=== PATIENT | male | born 1945 | race Caucasian/White ===

== ENCOUNTER 2022-10-29 10:59 | Outpatient (CLI) | payer MEDICARE, BC, SELFPAY ==
--- OUTSIDE RECORDS SUMMARY | 2022-10-31 16:18 | XMS_ITS | Encounter Summary ---
:1945 Author Organization [facility] Address [address] [place] [address] Support Name Relationship Address Phone MELISSA CANO Unavailable [address] [place] [address] MELISSA CANO Unavailable [address] [place] [address] Insurance Providers: All historical and current Section Date Range: From patient's date of to the date document was created.This section includes the names of all active insurance providers for the patient. Insurance Type of Plan Start of End of Group Member [facility] Coverage Name Policy Policy Number ID Provider's Ruiz's Relationship Coverage Coverage Telephone Name to Policy Number Ruiz [place] MEDICARE MCR Nov 25, [id number] DO RACHAEL Rhonda [facility] (WNR) 2016 3 [id number] [phone] [id number] 1 Selected Encounter This section includes the information on record at [place] for the Encounter. Date/Time Encounter Type Encounter Description Reason Provider Source Aug 06, 2022 12:00 Outpatient Encounter EVENT (HISTORICAL) AM IHE Encounter Template Text not used by [place] Social History: Smoking Status (Most current) and Tobacco Use (All prior to encounter date) This section includes the most current, and the historical, smoking and tobacco-related health factors from the [facility] facility where the Encounter took place.Current Smoking Status This section includes the most current smoking, or tobacco-related health factor, from the [place] facility where the Encounter took place. Date/Time Current Smoking Status Comment Facility April 12, 2014 12:27 PM FORMER TOBACCO USER 7Y OR GREATER [facility] Advance Directives: All historical and current Section Date Range: From patient's date of to the date document was created. This section includes ALL of a patient's completed or amended [place] Advance and Rescinded Directives. The entries below indicate that a directive exists for the patient, but an actual copy is not included with this document. The data comes from all [place] facilities. Date Advance Directives Provider Source March 27, 2016 ADVANCE DIRECTIVE DISCUSSION EZEKIEL TAVERAS March 27, 2016 ADVANCE DIRECTIVE EZEKIEL TAVERAS CB [facility]
--- OUTSIDE RECORDS SUMMARY | 2022-10-31 16:18 | XMS_ITS | Encounter Summary ---
:1945 Author Organization [facility] Address [address] [place] [address] Care Team Providers Name Role Phone Agnieszka Reyes MD Primary Care Provider Encounter Details Date Type Department Care Team Description 08/01/2022 Lab Visit [facility] Contact with and [address] Beny Johnson (suspected) [place] [address] covid-19 Social History Tobacco Use Types Packs/Day Years Used Date Smoking Tobacco: Former Cigarettes Quit : 04/09/2003 Smokeless Tobacco: Never Alcohol Use Standard Drinks/Week Comments Not Currently 0 (1 standard drink = 0.6 oz pure alcoho l) Sex Assigned at Date Recorded Not on file documented as of this encounter Plan of Treatment Not on filedocumented as of this encounter Procedures Procedure Name Priority Date/Time Associated Comments Diagnosis 2019 NOVEL Routine 08/01/2022 9:59 AM Contact with and Resul ts for this CORONAVIRUS CDT (suspected) procedure are i n exposure to the results covid-19 section. documented in this encounter Results Asymptomatic - 2019 Novel Coronavirus (COVID-19) (08/01/2022 9:59 AM CDT) [facility] Method Time Signature COVID-19 Not Not 08/02/2022 [facility] Interpretation Detected Detected 12:30 AM CENTRAL LAB CDT Source Nares, left 08/02/2022 [facility] and right 12:30 AM C[facility]TRAL LAB CDT Specimen Anatomical Collection Method Collection Time Receive d Time (Source) Location / / Volume Laterality Swab (Source Non-blood 08/01/2022 9:59 AM 09/07/202 2 9:59 Required) Collection / CDT AM CDT Unknown Narrative [facility] - 08/02/2022 12:30 AM CDT Test performed by Coin Box Inspector Mediated Amplification. TMA has been shown to be equivalent to commercial real-time PCR t ests. This test has been authorized by the FDA under Emergency Use Authorization (E UA) for use by authorized laboratories. Agnieszka Reyes MD LAB_1 Performing Organization Address City/State/ZIP Code Phon e Number [facility] [address] [address] documented in this encounter Visit Diagnoses Diagnosis Contact with and (suspected) exposure to covid-19 documented in this encounter Care Teams Cabin Service Agent Relationship Specialty Start Date End Date Agnieszka Reyes MD PCP - General Internal Medicine 09/03/[address] [place] [address] documented as of this encounter
--- OUTSIDE RECORDS SUMMARY | 2022-10-31 16:18 | XMS_ITS | Encounter Summary ---
:1945 Author Organization [facility] Address [address] [place] [address] Care Team Providers Name Role Phone Agnieszka Reyes MD Primary Care Provider Reason for Visit Reason Comments Follow-up Encounter Details Date Type Department Care Team Description 08/03/2022 Office Visit [facility] Annamarie Hannon Modera te persistent 3931 Pulmonary asthma without Medicine [address] complication (Primary [address] [place]x) [place] [phone] (Wo rk) Social History Tobacco Use Types Packs/Day Years Used Date Smoking Tobacco: Former Cigarettes Quit : 04/09/2003 Smokeless Tobacco: Never Alcohol Use Standard Drinks/Week Comments Not Currently 0 (1 standard drink = 0.6 oz pure alcoho l) Sex Assigned at Date Recorded Not on file documented as of this encounter Last Filed Vital Signs Vital Sign Reading Time Taken Comments Blood Pressure - - Pulse 66 08/03/2022 1:18 PM CDT Temperature - - Respiratory Rate - - Oxygen Saturation 97% 08/03/2022 1:18 PM CDT Inhaled Oxygen Concentration - - Weight 73.9 kg (163 lb) 08/03/2022 1:18 PM CDT Height 182.9 cm (6') 08/03/2022 1:18 PM CDT Body Mass Index 22.11 08/03/2022 1:18 PM CDT documented in this encounter Patient Instructions Patient InstructionsAnnamarie Hannon MD - 08/03/2022 1:00 PM CDT 1. Advair wixela 500/50 1 puff 2x day. Sent to [facility] 2. Get flu vaccine in the next month 3. Follow up 1 year with breathing test documented in this encounter Progress Notes Annamarie Hannon MD - 08/03/2022 1:00 PM CDT Chief Complaint Patient presents with Follow-up SUBJECTIVE : The patient is a 77 y.o. male who presents today for follow up moderate copd/asthma. He was last seen in May 2021 and at that time he was stable from a respiratory standpoint and was using high dose advair. He gets his medications through the [place]. he has had no intercurrent respiratory illnesses. Froma lung standpoint he thinks he is doing well. He is up-to-date on vaccinations and will be getting evusheld in the next 2 weeks. 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 He is being followed at the [facility] for his kidney issues andCLL. He was started on acalabrutinib in March 2021 for his CLL and this seems to be working clinically. He underwent extensive evaluation at the [facility] including chest abdomen and pelvis CT scan andthis showed significant increase in his mediastinal adenopathy which was felt to be consistent with his CLL. He denies any fevers chills or chest pains at this time. He also had a prostate biopsy and this was negative. His weight has stabilized and his strength is back to normal. Patient Active Problem List Diagnosis COPD (chronic obstructive pulmonary disease) (HRC) Allergic rhinitis Tubular adenoma of colon Hyperlipidemia (HRC) Albrecht's neuroma of left foot H/O umbilical hernia repair H/O inguinal hernia repair Seasonal allergies GERD (gastroesophageal reflux disease) Asthma (HRC) Outpatient Medications Prior to Visit Medication Sig Note Acalabrutinib 100 MG CAPS Take 100 mg by mouth every 12 hours. cholecalciferol (AKA VITAMIN D3) 1000 UNITS capsule Take by mouth. cyanocobalamin 500 MCG tablet Take 1,000 mcg by mouth Daily. 09/03/2016: Pt takes B-12 fluocinonide (LIDEX) 0.05 % cream Apply topically two times a day. fluticasone (FLONASE) 50 MCG/ACT nasal solution Place 2 Sprays into both nostrils daily. Multiple Vitamins-Minerals (MULTIVITAMIN OR) Take 1 tablet by mouth daily (every 24 hours). simvastatin (ZOCOR) 80 MG tablet Take 0.5 Tablets by mouth daily at bedtime. [DISCONTINUED] ALBUterol sulfate HFA 108 (90 BASE) MCG/ACT inhaler Inhale 2 Puffs every 6 hours as needed for Wheezing (Inhale 2 puffs every 6 hours as needed for Wheezing.). [DISCONTINUED] amLODIPine (NORVASC) 5 MG tablet Take 5 mg by mouth daily. [DISCONTINUED] aspirin EC 81 MG enteric coated tablet Take 81 mg by mouth daily (every 24 hours). (Patient not taking: Reported on 08/03/2022) [DISCONTINUED] calcium carbonate (TUMS) 500 MG chewable tablet Take 1 Tablet by mouth two times a day. (Patient not taking: Reported on 08/03/2022) [DISCONTINUED] cefuroxime (CEFTIN) 500 MG tablet Take 500 mg by mouth two times a day. [DISCONTINUED] COMBIGAN 0.2-0.5 % eye drop solution (Patient not taking: Reported on 08/03/2022) [DISCONTINUED] fluticasone-salmeterol (ADVAIR HFA) 230-21 mcg/actuation inhaler Inhale 2 Puffs two times a day. Rinse mouth/gargle after use [DISCONTINUED] fluticasone-salmeterol (AIRDUO RESPICLICK) 232-14 MCG/ACT inhaler Inhale 1 Puff two times a day. Rinse mouth/gargle after use. [DISCONTINUED] levothyroxine (SYNTHROID) 175 MCG tablet Take 175 mcg by mouth. [DISCONTINUED] levothyroxine (SYNTHROID) 25 MCG tablet Take 5 Tablets by mouth daily. [DISCONTINUED] lisinopril (ZESTRIL) 5 MG tablet Take 5 mg by mouth daily. 08/03/2022: Patient is taking differently as 10mg correct dose PO daily. [DISCONTINUED] NIFEdipine XL (PROCARDIA XL) 30 MG 24 hour release tablet (Patient not taking: Reported on 08/03/2022) [DISCONTINUED] prochlorperazine (COMPAZINE) 10 MG tablet [DISCONTINUED] tacrolimus (PROGRAF) 0.5 MG capsule Take 1 Capsule by mouth daily. [DISCONTINUED] tamsulosin (FLOMAX) 0.4 MG CAPS capsule Take 0.4 mg by mouth daily. (Patient not taking: Reported on 08/03/2022) [DISCONTINUED] torsemide (DEMADEX) 20 MG tablet Take 1 Tablet by mouth two times a day. No facility-administered medications prior to visit. OBJECTIVE : Gen.: Alert, cooperative in no acute distress. Pulse 66 Ht 6' (1.829 m) Wt 163 lb (73.9 kg) SpO2 97% BMI 22.11 kg/m?? Estimated body mass index is 22.11 kg/m?? as calculated from the following: Height as of this encounter: 6' (1.829 m). Weight as of this encounter: 163 lb (73.9 kg). Head: Normocephalic. Eyes: PERRLA, full EOM Throat: Moist mucous membranes without lesions, erythema, or exudate. Neck: Supple, without masses, lymphadenopathy or tenderness. Respiratory: Clear to auscultation Heart: RRR with 2/6 systolic murmur Abdomen: The abdomen was soft and nontender, normal sounds present. Extremities: rash on skin raised erythema on back arms and legs. Also petechial lesions on legs, pitting edema arms and legs Neurologic: Alert, oriented x3, nonfocal. PFT: FVC 113 %, FEV1 79 %, FEV1/FVC 55 ASSESSMENT : The patient is a 77 y.o. male with underlying CLL with membranous glomerular nephritis,also with moderate persistent asthma/COPD who is clinically stable from a lung standpoint. Pulmonaryfunction test show almost normal FEV1. He will simply continue with his generic Advair. He will get his flu vaccine next month as well. He will continue to follow up on an annual basis. PLAN : 1. Advair wixela 500/50 1 puff 2x day. Sent to [facility] 2. Get flu vaccine in the next month 3. Follow up 1 year with breathing test copy Dr Dixon Dangelo [facility] [address] [place] [address] Dr. Christofer Roy [facility] Department of nephrology documented in this encounter Plan of Treatment Scheduled Orders Name Type Priority Associated Diagnoses Order S chedule Spirometry PFT Routine Moderate persistent asthma 1 Occurrences starting without complication 022 until 08/03/2023 documented as of this encounter Visit Diagnoses Diagnosis Moderate persistent asthma without compl ication (HRC) - Primary Unspecified asthma documented in this encounter Care Teams Stacker Driver Relationship Specialty Start Date End Date Agnieszka Reyes MD PCP - General Internal Medicine 09/[address] [place] [address] documented as of this encounter
--- OUTSIDE RECORDS SUMMARY | 2022-10-31 16:18 | XMS_ITS | Clinical Summary ---
:1945 [facility] Address [address], [place] [address] Care Team Providers Name Role Phone Agnieszka Reyes MD Primary Care Provider Source Comments You are receiving this document as you are listed as the primary care provider,follow-up provider, or the patient has been referred to you for consultation.This is in compliance with the Medicare and Medicaid EHR Incentive Program,which states Providers who transition their patient to another setting of careor provider of care or refers their patient to another provider of care shouldprovide summarycare record for each transition of care or referral. [facility]Health Allergies Active Allergy Reactions Severity Noted Date Comments Desflurane Low 03/02/2014 PN: mild, thra shing after coming out of i t Rituximab Other, see comments High 06/29/2020 terrible headaches, eye socket issues, went to ER Medications Medication Sig Dispensed Refills Start Date End Date Status cholecalciferol (AKA Take by mouth. 0 10/30/2013 Active VITAMIN D3) 1000 UNITS capsule Multiple Take 1 tablet by 0 10/30/2013 Ac tive Vitamins-Minerals mouth daily (MULTIVITAMIN OR) (every 24 hours). cyanocobalamin 500 MCG Take 1,000 mcg 0 10/30/2013 Active tablet by mouth Daily. fluocinonide (LIDEX) Apply topically 30 g 3 03/11/2017 Active 0.05 % cream two times a day. fluticasone (FLONASE) Place 2 Sprays 16 g 11 03/06/2018 Active 50 MCG/ACT nasal into both solution nostrils daily. simvastatin (ZOCOR) 80 Take 0.5 Tablets 30 Tablet 0 02/27/2019 Active MG tablet by mouth daily at bedtime. Acalabrutinib 100 MG Take 100 mg by 0 03/28/2022 Active CAPS mouth every 12 hours. fluticasone-salmeterol Inhale 2 Puffs 12 g 11 08/03/2022 Active (ADVAIR HFA) 230-21 two times a day. mcg/actuation inhaler Rinse mouth/gargle after use fluticasone-salmeterol Inhale 1 Puff 3 Each 3 08/03/2022 Active (ADVAIR) 500-50 two times a day. MCG/ACT diskus inhaler Rinse mouth/gargle after use ALBUterol sulfate HFA Inhale 2 Puffs 1 Each 11 08/03/2022 Active 108 (90 Base) MCG/ACT every 6 hours as inhaler needed for Wheezing (Inhale 2 puffs every 6 hours as needed for Wheezing.). Active Problems Problem Noted Date Asthma 07/23/2014 Overview: Unspecified asthma(493.90) (HRC) GERD (gastroesophageal reflux disease) 04/09/2014 COPD (chronic obstructive pulmonary disease) 4 Allergic rhinitis 04/07/2014 Overview: Allergic rhinitis, cause unspecified Tubular adenoma of colon 04/07/2014 Hyperlipidemia 04/07/2014 Albrecht's neuroma of left foot 04/07/2014 H/O umbilical hernia repair 04/07/2014 H/O inguinal hernia repair 04/07/2014 Seasonal allergies 04/07/2014 Encounters Date Type Specialty Care Team Description 08/03/2022 Office Visit Pulmonary Annamarie Hannon Moderate p ersistent asthma without complic ation (Primary Dx) 08/03/2022 Hospital Encounter Pulmonary Chronic o bstructive pulmonary disea se, unspecified DIRECTOR OF BUSINESS CONTINUITY D type (HRC) 08/01/2022 Lab Visit Laboratory Contact with an d (suspected) exp osure to covid-19 from Last 3 Months Immunizations Name Administration Dates Next Due Influenza IIV3 (Trivalent) Fluzone 09/03/2016, 08/31/2015, 0 07/23/2014 Highdose, 65+ Yrs ([id number]) Influenza IIV4 (Quadrivalent) Fluad, 65+ 09/07/2020 Yrs Family History Medical History Relation Name Comments Cancer Father colon Emphysema Mother Heart Failure Mother Relation Name Status Comments Father Mother Social History Tobacco Use Types Packs/Day Years Used Date Smoking Tobacco: Former Cigarettes Quit : 04/09/2003 Smokeless Tobacco: Never Alcohol Use Standard Drinks/Week Comments Not Currently 0 (1 standard drink = 0.6 oz pure alcoho l) Sex Assigned at Date Recorded Not on file Last Filed Vital Signs Vital Sign Reading Time Taken Comments Blood Pressure 122/72 09/07/2020 11:24 AM CDT Pulse 66 08/03/2022 1:18 PM CDT Temperature - - Respiratory Rate - - Oxygen Saturation 97% 08/03/2022 1:18 PM CDT Inhaled Oxygen Concentration - - Weight 73.9 kg (163 lb) 08/03/2022 1:18 PM CDT Height 182.9 cm (6') 08/03/2022 1:18 PM CDT Body Mass Index 22.11 08/03/2022 1:18 PM CDT Plan of Treatment Health Maintenance Due Date Last Done Comments Hep C Screening (Preventive 1945 Services) Medicare Annual Wellness 1945 Visit COVID-19 Vaccine (#1) 1945 Influenza (#1) 2022 09/11/2021, 09/11/2021, 09/07/2020, Additional history exists DTaP/Tdap/Td (3 - Tdap) 05/03/2025 05/03/2015, 06/25/2014, 02/17/2004 Pneumococcal 65+ Yrs Completed 05/03/2015, 05/15/2011, 11/25/2010, Additional history exists Zoster/Shingles Completed 01/04/2022, 08/08/2021, 10/09/2011, Additional history exists HepA Aged Out No longer eligib le based on patient 's age to complete this topic HepB Aged Out No longer eligib le based on patient 's age to complete this topic Hib Aged Out No longer eligib le based on patient 's age to complete this topic IPV (Polio) Aged Out No longer eligib le based on patient 's age to complete this topic MCV4 Aged Out No longer eligib le based on patient 's age to complete this topic Procedures Procedure Name Priority Date/Time Associated Comments Diagnosis COMPLETE PULMONARY Routine 08/03/2022 12:14 FUNCTION TEST PM CDT 2019 NOVEL Routine 08/01/2022 9:59 AM Contact with and Resul ts for this CORONAVIRUS CDT (suspected) procedure are i n exposure to the results covid-19 section. from Last 3 Months Results Pulmonary Function Test - Complete (08/03/2022 12:14 PM CDT) Specimen (Source) Anatomical Collection Method Collection Time Re ceived Time Location / / Volume Laterality 08/03/2022 12:14 PM CDT Annamarie Hannon MD PN PFT ORDERABLES Performing Organization Address City/State/ZIP Code Phon e Number PN BREEZJorge Luis Asymptomatic - 2019 Novel Coronavirus (COVID-19) (08/01/2022 9:59 AM CDT) [facility] Method Time Signature COVID-19 Not Not 08/02/2022 [facility] Interpretation Detected Detected 12:30 AM [facility]AL LAB CDT Source Nares, left [facility]02[facility]2022 [facility] and right 12:30 AM [facility] CDT Specimen Anatomical Collection Method Collection Time Receive d Time (Source) Location / / Volume Laterality Swab (Source Non-blood 08/01/2022 9:59 AM 9:59 Required) Collection / CDT AM CDT Unknown Narrative [facility] - 08/02/2022 12:30 AM CDT Test performed by Obstetrician/Gynecologist Mediated Amplification. TMA has been shown to be equivalent to commercial real-time PCR t ests. This test has been authorized by the FDA under Emergency Use Authorization (E UA) for use by authorized laboratories. Agnieszka Reyes MD LAB_1 Performing Organization Address City/State/ZIP Code Phon e Number [facility] [address] [address] from Last 3 Months Insurance Payer Benefit Plan / Subscriber ID Effective Dates Phone Addre ss Type Group MEDICARE MEDICARE [id number] 2013-Presen [phone] M edicare MANAGED CARE t 65 BCBS BCBS BCBS [place] [id number] 2016-[place]ude [place] [phone] [address] [address] Medicare BLUE t [address] [place] [phone] (Home) [place] [id number] Shon Dunlap Patsy Personal/Family Self [address] (Home) [place] [address] DunlapShon Patsy Personal/Family Self [address] (Home) [place] [address] Care Teams Manager Architecture Relationship Specialty Start Date End Date Agnieszka Reyes MD PCP - General Internal Medicine 09/03/16[address] [place] [address]
--- OUTSIDE RECORDS SUMMARY | 2022-10-31 16:18 | XMS_ITS ---
:1945 Author Care Team Providers Name Role Phone LADI AREVALO MD Primary Care Provider [phone] Allergies Code Code System Name Reaction Severity Status Onset NKDA ? Medications Name Status Start Date Stop Date ? ? acalabrutinib 100 mg capsule Active ? Not available Take 1 capsule twice a day by oral route. Advair HFA 230 mcg-21 mcg/actuation aerosol inhaler Completed ? 01/15/2022 INHALE TWO PUFFS BY MOUTH TWICE DAILY. RINSE MOUTH / GARGLE WTITH WATER AFTER EACH USE. albuterol sulf 90 mcg/actuation breath activated powder inhaler, sensor Active ? Not available Inhale 2 puffs every 4 hours by inhalation route. Allergy Relief (fluticasone) 50 mcg/actuation nasal spray,suspen aleida Active ? Not available [place] 1 spray every day by intranasal route. cefuroxime axetil 500 mg tablet Completed ? 01/15/2022 TAKE 1 TABLET BY MOUTH TWICE DAILY cephalexin 500 mg capsule Active ? Not av ailable TAKE 1 CAPSULE BY MOUTH EVERY 8 HOURS cholecalciferol (vit D3) 1,000 unit-vitamin K2 (MK4) 100 mcg tab let Active ? Not available Take by oral route. cyanocobalamin (vit B-12) 1,000 mcg sublingual lozenge Active ? Not available Place by sublingual route. fluocinonide 0.05 % topical cream Active ? Not available APPLY TO THE AFFECTED AREA(S) BY TOPICAL ROUTE 2 TIMES PER DAY levothyroxine 125 mcg tablet Completed ? levothyroxine 150 mcg tablet Completed ? levothyroxine 175 mcg tablet Completed ? levothyroxine 25 mcg tablet Completed ? 12/27 levothyroxine 50 mcg tablet Active ? Not available levothyroxine 75 mcg tablet Completed ? 0611/2021 lisinopril 10 mg tablet Active ? Not avai lable lisinopril 20 mg tablet Completed ? 01/15/20 metolazone 5 mg tablet Completed ? multivitamin Active ? Not available nifedipine ER 30 mg tablet,extended release 24 hr Completed ? 01/15/2022 potassium chloride ER 20 mEq tablet,extended release Completed ? 01/15/2022 prochlorperazine maleate 10 mg tablet Completed ? 01/15/2022 simvastatin 80 mg tablet Active ? Not mckay ilable Take by oral route. tamsulosin 0.4 mg capsule Completed ? 2021 TAKE 1 CAPSULE BY MOUTH DAILY Wixela Inhub Active ? Not available Problems No Known Problems Procedures Date Name Performed by ? ? Appendectomy Information not avai lable Results Lab Results Date Name Specimen Result Interpretation Description Value Range Status Address ? 04/25/2022 Urinalysis, ? Color-Status Yellow ? ? [facility]: [address], [place] ? ? ? Clarity-Status Slightly ? ? [facility]: [address], [place] ? ? ? Blood-Status Trace ? ? [facility]: [address], [place] ? ? ? Protein-Status >=9.0 ? ? [facility]: [address], [place] ? ? ? Leuko-Status Moderate ? ? [facility]: [address], [place] ? ? ? pH-Status 5.0 ? ? [facility]: [address], [place] 04/17/2022 PSA, Serum or ? No observation ? ? ? Plasma recorded. 02/08/2022 PSA, Serum or ? No observation ? ? ? Plasma recorded. 02/03/2022 PSA, Serum or ? No observation ? ? ? Plasma recorded. 12/14/2021 PSA, Serum or ? No observation ? ? ? Plasma recorded. Past Encounters Encounter Date Diagnosis Provider 04/25/2022 Raised Prostate Specific Antigen; Janette Almanzar MD: [address], [address], [place] [phone], Ph. 02/12/2022 Raised Prostate Specific Antigen Kennedy Almanzar MD: [address], [address], [place] [phone], Ph. 01/15/2022 Raised Prostate Specific Antigen; Janette Almanzar MD: [address], Benign Prostatic Hypertrophy [place] [phone], Ph. Social History Tobacco Smoking Status Former Smoker Vaccine List Vaccine Type COVID-19, mRNA, LNP-S, PF, 30 mcg/0.3 mL dose ([place]) 02/28/2021 03/21/2021 07/21/2021 Influenza vaccine, quadrivalent, adjuvan colin 09/07/2020 influenza, high dose seasonal 07/23/2014 08/31/2015 09/03/2016 08/09/2017 08/28/2018 09/03/2019 influenza, high-dose, quadrivalent 09/11/2021 influenza, seasonal, injectable 09/29/2005 10/12/2006 10/11/2008 08/16/2012 influenza, seasonal, injectable, preserv ative free 08/10/2009 08/14/2010 08/17/2011 08/24/2013 pneumococcal conjugate PCV 13 05/03/2015 pneumococcal polysaccharide PPV23 09/20/2010 05/15/2011 Td (adult), adsorbed 02/17/2004 Tdap 05/03/2015 zoster live 10/09/2011 zoster recombinant 08/08/2021 01/04/2022 Plan of Care Reminders Provider Appointments None recorded. ? ? Lab None recorded. ? ? Referral None recorded. ? ? Procedures None recorded. ? ? Surgeries None recorded. ? ? Imaging None recorded. ? ? Vitals 04/25/2022 08:00AM ESTABLISHED 10 Height Weight BMI 6 ft 155 lbs 21 kg/m2 02/12/2022 08:50AM ESTABLISHED 10 Height Weight BMI 6 ft 155 lbs 21 kg/m2 01/15/2022 08:40AM ESTABLISHED 10 Height Weight BMI 6 ft 155 lbs 21 kg/m2
--- OUTSIDE RECORDS SUMMARY | 2022-10-31 16:18 | XMS_ITS | Encounter Summary ---
:1945 Author Organization Department [facility] rs Address [address] [place] [address] Support Name Relationship Address Phone MELISSA CANO Unavailable [address] [place] [address] MELISSA CANO Unavailable [address] [place] [address] Insurance Providers: All historical and current Section Date Range: From patient's date of to the date document was created.This section includes the names of all active insurance providers for the patient. Insurance Type of Plan Start of End of Group Member Insurance Policy P atient's Provider Coverage Name Policy Policy Number ID Provider's Ruiz's Relationship Coverage Coverage Telephone Name to Policy Number Ruiz [place] MEDICARE MCR Nov 25, [id number] DO RACHAEL Rhonda ATIENT [facility] (WNR) ADVANTAGE (WNR) 2016 3 [id number] [phone] UGLAS 1 Selected Encounter This section includes the information on record at [place] for the Encounter. Date/Time Encounter Type Encounter Reason Provider Source Description Aug 06, 2022 OFFICE O/P EST PRIMARY ICD-10-CM Z00.8 IZABELBALJEET 08:00 AM MOD 30-39 MIN CARE/MEDICINE Encounter for CA L other general examination with Provider Comments: Encounter for other General Examination IHE Encounter Template Text not used by [facility] Assessments - Encounter Diagnoses This section includes the primary and secondary diagnoses documented for the Encounter. Date/Time Primary/Secondary Diagnosis Name Provider Source Diagnosis Aug 06, 2022 PRIMARY Encounter for IZABELBALJEET [facility] 09:01 AM other general CA L examination Aug 06, 2022 SECONDARY Benign prostatic BALJEET PAIZ [facility] 09:01 AM hyperplasia with CA L lower urinary tract symp Aug 06, 2022 SECONDARY Chronic IZABEL,REBEC [facility] 09:01 AM lymphocytic CA L leukemia of B-cell type in remission Aug 06, 2022 SECONDARY Chronic BALJEET PAIZ [facility] 09:01 AM obstructive CA L pulmonary disease, unspecified Aug 06, 2022 SECONDARY Hypothyroidism, BALJEET PAIZ C [facility] 09:01 AM unspecified CA L Vital Signs: All taken on the encounter date This section contains inpatient and outpatient Vital Signs collected on the date of the Encounter. Date/Time Temperature Pulse Blood Respiratory SP02 Pain Height Weight Dawit dy Source Pressure Rate Mass Index Aug 06, 136/76 SHAKOPE 2021 08:39 mm[Hg] E [facility] AM Aug 06, 96.6 F 76 137/77 16 /min 98 % 0 72 in 170 lb 23 2021 08:22 /min mm[Hg] E [facility] AM Social History: Smoking Status (Most current) and Tobacco Use (All prior to encounter date) This section includes the most current, and the historical, smoking and tobacco-related health factors from the [place] facility where the Encounter took place.Current Smoking Status This section includes the most current smoking, or tobacco-related health factor, from the [place] facility where the Encounter took place. Date/Time Current Smoking Status Comment Facility Aug 06, 2022 08:00 AM VA-TOBACCO FORMER USER [facility] Tobacco Use History This section includes a history of the smoking, or tobacco- related health factors, that were collected on or before the date of the Encounter. The data comes from the [place] facility where the Encounter took place. Date/Time Smoking Status/Tobacco Use Comment Fe [place] Aug 06, 2022 08:00 AM VA-TOBACCO QUIT 15 YRS OR MORE [facility] Jun 14, 2021 08:30 AM VA-TOBACCO FORMER USER [facility] Jun 14, 2021 08:30 AM VA-TOBACCO QUIT 15 YRS OR MORE [facility] April 13, 2020 10:29 AM VA-TOBACCO FORMER USER [facility] April 13, 2020 10:29 AM VA-TOBACCO QUIT 15 YRS OR MORE [facility] Dec 19, 2018 10:53 AM VA-TOBACCO FORMER USER [facility] Dec 19, 2018 10:53 AM VA-TOBACCO QUIT 15 YRS OR MORE [facility] Jan 30, 2018 08:52 AM FORMER TOBACCO USER 7Y OR GREATER [facility] Mar 18, 2017 08:01 AM FORMER TOBACCO USER 7Y OR GREATER [facility] Mar 16, 2016 04:12 AM FORMER TOBACCO USER 7Y OR GREATER [facility] Feb 21, 2015 01:12 PM FORMER TOBACCO USER 7Y OR GREATER [facility] Advance Directives: All historical and current Section Date Range: From patient's date of to the date document was created. This section includes ALL of a patient's completed or amended VA Advance and Rescinded Directives. The entries below indicate that a directive exists for the patient, but an actual copy is not included with this document. The data comes from all [place] facilities. Date Advance Directives Provider Source March 27, 2016 ADVANCE DIRECTIVE DISCUSSION EZEKIEL TAVERAS March 27, 2016 ADVANCE DIRECTIVE EZEKIEL TAVERAS [facility] Encounter Notes: All associated encounter notes This section contains the clinical notes associated to the Encounter. Date/Time Encounter Note(s) Provider Source Aug 06, 2022 09:02 AM MEDICATION MGT NOTE: REDDY PAIZ LUCY [facility] LOCAL TITLE: MEDICATION RECONCILIATION NOTE STANDARD TITLE: MEDICATION MGT NOTE DATE OF NOTE: AUG 06, 2022@09:02 ENTRY DATE: AUG 06, 2022@09:02:16 AUTHOR: REDDY PAIZ EXP COSIGNER: URGENCY: STATUS: COMPLETED MEDICATION RECONCILIATION Active Outpatient Medications (excluding Supplie s): Outpatient Medications Status 1) ALBUTEROL 90MCG (CFC-F) 200D ORAL INHL INHALE 2 PUFFS PENDING BY INHALATION EVERY 6 HRS NEEDED SHAKE WELL (FOR IMMEDIATE RELIEF). FOR SHORTNESS O F BREATH 2) FLUOCINONIDE 0.05% CREAM APPLY THIN LAYER TOP ICALLY PENDING TWICE A DAY AVOID FACE,GROIN & ARMPITS *FOR EXTERNAL USE ONLY 3) FLUTICAS 500/SALMETEROL 50 INHL DISK 60 INHAL E 1 PUFF ACTIVE TWICE A DAY *RINSE MOUTH AFTER EACH USE* 4) FLUTICAS 500/SALMETEROL 50 INHL DISK 60 INHAL E 1 PUFF PENDING TWICE A DAY *RINSE MOUTH AFTER EACH USE* 5) SIMVASTATIN 80MG TAB TAKE ONE-HALF TABLET BY MOUTH AT PENDING BEDTIME FOR CHOLESTEROL Non-VA Medications Status 1) Non-VA ACALABRUTINIB 100MG CAP 100MG MOUTH EV BLESSING DAY ACTIVE 2) Non-VA ASPIRIN 81MG EC TAB 81MG MOUTH DAILY A CTIVE 3) Non-VA CALCIUM CARBONATE 500MG TAB 500MG MOUT H EVERY ACTIVE DAY 4) Non-VA CENTRUM TAB--OTC 1 TABLET MOUTH ACTIVE 5) Non-VA CHOLECALCIF 25MCG (D3-1,000UNIT) TAB 1 000UNIT ACTIVE MOUTH DAILY 6) Non-VA CYANOCOBALAMIN 100MCG TAB 500MCG MOUTH ACTIVE 7) Non-VA FLUTICASONE PROP 50MCG 120D NASAL INHL 2 ACTIVE SPRAYS ONE NOSTRIL EVERY DAY 8) Non-VA LEVOTHYROXINE NA (SYNTHROID) 175MCG TA B 175MCG ACTIVE MOUTH EVERY DAY 9) Non-VA LISINOPRIL TAB 50MCG MOUTH EVERY DAY A CTIVE 14 Total Medications Medications listed above are accurate and should continue as ordered. /edith/ REDDY PAIZ PHYSICIAN Signed: 08/06/2022 09:02 Aug 06, 2022 08:43 AM H & P NOTE: REDDY PAIZ LOCAL TITLE: CBOC ANNUAL VISIT STANDARD TITLE: H & P NOTE DATE OF NOTE: AUG 06, 2022@08:43 ENTRY DATE: AUG 06, 2022@08:43:29 AUTHOR: REDDY PAIZ EXP COSIGNER: URGENCY: STATUS: COMPLETED Annual visit Non VA Providers:Roro Reddy [facility] gurinder Poole Chief complaint: Patient is here for a routine a nnual visit. HPI:Leonarda get al [place]. Currently he is being treated for CLL at [facility] due to kidney complications whic h are now under control. He also was sen for increased psa but biopsy was no rmal. Otherwise he feels god. Assessment/Plan: 1. Labs review labs from [facility] has draw tomorrow 2. ophtho sees rgularly 3. dentist due 4. Audio bilat aides 1 year old 5. Medications reviewd, renewd Labs and medications reviewed with patient. Discussed plan of care, patient verbaliz ed understanding and agrees with plan. FU in 1 year for annual exam, sooner with any co ncerns. Clinical Reminders: Follow Up Colonoscopy: Colonoscopy is due based on information availab le to this reminder. Patient has arranged or is choosing to arrange a Colonoscopy independent of and w/out assistance from this [place]. Past Medical History: Computerized Problem List is the source for the followin. Chronic obstructive lung disease ACTIVE 2. Hyperlipidemia ACTIVE meds since 2011? 3. Gastroesophageal reflux disease ACTIVE 4. Bilateral inguinal hernia ACTIVE repair with mesh at [facility] approx 2011 ? 5. Appendicitis ACTIVE hx appy - prior ruptured appy 2009 - [facility] 6. Polyp of colon ACTIVE benign polyp - advised repeat in 2016 7. Elevated PSA ACTIVE biopsies June 2014 - benign 8. Allergic rhinitis ACTIVE 9. Skin lesion ACTIVE 10. Hearing loss ACTIVE 11. Leukocytosis ACTIVE lab verified 03/18/2017 [place] [facility] 12. 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 B-cell chronic lymphocytic leukemia ACTIVE 14. 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 NEURO: neg for new motor or sensory complains SKIN: neg for new rash, lesion Physical Exam: Vitals: Blood Pressure: 136/76 (08/06/2022 08:39) Pulse: 76 (08/06/2022 08:22) Pulse Oximetry: 98% (08/06/2022 08:22) Resp: 16 (08/06/2022 08:22) Temp: 96.6 F [35.9 C] (08/06/2022 08:22) Height: 72 in [182.9 cm] (08/06/2022 08:22) Weight: 170 lb [77.11 kg] (08/06/2022 08:22) BMI:23.1 GENERAL:well developed, well nourished pt in nad . EYES:PERRLA,EOMI, conjuntiva clear, no discharge , wears glasses. EARS:canals clear, TMs intact, bilat aides NECK: supple, no obvious thyromegaly HEART:Regular rate and rhythm , no obvious murmu rs/rubs RESPIRATORY: Lungs clear to auscultation b/l, no rales or wheezes. ABDOMEN:soft, nontender, nondistended, no organo megaly, normal bs. MSK:normal gait, moves all extremities, no joint s swelling, rom normal. NEURO:alert and oriented, cranial nerves II-XII intact, speech clear, strength equal b/l, normal gait and movement, PSYCH: normal affect, well groomed SKIN:warm adn dry, normal color, no rash or susp icious lesions EXT: no cyanosis, no edema lower ext b/l Allergies: DESFLURANE (April 12, 2014) SLT - Lab Tests Selected No data available for: REGIONAL ALLERGY PROFILE Medications: Active Outpatient Medications (excluding Supplie s): Outpatient Medications Status 1) ALBUTEROL 90MCG (CFC-F) 200D ORAL INHL INHALE 2 PUFFS PENDING BY INHALATION EVERY 6 HRS NEEDED SHAKE WELL (FOR IMMEDIATE RELIEF). FOR SHORTNESS O F BREATH 2) FLUOCINONIDE 0.05% CREAM APPLY THIN LAYER TOP ICALLY PENDING TWICE A DAY AVOID FACE,GROIN & ARMPITS *FOR EXTERNAL USE ONLY 3) FLUTICAS 500/SALMETEROL 50 INHL DISK 60 INHAL E 1 PUFF ACTIVE TWICE A DAY *RINSE MOUTH AFTER EACH USE* 4) FLUTICAS 500/SALMETEROL 50 INHL DISK 60 INHAL E 1 PUFF PENDING TWICE A DAY *RINSE MOUTH AFTER EACH USE* 5) SIMVASTATIN 80MG TAB TAKE ONE-HALF TABLET BY MOUTH AT PENDING BEDTIME FOR CHOLESTEROL Non-VA Medications Status 1) Non-VA ACALABRUTINIB 100MG CAP 100MG MOUTH EV BLESSING DAY ACTIVE 2) Non-VA ASPIRIN 81MG EC TAB 81MG MOUTH DAILY A CTIVE 3) Non-VA CALCIUM CARBONATE 500MG TAB 500MG MOUT H EVERY ACTIVE DAY 4) Non-VA CENTRUM TAB--OTC 1 TABLET MOUTH ACTIVE 5) Non-VA CHOLECALCIF 25MCG (D3-1,000UNIT) TAB 1 000UNIT ACTIVE MOUTH DAILY 6) Non-VA CYANOCOBALAMIN 100MCG TAB 500MCG MOUTH ACTIVE 7) Non-VA FLUTICASONE PROP 50MCG 120D NASAL INHL 2 ACTIVE SPRAYS ONE NOSTRIL EVERY DAY 8) Non-VA LEVOTHYROXINE NA (SYNTHROID) 175MCG TA B 175MCG ACTIVE MOUTH EVERY DAY 9) Non-VA LISINOPRIL TAB 50MCG MOUTH EVERY DAY A CTIVE 10) Non-VA METOLAZONE 2.5MG TAB 5MG MOUTH EVERY DAY ACTIVE 11) Non-VA TAMSULOSIN HCL 0.4MG CAP 0.4MG MOUTH EVERY DAY ACTIVE 12) Non-VA TORSEMIDE 20MG TAB 20MG MOUTH EVERY D AY ACTIVE 17 Total Medications No Active Remote Medications for this patient Vaccinations: IM - Immunizations Immunization Series Date Facility Reaction Info COVID-19 (PFIZER), MRNA, LNP-S, P* 2 03/21/2021 [place]* 1 02/28/2021 [place]* INFLUENZA, HIGH DOSE SEASONAL 09/03/2019 [facility]* 07/26/2018 [place] 07/26/2017 [facility] [place]* INFLUENZA, SEASONAL, INJECTABLE [place]* INFLUENZA, UNSPECIFIED FORMULATIO* [facility] [place]* PNEUMOCOCCAL CONJUGATE PCV 13 [facility] eld* PNEUMOCOCCAL POLYSACCHARIDE PPV23 [facility]am monika [facility]* PNEUMOCOCCAL, UNSPECIFIED FORMULA* Fa adam Hea* TDAP [place]* ZOSTER LIVE Family [facility]* ZOSTER RECOMBINANT 2 01/04/2022 [employer]* <C> 1 08/08/2021 [place]* <C> <C> See the Detailed Immunizations Health Summar y Component[DIM] for Comments Labs: see results from Aram /edith/ REDDY PAIZ PHYSICIAN Signed: 08/06/2022 09:Aug 06, 2022 08:23 AM PRIMARY CARE NURSING NOTE: NORRIS KARIMI CB LOCAL TITLE: CBOC NURSING PROGRESS NOTE STANDARD TITLE: PRIMARY CARE NURSING NOTE DATE OF NOTE: AUG 06, 2022@08:23 ENTRY DATE: AUG 06, 2022@08:23:19 AUTHOR: NORRIS KARIMI EXP COSIGNER: URGENCY: STATUS: COMPLETED TYPE OF VISIT: Appointment Check In Type of appointment: In-person appointment REASON FOR VISIT: Annual ALLERGIES: DESFLURANE (April 12, 2014) VITAL SIGNS: Blood Pressure: 137/77 (08/06/2022 08:22) Pulse: 76 (08/06/2022 08:22) Respiration: 16 (08/06/2022 08:22) Temperature: 96.6 F [35.9 C] (08/06/2022 08:22) Weight: 170 lb [77.11 kg] (08/06/2022 08:22) Height: 72 in [182.9 cm] (08/06/2022 08:22) BMI: 23.1 O2 Sat: 98% (08/06/2022 08:22) Pain: 0 (08/06/2022 08:22) PAIN SCREEN: Patient is not having significant pain that the y wish to discuss with their provider today. MEDICATION Active Outpatient Medications (including Suppli es): FLUTICAS 500/SALMETEROL 50 INHL DISK 60 INHALE 1 PUFF ACTIVE TWICE A DAY *RINSE MOUTH AFTER EACH USE* Non-VA ACALABRUTINIB 100MG CAP 100MG MOUTH EVER Y DAY ACTIVE Non-VA ASPIRIN 81MG EC TAB 81MG MOUTH DAILY ACT TAYLOR Non-VA CALCIUM CARBONATE 500MG TAB 500MG MOUTH EVERY DAY ACTIVE Non-VA CENTRUM TAB--OTC 1 TABLET MOUTH ACTIVE Non-VA CHOLECALCIF 25MCG (D3-1,000UNIT) TAB 100 0UNIT MOUTH ACTIVE DAILY Non-VA CYANOCOBALAMIN 100MCG TAB 500MCG MOUTH A CTIVE Non-VA FLUTICASONE PROP 50MCG 120D NASAL INHL 2 SPRAYS ONE ACTIVE NOSTRIL EVERY DAY Non-VA LEVOTHYROXINE NA (SYNTHROID) 175MCG TAB 175MCG ACTIVE MOUTH EVERY DAY Non-VA LISINOPRIL TAB 50MCG MOUTH EVERY DAY ACT TAYLOR Non-VA METOLAZONE 2.5MG TAB 5MG MOUTH EVERY DAY ACTIVE Non-VA TAMSULOSIN HCL 0.4MG CAP 0.4MG MOUTH TISH RY DAY ACTIVE Non-VA TORSEMIDE 20MG TAB 20MG MOUTH EVERY DAY ACTIVE Over the Counter/Herbal Medications: The patient states that they take some outside medications and/or herbals. ADV DIR Notification and Screening: ADVANCE DIRECTIVE NOTIFICATION: Patient was given written notification of the f ollowing rights: 1. Accept or refuse any medical treatment. 2. Complete a durable power of deputy commonwealth's attorney for [facility] care. 3. Complete a living will. ADVANCE DIRECTIVE SCREENING: Does patient have an Advance Directive? The patient has an Advance Directive. Does the patient wish to make any changes or re voke their current Advance Directive? No changes requested at this time. Suicide Screen: C-SSRS Screening [place] Suicide Severity Rating Scale (C-SSRS) screener 1. Over the past month, have you wished you wer e or wished you could go to sleep and not wake up? No 2. Over the past month, have you had any actual thoughts of killing yourself? No 3. Over the past month, have you been thinking about how you might do this? Response not required due to responses to other questions. 4. Over the past month, have you had these thou ghts and had some intention of acting on them? Response not required due to responses to other questions. 5. Over the past month, have you started to wor k out or worked out the details of how to kill yourself? Response not required due to responses to other questions. 6. If yes, at any time in the past month did yo u intend to carry out this plan? Response not required due to responses to other questions. 7. In your lifetime, have you ever done anythin g, started to do anything, or prepared to do anything to end you r life (for example, collected pills, obtained a gun, gave away valu [place], went to the roof but didn't jump)? No 8. If YES, was this within the past 3 months? Response not required due to responses to other questions. Depression Screening: Perform PHQ-2 A PHQ-2 screen was performed. The score was 0 w hich is a negative screen for depression. Over the past two weeks, how often have you bee n bothered by the following problems? 1. Little interest or pleasure in doing things Not at all 2. Feeling down, depressed, or hopeless Not at all Alcohol Use Screen (AUDIT-C): Alcohol Screen: SCREEN FOR ALCOHOL (AUDIT-C) An alcohol screening test (AUDIT-C) was negativ e (score=0). 1. How often did you have a drink containing al cohol in the past year? Never 2. How many drinks containing alcohol did you h ave on a typical day when you were drinking in the past year? Response not required due to responses to other questions. 3. How often did you have six or more drinks on one occasion in the past year? Response not required due to responses to other questions. Tobacco Use Screening: The patient is a former tobacco user. The patient quit fifteen or more years ago. Nursing Annual Screening: Fall History Screen During the past 12 months, have you had any fal ls? Patient does not report any falls in the past 1 2 months. MEDICATIONS: Patient is on one of the following medication c lasses: Antihypertensives, Antidepressants, Antipsychot ics, Diuretics, or Controlled substance medication used for pain. FALL RISK ADVICE: Fall Risk Advice provided. Handout entitled Fa ll Prevention At Home reviewed and given to patient and/or significan t other. Script Talk Screen Are you able to read your prescription bottles with your glasses, magnifiers or other aids? Yes or patient not taking any prescriptions. Skin Screen Patient reports any current pressure ulcers, a history of pressure ulcers, or a wound from a medical lab tech instructor or Patient is bed-confined or a wheelchair-user or Patient requires assistance to transfer/change position No, Skin Screen is Negative Home Abuse/Violence Screen Is your home free of abuse and violence? Yes MOVE! Program Screen Body Mass Index (BMI)= 23.1 [place]: Collection DT Specimen Test Name Result Units R ef Range 03/18/2017 08:44 BLOOD !! HEMOGLOBIN A1C 5.1 % 4.0 - 6.0 !! Indicates COMMENTS AVAILABLE...Refer to Inte [facility] Lab Report. [place] Hgb A1C: No data available [place] Hgb A1C: No data available Point of Care Hgb A1C: POC HGB A1C____ Outpatient Nutrition Screen Body Mass Index (BMI)= 23.1 [place]: Collection DT Specimen Test Name Result Units R ef Range 03/18/2017 08:44 BLOOD !! HEMOGLOBIN A1C 5.1 % 4.0 - 6.0 !! Indicates COMMENTS AVAILABLE...Refer to Inte rim Lab Report. [place] Hgb A1C: No data available [place] Hgb A1C: No data available Point of Care Hgb A1C: POC HGB A1C____ Is patient's BMI less than 18.5? No Does patient have swallowing, coughing, or chew ing problems affecting oral intake? No Has patient experienced unplanned weight loss o r gain greater than 10 pounds over the last 2 months? No Is patient's Hgb A1C (Glycosylated Hemoglobin) greater than 9.5? Information not available Is patient receiving Total Parenteral Nutrition (TPN) or Tube Feedings? No Patient Health Education Screen BARRIERS/SPECIAL NEEDS: Hearing limitations Visual limitations PREFERRED STYLE OF LEARNING: No preference stated Client Assistive Service (GIANFRANCO) Screen Does the patient require assistance with outpat ient visit? No Influenza Immunization: The patient has received the seasonal influenza vaccine for the current season at another location. Date: September 11, 2021 Location: [facility] Herpes Zoster (Shingles) Vaccine: Prior Herpes Zoster vaccination The patient has previously received the recombi nant zoster vaccine dose #1 (Shingrix, RZV). Date: August 08, 2021 Location: [facility] Written documentation: VIJAYA The patient has previously received the recombi nant zoster vaccine dose #2 (Shingrix, RZV). Date: January 04, 2022 Location: [id number] Written documentation: vijaya /edith/ NORRIS KARIMI LPN LPN [facility] Signed: 08/06/2022 08:38
--- OUTSIDE RECORDS SUMMARY | 2022-10-31 16:18 | XMS_ITS | Encounter Summary ---
:1945 Author Organization [facility] Address [address] [place] [address] Support Name Relationship Address Phone MELISSA CANO Unavailable [address] [place] [address] MELISSA CANO Unavailable [address] [place] [address] Insurance Providers: All historical and current Section Date Range: From patient's date of to the date document was created.This section includes the names of all active insurance providers for the patient. Insurance Type of Plan Start of End of Group Member Insurance Policy P [facility]'s Provider Coverage Name Policy Policy Number ID Provider's Ruiz's Relationship Coverage Coverage Telephone Name to Policy Number Ruiz [place] MEDICARE MCR Nov 25, [id number] DO R[facility]EL [facility] 2016 3 [id number] [phone] SVEN 1 Selected Encounter This section includes the information on record at [place] for the Encounter. Date/Time Encounter Type Encounter Description Reason Provider Source Jan 04, 2022 12:00 Outpatient Encounter EVENT (HISTORICAL) AM IHE Encounter Template Text not used by VA Immunizations: All administered on the encounter date This section contains immunizations associated to the Encounter. Immunization Series Date Issued Reaction Comments ZOSTER RECOMBINANT 2 Jan 04, 2022 miic Social History: Smoking Status (Most current) and Tobacco Use (All prior to encounter date) This section includes the most current, and the historical, smoking and tobacco-related health factors from the [place] facility where the Encounter took place.Current Smoking Status This section includes the most current smoking, or tobacco-related health factor, from the [place] facility where the Encounter took place. Date/Time Current Smoking Status Comment Facility April 12, 2014 12:27 PM FORMER TOBACCO USER 7Y OR GREATER [facility] Advance Directives: All historical and current Section Date Range: From patient's date of to the date document was created. This section includes ALL of a patient's completed or amended [place] Advance and Rescinded Directives. The entries below indicate that a directive exists for the patient, but an actual copy is not included with this document. The data comes from all [place] facilities. Date Advance Directives Provider Source March 27, 2016 ADVANCE DIRECTIVE DISCUSSION EZEKIEL TAVERAS CB March 27, 2016 ADVANCE DIRECTIVE EZEKIEL TAVERAS CB OC
--- OUTSIDE RECORDS SUMMARY | 2022-10-31 16:18 | XMS_ITS | Clinical Summary ---
:1945 Author Organization [facility] [place] [address] Care Team Providers Name Role Phone Dixon Dangelo MD Primary Care Provider Allergies Active Allergy Reactions Severity Noted Date Comments Penicillins Intolerance-Can't Take 04/30/2007 c/o n ausea Medications Medication Sig Dispensed Refills Start Date End Date Status GOLYTELY ORAL take as instructed 1 0 04/28/2007 Active SOLUTION ASPIRIN 81 MG chew 1 tablet (81 0 04/30/2007 Active CHEWABLE TAB mg) by oral route once daily MULTIPLE VITAMIN TAB take 1 tablet by 0 04/30/2007 Active oral route once daily with food CALCIUM 500+D 500 0 04/30/2007 A ctive MG-200 UNIT TAB VITAMIN B-12 1,000 0 04/30/2007 Active MCG TAB NASONEX 50 inhale 2 sprays in 3 1 10/09/2007 Active MCG/ACTUATION SPRAY each nostril by intranasal route once daily Active Problems Not on file Immunizations Name Administration Dates Next Due Influenza, IIV3 (Age >=3 years) 08/16/2012, 08/14/2010 Social History Tobacco Use Types Packs/Day Years Used Date Never Smoker Alcohol Use Standard Drinks/Week Comments Not Asked 0 (1 standard drink = 0.6 oz pure alcoho l) Sex Assigned at Date Recorded Not on file Obstetrics History Plan of Treatment Health Maintenance Due Date Last Done Comments COVID-19 vaccine series (#1) 1945 Tdap 01/24/1956 Depression screening for age 12+ 1957 BMI (ht and wt on same day) for age 18+ 1963 Hepatitis C screening for age 18-79 1963 Tetanus booster 1965 Zoster (shingles) series for age 50+ (1 of 1995 2) Pneumococcal series for age 65+ (1 - PCV) 2010 Influenza for age 65+ 07/26/2022 08/16/2012, 08/14/2010 Results Not on filefrom Last 3 Months Insurance Payer Benefit Plan Subscriber ID Effective Phone Address Typ e / Group Dates MEDICARE PART B - [place] MEDICARE PART [id number] 2012-Prese ATTN: CLAIMS USE ONLY B HB ONLY nt [address] [place] [address] [employer] [place] CC[place] [id number] 2022-Prese [place] CCN O PTUM ADMINISTRATION nt [address] [place] [address] BLUE [place] BL[place]OSS [id number] 2016-[place] [address] [place] [address] [place], [place] [id number] (Home) [place] [phone] (Work) Care Teams Flat Polisher Relationship Specialty Start Date End Date Dixon Dangelo MD PCP - General Family Practice 04/25/[address] [place] [address]
--- OUTSIDE RECORDS SUMMARY | 2022-10-31 16:18 | XMS_ITS | Encounter Summary ---
:1945 Author Organization [facility] Address [address] [place] [address] Care Team Providers Name Role Phone Agnieszka Reyes MD Primary Care Provider Reason for Referral (Routine) - New Request Specialty Diagnoses / Procedures Referred By Contact Refer red To Contact Procedures Annamarie Hannon MD Pulmonary Function Test - [address] [place] [address] [id number] [place] [address] Referral ID Status Reason Start Date Expiration Date Visits V isits Requested Authorized [id number] New Request 08/02/2022 11/01/2023 1 1 Encounter Details Date Type Department Care Team Description 08/03/2022 Hospital Encounter [facility] 3931 Chronic obstructive Pulmonary Lab pulmonary disease, [address] unspecified COPD type [place], [place] ([facility]) [phone] Social History Tobacco Use Types Packs/Day Years Used Date Smoking Tobacco: Former Cigarettes Quit : 04/09/2003 Smokeless Tobacco: Never Alcohol Use Standard Drinks/Week Comments Not Currently 0 (1 standard drink = 0.6 oz pure alcoho l) Sex Assigned at Date Recorded Not on file documented as of this encounter Medications at Time of Discharge Medication Sig Dispensed Refills Start Date End Date Acalabrutinib 100 MG CAPS Take 100 mg by 0 202103/23/2023 mouth every 12 hours. ALBUterol sulfate HFA 108 Inhale 2 Puffs 1 Each 11 2021 (90 Base) MCG/ACT inhaler every 6 hours as needed for Wheezing (Inhale 2 puffs every 6 hours as needed for Wheezing.). cholecalciferol (AKA Take by mouth. 0 10/30/2013 VITAMIN D3) 1000 UNITS capsule cyanocobalamin 500 MCG Take 1,000 mcg by 0 2012 tablet mouth Daily. fluocinonide (LIDEX) 0.05 Apply topically two 30 g 3 0 03/11/2017 % cream times a day. fluticasone (FLONASE) 50 Place 2 Sprays into 16 g 11 MCG/ACT nasal solution both nostrils daily. fluticasone-salmeterol Inhale 2 Puffs two 12 g 11 08/03 (ADVAIR HFA) 230-21 times a day. Rinse mcg/actuation inhaler mouth/gargle after use fluticasone-salmeterol Inhale 1 Puff two 3 Each 3 2021 (ADVAIR) 500-50 MCG/ACT times a day. Rinse diskus inhaler mouth/gargle after use Multiple Vitamins-Minerals Take 1 tablet by 0 04/2013 (MULTIVITAMIN OR) mouth daily (every 24 hours). simvastatin (ZOCOR) 80 MG Take 0.5 Tablets by 30 Tablet 0 0 02/27/2019 tablet mouth daily at bedtime. documented as of this encounter Plan of Treatment Not on filedocumented as of this encounter Procedures Procedure Name Priority Date/Time Associated Diagnosis Comme nts COMPLETE PULMONARY Routine 08/03/2022 12:14 PM CDT FUNCTION TEST documented in this encounter Results Pulmonary Function Test - Complete (08/03/2022 12:14 PM CDT) Specimen (Source) Anatomical Collection Method Collection Time Re ceived Time Location / / Volume Laterality 08/03/2022 12:14 PM CDT Annamarie Hannon MD PN PFT ORDERABLES Performing Organization Address City/State/ZIP Code Phon e Number CÉ[place] documented in this encounter Visit Diagnoses Diagnosis Chronic obstructive pulmonary disease, u nspecified COPD type ([facility]) documented in this encounter Care Teams Production Supervisor Relationship Specialty Start Date End Date Agnieszka Reyes MD PCP - General Internal Medicine 09/03/[address] [place] [address] documented as of this encounter
--- OUTSIDE RECORDS SUMMARY | 2022-10-31 16:18 | XMS_ITS | Encounter Summary ---
:1945 Author Organization [facility] Address [address] [place] [address] Support Name Relationship Address Phone MELISSA CANO Unavailable [address] [place] [address] MELISSA CANO Unavailable [address] [place] [address] Insurance Providers: All historical and current Section Date Range: From patient's date of to the date document was created.This section includes the names of all active insurance providers for the patient. Insurance Type of Plan Start of End of Group Member Insurance Policy [facility] Provider Coverage Name Policy Policy Number ID Provider's Ruiz's Relationship Coverage Coverage Telephone Name to Policy Number Ruiz [place] MEDICARE MCR Nov 25, [id number] DO RACHAEL Rhonda [facility] (WNR) 2016 3 [id number] [phone] SVEN 1 Selected Encounter This section includes the information on record at AL for the Encounter. Date/Time Encounter Type Encounter Description Reason Provider Source Aug 03, 2022 02:59 Outpatient Encounter [facility]ITY [facility]ARE PM CONSULT IHE Encounter Template Text not used by AL Plan of Treatment: Future Appointments (+ 6 months) and Future Tests (+/- 45 days) The Plan of Treatment section includes future care activities for the patient from all VA treatmentfacilities. This section includes future appointments and future orders which are active, pending orscheduled.Future Appointments This section includes appointments that were scheduled to occur 6 months from the date of the Encounter, up to a maximum of 20 appointments. The data comes from all AL treatment facilities. Appointment Date/Time Appointment Type Appointment Facili ty Name Aug 06, 2022 08:00 AM [facility]ORY [facility] Social History: Smoking Status (Most current) and Tobacco Use (All prior to encounter date) This section includes the most current, and the historical, smoking and tobacco-related health factors from the AL facility where the Encounter took place.Current Smoking Status This section includes the most current smoking, or tobacco-related health factor, from the AL facility where the Encounter took place. Date/Time Current Smoking Status Comment Facility April 12, 2014 12:27 PM FORMER TOBACCO USER 7Y OR GREATER [facility] Advance Directives: All historical and current Section Date Range: From patient's date of to the date document was created. This section includes ALL of a patient's completed or amended AL Advance and Rescinded Directives. The entries below indicate that a directive exists for the patient, but an actual copy is not included with this document. The data comes from all AL facilities. Date Advance Directives Provider Source March 27, 2016 ADVANCE DIRECTIVE DISCUSSION EZEKIEL TAVERAS March 27, 2016 ADVANCE DIRECTIVE EZEKIEL TAVERAS [facility] Encounter Notes: All associated encounter notes This section contains the clinical notes associated to the Encounter. Date/Time Encounter Note(s) Provider Source Aug 03, 2022 02:59 PM PHARMACY NOTE: ABDULLAHI ORTIZ [facility] LOCAL TITLE: PHARMACY NON VA CARE MEDICATIONS STANDARD TITLE: PHARMACY NOTE DATE OF NOTE: AUG 03, 2022@14:59 ENTRY DATE: AUG 03, 2022@14:59:33 AUTHOR: ABDULLAHI ORTIZ EXP COSIGNER: URGENCY: STATUS: COMPLETED [facility] RECEIVED electronic p rescription(s) (eRX(s)) from NON-AL Provider: JIM CABA Date eRX received: Jul Outside (NON-VA) provider no t authorized to write for prescription(s) through AL pharmacy. Prescription request REDIRECTED via FAX to one o f the following for review: [ ][facility] (Dual) Care [ ]Other: [ ] [facility] (Mkto) [ ] [facility] [X] [facility] [ ] [facility] eRx Reference #: eRx Prescription Information: eRx Drug: Fluticasone-Salmet amador 500-50 MCG/ACT Inhalation Aerosol Powder Breath Activated (ADVAIR) eRx Drug: Albuterol Sulfate HFA 108 (90 Base) MC G/ACT Inhalation Aerosol Solution /es/ ABDULLAHI ORTIZ pharmacist Signed: 08/03/2022 15:00
--- OUTSIDE RECORDS SUMMARY | 2022-10-31 16:18 | XMS_ITS | Continuity of Care Document ---
:1945 Author Organization [facility] Care Team Providers Name Role Phone [facility] Unavailable Unavailable Problems Combined list of problems from Department of Defense and Veterans Affairs facilities. It does not include entries that were removed or entered in error. Problem Status Onset Problem Date of Comments Source Date Type Resolution Polyp of colon Active 11/25/19 Condition Feb 21, [place] 2014 Entered [facility] By: ALTON RAMIREZ Comment: benign polyp - advised repeat in 2016 Allergic rhinitis Active [place] [facility] Appendicitis Active Condition Feb 21, [place] 2014 Entered [facility] By: ALTON RAMIREZ Comment: hx appy - prior ruptured appy 2009 - [facility] Benign prostatic Active Condition [facility] hyperplasia Bilateral inguinal Active Condition Feb 21, [place] hernia 2014 Entered [facility] By: ALTON RAMIREZ Comment: repair with mesh at [facility] approx 2011? 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 Skin lesion Active Condition [place] [facility] Diagnosis: ICD-10-CM Active Diagnosis [facility] Z00.8 Encounter for other general examinationwith Provider Comments: Encounter for other General Examination Diagnosis: ICD-10-CM Active Diagnosis [place] H90.3 [facility] loss, bilateralwith Provider Comments: Sensorineural hearing loss, bilateral Diagnosis: ICD-10-CM Active Diagnosis [facility] Z71.9 Counseling, unspecifiedwith Provider Comments: Counseling, unspecified Medications Combined list of outpatient medications from Department of Defense and Veterans Affairs facilities. Medications provided include 1) outpatient medications from the last 15 months, and 2) patient-reported medications. Medication Details Route Status Patient Prescription Prescription Last Ordering Order Source Instructions Expires Number Dispense Provider Date Date ACALABRUTIN TAKE 1 ORALLY ACTIVE IZABEL, 06/14/ [facility] 100MG CAPSULE REDDY L 2020 E C[facility] C CAP,ORAL BY MOUTH EVERY DAY ALBUTEROL INHALE 2 INHALA ACTIVE 08/07/2023 [id number] EMEKA OSMANI, 08/06/ [facility] 90MCG/ACTUA PUFFS BY TION 2 REDDY L 2021 E [facility] T (CFC-F) INHALATI INHL,ORAL,8 ON EVERY .5GM DOSE 6 HOURS COUNTER NEEDED SHAKE WELL (FOR IMMEDIAT E RELIEF). FOR SHORTNES S OF BREATH SHAKE WELL (FOR IMMEDIAT E RELIEF). FOR SHORTNES S OF BREATH ALBUTEROL INHALE 2 INHALA DISCONT 08/07/2023 [id number] M ITCHELL, 08/06/ [facility] 90MCG/ACTUA PUFFS BY TION INUED 2 REDDY L 2021 E [facility] T (CFC-F) INHALATI (EDIT) INHL,ORAL,8 ON EVERY .5GM DOSE 6 HRS COUNTER NEEDED SHAKE WELL (FOR IMMEDIAT E RELIEF). FOR SHORTNES S OF BREATH ASPIRIN TAKE ONE ORALLY ACTIVE ASHLEY,RICHARD 03/02/ [place] 81MG TAB,EC TABLET I L 2014 E [facility] BY MOUTH DAILY CALCIUM TAKE ONE ORALLY ACTIVE ASHLEY,RICHARD 03/02/ [facility] 500MG (CA TABLET I L 2014 E [facility] CARBONATE-1 BY MOUTH .25GM) TAB EVERY DAY CENTRUM TAKE ONE ORALLY ACTIVE [place] 04/12/ [place] TAB--OTC TABLET PETER Moore 2013 [facility] BY [facility]TH [facility] CHOLECALCIF TAKE ONE ORALLY ACTIVE ASHLEY,RICHARD 03/02 / [facility] JUDI 25MCG TABLET I L 2014 E [facility] (1,000UNIT) BY MOUTH TAB DAILY CYANOCOBALA TAKE ORALLY ACTIVE [place] MIN 100MCG FIVE CHAEL J 2014 [facility] TAB TABLETS HCS BY MOUTH FLUOCINONID APPLY TOPICA ACTIVE 08/07/2023 [id number] [place], 08/06/ [facility] E 0.05% THIN LLY 2 REDDY L 2021 E [facility] CREAM,TOP LAYER TWICE A DAY AVOID FACE,COMPA IN and ARMPITS *FOR EXTERNAL USE ONLY FLUTICASONE INHALE 1 ACTIVE 08/07/2023 [id number] EMEKA OSMANI, 08/06/ [facility] 500MCG/SALM PUFF 2 REDDY L 2021 E [facility] ETEROL TWICE A 50MCG DAY INHL,ORAL,D *RINSE ISKUS,60 MOUTH AFTER EACH USE* FLUTICASONE INHALE 1 DISCONT 08/18/2022 [id number] EMEKA OSMANI, 08/17/ [facility] 500MCG/SALM PUFF INUED 2 REDDY L 2020 E [facility] ETEROL TWICE A 50MCG DAY INHL,ORAL,D *RINSE ISKUS,60 MOUTH AFTER EACH USE* FLUTICASONE INHALE 1 INHALA DISCONT 08/18/2022 [id number] IZABEL, 08/17/ [facility] 500MCG/SALM PUFF BY TION INUED 1 REDDY L 2020 E [facility] ETEROL INHALATI (EDIT) 50MCG ON TWICE INHL,ORAL,D A DAY ISKUS,60 *RINSE MOUTH AFTER EACH USE* FLUTICASONE SPRAY 2 NOSTRI ACTIVE IZABEL, 03/18/ [place]OL[place] PROPIONATE SPRAYS L REDDY L 2017 E [facility] 50MCG/SPRAY IN ONE SOLN,NASAL, NOSTRIL 16GM EVERY DAY LEVOTHYROXI TAKE ONE ORALLY ACTIVE IZABEL, 06/14 / MIRACLEKOROLAN NE NA TABLET REDDY L 2020 E [facility] 175MCG TAB BY MOUTH (SYNTHROID) EVERY DAY LISINOPRIL TAKE ORALLY ACTIVE IZABEL 09/12/ [place] TAB 50MCG BY REDDY L 2021 E [facility] MOUTH EVERY DAY SIMVASTATIN TAKE ORALLY ACTIVE 08/07/2023 [id number] MARIANA ELL, 08/06/ [facility] 80MG TAB ONE-HALF 2 REDDY L 2021 E CB OC TABLET BY MOUTH AT BEDTIME FOR CHOLESTE ROL SIMVASTATIN TAKE ORALLY DISCONT 06/15/2022 [id number] M ITCHELL, 06/22/ [facility] 80MG TAB ONE-HALF INUED 2 REDDY L 2020 E [facility] TABLET BY MOUTH AT BEDTIME FOR CHOLESTE ROL Allergies, Adverse Reactions, Alerts Combined list of allergies from Department of Defense and Veterans Affairs facilities. It does not include entries that were removed or entered in error. Substance Category Reaction Severity Reaction Status Date Comments S ource type Reported DESFLURANE Propensity Delirium MILD Propensity active [place] to adverse to adverse 4 IS [facility] reactions reactions to drug to drug (finding) (finding) Immunizations Combined list of available immunizations from the Department of Defense and Veterans Affairs facilities. Immunization Series Date Administered Site Reaction Lot CVX Drug St atus Comments Source Given By Number Code Informatics Spec ZOSTER 2 complet miic [place] RECOMBINANT 2021 ed [facility] INFLU[facility]ZA, complet [place] UNSPECIFIED 2020 ed [facility] FORMULATION [facility] S ZOSTER 1 complet MI[place] RECOMBINANT 2020 ed [facility] COVID-19 2 complet [place] (PFIZER), 2020 ed [facility] MRNA, LNP-S, H CS PF, 30 MCG/0.3 ML DOSE COVID-19 1 complet [place] (PFIZER), 2020 ed [facility] MRNA, LNP-S, H CS PF, 30 MCG/0.3 ML DOSE INFLUENZA, complet [place] UNSPECIFIED 2019 ed [facility] INFLUENZA, complet [place] HIGH DOSE 2019 ed [facility] SEASONAL [facility] INFLUENZA, complet [place] HIGH DOSE 2017 ed [facility] INFLUENZA, complet [place] HIGH DOSE 2016 ed [facility] INFLUENZA, complet [place] HIGH DOSE 2016 ed [facility] INFLUENZA, complet [place] HIGH DOSE 2014 ed [facility] PNEUMOCOCCAL complet [place] CONJUGATE PCV 2014 ed [facility] 13 [facility]CS INFLUENZA, complet [place] SEASONAL, 2013 ed [facility] INJECTABLE [facility] TDAP complet [place] 2013 ed [facility] INFLUENZA, complet [place] UNSPECIFIED 2012 ed [facility]ATION [facility] S PNEUMOCOCCAL complet [place] POLYSACCHARID 2010 ed [facility] E PPV23 HCS PNEUMOCOCCAL, complet [place] UNSPECIFIED 2010 ed [facility] S ZOSTER LIVE complet [place] 2010 ed [place] [facility] Vital Signs Combined list of inpatient and outpatient Vital Signs from Department of Defense and Veterans Affairs, ranging from 12 months to all on record, depending upon the facility. Vital Sign Value Date Comments Source SYSTOLIC BLOOD PRESSURE 137 08/06/2022 08:22:04 [facility] DIASTOLIC BLOOD PRESSURE 77 08/06/2022 08:22:04 [facility] PULSE OXIMETRY 98% 08/06/2022 08:22:04 [facility] WEIGHT 170 08/06/2022 08:22:04 [facility] BMI 23kg/m2 08/06/2022 08:22:04 [facility] PAIN 0 08/06/2022 08:22:04 [facility] HEIGHT 72 08/06/2022 08:22:04 [facility] TEMPERATURE 96.6 08/06/2022 08:22:04 [facility] PULSE 76 08/06/2022 08:22:04 [facility] RESPIRATION 16 08/06/2022 08:22:04 [facility] Encounters Combined list of: 1) Encounters from Department of Veterans Affairs facilities going back up to the last 18 months. 2) Encounters from the Department of Defense facilities going back up to 280 months. Location Location Encounter Encounter Reason Attending ADM DC Stat us Disposition Source Details Type Number For Provider Date Date Visit OFFICE O/P 27539-2.61 Diagnos Tavo PAIZ 06/14 [facility] EST MOD [id number] is: EBECCA E [facility] 30-39 MIN 91 ICD-10- CM Z00.8 Encount er for other general examina tion
with Provide r Comment s: Encount er for other General Examina tion SELF-MGMT 16800-2.61 Diagnos RUDY SANCHEZ 07/01 [place] EDUC & [id number] is: N D /2020 [facility] TRAIN 1 PT ICD-10- HCS CM H90.3 Sensori neural hearing loss, bilater al
with Provide r Comment s: Sensori neural hearing loss, bilater al Outpatient [id number] 07/12 [place] Encounter [id number] /2020 [facility] [id number] 08/08 [place] Encounter [id number] /2020 [facility] [id number] 08/09 [place] Encounter [id number] /2020 [facility] HC PRO 41585-6.61 Diagnos WHITE,TERR 08/10 [facility] PHONE CALL [id number] is: A R /2020 E [facility] 5-10 MIN 40 ICD-10- CM Z71.9 Operations Developer ing, unspeci fied
with Provide r Comment s: Operations Developer ing, unspeci fied Outpatient [id number] 09/11 [place] Encounter [id number] /2020 [facility] SELF-MGMT 11773-4.61 Diagnos DAISHA,AL 10/25 [place] & [id number] is: EXANDRA E /2020 [facility] TRA[facility] 1 PT ICD-10- HCS CM H90.3 Sensori neural hearing loss, bilater al
with Provide r Comment s: Sensori neural hearing loss, bilater al Outpatient [id number] 01/04 [place] Encounter [id number] /2021 [facility] [id number] 08/03 [place] Encounter [id number] /2021 [facility] [id number] 08/06 [place] Encounter [id number] /2021 [facility] OFFICE O/P 30769-7.61 Diagnos IZABELR 08/06 [facility] EST MOD [id number] is: EBECCA E CB OC 30-39 MIN 71 ICD-10- CM Z00.8 Encount er for other general examina tion
with Provide r Comment s: Encount er for other General Examina tion Social History Combined list of available smoking, tobacco, and other social history [facility]. Social History Type Response Date Comment Source Tobacco smoking status VA-TOBACCO FORMER USER 08/06/2022 [facility] History of tobacco use VA-TOBACCO QUIT 15 YRS 08/06/2022 [facility] OR MORE History of tobacco use VA-TOBACCO FORMER USER 06/14/2021 [facility] History of tobacco use VA-TOBACCO QUIT 15 YRS 04/13/2020 [facility] OR MORE History of tobacco use VA-TOBACCO FORMER USER 12/19/2018 [facility] History of tobacco use FORMER TOBACCO USER 7Y 01/30/2018 [facility] OR GREATER History of tobacco use FORMER TOBACCO USER 7Y 03/18/2017 [facility] OR GREATER History of tobacco use FORMER TOBACCO USER 7Y 03/16/2016 [facility] OR GREATER History of tobacco use FORMER TOBACCO USER 7Y 02/21/2015 [facility] OR GREATER History of tobacco use FORMER TOBACCO USER 7Y 04/12/2014 [facility] HCS OR GREATER Advance Directives List of completed, amended, or rescinded Advance Directives on record at Department of Veterans Affairs facilities. An actual copy of the Directive is not included. Date Advance Directive Provider Source 03/27/2016 ADVANCE DIRECTIVE DISCUSSION EZEKIEL TAVERAS [facility]
--- OUTSIDE RECORDS SUMMARY | 2022-10-31 16:19 | XMS_ITS | Encounter Summary ---
:1945 Author Organization [facility] Address [address] [address] Care Team Providers Name Role Phone Agnieszka Reyes MD Primary Care Provider Encounter Details Date Type Department Care Team Description 09/05/[address] [place] [address], Drive-Up Encounter for screening [address] [facility] for other viral [place] [id number] diseases [phone] Social History Tobacco Use Types Packs/Day Years [...] Date/Time Associated Comments Diagnosis 2019 NOVEL Routine 09/05/2020 8:35 AM Encounter for Results for this CORONAVIRUS CDT screening for other procedur e are in viral diseases the results section. documented in this encounter Results Asymptomatic - 2019 Novel Coronavirus (COVID-19) (09/05/2020 8:35 AM CDT) [facility] gist Method Time Signature COVID-19 Not Not 09/05/2020 [facility] Interpretation Detected Detected 4:31 PM [facility] CDT Specimen Anatomical Collection Method Collection Time Receive d Time (Source) Location / / Volume Laterality Swab (Source Non-blood 09/05/2020 8:35 AM 0 Required) Collection / CDT 10:40 AM CDT Unknown Narrative [facility] - 09/05/2020 4:31 PM CDT Test performed by Train Operator Mediated Amplification. TMA has been shown to be equivalent to commercial real-time PCR t ests. This test has been authorized by the FDA under an Emergency Use Authorization (EUA) for use by authorized laboratories. Agnieszka Reyes MD LAB_1 Performing Organization Address City/State/ZIP Code Phon e Number [facility] [address] [address] documented in this encounter Visit Diagnoses Diagnosis Encounter for screening for other viral diseases documented in this encounter Care Teams Relief Operator Relationship Specialty Start Date End Date Agnieszka Reyes MD PCP - General Internal Medicine 09/03/[address] [place] [address] documented as of this encounter
--- OUTSIDE RECORDS SUMMARY | 2022-10-31 16:19 | XMS_ITS | Encounter Summary ---
:1945 Author Organization [facility] Address [address], [place] [address] Care Team Providers Name Role Phone Agnieszka Reyes MD Primary Care Provider Encounter Details Date Type Department Care Team Description 06/07/2020 Orders Only Initial Department Provider, [address] RISHABH DIAZ MD [place], [place] [address] Interface provider [phone] [place] [address] Social History Tobacco Use Types Packs/Day Years [...] Name Priority Date/Time Associated Diagnosis Comme nts PULMONARY TEST FL 06/07/2020 Results fo r this procedure are in the resu lts section. documented in this encounter Results PULMONARY TEST FL (06/07/2020) Narrative This result has an attachment that is no t available. Interface Provider DUMMY/OTHER/AR documented in this encounter Visit Diagnoses Not on filedocumented in this encounter Care Teams Staff Pharmacist Relationship Specialty Start Date End Date Agnieszka Reyes MD PCP - General Internal Medicine 09/[address] [place] [address] documented as of this encounter
--- OUTSIDE RECORDS SUMMARY | 2022-10-31 16:19 | XMS_ITS | Encounter Summary ---
:1945 Author Organization [facility] Address [address], [place] [address] Care Team Providers Name Role Phone Agnieszka Reyes MD Primary Care Provider Reason for Visit Reason Comments MEDICATION, NOS Encounter Details Date Type Department Care Team Description 10/01/2019 Notes/Orders Specialty Center 3931 Antolin Hannon MD Pulmonary Medicine 3931 [facility] # [address] [facility] [address] [place] [phone] (Wo rk) Social History Tobacco Use Types Packs/Day Years Used Date Smoking Tobacco: Former Cigarettes Quit : 04/09/2003 Smokeless Tobacco: Never Alcohol Use Standard Drinks/Week Comments Yes 0 (1 standard drink = 0.6 oz pure alcoho l) Sex Assigned at Date Recorded Not on file documented as of this encounter Progress Notes Enriqueta Polo RN - 10/01/2019 11:06 AM CST Pt states his advair is very expensive ($400) and would like to use [facility] to get Airduo. Explained that it does not come in the higher dose as he is on advair 500/50. Pt states he would like to try airduo 232/14 and if it was not as effective he would contact us to go back on this medication. Discussed with Lashawn Oliva NP in your absence and received approval to switch him to Airduo 1 puffs BID ($50/mo) Did remind pt to call us if his symptoms return. NCILIATION MANAGER documented in this encounter Plan of Treatment Not on filedocumented as of this encounter Visit Diagnoses Not on filedocumented in this encounter Care Teams Freelance Programmer/App Developer Relationship Specialty Start Date End Date Agnieszka Reyes MD PCP - General Internal Medicine [address] [place] [address] documented as of this encounter
--- OUTSIDE RECORDS SUMMARY | 2022-10-31 16:19 | XMS_ITS | Encounter Summary ---
:1945 Author Organization [facility] Address [address] [place] [address] Care Team Providers Name Role Phone Agnieszka Reyes MD Primary Care Provider Reason for Visit Reason Onset Date Comments Refill 04/12/2020 Encounter Details Date Type Department Care Team Description 04/12/2020 Refill Specialty Center 3931 Antolin Hannon MD Refill Pulmonary Medicine 3931 [facility] [id number] [place] [phone] (Wo rk) Social History Tobacco Use Types Packs/Day Years Used Date Smoking Tobacco: Former Cigarettes Quit : 04/09/2003 Smokeless Tobacco: Never Alcohol Use Standard Drinks/Week Comments Yes 0 (1 standard drink = 0.6 oz pure alcoho l) Sex Assigned at Date Recorded Not on file documented as of this encounter Nursing Notes Joann Donaldson RN - 04/12/2020 11:32 AM CDT Pt calling in and states his appointment was moved to 06/07/20 and he will need refills of his inhaler. He states he doesn't like the Fluticasone-Salmeterol as much as Advair and now his insurance coverage is about the same. Advair HFA sent in per standing protocol. Pt verbalized understanding. documented in this encounter Plan of Treatment Not on filedocumented as of this encounter Visit Diagnoses Not on filedocumented in this encounter Care Teams Foiling Machine Operator Relationship Specialty Start Date End Date Agnieszka Reyes MD PCP - General Internal Medicine 09/03/[address] [place] [address] documented as of this encounter
--- OUTSIDE RECORDS SUMMARY | 2022-10-31 16:19 | XMS_ITS | Encounter Summary ---
:1945 Author Organization [facility] Address [address] [place] [address] Care Team Providers Name Role Phone Agnieszka Reyes MD Primary Care Provider Reason for Referral (Routine) - Closed Specialty Diagnoses / Procedures Referred By Contact Refer red To Contact Procedures Annamarie Hannon MD Pulmonary Function Test - [address] [place] [address] Referral ID Status Reason Start Date Expiration Date Visits Requ ested Visits Authorized [id number] Closed 06/06/2020 09/05/2021 1 1 Encounter Details Date Type Department Care Team Description 06/07/2020 Hospital Encounter Specialty Center 3931 Moderate persistent Pulmonary Lab asthma without [address] complication [place], [place] [id number] Social History Tobacco Use Types Packs/Day Years Used Date Smoking Tobacco: Former Cigarettes Quit : 04/09/2003 Smokeless Tobacco: Never Alcohol Use Standard Drinks/Week Comments Not Currently 0 (1 standard drink = 0.6 oz pure alcoho l) Sex Assigned at Date Recorded Not on file documented as of this encounter Medications at Time of Discharge Medication Sig Dispensed Refills Start Date End Date cholecalciferol (AKA Take by mouth. 0 10/30/2013 VITAMIN D3) 1000 UNITS capsule cyanocobalamin 500 MCG Take 1,000 mcg by 0 2012 tablet mouth Daily. fluocinonide (LIDEX) 0.05 Apply topically two 30 g 3 0 03/11/2017 % cream times a day. fluticasone (FLONASE) 50 Place 2 Sprays into 16 g MCG/ACT nasal solution both nostrils daily. Multiple Take 1 tablet by 0 10/30/2013 Vitamins-Minerals mouth daily (every (MULTIVITAMIN OR) 24 hours). simvastatin (ZOCOR) 80 MG Take 0.5 Tablets by 30 Tablet 0 0 02/27/2019 tablet mouth daily at bedtime. ALBUterol sulfate HFA 108 Inhale 2 Puffs 1 Inhaler 11 201608/03/2022 (90 BASE) MCG/ACT inhaler every 6 hours as needed for Wheezing (Inhale 2 puffs every 6 hours as needed for Wheezing.). amLODIPine (NORVASC) 5 MG Take 5 mg by mouth 0 08/03/2022 tablet daily. aspirin EC 81 MG enteric Take 81 mg by mouth 0 08/03/2022 coated tablet daily (every 24 hours). calcium carbonate (TUMS) Take 1 Tablet by 60 Tablet 0 02/2708/03/2022 500 MG chewable tablet mouth two times a day. Ferrous Fumarate-Vitamin Take 1 Tablet by 30 Tablet 0 02/2709/07/2020 C ER 65-25 MG TBCR mouth two times a day. fluticasone-salmeterol Inhale 2 Puffs two 1 Each 06/0709/07/2020 (ADVAIR HFA) 230-21 times a day. Rinse mcg/actuation inhaler mouth/gargle after use fluticasone-salmeterol Inhale 1 Puff two 1 Each 201906/09/2021 (AIRDUO RESPICLICK) times a day. Rinse 232-14 MCG/ACT inhaler mouth/gargle after use. lisinopril (ZESTRIL) 5 MG Take 5 mg by mouth 0 08/03/2022 tablet daily. omeprazole (PRILOSEC) 20 Take 1 Cap by mouth 30 Cap 11 09/07/2020 MG capsule daily. tacrolimus (PROGRAF) 1 MG Take 2 Capsules by 30 Capsule 0 09/07/2020 capsule mouth two times a day. torsemide (DEMADEX) 20 MG Take 20 mg by mouth 0 09/07/2020 tablet daily. documented as of this encounter Plan of Treatment Not on filedocumented as of this encounter Procedures Procedure Name Priority Date/Time Associated Diagnosis Comme nts COMPLETE PULMONARY Routine 06/07/2020 12:35 PM CDT FUNCTION TEST documented in this encounter Results Pulmonary Function Test - Complete (06/07/2020 12:35 PM CDT) Specimen (Source) Anatomical Collection Method Collection Time Re ceived Time Location / / Volume Laterality 06/07/2020 12:35 PM CDT Annamarie Hannon MD PN PFT ORDERABLES Performing Organization Address City/State/ZIP Code Phon e Number PN [place] documented in this encounter Visit Diagnoses Diagnosis Moderate persistent asthma without compl ication Unspecified asthma documented in this encounter Care Teams Garment Mender Relationship Specialty Start Date End Date Agnieszka Reyes MD PCP - General Internal Medicine 09/[address] [place] [address] documented as of this encounter
--- OUTSIDE RECORDS SUMMARY | 2022-10-31 16:19 | XMS_ITS | Encounter Summary ---
:1945 Author Organization [facility] Address [address] [place] [address] Care Team Providers Name Role Phone Agnieszka Reyes MD Primary Care Provider Reason for Visit Reason Comments Follow-up Encounter Details Date Type Department Care Team Description 06/07/2020 Office Visit Specialty Center nAnamarie Hannon Modera te persistent asthma without complication (Primary Dx); 3931 Pulmonary MD Pulmonary nodule, left Medicine [facility] [address] [facility] [address] [place] [phone] (Wo rk) Social History Tobacco Use Types Packs/Day Years Used Date Smoking Tobacco: Former Cigarettes Quit : 04/09/2003 Smokeless Tobacco: Never Alcohol Use Standard Drinks/Week Comments Not Currently 0 (1 standard drink = 0.6 oz pure alcoho l) Sex Assigned at Date Recorded Not on file documented as of this encounter Last Filed Vital Signs Vital Sign Reading Time Taken Comments Blood Pressure 141/81 06/07/2020 1:01 PM CDT Pulse 69 06/07/2020 1:01 PM CDT Temperature - - Respiratory Rate - - Oxygen Saturation 96% 06/07/2020 1:01 PM CDT Inhaled Oxygen Concentration - - Weight 78.9 kg (174 lb) 06/07/2020 1:01 PM CDT Height 182.9 cm (6') 06/07/2020 1:01 PM CDT Body Mass Index 23.6 06/07/2020 1:01 PM CDT documented in this encounter Patient Instructions Patient InstructionsAnnamarie Hannon MD - 06/07/2020 1:00 PM CDT 1. Start Dulera and use 2 puffs 2x day for at least 3 months then follow up in clinic with breathingtest 2. If not able to get dulera then continue with advair 3. Follow up 3 months 4. Repeat chest CT 1 years to follow nodules documented in this encounter Progress Notes Annamarie Hannon MD - 06/07/2020 1:00 PM CDT Chief Complaint Patient presents with ??? Follow-up SUBJECTIVE : The patient is a 75 y.o. male who presents today for follow up moderate copd/asthma. He was last seen in February 2019. He has done well from a lung standpoint except he did have a significant upper respiratory tract infection in November of 2019. He did not have influenza. He was given steroids and antibi otics and was able to get over this. He has continued on his high-dose Advair. [facility] if he could get Dulera. Currently he has been using air duo high-dose 232/14 b.i.d.. He does feel like his breathing is quite good. 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 Currently he is on tacrolimus for this. For he did have some significant issues with weight loss but that hassettled down with dose adjustments. He is being followed at the [facility] for his kidney issues. He does have a very small pulmonary nodule and the plan is to repeat imaging in another year. Patient Active Problem List Diagnosis ??? COPD (chronic obstructive pulmonary disease) (HRC) ??? Allergic rhinitis ??? Tubular adenoma of colon ??? Hyperlipidemia ??? Albrecht's neuroma of left foot ??? H/O umbilical hernia repair ??? H/O inguinal hernia repair ??? Seasonal allergies ??? GERD (gastroesophageal reflux disease) ??? Asthma Outpatient Medications Prior to Visit Medication Sig Note ??? ALBUterol sulfate HFA 108 (90 BASE) MCG/ACT inhaler Inhale 2 Puffs every 6 hours as needed for Wheezing (Inhale 2 puffs every 6 hours as needed for Wheezing.). ??? amLODIPine (NORVASC) 5 MG tablet Take 5 mg by mouth daily. ??? aspirin EC 81 MG enteric coated tablet Take 81 mg by mouth daily (every 24 hours). ??? calcium carbonate (TUMS) 500 MG chewable tablet Take 1 Tablet by mouth two times a day. ??? cholecalciferol (AKA VITAMIN D3) 1000 UNITS capsule Take by mouth. ??? cyanocobalamin 500 MCG tablet Take 1,000 mcg by mouth Daily. 09/03/2016: Pt takes B-12 ??? Ferrous Fumarate-Vitamin C ER 65-25 MG TBCR Take 1 Tablet by mouth two times a day. ??? fluocinonide (LIDEX) 0.05 % cream Apply topically two times a day. ??? fluticasone (FLONASE) 50 MCG/ACT nasal solution Place 2 Sprays into both nostrils daily. ??? fluticasone-salmeterol (AIRDUO RESPICLICK) 232-14 MCG/ACT inhaler INHALE 1 PUFF 2 TIMES DAILY. RINSE MOUTH/GARGLE AFTER USE ??? lisinopril (ZESTRIL) 5 MG tablet Take 5 mg by mouth daily. ??? Multiple Vitamins-Minerals (MULTIVITAMIN OR) Take 1 tablet by mouth daily (every 24 hours). ??? omeprazole (PRILOSEC) 20 MG capsule Take 1 Cap by mouth daily. ??? simvastatin (ZOCOR) 80 MG tablet Take 0.5 Tablets by mouth daily at bedtime. ??? tacrolimus (PROGRAF) 1 MG capsule Take 2 Capsules by mouth two times a day. ??? torsemide (DEMADEX) 20 MG tablet Take 20 mg by mouth daily. No facility-administered medications prior to visit. OBJECTIVE : Gen.: Alert, cooperative in no acute distress. BP (!) 141/81 (BP Location: Left Arm, BP Cuff Size: Regular) Pulse 69 Ht 6' (1.829 m) Wt 174 lb (78.9 kg) SpO2 96% BMI 23.60 kg/m?? Estimated body mass index is 23.6 kg/m?? as calculated from the following: Height as of this encounter: 6' (1.829 m). Weight as of this encounter: 174 lb (78.9 kg). Head: Normocephalic. Eyes: PERRLA, full EOM Throat: Moist mucous membranes without lesions, erythema, or exudate. Neck: Supple, without masses, lymphadenopathy or tenderness. Respiratory: Clear to auscultation Heart: RRR without murmur Abdomen: The abdomen was soft and nontender, normal sounds present. Extremities: No cyanosis clubbing or edema. Neurologic: Alert, oriented x3, nonfocal. PFT: FVC 109 %, FEV1 80 %, FEV1/FVC 57, NO 44 ASSESSMENT : The patient is a 75 y.o. male with underlying CLL, also with moderate persistent asthma/COPD who is clinically stable from a lung standpoint. For now he will continue on high-dose air duo.He was given a prescription also for high-dose Advair since he could potentially get this for less cost through prescriptions Rx. He may also be able [facility] and he will be given a prescription for this as well. He will need to continue on inhaled steroids and long-acting beta agonists long-term. In terms of the nodule he will get repeat imaging in a year. Since he has notbeen on Dulera I think it would be reasonable to try this for 3 months with repeat breathing tests and if he continues to have favorable breathing tests he will then stay [facility] PLAN : 1. Start Dulera 200 mcg 2 puffs 2x day for at least 3 months then follow up in clinic with breathingtest 2. If not able to get dulera then continue with advair 3. Follow up 3 months 4. Repeat chest CT 1 years to follow nodules copy Dr Dixon Dangelo [facility] [address] [place] [address] Dr. Christofer Roy [facility] Department of nephrology documented in this encounter Plan of Treatment Scheduled Orders Name Type Priority Associated Diagnoses Order S chedule Spirometry PFT Routine Moderate persistent asthma 1 Occurrences starting without complication 020 until 06/07/2021 documented as of this encounter Visit Diagnoses Diagnosis Moderate persistent asthma without compl ication (HRC) - Primary Unspecified asthma Pulmonary nodule, left Solitary pulmonary nodule documented in this encounter Care Teams Business Office Director Relationship Specialty Start Date End Date Agnieszka Reyes MD PCP - General Internal Medicine [address] [place] [address] documented as of this encounter
--- OUTSIDE RECORDS SUMMARY | 2022-10-31 16:19 | XMS_ITS | Encounter Summary ---
:1945 Author Organization [facility] Address [address] [address] Care Team Providers Name Role Phone Agnieszka Reyes MD Primary Care Provider Encounter Details Date Type Department Care Team Description 09/07/2020 Orders Only Initial Department Provider, [address] RISHABH DIAZ MD [place], [place] [address] Interface provider [phone] [place] [address] Social History Tobacco Use Types Packs/Day Years [...] Date/Time Associated Diagnosis Comme nts PULMONARY TEST MA 09/07/2020 Results fo r this procedure are in the resu lts section. documented in this encounter Results PULMONARY TEST MA (09/07/2020) Narrative This result has an attachment that is no t available. Interface Provider DUMMY/OTHER/AR documented in this encounter Visit Diagnoses Not on filedocumented in this encounter Care Teams Pathology Specialist Relationship Specialty Start Date End Date Agnieszka Reyes MD PCP - General Internal Medicine [address] [place] [address] documented as of this encounter
--- OUTSIDE RECORDS SUMMARY | 2022-10-31 16:19 | XMS_ITS | Encounter Summary ---
:1945 Author Organization [facility] Address [address] [place] [address] Care Team Providers Name Role Phone Agnieszka Reyes MD Primary Care Provider Encounter Details Date Type Department Care Team Description 07/31/2022 Notes/Orders Elsy Shea y Agnieszka Reyes Contact with and [address] Anna Kang MD (suspected) exposure [place] [id number] [place]19 [place] [address] (Wo rk) Social History Tobacco Use Types Packs/Day Years Used Date Smoking Tobacco: Former Cigarettes Quit : 04/09/2003 Smokeless Tobacco: Never Alcohol Use Standard Drinks/Week Comments Not Currently 0 (1 standard drink = 0.6 oz pure alcoho l) Sex Assigned at Date Recorded Not on file documented as of this encounter Plan of Treatment Not on filedocumented as of this encounter Results Asymptomatic - 2019 Novel Coronavirus (COVID-19) (08/01/2022 9:59 AM CDT) [facility] gist Method Time Signature COVID-19 Not Not 08/02/2022 [facility] Interpretation Detected Detected 12:30 AM [facility] CDT Source Nares, left 08/02/2022 [facility] and right 12:30 AM C[facility]TRAL LAB CDT Specimen Anatomical Collection Method Collection Time Receive d Time (Source) Location / / Volume Laterality Swab (Source Non-blood 08/01/2022 9:59 AM 9:59 Required) Collection / CDT AM CDT Unknown Narrative [facility] - 08/02/2022 12:30 AM CDT Test performed by Wire Fence Builder Mediated Amplification. TMA has been shown to be equivalent to commercial real-time PCR t ests. This test has been authorized by the FDA under Emergency Use Authorization (E UA) for use by authorized laboratories. Agniezska Reyes MD LAB_1 Performing Organization Address City/State/ZIP Code Phon e Number [facility] [address] [address] documented in this encounter Visit Diagnoses Diagnosis Contact with and (suspected) exposure to covid-19 documented in this encounter Care Teams Sample Shoe Inspector And Reworker Relationship Specialty Start Date End Date Agnieszka Reyes MD PCP - General Internal Medicine [address] [place] [address] documented as of this encounter
--- OUTSIDE RECORDS SUMMARY | 2022-10-31 16:19 | XMS_ITS | Encounter Summary ---
:1945 Author Organization [facility] Address [address], [place] [address] Care Team Providers Name Role Phone Agnieszka Reyes MD Primary Care Provider Reason for Visit Reason Comments QUESTIONS, GENERAL prescription Encounter Details Date Type Department Care Team Description 05/18/2019 Telephone Specialty Center 3931 Antolin Hannon MD QUESTIONS, GENERAL Pulmonary Medicine [facility] ([facility]) [address] [place] [address] [place] [phone] (Wo rk) Social History Tobacco Use Types Packs/Day Years Used Date Smoking Tobacco: Former Cigarettes Quit : 04/09/2003 Smokeless Tobacco: Never Alcohol Use Standard Drinks/Week Comments Yes 0 (1 standard drink = 0.6 oz pure alcoho l) Sex Assigned at Date Recorded Not on file documented as of this encounter Nursing Notes Rafia Tong RN - 05/18/2019 4:11 PM CDT Patient states Lamar is not on formulary. Advair and Breo are covered. He will check with his insurance to check on the prices. His last Advair prescription was $88 but wasn't sure if there was a deductible being met yet. He was given the alternatives to check with his insurance. Mary Jacobson - 05/18/2019 3:17 PM CDT Miscellaneous Questions & FYI's What is your question or concern? New prescription from the last visit, insurance denying Have you recently been seen for this? Yes: last seen 02/2019 Is it okay to leave a detailed message on your voicemail? Yes Mary Jacobson Please route to: Specialty Center [facility] Pulmonary Medicine Nursing presto documented in this encounter Plan of Treatment Not on filedocumented as of this encounter Visit Diagnoses Not on filedocumented in this encounter Care Teams Research Group Director Relationship Specialty Start Date End Date Agnieszka Reyes MD PCP - General Internal Medicine [address] [place] [address] documented as of this encounter
--- OUTSIDE RECORDS SUMMARY | 2022-10-31 16:19 | XMS_ITS | Encounter Summary ---
:1945 Author [facility] Address [address] [place] [address] Care Team Providers Name Role Phone Agnieszka Reyes MD Primary Care Provider Reason for Referral Procedure/Equipment (Routine) - Incomplete Specialty Diagnoses / Procedures Referred By Contact Refer red To Contact Diagnoses Lung nodule Annamarie Hannon MD Procedures CT Chest WO IV Cont [address] [place] [address] Referral ID Status Reason Start Date Expiration Date Visits V isits Requested Authorized [id number] Incomplete 07/11/2018 10/10/2019 1 1 Reason for Visit Procedure/Equipment (Routine) - Incomplete Specialty Diagnoses / Procedures Referred By Contact Refer red To Contact Diagnoses Lung nodule Annamarie Hannon MD Procedures CT Chest WO IV Cont [address] [place] [address] Referral ID Status Reason Start Date Expiration Date Visits V isits Requested Authorized [id number] Incomplete 07/11/2018 10/10/2019 1 1 Encounter Details Date Type Department Care Team Description 02/25/[address] [address] Scan Annamarie Hannon MD Lung nodule [address] [place], [place] [address] [address] [place], [place] [phone] (Wo rk) Social History Tobacco Use Types [...] 11 MCG/ACT nasal solution both nostrils daily. Multiple Vitamins-Minerals Take 1 tablet by 0 04/2013 (MULTIVITAMIN OR) mouth daily (every 24 hours). ALBUterol sulfate HFA 108 Inhale 2 Puffs 1 Inhaler 11 201608/03/2022 (90 BASE) MCG/ACT inhaler every 6 hours as needed for Wheezing (Inhale 2 puffs every 6 hours as needed for Wheezing.). amLODIPine (NORVASC) 5 MG Take 5 mg by mouth 0 08/03/2022 tablet daily. aspirin EC 81 MG enteric Take 81 mg by mouth 0 08/03/2022 coated tablet daily (every 24 hours). budesonide-formoterol Inhale 2 Puffs two 10.2 g 11 201602/27/2019 (SYMBICORT) 160-4.5 times a day. MCG/ACT inhaler calcium carbonate (AKA Take 1 tablet by 0 013 02/27/2019 TUMS) 500 MG chewable mouth daily (every tablet 24 hours). Calcium Carbonate (CALCIUM 0 02/27/2019 600 OR) cefuroxime (CEFTIN) 500 MG Take 1 Tablet by 10 Tablet 0 02/27/2019 tablet mouth daily. fluticasone (FLOVENT HFA) Inhale 1-2 Puffs 1 Inhaler 11 02/2302/27/2019 220 mcg/actuation inhaler two times a day. Rinse mouth/gargle after use. lisinopril (ZESTRIL) 5 MG Take 5 mg by mouth 0 08/03/2022 tablet daily. omeprazole (PRILOSEC) 20 Take 1 Cap by mouth 30 Cap 11 09/07/2020 MG capsule daily. simvastatin (ZOCOR) 40 MG Take 1 Tab by mouth 30 Tab 11 0 03/11/2017 02/27/2019 tablet daily at bedtime. torsemide (DEMADEX) 20 MG Take 20 mg by mouth 0 09/07/2020 tablet daily. documented as of this encounter Plan of Treatment Not on filedocumented as of this encounter Procedures Procedure Name Priority Date/Time Associated Diagnosis Comme nts CT CHEST WO IV CONT Routine 02/25/2019 12:10 PM Lung nodule R esults for this CDT procedure are i n the results section. documented in this encounter Results CT Chest WO IV Cont (02/25/2019 12:10 PM CDT) Anatomical Region Laterality Modality Chest, Lung Computed Tomography Specimen (Source) Anatomical Collection Method Collection Time Re ceived Time Location / / Volume Laterality 02/25/2019 11:58 AM CDT Impressions 02/25/2019 12:34 PM CDT IMPRESSION: 1. Left upper lobe calcified granuloma i s again noted. Adjacent smaller noncalcified nodules are slightly smaller than on the prior study. Multiple scattered 2 mm noncalcified nodules in both lungs are stable. 2. Upper normal sized axillary and media stinal adenopathy is stable. Narrative 02/25/2019 12:34 PM CDT TECHNIQUE: Images were obtained through the chest without contrast. COMPARISON: 07/11/2018. FINDINGS: CHEST: CHEST WALL AND LOWER NECK: The visualize d thyroid is normal. The chest wall and visualized supraclavicular soft tissues are unremarkable. AXILLAE: Bilateral axillary nodes measur ing up to 1 cm in short axis diameter are unchanged. MEDIASTINUM AND KATHY: Scattered mediasti nal nodes measuring up to 1 cm in short axis diameter are stable. Calcified left hilar nodes are unchanged. VESSELS: Unremarkable. HEART: Unremarkable. PERICARDIAL EFFUSION: None. LUNG AND LARGE AIRWAYS: Scattered nodula r densities in the left upper lobe, the largest of which is partially calcified, are again noted. Adjacent noncalcified nodular densities are slightly smaller, th e largest of which measures 5 mm. Multip le additional scattered 2 mm noncalcified nodules in both lungs best appreciated on the MIPS sequence are unchanged. PLEURA: No significant pleural effusion. BONES: Unremarkable. UPPER ABDOMEN: 1 cm right adrenal adenom a (2 Hounsfield units) is stable Procedure Note Sukhi Escamilla MD - 02/25/2019 TECHNIQUE: Images were obtained through the chest without contrast. COMPARISON: 07/11/2018. FINDINGS: CHEST: CHEST WALL AND LOWER NECK: The visualize d thyroid is normal. The chest wall and visualized supraclavicular soft tissues are unremarkable. AXILLAE: Bilateral axillary nodes measur ing up to 1 cm in short axis diameter are unchanged. MEDIASTINUM AND KATHY: Scattered mediasti nal nodes measuring up to 1 cm in short axis diameter are stable. Calcified left hilar nodes are unchanged. VESSELS: Unremarkable. HEART: Unremarkable. PERICARDIAL EFFUSION: None. LUNG AND LARGE AIRWAYS: Scattered nodula r densities in the left upper lobe, the largest of which is partially calcified, are again noted. Adjacent noncalcified nodular densities are slightly smaller, the largest of which measures 5 mm. Multiple additio nal scattered 2 mm noncalcified nodules in both lungs best appreciated on the MIPS sequence are unchanged. PLEURA: No significant pleural effusion. BONES: Unremarkable. UPPER ABDOMEN: 1 cm right adrenal adenom a (2 Hounsfield units) is stable IMPRESSION IMPRESSION: 1. Left upper lobe calcified granuloma i s again noted. Adjacent smaller noncalcified nodules are slightly smaller than on the prior study. Multiple scattered 2 mm noncalcified nodules in both lungs are stable. 2. Upper normal sized axillary and media stinal adenopathy is stable. Annamarie Hannon MD RAD CT documented in this encounter Visit Diagnoses Diagnosis Lung nodule Solitary pulmonary nodule documented in this encounter Care Teams Ski Patrol Director Relationship Specialty Start Date End Date Agnieszka Reyes MD PCP - General Internal Medicine 09/03/[address] [place] [address] documented as of this encounter
--- OUTSIDE RECORDS SUMMARY | 2022-10-31 16:19 | XMS_ITS | Encounter Summary ---
:1945 Author Organization [facility] Address [address], [place] [address] Care Team Providers Name Role Phone Agnieszka Reyes MD Primary Care Provider Reason for Referral (Routine) - Closed Specialty Diagnoses / Procedures Referred By Contact Refer red To Contact Procedures Annamarie Hannon MD Pulmonary Function Test - [address] [facility] [id number] [place] [address] Referral ID Status Reason Start Date Expiration Date Visits Requ ested Visits Authorized [id number] Closed 09/06/2020 12/06/2021 1 1 Encounter Details Date Type Department Care Team Description 09/07/2020 Hospital Encounter [facility] 3931 Pulmonary Wheezing Lab [address] [place] [address] Social History Tobacco Use Types Packs/Day Years [...] 0 02/27/2019 tablet mouth daily at bedtime. ADVAIR HFA 230-21 MCG/ACT Inhale 2 Puffs BY 12 g 0 06/09/2021 inhaler MOUTH two times a day. Rinse mouth/gargle after use ALBUterol sulfate HFA 108 Inhale 2 Puffs [...] chewable tablet mouth two times a day. COMBIGAN 0.2-0.5 % eye 0 09/01/2020 drop solution fluticasone-salmeterol Inhale 1 Puff two 1 Each 11 201906/09/2021 (AIRDUO RESPICLICK) 232-14 times a day. Rinse MCG/ACT inhaler mouth/gargle after use. levothyroxine (SYNTHROID) Take 5 Tablets by 1 Tablet 1 08/03/2022 25 MCG tablet mouth daily. lisinopril (ZESTRIL) 5 MG Take 5 mg by mouth 0 08/03/2022 tablet daily. tacrolimus (PROGRAF) 0.5 Take 1 Capsule by 1 Capsule 0 08/2508/03/2022 MG capsule mouth daily. torsemide (DEMADEX) 20 MG Take 1 Tablet by 1 Tablet 1 08/2508/03/2022 tablet mouth two times a day. documented as of this encounter Plan of Treatment Not on filedocumented as of this encounter Procedures Procedure Name Priority Date/Time Associated Diagnosis Comme nts COMPLETE PULMONARY Routine 09/07/2020 10:49 AM CDT FUNCTION TEST documented in this encounter Results Pulmonary Function Test - Complete (09/07/2020 10:49 AM CDT) Specimen (Source) Anatomical Collection Method Collection Time Re ceived Time Location / / Volume Laterality 09/07/2020 10:49 AM CDT Annamarie Hannon MD PN PFT ORDERABLES Performing Organization Address City/State/ZIP Code Phon e Number PN SOLA documented in this encounter Visit Diagnoses Diagnosis Wheezing documented in this encounter Care Teams Drain Layer Relationship Specialty Start Date End Date Agnieszka Reyes MD PCP - General Internal Medicine 09/03/[address] [place] [address] documented as of this encounter
--- OUTSIDE RECORDS SUMMARY | 2022-10-31 16:19 | XMS_ITS | Encounter Summary ---
:1945 Author Organization [facility] Address [address] [place] [address] Care Team Providers Name Role Phone Agnieszka Reyes MD Primary Care Provider Reason for Visit Reason Comments COVID Screening Encounter Details Date Type Department Care Team Description 05/31/2020 Telephone [facility]ty Center 3931 Antolin Hannon MD COVID Screening Pulmonary Medicine [address] [facility] [address] [facility] [address] [place] [phone] (Wo rk) Social History Tobacco Use Types Packs/Day Years Used Date Smoking Tobacco: Former Cigarettes Quit : 04/09/2003 Smokeless Tobacco: Never Alcohol Use Standard Drinks/Week Comments Yes 0 (1 standard drink = 0.6 oz pure alcoho l) Sex Assigned at Date Recorded Not on file documented as of this encounter Nursing Notes Svetlana Mathews, RN - 05/31/2020 2:14 PM CDT Pre-operative testing for COVID-19. As part of preparation for your upcoming surgery/procedure/infusion you are required to have a test for the novel Coronavirus, COVID-19. Patient is a/an Pre-op/pre-procedural/pre-infusion patients that have a scheduled surgery, procedure, induction/ or infusion Please schedule your appointment two days prior to the date of surgery/procedure/infusion in order to get your results before your procedure. Please schedule your appointment online at [email or web address]. It is important to self-quarantine between the test and surgery/procedure/infusion to avoid any additional exposure. Online Schedulingfor Drive up Testing: Website: [email or web address] Hours: 24 hours/day Testing site hours: Saturday through Saturday 9:00am-6:00pm, Saturday and Saturday 9:00am-1:00pm When you arrive at your scheduled appointment, please let drive up team know that you have been screened. If you have difficulty scheduling your test on-line, you can call us at [phone]. documented in this encounter Plan of Treatment Not on filedocumented as of this encounter Results 2019 Novel Coronavirus (COVID-19) (06/05/2020 7:58 AM CDT) [facility] Method Time Signature COVID-19 Not Not 06/05/2020 [facility] Interpretation Detected Detected 8:58 PM CENTRAL LAB CDT Specimen Anatomical Collection Method Collection Time Receive d Time (Source) Location / / Volume Laterality Swab (Source Non-blood 06/05/2020 7:58 AM 0 Required) Collection / CDT 10:07 AM CDT Unknown Narrative [facility] - 06/05/2020 8:58 PM CDT Testing has been performed by Metal Bonding Press Operator Mediated Amplification. This test has been authorized by the FDA under an Emergency Use Authorization (EUA) for use by authorized laboratories. Annamarie Hannon MD LAB_1 Performing Organization Address City/State/ZIP Code Phon e Number [facility] [address] [address] documented in this encounter Visit Diagnoses Diagnosis Chronic obstructive pulmonary disease, u nspecified COPD type (HRC) - Primary Encounter for screening for other viral diseases documented in this encounter Care Teams Fire Lieutenant Relationship Specialty Start Date End Date Agnieszka Reyes MD PCP - General Internal Medicine 09/[address] [place] [address] documented as of this encounter
--- OUTSIDE RECORDS SUMMARY | 2022-10-31 16:19 | XMS_ITS | Encounter Summary ---
:1945 Author Organization [facility] Address [address], [place] [address] Care Team Providers Name Role Phone Agnieszka Reyes MD Primary Care Provider Encounter Details Date Type Department Care Team Description 06/05/[address] [place] [address] [facility], Drive-Up Chronic obstructive pulmonar y disease, unspecified COPD type (HRC); [address] [facility] Encounter for [place] [address] Social History Tobacco Use Types Packs/Day Years [...] Name Priority Date/Time Associated Diagnosis Comme nts 2019 NOVEL STAT 06/05/2020 7:58 AM Chronic obstructive Re sults for this CORONAVIRUS CDT pulmonary disease, procedure are in unspecified COPD the results type (HRC) section. Encounter for screening for other viral diseases documented in this encounter Results 2019 Novel Coronavirus (COVID-19) (06/05/2020 7:58 AM CDT) [facility] Method Time Signature COVID-19 Not Not 06/05/2020 [email or web address] Interpretation Detected Detected 8:58 PM CENTRAL LAB CDT Specimen Anatomical Collection Method Collection Time Receive d Time (Source) Location / / Volume Laterality Swab (Source Non-blood 06/05/2020 7:58 AM 0 Required) Collection / CDT 10:07 AM CDT Unknown Narrative [facility] - 06/05/2020 8:58 PM CDT Testing has been performed by Enrober Tender Mediated Amplification. This test has been authorized by the FDA under an Emergency Use Authorization (EUA) for use by authorized laboratories. Annamarie Hannon MD LAB_1 Performing Organization Address City/State/ZIP Code Phon e Number [facility] [address] [address] documented in this encounter Visit Diagnoses Diagnosis Chronic obstructive pulmonary disease, u nspecified COPD type (HRC) Encounter for screening for other viral diseases documented in this encounter Care Teams Ethylbenzene Converter Operator Relationship Specialty Start Date End Date Agnieszka Reyes MD PCP - General Internal Medicine 09/03/[address] [place] [address] documented as of this encounter
--- OUTSIDE RECORDS SUMMARY | 2022-10-31 16:19 | XMS_ITS | Encounter Summary ---
:[address] [facility] Address [address] [place] [address] Care Team Providers Name Role Phone Agnieszka Reyes MD Primary Care Provider Reason for Visit Reason Comments Refill Encounter Details Date Type Department Care Team Description 05/13/2019 Refill [facility]ty [facility] 3931 Antolin Hannon MD Refill Pulmonary Medicine [address] [facility] [address] [place] [phone] (Wo rk) Social History Tobacco Use Types Packs/Day Years Used Date Smoking Tobacco: Former Cigarettes Quit : 04/09/2003 Smokeless Tobacco: Never Alcohol Use Standard Drinks/Week Comments Yes 0 (1 standard drink = 0.6 oz pure alcoho l) Sex Assigned at Date Recorded Not on file documented as of this encounter Nursing Notes Joann Donaldson RN - 05/13/2019 4:40 PM CDT Pt was last prescribed Advair diskus and request is for Advair HFA. Per pharmacist pt prefers AdvairHFA and would like this sent as the diskus was too costly. Rx refilled per protocol. documented in this encounter Plan of Treatment Not on filedocumented as of this encounter Visit Diagnoses Not on filedocumented in this encounter Care Teams Supervisor Statement Clerks Relationship Specialty Start Date End Date Agnieszka Reyes MD PCP - General Internal Medicine [address] [place] [address] documented as of this encounter
--- OUTSIDE RECORDS SUMMARY | 2022-10-31 16:19 | XMS_ITS | Encounter Summary ---
:1945 Author Organization [facility] Address [address] [place] [address] Care Team Providers Name Role Phone Agnieszka Reyes MD Primary Care Provider Reason for Referral (Routine) - Closed Specialty Diagnoses / Procedures Referred By Contact Refer red To Contact Procedures Annamarie Hannon MD Pulmonary Function Test - [address] [facility] [address] [place] [address] Referral ID Status Reason Start Date Expiration Date Visits Requ ested Visits Authorized [id number] Closed 07/10/2018 10/09/2019 1 1 Encounter Details Date Type Department Care Team Description 07/11/2018 Hospital Encounter [facility] 3931 Uncomplicated asthma, Pulmonary Lab unspecified asthma [address] [facility]. severity , [place] [address] Social History Tobacco Use Types Packs/Day Years [...] (MULTIVITAMIN OR) mouth daily (every 24 hours). sulfamethoxazole-trimethop Take 1 Tablet by 0 07/23/2018 rim (BACTRIM DS,SEPTRA DS) mouth. 800-160 MG tablet ALBUterol sulfate HFA 108 Inhale 2 Puffs [...] (FLOVENT HFA) Inhale 1-2 Puffs 1 Inhaler 02/2302/27/2019 220 mcg/actuation inhaler two times a [...] Associated Diagnosis Comme nts COMPLETE PULMONARY Routine 07/11/2018 2:24 PM CDT FUNCTION TEST documented in this encounter Results Pulmonary Function Test - Complete (07/11/2018 2:24 PM CDT) Specimen (Source) Anatomical Collection Method Collection Time Re ceived Time Location / / Volume Laterality 07/11/2018 2:24 PM CDT Annamarie Hannon MD PN PFT ORDERABLES Performing Organization Address City/State/ZIP Code Phon e Number PN [facility] documented in this encounter Visit Diagnoses Diagnosis Uncomplicated asthma, unspecified asthma severity, unspecified whether persistent (HRC) documented in this encounter Care Teams Roller Engraver Relationship Specialty Start Date End Date Agnieszka Reyes MD PCP - General Internal Medicine 09/03/[address] [place] [address] documented as of this encounter
--- OUTSIDE RECORDS SUMMARY | 2022-10-31 16:19 | XMS_ITS | Encounter Summary ---
:1945 [facility] Address [address] [place] [address] Care Team Providers Name Role Phone Agnieszka Reyes MD Primary Care Provider Reason for Referral Procedure/Equipment (Routine) - Incomplete Specialty Diagnoses / Procedures Referred By Contact Refer red To Contact Diagnoses Lung nodule Annamarie Hannon MD Procedures CT Chest WO IV Cont [address] [place] [address] Referral ID Status Reason Start Date Expiration Date Visits V isits Requested Authorized [id number] Incomplete 03/06/2018 06/05/2019 1 1 Reason for Visit Procedure/Equipment (Routine) - Incomplete Specialty Diagnoses / Procedures Referred By Contact Refer red To Contact Diagnoses Lung nodule Annamarie Hannon MD Procedures CT Chest WO IV Cont [address] [place] [address] Referral ID Status Reason Start Date Expiration Date Visits V isits Requested Authorized [id number] Incomplete 03/06/2018 06/05/2019 1 1 Encounter Details Date Type Department Care Team Description 07/11/[address] Scan Annamarie Hannon MD Lung nodule [address] [place], [place] [address] [address] [place], [place] [phone] (Wo rk) Social History Tobacco Use [...] Calcium Carbonate (CALCIUM 0 02/27/2019 600 OR) fluticasone (FLOVENT HFA) Inhale 1-2 Puffs 1 [...] nts CT CHEST WO IV CONT Routine 07/11/2018 2:02 PM Lung nodule Re sults for this CDT procedure are i n the results section. documented in this encounter Results CT Chest WO IV Cont (07/11/2018 2:02 PM CDT) Anatomical Region Laterality Modality Chest, Lung Computed Tomography Specimen (Source) Anatomical Collection Method Collection Time Re ceived Time Location / / Volume Laterality 07/11/2018 1:58 PM CDT Impressions 07/11/2018 2:31 PM CDT IMPRESSION: ?? 1. ??Redemonstration of irregular nodula r opacities in the left upper lobe, the largest of which is partially calcified. These findings likely represent sequela of an infectious/inflammatory process, wi th calcifications suggesting granulomato us disease. No new or enlarging suspicious pulmonary nodules. 2. ??Redemonstration of lymphadenopathy in the chest and upper abdomen with increased size of a right paratracheal lymph node compared with the prior exam. This likely relates to the patient's reported history of CLL. Continued follow-up is r ecommended. Narrative 07/11/2018 2:31 PM CDT COMPARISON: ??CT dated 07/12/2017 TECHNIQUE: ??Noncontrast images were obt ained through the chest. FINDINGS: Redemonstration of left upper lobe irregular nodular opacities, the largest of which measures approximately 1.4 x 0.6 cm (series 3 slice 61), and is slightly increased in size since the prior exam, but is partially calcified likely representing granulomatous disease. The 1.0 cm subpleural nodular opacity seen on the prior exam has decreased in size and density. No other new or enlarging pulm onary nodules. Mild bibasilar linear sca rring/chronic atelectasis is similar prior exam. Otherwise clear lungs. No pleural effusion. There is been interval increase in the s ize of a now 1.0 cm right paratracheal node on series 2 slice 20, previously measuring 0.7 cm. Other mildly enlarged mediastinal and left hilar nodes are unchange d. Calcified left hilar nodes reflect se quela of prior granulomatous disease. Multiple subcentimeter axillary nodes bilaterally, similar prior exam. Normal caliber and course of the aorta and pulmonary arteries. No pericardial effusion. Calci fied splenic granulomas. Mildly enlarged retroperitoneal lymph nodes in the upper abdomen are similar prior exam. Otherwise unremarkable visible upper abdominal contents on this noncontrast exam. Procedure Note Slick Anaya MD - 07/11/2018Fo rmatting of this note might be different from the original. COMPARISON: CT dated 07/12/2017 TECHNIQUE: Noncontrast images were obtai justin through the chest. FINDINGS: Redemonstration of left upper lobe irregular nodular opacities, the largest of which measures approximately 1.4 x 0.6 cm (series 3 slice 61), and is slightly increased in size since the prior exam, but is partially calcified likely representing granulomatous disease. The 1.0 cm subpleural nodular opacity seen on the prior exam has decreased in size and density. No other new or enlarging pulmonary nodules. Mild bibasilar linear scarring/chronic atelectasis is s imilar prior exam. Otherwise clear lungs. No pleural effusion. There is been interval increase in the s ize of a now 1.0 cm right paratracheal node on series 2 slice 20, previously measuring 0.7 cm. Other mildly enlarged mediastinal and left hilar nodes are unchanged. Calcified left hilar nodes reflect sequela of prio r granulomatous disease. Multiple subcentimeter axillary nodes bilaterally, similar prior exam. Normal caliber and course of the aorta and pulmonary arteries. No pericardial effusion. Calcified splenic granulomas. Mildly enlarged retroperitoneal lymph nodes in the upper abdomen are similar prior exam. Otherwise unremarkable visible upper abdominal contents on this noncontrast exam. IMPRESSION IMPRESSION: 1. Redemonstration of irregular nodular opacities in the left upper lobe, the largest of which is partially calcified. These findings likely represent sequela of an infectious/inflammatory process, with calcifications suggesting granulomatous disease. No new or enlarging suspicious pulmonary nodules. 2. Redemonstration of lymphadenopathy in the chest and upper abdomen with increased size of a right paratracheal lymph node compared with the prior exam. This likely relates to the patient's reported history of CLL. Continued follow-up is recommended. Annamarie Hannon MD RAD CT documented in this encounter Visit Diagnoses Diagnosis Lung nodule Solitary pulmonary nodule documented in this encounter Care Teams Diabetes Nurse Relationship Specialty Start Date End Date Agnieszka Reyes MD PCP - General Internal Medicine 09/[address] [place] [address] documented as of this encounter
--- OUTSIDE RECORDS SUMMARY | 2022-10-31 16:19 | XMS_ITS | Encounter Summary ---
:1945 Author Organization [facility] Address [address], [place] [address] Care Team Providers Name Role Phone Agnieszka Reyes MD Primary Care Provider Reason for Visit Reason Comments QUESTIONS, GENERAL Encounter Details Date Type Department Care Team Description 05/08/2021 Telephone [facility] [address] Antolin Hannon MD QUESTIONS, GENERAL Pulmonary Medicine [address] [facility] [address] [facility] [address] [place] [phone] (Wo rk) Social History Tobacco Use Types Packs/Day Years Used Date Smoking Tobacco: Former Cigarettes Quit : 04/09/2003 Smokeless Tobacco: Never Alcohol Use Standard Drinks/Week Comments Not Currently 0 (1 standard drink = 0.6 oz pure alcoho l) Sex Assigned at Date Recorded Not on file documented as of this encounter Nursing Notes Deandre Gaitan RN - 05/08/2021 3:16 PM CDT Pt calling in stating that he had a CT scan about a [facility] ago at [facility] and would like to have that image instead of getting another CT scan. Requested images be pushed into [facility] system. Pt wouldlike to cancel CT appointment at this time. Pt transferred to radiology to cancel CT scan. documented in this encounter Plan of Treatment Not on filedocumented as of this encounter Visit Diagnoses Not on filedocumented in this encounter Care Teams Nurse Midwife Relationship Specialty Start Date End Date Agnieszka Reyes MD PCP - General Internal Medicine [address] [place] [address] documented as of this encounter
--- OUTSIDE RECORDS SUMMARY | 2022-10-31 16:19 | XMS_ITS | Encounter Summary ---
:1945 Author [facility] Address [address] [place] [address] Care Team Providers Name Role Phone Agnieszka Reyes MD Primary Care Provider Reason for Visit Reason Comments Refill Encounter Details Date Type Department Care Team Description 05/24/2020 Refill Specialty Center [address] Antolin Hannon MD Refill Pulmonary Medicine [address] [facility] [address] [place] [phone] (Wo rk) Social History Tobacco Use Types Packs/Day Years Used Date Smoking Tobacco: Former Cigarettes Quit : 04/09/2003 Smokeless Tobacco: Never Alcohol Use Standard Drinks/Week Comments Yes 0 (1 standard drink = 0.6 oz pure alcoho l) Sex Assigned at Date Recorded Not on file documented as of this encounter Nursing Notes Rafia Tong RN - 05/24/2020 8:55 AM CDT Spoke with patient and he reports that he is taking Airduo instead of Advair. Rx sent to pharmacy and med list updated. documented in this encounter Plan of Treatment Not on filedocumented as of this encounter Visit Diagnoses Not on filedocumented in this encounter Care Teams Certified Veterinary Technician Relationship Specialty Start Date End Date Agnieszka Reyes MD PCP - General Internal Medicine 09/[address] [place] [address] documented as of this encounter
--- OUTSIDE RECORDS SUMMARY | 2022-10-31 16:19 | XMS_ITS | Encounter Summary ---
:1945 Author Organization [facility] Address [address] [address] Care Team Providers Name Role Phone Agnieszka Reyes MD Primary Care Provider Encounter Details Date Type Department Care Team Description 09/04/2020 Notes/Orders [facility] Agnieszka Reyes Encount er for Practice EMD screening for other [address] [place] [address] [place], [place] [phone] (Wo rk) Social History Tobacco Use Types [...] Novel Coronavirus (COVID-19) (09/05/2020 8:35 AM CDT) [facility] gist Method Time Signature COVID-19 Not Not 09/05/2020 [facility] Interpretation Detected Detected 4:31 PM CENTRAL LAB CDT Specimen Anatomical Collection Method Collection Time Receive d Time (Source) Location / / Volume Laterality Swab (Source Non-blood 09/05/2020 8:35 AM 0 Required) Collection / CDT 10:40 AM CDT Unknown Narrative [facility] - 09/05/2020 4:31 PM CDT Test performed by Inductor Tester Mediated Amplification. TMA has been shown to be equivalent to commercial real-time PCR t ests. This test has been authorized by the FDA under an Emergency Use Authorization (EUA) for use by authorized laboratories. Agnieszka Reyes MD LAB_1 Performing Organization Address City/State/ZIP Code Phon e Number [facility] [address] [address] documented in this encounter Visit Diagnoses Diagnosis Encounter for screening for other viral diseases documented in this encounter Care Teams Web Engineer Relationship Specialty Start Date End Date Agnieszka Reyes MD PCP - General Internal Medicine [address] [place] [address] documented as of this encounter
--- OUTSIDE RECORDS SUMMARY | 2022-10-31 16:19 | XMS_ITS | Encounter Summary ---
:1945 Author Organization [facility] Address [address], [place] [address] Care Team Providers Name Role Phone Agnieszka Reyes MD Primary Care Provider Encounter Details Date Type Department Care Team Description 06/07/2021 Lab Visit [facility] Preop examination [address] [place] [phone] Social History Tobacco Use Types Packs/Day Years [...] Date/Time Associated Diagnosis Comme nts 2019 NOVEL Routine 06/07/2021 9:20 AM Preop examination Resu lts for this CORONAVIRUS CDT procedure are i n the results section. documented in this encounter Results Asymptomatic - 2019 Novel Coronavirus (COVID-19) (06/07/2021 9:20 AM CDT) [facility] Method Time Signature COVID-19 Not Not 06/07/[facility] Interpretation Detected Detected 7:41 PM CENTRAL LAB CDT Source Nares, left 06/07/2021 [facility] and right 7:41 PM LABORATORY CDT Specimen Anatomical Collection Method Collection Time Receive d Time (Source) Location / / Volume Laterality Swab (Source Non-blood 06/07/2021 9:20 AM 9:20 Required) Collection / CDT AM CDT Unknown Narrative [facility] CENTRAL [facility] - 06/07/2021 7:41 PM CDT Test performed by Vegetable Harvest Machine Operator Mediated Amplification. TMA has been shown to be equivalent to commercial real-time PCR t ests. This test has been authorized by the FDA under an Emergency Use Authorization (EUA) for use by authorized laboratories. Agnieszka Reyes MD LAB_1 Performing Organization Address City/State/ZIP Code Phon e Number [facility] [address] [id number] [facility] [address] [place] [address] documented in this encounter Visit Diagnoses Diagnosis Preop examination Preoperative examination, unspecified documented in this encounter Care Teams Accounts Payable Professional Relationship Specialty Start Date End Date Agnieszka Reyes MD PCP - General Internal Medicine [address] [place] [address] documented as of this encounter
--- OUTSIDE RECORDS SUMMARY | 2022-10-31 16:19 | XMS_ITS | Encounter Summary ---
:1945 Author Organization [facility] Address [address] [place] [address] Care Team Providers Name Role Phone Agnieszka Reyes MD Primary Care Provider Encounter Details Date Type Department Care Team Description 06/06/2021 Notes/Orders [facility] Agnieszka Reyes, Preop examination Up [address] [place] [address] [place] [address] [phone] (Wo rk) Social History Tobacco Use Types [...] Novel Coronavirus (COVID-19) (06/07/2021 9:20 AM CDT) [facility] Method Time Signature COVID-19 Not Not 06/07/2021 [facility] Interpretation Detected Detected 7:41 PM CENTRAL LAB CDT Source Nares, left 06/07/2021 [facility] and right 7:41 PM LABORATORY CDT Specimen Anatomical Collection Method Collection Time Receive d Time (Source) Location / / Volume Laterality Swab (Source Non-blood 06/07/2021 9:20 AM 9:20 Required) Collection / CDT AM CDT Unknown Narrative [facility] - 06/07/2021 7:41 PM CDT Test performed by Automotive Design Layout Drafter Mediated Amplification. TMA has been shown to be equivalent to commercial real-time PCR t ests. This test has been authorized by the FDA under an Emergency Use Authorization (EUA) for use by authorized laboratories. Agnieszka Reyes MD LAB_1 Performing Organization Address City/State/ZIP Code Phon e Number [facility] [address] [address] [facility] [address] [place] [address] documented in this encounter Visit Diagnoses Diagnosis Preop examination Preoperative examination, unspecified documented in this encounter Care Teams Mortgage Loan Originator Relationship Specialty Start Date End Date Agnieszka Reyes MD PCP - General Internal Medicine [address] [place] [address] documented as of this encounter
--- OUTSIDE RECORDS SUMMARY | 2022-10-31 16:19 | XMS_ITS | Encounter Summary ---
:1945 Author Organization [facility] Address [address] [address] Care Team Providers Name Role Phone Agnieszka Reyes MD Primary Care Provider Reason for Referral (Routine) - Closed Specialty Diagnoses / Procedures Referred By Contact Refer red To Contact Procedures Annamarie Hannon MD Pulmonary Function Test - [address] [place] [address] [address] [place] [address] Referral ID Status Reason Start Date Expiration Date Visits Requ ested Visits Authorized [id number] Closed 06/08/2021 09/07/2022 1 1 Encounter Details Date Type Department Care Team Description 06/09/2021 Hospital Encounter Specialty Center 3931 Chronic obstructive Pulmonary Lab pulmonary disease, [address] unspecified COPD type [place], [place] ([facility]) [phone] Social History Tobacco Use Types Packs/Day Years [...] 0 02/27/2019 tablet mouth daily at bedtime. Acalabrutinib 100 MG CAPS Take 100 mg by 0 202003/29/2022 mouth every 12 hours. prochlorperazine Take 10 mg by mouth 0 04/02/2021 04/02/2022 (COMPAZINE) 10 MG tablet every 6 hours as needed. ALBUterol sulfate HFA 108 Inhale 2 Puffs [...] chewable tablet mouth two times a day. cefuroxime (CEFTIN) 500 MG Take 500 mg by 0 03/0408/03/2022 tablet mouth two times a day. COMBIGAN 0.2-0.5 % eye 0 09/01/2020 drop solution fluticasone-salmeterol Inhale 2 Puffs two 12 g 11 06/0908/03/2022 (ADVAIR HFA) 230-21 times a day. Rinse mcg/actuation inhaler mouth/gargle after use fluticasone-salmeterol Inhale 1 Puff two 1 Each 202008/03/2022 (AIRDUO RESPICLICK) 232-14 times a day. Rinse MCG/ACT inhaler mouth/gargle after use. levothyroxine (SYNTHROID) Take 175 mcg by 0 04/2108/03/2022 175 MCG tablet mouth. levothyroxine (SYNTHROID) Take 5 Tablets by 1 Tablet 1 08/03/2022 25 MCG tablet mouth daily. lisinopril (ZESTRIL) 5 MG Take 5 mg by mouth 0 08/03/2022 tablet daily. NIFEdipine XL (PROCARDIA 0 03/09/2021 08/03/2022 XL) 30 MG 24 hour release tablet prochlorperazine 0 03/30/2021 08/03/20 22 (COMPAZINE) 10 MG tablet tacrolimus (PROGRAF) 0.5 Take 1 Capsule by 1 Capsule 0 08/2508/03/2022 MG capsule mouth daily. tamsulosin (FLOMAX) 0.4 MG Take 0.4 mg by 0 06/0208/03/2022 CAPS capsule mouth daily. torsemide (DEMADEX) 20 MG Take 1 Tablet by 1 Tablet 1 08/2508/03/2022 tablet mouth two times a day. documented as of this encounter Plan of Treatment Not on filedocumented as of this encounter Procedures Procedure Name Priority Date/Time Associated Diagnosis Comme nts COMPLETE PULMONARY Routine 06/09/2021 11:18 AM CDT FUNCTION TEST documented in this encounter Results Pulmonary Function Test - Complete (06/09/2021 11:18 AM CDT) Specimen (Source) Anatomical Collection Method Collection Time Re ceived Time Location / / Volume Laterality 06/09/2021 11:18 AM CDT Annamarie Hannon MD PN PFT ORDERABLES Performing Organization Address City/State/ZIP Code Phon e Number [facility] documented in this encounter Visit Diagnoses Diagnosis Chronic obstructive pulmonary disease, u nspecified COPD type ([facility]) documented in this encounter Care Teams Grain Miller Helper Relationship Specialty Start Date End Date Agnieszka Reyes MD PCP - General Internal Medicine [address] [place] [address] documented as of this encounter
--- OUTSIDE RECORDS SUMMARY | 2022-10-31 16:19 | XMS_ITS | Encounter Summary ---
:1945 Author Organization [facility] Address [address] [place] [address] Care Team Providers Name Role Phone Agnieszka Reyes MD Primary Care Provider Reason for Visit Reason Comments Refill Encounter Details Date Type Department Care Team Description 09/07/2020 Refill Special[facility] 39[address] Antolin Hannon MD Refill Pulmonary Medicine [address] [facility] [address] [place] [phone] (Wo rk) Social History Tobacco Use Types Packs/Day Years Used Date Smoking Tobacco: Former Cigarettes Quit : 04/09/2003 Smokeless Tobacco: Never Alcohol Use Standard Drinks/Week Comments Not Currently 0 (1 standard drink = 0.6 oz pure alcoho l) Sex Assigned at Date Recorded Not on file documented as of this encounter Nursing Notes Cathleen Perez RN - 09/07/2020 1:38 PM CDT Per last note. Refilled per protocol documented in this encounter Plan of Treatment Not on filedocumented as of this encounter Visit Diagnoses Not on filedocumented in this encounter Care Teams Silk Worker Relationship Specialty Start Date End Date Agnieszka Reyes MD PCP - General Internal Medicine 09/03/[address] [place] [address] documented as of this encounter
--- OUTSIDE RECORDS SUMMARY | 2022-10-31 16:19 | XMS_ITS | Encounter Summary ---
:1945 [facility] Address [address] [place] [address] Care Team Providers Name Role Phone Agnieszka Reyes MD Primary Care Provider Reason for Referral Procedure/Equipment (Routine) - Incomplete Specialty Diagnoses / Procedures Referred By Contact Refer red To Contact Diagnoses Lung nodule Annamarie Hannon MD Procedures CT Chest WO IV Cont [address] [facility] [address] [place] [address] Referral ID Status Reason Start Date Expiration Date Visits V isits Requested Authorized [id number] Incomplete 07/11/2018 10/10/2019 1 1 Reason for Visit Reason Comments Pulmonary [place] Encounter Details Date Type Department Care Team Description 07/11/2018 Office Visit Specialty Center Annamarie Hannon Modera te persistent asthma without complication (Primary Dx); 3931 Pulmonary MD Lung nodule Medicine [address] [facility] [address] [facility] [address] [place], [place] [phone] (Wo rk) Social History Tobacco Use Types Packs/Day Years Used Date Smoking Tobacco: Former Cigarettes Quit : 04/09/2003 Smokeless Tobacco: Never Alcohol Use Standard Drinks/Week Comments Yes 0 (1 standard drink = 0.6 oz pure alcoho l) Sex Assigned at Date Recorded Not on file documented as of this encounter Last Filed Vital Signs Vital Sign Reading Time Taken Comments Blood Pressure 140/90 07/11/2018 2:46 PM CDT Pulse 84 07/11/2018 2:46 PM CDT Temperature - - Respiratory Rate - - Oxygen Saturation 98% 07/11/2018 2:46 PM CDT Inhaled Oxygen Concentration - - Weight 87.5 kg (193 lb) 07/11/2018 2:46 PM CDT Height 182.9 cm (6') 07/11/2018 2:46 PM CDT Body Mass Index 26.18 07/11/2018 2:46 PM CDT documented in this encounter Patient Instructions Patient InstructionsAnnamarie Hannon MD - 07/11/2018 3:00 PM CDT 1. Symbicort 160 mcg 2 puffs 2x day 2. Flovent 220mcg 1 puff 2x day 3. Stop amoxicillin 4. Course of cefuroxime 500mg daily for 10 days. Dose adjusted for renal changes 5. Repeat CT chest in 6-8 months to follow nodules documented in this encounter Progress Notes Annamarie Hannon MD - 07/11/2018 3:00 PM CDT Chief Complaint Patient presents with ??? Pulmonary [place] SUBJECTIVE : The patient is a 73 y.o. male who presents today for follow up mild/moderate copd/asthma. He was last seen in February 2018 and at that time he needed changes made to his inhalers due to cost issues. He is now on symbicort 160 mcg 2 puffs b.i.d. and flovent 220 ??g 1 puff b.i.d. He states his breathing is doing quite well at this time. He has not had any intercurrent respiratory illnesses. He is not feeling short of breath or dealing with significant cough. Unfortunately he developed some left eye inflammation and problems with his left tympanic membrane. He was diagnosed with otitis media and startedon amoxicillin 8 days ago. He states he is feeling a little but better but he still has the inflammat ion in his high and he still having some decreased hearing in his left ear. He also had some noduleson Ct so was advised to get repeat imaging. This was done today. In the summer of 2017 he was diagnosed with nephrotic syndrome with 9 g of protein in his urine. 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 He received 2 doses of Rituxan and his kidney disease went into remission however more recently his kidney problems recurred and he is now on his 2nd dose of Rituxan. He is being followed at the [facility] for his kidney issues. He denies any fevers chills or chest pains at this time. Patient Active Problem List Diagnosis ??? COPD (chronic obstructive pulmonary disease) (HRC) ??? Allergic rhinitis ??? Tubular adenoma of colon ??? Hyperlipidemia (HRC) ??? Albrecht's neuroma of left foot ??? H/O umbilical hernia repair ??? H/O inguinal hernia repair ??? Seasonal allergies ??? GERD (gastroesophageal reflux disease) ??? Asthma (HRC) Outpatient Medications Prior to Visit [...] by mouth daily (every 24 hours). ??? budesonide-formoterol (SYMBICORT) 160-4.5 MCG/ACT inhaler Inhale 2 Puffs two times a day. ??? calcium carbonate (AKA TUMS) 500 MG chewable tablet Take 1 tablet by mouth daily (every 24 hours). ??? Calcium Carbonate (CALCIUM 600 OR) ??? cholecalciferol (AKA VITAMIN D3) 1000 UNITS capsule Take by mouth. ??? cyanocobalamin 500 MCG tablet Take 1,000 mcg by mouth Daily. 09/03/2016: Pt takes B-12 ??? fluocinonide (LIDEX) 0.05 % cream Apply topically two times a day. ??? fluticasone (FLONASE) 50 MCG/ACT nasal solution Place 2 Sprays into both nostrils daily. ??? fluticasone (FLOVENT HFA) 220 mcg/actuation inhaler Inhale 1-2 Puffs two times a day. Rinse mouth/gargle after use. ??? lisinopril (ZESTRIL) 5 MG tablet Take 5 mg by mouth daily. ??? Multiple Vitamins-Minerals (MULTIVITAMIN OR) Take 1 tablet by mouth daily (every 24 hours). ??? omeprazole (PRILOSEC) 20 MG capsule Take 1 Cap by mouth daily. ??? simvastatin (ZOCOR) 40 MG tablet Take 1 Tab by mouth daily at bedtime. ??? torsemide (DEMADEX) 20 MG tablet Take 20 mg by mouth daily. No facility-administered medications prior to visit. OBJECTIVE : Gen.: Alert, cooperative in no acute distress. BP (!) 140/90 (BP Location: Left Arm, BP Cuff Size: Adult Regular/Long) Pulse 84 Ht 6' (1.829 m) Wt 193 lb (87.5 kg) SpO2 98% BMI 26.18 kg/m2 Estimated body mass index is 26.18 kg/(m^2) as calculated from the following: Height as of this encounter: 6' (1.829 m). Weight as of this encounter: 193 lb (87.5 kg). Head: Normocephalic. Eyes: PERRLA, full EOM, left conjunctival injection and scleral injection, left TM with erythema andeffusion right side clear. Throat: Moist mucous membranes without lesions, erythema, or exudate. Neck: Supple, without masses, lymphadenopathy or tenderness. Respiratory: Clear to auscultation Heart: RRR without murmur Abdomen: The abdomen was soft and nontender, normal sounds present. Extremities: No cyanosis clubbing or edema. Neurologic: Alert, oriented x3, nonfocal. PFT: FVC 97 %, FEV1 73 %, FEV1/FVC 59, NO 34 CT chest: 1. ??Redemonstration of irregular nodular opacities in the left upper lobe, the largest ofwhich is partially calcified. These findings likely represent sequela of an infectious/inflammatory process, with calcifications suggesting granulomatous disease. No new or enlarging suspicious pulmonary nodules. 2. ??Redemonstration of lymphadenopathy in the chest and upper abdomen with increased size of a right paratracheal lymph node compared with the prior exam. This likely relates to the patient's reportedhistory of CLL. Continued follow-up is recommended. ASSESSMENT : The patient is a 73 y.o. male with moderate persistent asthma/COPD who is clinically stable from a lung standpoint. For now he will simply continue on the Symbicort and Flovent together asthis combination seems to be working well for him. Pulmonary function tests are slightly better and FeNO is in the normal range. He continues to have an abnormal left tympanic membrane with conjunctival injection therefore I do not think the amoxicillin is working. He will be switched to cefuroxime. Given the report that the patient's creatinine is 3.7 I will dose the cefuroxime based on a creatinineclearance of approximately 20. In terms of the findings on CT he continues to have some nodular infiltrate and although this likely represents some inflammatory changes I would recommend continued follow-up. I do think the adenopathy in the mediastinum is likely in part secondary to the CLL. PLAN : 1. Symbicort 160 mcg 2 puffs 2x day 2. Flovent 220mcg 1 puff 2x day 3. Stop amoxicillin 4. Course of cefuroxime 500mg daily for 10 days. Dose adjusted for renal changes 5. Repeat CT chest in 6-8 months to follow nodules copy Dr Dixon Dangelo [facility] [address] [place] [address] Dr. Christofer Roy [facility] Department of nephrology documented in this encounter Plan of Treatment Scheduled Orders Name Type Priority Associated Diagnoses Order S chedule Spirometry PFT Routine Moderate persistent asthma 1 Occurrences starting without complication 018 until 07/11/2019 documented as of this encounter Results CT Chest WO IV [...] short axis diameter are unchanged. MEDIASTINUM AND KTAHY: Scattered mediasti nal nodes measuring up to [...] compl ication (HRC) - Primary Unspecified asthma Lung nodule Solitary pulmonary nodule Lung nodule Solitary pulmonary nodule documented in this encounter Care Teams Child Care Specialist Relationship Specialty Start Date End Date Agnieszka Reyes MD PCP - General Internal Medicine [address] [place] [address] documented as of this encounter
--- OUTSIDE RECORDS SUMMARY | 2022-10-31 16:19 | XMS_ITS | Encounter Summary ---
:[address] [facility] [facility] Address [address] [address] Care Team Providers Name Role Phone Agnieszka Reyes MD Primary Care Provider Reason for Visit Procedure/Equipment (Routine) - Incomplete Specialty Diagnoses / Procedures Referred By Contact Refer red To Contact Procedures Provider, Foreign Images Foreign Image(S) CT Chest [address] [place] [address] Referral ID Status Reason Start Date Expiration Date Visits V isits Requested Authorized [id number] Incomplete 06/06/2021 09/05/2022 1 1 Encounter Details Date Type Department Care Team Description 03/29/2021 Ancillary Procedure [facility] Radiology PACS Provider, Foreign [address] [place] [address] [address] [place] [address] Social History Tobacco Use Types Packs/Day Years [...] Name Priority Date/Time Associated Diagnosis Comme nts FOREIGN IMAGE(S) CT Routine 03/29/2021 5:15 PM Re sults for this CHEST CDT procedure are i n the results section. documented in this encounter Results Foreign Image(S) CT Chest (03/29/2021 5:15 PM CDT) Specimen (Source) Anatomical Location Collection Method / Collectio n Time Received Time / Laterality Volume Narrative POCT - 06/06/2021 4:58 PM CDT These outside images have been uploaded into PACS. If the results were provided, they will be located in the pa yariel's chart under the Media or Imaging tab. Foreign Images Provider RAD NON-REPORTABLES Performing Organization Address City/State/ZIP Code Phon e Number POCT documented in this encounter Visit Diagnoses Not on filedocumented in this encounter Care Teams Chicken Buyer Relationship Specialty Start Date End Date Agnieszka Reyes MD PCP - General Internal Medicine [address] [place] [address] documented as of this encounter
--- OUTSIDE RECORDS SUMMARY | 2022-10-31 16:19 | XMS_ITS | Encounter Summary ---
:1945 Author Organization [facility] Address [address] [place], [place] [address] [place] [address] Care Team Providers Name Role Phone Agnieszka Reyes MD Primary Care Provider Reason for Visit Reason Comments Follow-up Encounter Details Date Type Department Care Team Description 02/27/2019 Office Visit Specialty Center Annamarie Hannon Modera te persistent asthma without complication (Primary Dx); 3931 Pulmonary MD Pulmonary nodule, left Medicine [address] [facility] [address] [facility] [address] [place] [phone] (Wo rk) Social History Tobacco Use Types Packs/Day Years Used Date Smoking Tobacco: Former Cigarettes Quit : 04/09/2003 Smokeless Tobacco: Never Alcohol Use Standard Drinks/Week Comments Yes 0 (1 standard drink = 0.6 oz pure alcoho l) Sex Assigned at Date Recorded Not on file documented as of this encounter Last Filed Vital Signs Vital Sign Reading Time Taken Comments Blood Pressure 145/95 02/27/2019 10:07 AM CDT Pulse 80 02/27/2019 9:25 AM CDT Temperature - - Respiratory Rate - - Oxygen Saturation 98% 02/27/2019 9:25 AM CDT Inhaled Oxygen Concentration - - Weight 83 kg (183 lb) 02/27/2019 9:25 AM CDT Height 182.9 cm (6') 02/27/2019 9:25 AM CDT Body Mass Index 24.82 02/27/2019 9:25 AM CDT documented in this encounter Patient Instructions Patient InstructionsAnnamarie Hannon MD - 02/27/2019 9:30 AM CDT 1. Stop flovent and symbicort and trial of generic advair 1 puff 2x day 2. Follow up 1 year with breathing test documented in this encounter Progress Notes Annamarie Hannon MD - 02/27/2019 9:30 AM CDT Chief Complaint Patient presents with ??? Follow-up SUBJECTIVE : The patient is a 74 y.o. male who presents today for follow up moderate copd/asthma. He was last seen in June 2018 and at that time he was treated for an ear infection and continued on dual ICS. 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 He was on rituxan for this but has a severe reaction to it so he is now prograf. He is being followed at the [facility] for his kidney issues and he continues to have issues with nephrotic syndrome.He denies any fevers chills or chest pains at this time. He would like to go back on Advair simply due to cost issues. He is unaware that there is now generic Advair. He has many questions about his kid melvin disease and [facility] his [facility]. From a lung standpoint he has not had any intercurrent respiratory illnesses. He feels his breathing is under good control. He rarely uses her rescue inhaler. He did get a repeat chest CT and would like to review these results as well. Patient Active Problem List Diagnosis ??? COPD [...] 2 Sprays into both nostrils daily. ??? lisinopril (ZESTRIL) 5 MG tablet Take [...] tablet Take 20 mg by mouth daily. ??? [DISCONTINUED] budesonide-formoterol (SYMBICORT) 160-4.5 MCG/ACT inhaler Inhale 2 Puffs two times a day. ??? [DISCONTINUED] calcium carbonate (AKA TUMS) 500 MG chewable tablet Take 1 tablet by mouth daily (every 24 hours). ??? [DISCONTINUED] Calcium Carbonate (CALCIUM 600 OR) ??? [DISCONTINUED] cefuroxime (CEFTIN) 500 MG tablet Take 1 Tablet by mouth daily. (Patient not taking: Reported on 02/27/2019) ??? [DISCONTINUED] fluticasone (FLOVENT HFA) 220 mcg/actuation inhaler Inhale 1- 2 Puffs two times a day. Rinse mouth/gargle after use. ??? [DISCONTINUED] simvastatin (ZOCOR) 40 MG tablet Take 1 Tab by mouth daily at bedtime. ??? [DISCONTINUED] tacrolimus (PROGRAF) 1 MG capsule Take 1 mg by mouth two times a day. No facility-administered medications prior to visit. OBJECTIVE : Gen.: Alert, cooperative in no acute distress. BP (!) 145/95 (BP Location: Right Arm, BP Cuff Size: Adult Large) Pulse 80 Ht 6' (1.829 m) Wt 183 lb (83 kg) SpO2 98% BMI 24.82 kg/m?? Estimated body mass index is 24.82 kg/m?? as calculated from the following: Height as of this encounter: 6' (1.829 m). Weight as of this encounter: 183 lb (83 kg). Head: Normocephalic. Eyes: PERRLA, full EOM Throat: Moist mucous membranes without lesions, erythema, or exudate. Neck: Supple, without masses, lymphadenopathy or tenderness. Respiratory: Clear to auscultation Heart: RRR without murmur Abdomen: The abdomen was soft and nontender, normal sounds present. Extremities: No cyanosis clubbing or edema. Neurologic: Alert, oriented x3, nonfocal. PFT: FVC 118 %, FEV1 79 %, FEV1/FVC 52, NO 24 CT chest: 1. Left upper lobe calcified granuloma is again noted. Adjacent smaller noncalcified nodules are slightly smaller than on the prior study. Multiple scattered 2 mm noncalcified nodules in bothlungs are stable. 2. Upper normal sized axillary and mediastinal adenopathy is stable. ASSESSMENT : The patient is a 74 y.o. male with underlying CLL, also with moderate persistent asthma/COPD who is clinically stable from a lung standpoint. For now he will simply continue on the Symbicort and Flovent together until these are finished and then he will see if he can find the high dose generic Advair as this should be affordable. Once he starts Advair he will then discontinue Symbicort and Flovent. Pulmonary function tests show some very mild airflow obstruction but in general are quitegood. In terms of his pulmonary nodules these are stable. These have been monitored now for approximately 2 years. Given the fact that he is immunosuppressed and has underlying CLL I would recommend 1 more imaging in 2 years of these nodules. PLAN : 1. Discontinue Symbicort 2. Discontinue Flovent 3. Start generic advair 500/50 one puff b.i.d. 4. Repeat chest CT 2 years to follow nodules copy Dr Dixon Dangelo [facility] [address] [place] [address] Dr. Christofer Roy [facility] Department of nephrology documented in this encounter Plan of Treatment Scheduled Orders Name Type Priority Associated Diagnoses Order S chedule Spirometry PFT Routine Moderate persistent asthma 1 Occurrences starting without complication 019 until 02/27/2020 documented as of this encounter Visit Diagnoses Diagnosis Moderate persistent asthma without compl ication (HRC) - Primary Unspecified asthma Pulmonary nodule, left Solitary pulmonary nodule documented in this encounter Care Teams Facilities Locator Relationship Specialty Start Date End Date Agnieszka Reyes MD PCP - General Internal Medicine [address] [place] [address] documented as of this encounter
--- OUTSIDE RECORDS SUMMARY | 2022-10-31 16:19 | XMS_ITS | Encounter Summary ---
:1945 Author Organization [facility] Address [address] [place] [address] Care Team Providers Name Role Phone Agnieszka Reyes MD Primary Care Provider Reason for Visit Reason Comments Follow-up Encounter Details Date Type Department Care Team Description 06/09/2021 Office Visit Specialty Center Annamarie Hannon Modera te persistent 3931 Pulmonary asthma without Medicine [address] complication (Primary [address] [place]x) [place] [phone] (Wo rk) Social History Tobacco Use Types [...] Taken Comments Blood Pressure - - Pulse 97 06/09/2021 11:43 AM CDT Temperature - - Respiratory Rate - - Oxygen Saturation 100% 06/09/2021 11:43 AM CDT Inhaled Oxygen Concentration - - Weight 67.6 kg (149 lb) 06/09/2021 11:43 AM CDT Height 182.9 cm (6') 06/09/2021 11:43 AM CDT Body Mass Index 20.21 06/09/2021 11:43 AM CDT documented in this encounter Patient Instructions Patient InstructionsAnnamarie Hannon MD - 06/09/2021 11:30 AM CDT 1. Advair 230/21 2 puff 2x day or use generic advair respiclick 1 puff 2x day 2. Get flu vaccine in the Fall 3. Follow up 1 year with breathing test documented in this encounter Progress Notes Annamarie Hannon MD - 06/09/2021 11:30 AM CDT Chief Complaint Patient presents with ??? Follow-up SUBJECTIVE : The patient is a 76 y.o. male who presents today for follow up moderate copd/asthma. He was last seen in August 2020 and at that time he was started back on high advair and [facility] He is here also for follow up CT chest. 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 He is being followed at the [facility] for his kidney issues and CLL. He was started on acalabrutinib in March 2021 for his CLL and this seems to be working clinically. He underwent extensive evaluation at the [facility] including chest abdomen and pelvis CT scan and this showed significant increase in his mediastinal adenopathy which was felt to be consistent with his CLL. He is up to date on his covid vaccine. From a breathing standpoint he is doing well. He is no longer on tacro limits and feels much better off this medication. He is currently using high-dose Advair twice a day and has no breathing issues. He does have the gener ic higher dose RespiClick and will use this once he gets into the donut hole. He has had no intercurrent respiratory illnesses. His weight has stabilized although he did lose a lot of weight. He deniesany fevers chills or chest pains at this time. She Patient Active Problem List Diagnosis ??? COPD (chronic obstructive pulmonary disease) (HRC) ??? Allergic rhinitis ??? Tubular adenoma of colon ??? Hyperlipidemia (HRC) ??? Albrecht's neuroma of left foot ??? H/O umbilical hernia repair ??? H/O inguinal hernia repair ??? Seasonal allergies ??? GERD (gastroesophageal reflux disease) ??? Asthma Outpatient Medications Prior to Visit Medication Sig Note ??? Acalabrutinib 100 MG CAPS Take 100 mg by mouth every 12 hours. ??? ADVAIR HFA 230-21 MCG/ACT inhaler Inhale 2 Puffs BY MOUTH two times a day. Rinse mouth/gargle after use ??? ALBUterol sulfate HFA 108 (90 BASE) [...] by mouth two times a day. ??? cefuroxime (CEFTIN) 500 MG tablet Take 500 mg by mouth two times a day. ??? cholecalciferol (AKA VITAMIN D3) 1000 UNITS capsule Take by mouth. ??? COMBIGAN 0.2-0.5 % eye drop solution ??? cyanocobalamin 500 MCG tablet Take 1,000 mcg by mouth Daily. 09/03/2016: Pt takes B-12 ??? fluocinonide (LIDEX) 0.05 % cream Apply topically two times a day. ??? fluticasone (FLONASE) 50 MCG/ACT nasal solution Place 2 Sprays into both nostrils daily. ??? fluticasone-salmeterol (AIRDUO RESPICLICK) 232-14 MCG/ACT inhaler Inhale 1 Puff two times a day.Rinse mouth/gargle after use. ??? levothyroxine (SYNTHROID) 175 MCG tablet Take 175 mcg by mouth. ??? levothyroxine (SYNTHROID) 25 MCG tablet Take 5 Tablets by mouth daily. ??? lisinopril (ZESTRIL) 5 MG tablet Take 5 mg by mouth daily. ??? Multiple Vitamins-Minerals (MULTIVITAMIN OR) Take 1 tablet by mouth daily (every 24 hours). ??? NIFEdipine XL (PROCARDIA XL) 30 MG 24 hour release tablet ??? prochlorperazine (COMPAZINE) 10 MG tablet Take 10 mg by mouth every 6 hours as needed. ??? prochlorperazine (COMPAZINE) 10 MG tablet ??? simvastatin (ZOCOR) 80 MG tablet Take 0.5 Tablets by mouth daily at bedtime. ??? tacrolimus (PROGRAF) 0.5 MG capsule Take 1 Capsule by mouth daily. ??? tamsulosin (FLOMAX) 0.4 MG CAPS capsule Take 0.4 mg by mouth daily. ??? torsemide (DEMADEX) 20 MG tablet Take 1 Tablet by mouth two times a day. No facility-administered medications prior to visit. OBJECTIVE : Gen.: Alert, cooperative in no acute distress. Pulse 97 Ht 6' (1.829 m) Wt 149 lb (67.6 kg) SpO2 100% BMI 20.21 kg/m?? Estimated body mass index is 20.21 kg/m?? as calculated from the following: Height as of this encounter: 6' (1.829 m). Weight as of this encounter: 149 lb (67.6 kg). Head: Normocephalic. Eyes: PERRLA, full EOM [...] Neurologic: Alert, oriented x3, nonfocal. PFT: FVC 116 %, FEV1 76 %, FEV1/FVC 51 CT chest: March 29, 2021: 1. Interval worsening of mediastinal and hilar lymphadenopathy likely relatedto the known lymphoma/leukemia. 2. A few small pulmonary micronodules. Likely mucus impaction in the lingula. Attention at follow-up imaging is recommended. 3. Mild reticulations, ground glass opacities and branching calcifications in bilateral lower lobes peripherally is most likely due to mild fibrotic changes. ASSESSMENT : The patient is a 76 y.o. male with underlying CLL with membranous glomerular nephritis,also with moderate persistent asthma/COPD who is clinically stable from a lung standpoint. CT scan done at the [facility] does not show any worrisome nodules. He does have increased adenopathy which is consistent with his CLL. I suspect the [facility] will be getting repeat imaging to follow up his adenopathy after he has been on his new treatment for CLL. I do not need any more follow-up imaging tests at this time. In terms of his asthma he is doing well and he will continue on his high-dose regular Advair. He can use his generic Advair once he runs out of his high-dose Advair although I do not b roberto these are equivalent doses and he may have some increased respiratory issues. He may simply have to stay on the non generic brand. He will try to keep his weight up and make sure he has enough calories on a daily basis. He will otherwise follow-up in my clinic in 1 year with repeat spirometry. Current spirometry is stable with some very mild airflow obstruction. A PLAN : 1. Advair 230/21 2 puff 2x day or use generic advair respiclick 1 puff 2x day 2. Get flu vaccine in the Fall 3. Follow up 1 year with breathing test copy Dr Dixon Dangelo [facility] [address] [place] [address] Dr. Christofer Roy [facility] Department of nephrology documented in this encounter Plan of Treatment Scheduled Orders Name Type Priority Associated Diagnoses Order S chedule Spirometry PFT Routine Moderate persistent asthma 1 Occurrences starting without complication 021 until 06/09/2022 documented as of this encounter Visit Diagnoses Diagnosis Moderate persistent asthma without compl ication (HRC) - Primary Unspecified asthma documented in this encounter Care Teams Customs Compliance Analyst Relationship Specialty Start Date End Date Agnieszka Reyes MD PCP - General Internal Medicine 09/[address] [place] [address] documented as of this encounter
--- OUTSIDE RECORDS SUMMARY | 2022-10-31 16:19 | XMS_ITS | Encounter Summary ---
:1945 Author Organization [facility] Address [address] [place], [place] [address] [address] Care Team Providers Name Role Phone Agnieszka Reyes MD Primary Care Provider Reason for Visit Reason Comments Follow-up Encounter Details Date Type Department Care Team Description 09/07/2020 Office Visit Specialty Center Annamarie Hannon Modera te persistent asthma without complication (Primary Dx); 3931 Pulmonary MD Need for influenza vaccination Medicine 3931 [facility] [address] [facility] [address] [place] [phone] (Wo rk) Social History Tobacco Use Types [...] Pressure 122/72 09/07/2020 11:24 AM CDT Pulse 85 09/07/2020 11:24 AM CDT Temperature - - Respiratory Rate - - Oxygen Saturation 97% 09/07/2020 11:24 AM CDT Inhaled Oxygen Concentration - - Weight 89.8 kg (198 lb) 09/07/2020 11:24 AM CDT Height 182.9 cm (6') 09/07/2020 11:24 AM CDT Body Mass Index 26.85 09/07/2020 11:24 AM CDT documented in this encounter Patient Instructions Patient InstructionsAnnamarie Hannon MD - 09/07/2020 11:30 AM CDT 1. Restart advair or air duo and stop dulera 2. Get flu vaccine today 3. Follow up 9 months with spirometry 4. Repeat chest CT in May 2021 to follow nodules documented in this encounter Progress Notes Annamarie Hannon MD - 09/07/2020 11:30 AM CDT Chief Complaint Patient presents with ??? Follow-up SUBJECTIVE : The patient is a 75 y.o. male who presents today for follow up moderate copd/asthma. He was last seen in May 2020 and at that time changes to his inhalers were being made due to cost issues. He had been on high-dose AirDuo at that time and his FEV1 was 80% of predicted. He had felt better on the high-dose Advair but this was very expensive. [facility] so he has been using this for the last 3 months and he does not feel that it is working as well for him. He is more breathless however he has had a significant worsening in his clinical status. 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 This seems to be flaring again and he is again Saturday could spilling a lot of protein and having significant issues with lower extremity edema. Currently he is on tacrolimus for this but this dose has been decreased and his diuretic has been increased. He is being followed at the [facility] for his kidney issues. He also was recently diagnosed with worsening hypothyroidism and this was felt to be multifactorial and in part secondary to urinary losses of thyroglobulin. Overall he just does not feel as well. He denies any fevers chills or chest pains. He does have a very small pulmonary nodule and the plan is to repeat salo ging in another year. Patient Active Problem List [...] Sprays into both nostrils daily. ??? fluticasone-salmeterol (ADVAIR HFA) 230-21 mcg/actuation inhaler Inhale 2 Puffs two times a day.Rinse mouth/gargle after use ??? fluticasone-salmeterol (AIRDUO RESPICLICK) 232-14 MCG/ACT inhaler Inhale 1 Puff two times a day.Rinse mouth/gargle after use. ??? levothyroxine (SYNTHROID) 25 MCG tablet Take 5 Tablets by mouth daily. ??? lisinopril (ZESTRIL) 5 MG tablet Take 5 mg by mouth daily. ??? Multiple Vitamins-Minerals (MULTIVITAMIN OR) Take 1 tablet by mouth daily (every 24 hours). ??? simvastatin (ZOCOR) 80 MG tablet Take 0.5 Tablets by mouth daily at bedtime. ??? tacrolimus (PROGRAF) 0.5 MG capsule Take 1 Capsule by mouth daily. ??? torsemide (DEMADEX) 20 MG tablet Take 1 Tablet by mouth two times a day. ??? [DISCONTINUED] Ferrous Fumarate-Vitamin C ER 65-25 MG TBCR Take 1 Tablet by mouth two times a day. ??? [DISCONTINUED] levothyroxine (SYNTHROID) 25 MCG tablet Take 25 mcg by mouth. ??? [DISCONTINUED] omeprazole (PRILOSEC) 20 MG capsule Take 1 Cap by mouth daily. ??? [DISCONTINUED] tacrolimus (PROGRAF) 1 MG capsule Take 2 Capsules by mouth two times a day. ??? [DISCONTINUED] torsemide (DEMADEX) 20 MG tablet Take 20 mg by mouth daily. No facility-administered medications prior to visit. OBJECTIVE : Gen.: Alert, cooperative in no acute distress. BP 122/72 (BP Location: Left Arm, BP Cuff Size: Large) Pulse 85 Ht 6' (1.829 m) Wt 198 lb (89.8 kg) SpO2 97% BMI 26.85 kg/m?? Estimated body mass index is 26.85 kg/m?? as calculated from the following: Height as of this encounter: 6' (1.829 m). Weight as of this encounter: 198 lb (89.8 kg). Head: Normocephalic. Eyes: PERRLA, full EOM [...] Neurologic: Alert, oriented x3, nonfocal. PFT: FVC 105 %, FEV1 70 %, FEV1/FVC 52, NO 38 ASSESSMENT : The patient is a 75 y.o. male with underlying CLL now with a significant flare of his membranous glomerular nephritis, also with moderate persistent asthma/COPD who is clinically stable from a lung standpoint however FEV1 is clearly worse on Dulera. It may be worse because he is systemically ill however his forced vital capacity is the same as it was but there has been a drop-off in his FEV1. I recommend going back to AirDuo or Advair and the patient has a prescription for both of these. He will get his flu vaccine today. He will be followed closely by his barker peeler in terms of his worsening kidney disease. PLAN : 1. Restart advair or air duo and stop dulera 2. Get flu vaccine today 3. Follow up 9 months 4. Repeat chest CT 9 months to follow nodules copy Dr Dixon Dangelo [facility] [place] [address] [place] [address] Dr. Christofer Roy [facility] Department of nephrology documented in this encounter Plan of Treatment Scheduled Orders Name Type Priority Associated Diagnoses Order S chedule Spirometry PFT Routine Moderate persistent asthma 1 Occurrences starting without complication 020 until 09/07/2021 documented as of this encounter Visit Diagnoses Diagnosis Moderate persistent asthma without compl ication (HRC) - Primary Unspecified asthma Need for influenza vaccination Need for prophylactic vaccination and in oculation against influenza documented in this encounter Care Teams Environmental Health And Safety Leader Relationship Specialty Start Date End Date Agnieszka Reyes MD PCP - General Internal Medicine [address] [place] [address] documented as of this encounter
--- OUTSIDE RECORDS SUMMARY | 2022-10-31 16:19 | XMS_ITS | Encounter Summary ---
:1945 Author Organization [facility] Address [address] [place] [address] Care Team Providers Name Role Phone Agnieszka Reyes MD Primary Care Provider Reason for Visit Reason Comments MEDICATION, NOS Encounter Details Date Type Department Care Team Description 05/13/2019 Telephone Specialty Center 3931 Antolin Hannon MD MEDICATION, NOS Pulmonary Medicine 3931 [facility] [address] [facility] [address] [place] [phone] (Wo rk) Social History Tobacco Use Types Packs/Day Years Used Date Smoking Tobacco: Former Cigarettes Quit : 04/09/2003 Smokeless Tobacco: Never Alcohol Use Standard Drinks/Week Comments Yes 0 (1 standard drink = 0.6 oz pure alcoho l) Sex Assigned at Date Recorded Not on file documented as of this encounter Nursing Notes Enriqueta Polo RN - 05/13/2019 3:50 PM CDT This request was denied by pt's insurance company. Pharmacy will work with pt on whether advair or wixela is less costly. Enriqueta Polo RN - 05/13/2019 1:39 PM CDT Advair diskus is on pt's formulary, but it is quite expensive. Pharmacy is requesting that we pursuePA for Wixela to see if it would lower pt's copay. PA for lower copay for wixela faxed to [facility] on 05/13/19. documented in this encounter Plan of Treatment Not on filedocumented as of this encounter Visit Diagnoses Not on filedocumented in this encounter Care Teams Food Supervisor Relationship Specialty Start Date End Date Agnieszka Reyes MD PCP - General Internal Medicine [address] [place] [address] documented as of this encounter
--- OUTSIDE RECORDS SUMMARY | 2022-10-31 16:19 | XMS_ITS | Encounter Summary ---
:1945 Author Organization [facility] Address [address], [place] [address] Care Team Providers Name Role Phone Agnieszka Reyes MD Primary Care Provider Reason for Referral (Routine) - Closed Specialty Diagnoses / Procedures Referred By Contact Refer red To Contact Procedures Annamarie Hannon MD Pulmonary Function Test - [address] [place] [address] [id number] [place] [phone] Referral ID Status Reason Start Date Expiration Date Visits Requ ested Visits Authorized [id number] Closed 02/26/2019 05/27/2020 1 1 Encounter Details Date Type Department Care Team Description 02/27/2019 Hospital Encounter Specialty Center 3931 Uncomplicated asthma, unspecified asthma severity, unspecified whether persistent; Pulmonary Lab Chronic obstructive pulmonar y disease, unspecified COPD type (HRC) [address] [facility] [place], [place] [id number] Social History Tobacco Use Types Packs/Day Years [...] mouth two times a day. fluticasone-salmeterol Inhale 1 Puff two 1 Inhaler 11 201810/01/2019 (ADVAIR) 500-50 MCG/DOSE times a day. Rinse diskus inhaler mouth/gargle after use lisinopril (ZESTRIL) 5 MG Take 5 mg [...] Associated Diagnosis Comme nts COMPLETE PULMONARY Routine 02/27/2019 8:58 AM CDT FUNCTION TEST documented in this encounter Results Pulmonary Function Test - Complete (02/27/2019 8:58 AM CDT) Specimen (Source) Anatomical Collection Method Collection Time Re ceived Time Location / / Volume Laterality 02/27/2019 8:58 AM CDT Annamarie Hannon MD PN PFT ORDERABLES Performing Organization Address City/State/ZIP Code Phon e Number PN SOLA documented in this encounter Visit Diagnoses Diagnosis Uncomplicated asthma, unspecified asthma severity, unspecified whether persistent (HRC) Chronic obstructive pulmonary disease, u nspecified COPD type (HRC) documented in this encounter Care Teams Frame Runner Relationship Specialty Start Date End Date Agnieszka Reyes MD PCP - General Internal Medicine 09/[address] [place] [address] documented as of this encounter
--- OUTSIDE RECORDS SUMMARY | 2022-10-31 16:20 | XMS_ITS | Encounter Summary ---
:1945 Author Organization [facility] Address [address] [place] [address] Care Team Providers Name Role Phone Agnieszka Reyes MD Primary Care Provider Reason for Visit Reason Onset Date Comments Refill 07/16/2017 Encounter Details Date Type Department Care Team Description 07/16/2017 Refill Specialty Center 3931 Antolin Hannon MD Refill Pulmonary Medicine [address] [place] [address] [id number]31 [place] [phone] (Wo rk) Social History Tobacco Use Types Packs/Day Years Used Date Smoking Tobacco: Former Cigarettes Quit : 04/09/2003 Smokeless Tobacco: Never Alcohol Use Standard Drinks/Week Comments Yes 0 (1 standard drink = 0.6 oz pure alcoho l) Sex Assigned at Date Recorded Not on file documented as of this encounter Nursing Notes Enriqueta Polo, ISIDRO - 07/16/2017 2:00 PM CDT Pt requesting refill of advair. Refilled per Dr Hannon note. Pt is switching from symbicort to advair. documented in this encounter Plan of Treatment Not on filedocumented as of this encounter Visit Diagnoses Not on filedocumented in this encounter Care Teams Precipitator Operator Relationship Specialty Start Date End Date Agnieszka Reyes MD PCP - General Internal Medicine [address] [place] [address] documented as of this encounter
--- OUTSIDE RECORDS SUMMARY | 2022-10-31 16:20 | XMS_ITS | Encounter Summary ---
:1945 Author Organization [facility] Address [address] [place] [address] Care Team Providers Name Role Phone Agnieszka Reyes MD Primary Care Provider Reason for Referral (Routine) - Closed Specialty Diagnoses / Procedures Referred By Contact Refer red To Contact Procedures Annamarie Hannon MD Pulmonary Function Test - [address] [facility] [id number] [place] [address] Referral ID Status Reason Start Date Expiration Date Visits Requ ested Visits Authorized [id number] Closed 03/05/2018 06/04/2019 1 1 Encounter Details Date Type Department Care Team Description 03/06/2018 Hospital Encounter Specialty Center 3931 Asthma, unspecified Pulmonary Lab asthma severity, [address] unspecified whether [place], [place] complic ated, [id number] unspecified whether [phone] persistent Social History Tobacco Use Types Packs/Day Years [...] Associated Diagnosis Comme nts COMPLETE PULMONARY Routine 03/06/2018 10:15 AM CDT FUNCTION TEST documented in this encounter Results Pulmonary Function Test - Complete (03/06/2018 10:15 AM CDT) Specimen (Source) Anatomical Collection Method Collection Time Re ceived Time Location / / Volume Laterality 03/06/2018 10:15 AM CDT Annamarie Hannon MD PN PFT ORDERABLES Performing Organization Address City/State/ZIP Code Phon e Number PN SOLA documented in this encounter Visit Diagnoses Diagnosis Asthma, unspecified asthma severity, uns pecified whether complicated, unspecified whether persistent (HRC) documented in this encounter Care Teams Reservation Clerk Relationship Specialty Start Date End Date Agnieszka Reyes MD PCP - General Internal Medicine [address] [place] [address] documented as of this encounter
--- OUTSIDE RECORDS SUMMARY | 2022-10-31 16:20 | XMS_ITS | Encounter Summary ---
:1945 Author Organization [facility] Address [address] [place] [address] Care Team Providers Name Role Phone Agnieszka Reyes MD Primary Care Provider Reason for Referral Procedure/Equipment (Routine) - Incomplete Specialty Diagnoses / Procedures Referred By Contact Refer red To Contact Diagnoses ILD (interstitial lung disease) (HRC) Annamarie Hannon MD Procedures CT Chest WO IV Cont [address] [facility] [address] [place] [address] Referral ID Status Reason Start Date Expiration Date Visits V isits Requested Authorized [id number] Incomplete 03/11/2017 06/10/2018 1 1 Reason for Visit Procedure/Equipment (Routine) - Incomplete Specialty Diagnoses / Procedures Referred By Contact Refer red To Contact Diagnoses ILD (interstitial lung disease) (C) Annamarie Hannon MD Procedures CT Chest WO IV Cont [address] [facility] [address] [place] [address] Referral ID Status Reason Start Date Expiration Date Visits V isits Requested Authorized [id number] Incomplete 03/11/2017 06/10/2018 1 1 Encounter Details Date Type Department Care Team Description 07/12/[address] Scan Annamarie Hannon ILD (interstitial [address] lung disease) ([facility]) [address] [facility], [address] [place] [address] [place], [place] [phone] Social History Tobacco Use Types Packs/Day Years [...] 0 03/11/2017 % cream times a day. Multiple Vitamins-Minerals Take 1 tablet by 0 04/2013 (MULTIVITAMIN OR) mouth daily (every 24 hours). ALBUterol sulfate HFA 108 Inhale 2 Puffs 1 Inhaler 11 201608/03/2022 (90 BASE) MCG/ACT inhaler every 6 hours as needed for Wheezing (Inhale 2 puffs every 6 hours as needed for Wheezing.). aspirin EC 81 MG enteric Take 81 mg by mouth 0 08/03/2022 coated tablet daily (every 24 hours). beclomethasone (QVAR) 80 Inhale 2 Puffs two 8.7 g 11 03/06/2018 MCG/ACT inhaler times a day. budesonide-formoterol Inhale 2 Puffs two 10.2 g 11 201602/27/2019 (SYMBICORT) 160-4.5 times a day. MCG/ACT inhaler calcium carbonate (AKA Take 1 tablet by 0 013 02/27/2019 TUMS) 500 MG chewable mouth daily (every tablet 24 hours). fluticasone-salmeterol Inhale 2 Puffs two 1 Inhaler 3 03/2007/16/2017 (ADVAIR HFA) 230-21 times a day. Rinse mcg/actuation inhaler mouth/gargle after use montelukast (SINGULAIR) 10 Take 1 Tab by mouth 30 Tab 11 03/11/2017 03/06/2018 MG tablet every evening. omeprazole (PRILOSEC) 20 Take 1 Cap by mouth 30 Cap 11 09/07/2020 MG capsule daily. simvastatin (ZOCOR) 40 MG Take 1 Tab by mouth 30 Tab 11 0 03/11/2017 02/27/2019 tablet daily at bedtime. documented as of this encounter Plan of Treatment Not on filedocumented as of this encounter Procedures Procedure Name Priority Date/Time Associated Diagnosis Comme nts CT CHEST WO IV CONT Routine 07/12/2017 9:39 AM ILD (interstiti al Results for this CDT lung disease) ([facility]) procedur e are in the results section. documented in this encounter Results CT Chest WO IV Cont (07/12/2017 9:39 AM CDT) Anatomical Region Laterality Modality Chest, Lung Computed Tomography Specimen (Source) Anatomical Collection Method Collection Time Re ceived Time Location / / Volume Laterality 07/12/2017 9:31 AM CDT Impressions 07/12/2017 10:30 AM CDT IMPRESSION: 1. Slight increased size of left upper l obe reticular and nodular densities as well as slight increased size of few more discrete nodules. Findings favored to be postinfectious/inflammatory in etiology. Continued follow-up recommended as dire cted by pulmonary service. 2. Stable mild mediastinal adenopathy wi th increasing partially visualized upper abdominal adenopathy. CT of the abdomen and pelvis could be considered to evaluate to evaluate for extent of abdominal adenopathy. Narrative 07/12/2017 10:30 AM CDT COMPARISON: ??Outside chest CT dated 06/11/2016. TECHNIQUE: ??Noncontrast images were obt ained through the chest. FINDINGS: Several mildly enlarged medias tinal lymph nodes, largest 1.4 cm right paratracheal image 23 essentially stable from prior. Calcified left hilar lymph nodes compatible sequelae of prior granulo matous disease. Progressive left lingula r reticular nodular opacities on series 3 images 47-63. Largest nodular component 1.0 x 0.6 cm series 3 image 58. Subtle 5 mm left lower lobe groundglass nodule s eries 3 image 86, slightly more prominen t, possibly due to technique and slice selection. Increased size of a 5 mm right lower lobe nodule series 3 image 74. Progressive right basilar reticular opacitie s likely atelectasis/scarring. Stable mi ld left basilar atelectasis. Limited imaging of the upper abdomen demonstrates partially visualized mild periportal and aortocaval adenopathy, increased from prio r. Otherwise unremarkable. No aggressive or destructive bony lesions. Procedure Note BrentRaúl prakash, DO - 07/12/2017For matting of this note might be different from the original. COMPARISON: Outside chest CT dated 2015. TECHNIQUE: Noncontrast images were obtai justin through the chest. FINDINGS: Several mildly enlarged medias tinal lymph nodes, largest 1.4 cm right paratracheal image 23 essentially stable from prior. Calcified left hilar lymph nodes compatible sequelae of prior granulomatous disease. Progressive left lingular reticular nodu lar opacities on series 3 images 47-63. Largest nodular component 1.0 x 0.6 cm series 3 image 58. Subtle 5 mm left lower lobe groundglass nodule series 3 image 86, slightly more prominent, possibly due to technique and slice selection. Increased size of a 5 mm right lower lobe nodule series 3 image 74. Progressive right basilar reticular opacities likely atelectasis/scarring. Stable mild left basilar atelectasis. Limited imaging of the upper abdomen demonstrates partially visualized mild periportal and aortocaval adenopathy, increased from prior. Otherwise unremarkable. No aggressive or destructive bony lesions. IMPRESSION IMPRESSION: 1. Slight increased size of left upper l obe reticular and nodular densities as well as slight increased size of few more discrete nodules. Findings favored to be postinfectious/inflammatory in etiology. Continued follow-up recommended as directed by pul monary service. 2. Stable mild mediastinal adenopathy wi th increasing partially visualized upper abdominal adenopathy. CT of the abdomen and pelvis could be considered to evaluate to evaluate for extent of abdominal adenopathy. Annamarie Hannon MD RAD CT documented in this encounter Visit Diagnoses Diagnosis ILD (interstitial lung disease) (HRC) Postinflammatory pulmonary fibrosis documented in this encounter Care Teams Cardiopulmonary Physical Therapist Relationship Specialty Start Date End Date Agnieszka Reyes MD PCP - General Internal Medicine 09/03/[address] [place] [address] documented as of this encounter
--- OUTSIDE RECORDS SUMMARY | 2022-10-31 16:20 | XMS_ITS | Encounter Summary ---
:1945 Author Organization [facility] Address [address] [place] [address] Care Team Providers Name Role Phone Agnieszka Reyes MD Primary Care Provider Reason for Visit Reason Comments Pulmonary [place] Encounter Details Date Type Department Care Team Description 07/12/2017 Office Visit Specialty Center Annamarie Hannon Modera te persistent asthma without complication (Primary Dx); 3931 Pulmonary MD Lung nodule Medicine [address] [facility] [address] [facility] [address] [place] [phone] (Wo rk) Social History Tobacco Use Types Packs/Day Years Used Date Smoking Tobacco: Former Cigarettes Quit : 04/09/2003 Smokeless Tobacco: Never Alcohol Use Standard Drinks/Week Comments Yes 0 (1 standard drink = 0.6 oz pure alcoho l) Sex Assigned at Date Recorded Not on file documented as of this encounter Last Filed Vital Signs Vital Sign Reading Time Taken Comments Blood Pressure 124/70 07/12/2017 11:28 AM CDT Pulse 76 07/12/2017 11:28 AM CDT Temperature - - Respiratory Rate - - Oxygen Saturation 98% 07/12/2017 11:28 AM CDT Inhaled Oxygen Concentration - - Weight 87.1 kg (192 lb) 07/12/2017 11:28 AM CDT Height 182.9 cm (6') 07/12/2017 11:28 AM CDT Body Mass Index 26.04 07/12/2017 11:28 AM CDT documented in this encounter Patient Instructions Patient InstructionsAnnamarie Hannon MD - 07/12/2017 11:30 AM CDT 1. Okay to alternate symbicort 2 puffs am and advair 2 puffs pm to help use up current supply of symbicort. If breathing gets worse in the winter then simply use advair. 2. Try the neilmed sinus rinse. Use distilled water. 3. Repeat CT chest in 1 year 4. Follow up in early February of 2018. documented in this encounter Progress Notes Annamarie Hannon MD - 07/12/2017 11:30 AM CDT Chief Complaint Patient presents with ??? Pulmonary [place] SUBJECTIVE : The patient is a 72 y.o. male who presents today for follow up mild/moderate copd/asthma. He was last seen in February 2017 and at that time he was clinically worse with increased wheezing and increased nitric oxide. He was asked to step up the amount of ICS either changing to high dose advair or using qvar plus advair. [place] would not [place] for to inhaled steroids so he is now paying for Advair high-dose out of pocket. He does think this is working better for him and clinically his breathing is better.He wonders what he should do with all his leftover Symbicort. He has continued singulair. He has a history of tobacco use and approximately 20-ceva-ijtz smoking history but quit 12-13 years ago. He lina es any fevers chills or chest pains at this time. [facility] he also had[facility] chest CT done following up some of his nodular infiltrates and would like to review these results.He is having some increased nasal congestion and started using Sudafed at nighttime. He does have quite a dry mouth in the morning and this started even before using Sudafed. He wonders what else can he do for his nasal congestion. Patient Active Problem List Diagnosis ??? COPD (chronic obstructive pulmonary disease) (HRC) ??? Allergic rhinitis ??? Tubular adenoma of colon ??? Hyperlipidemia (HRC) ??? Albrecht's neuroma of left foot ??? H/O umbilical hernia repair ??? H/O inguinal hernia repair ??? Seasonal allergies ??? GERD (gastroesophageal reflux disease) ??? Asthma ([facility]) Outpatient Medications Prior to Visit Medication Sig Note ??? ALBUterol sulfate HFA 108 (90 BASE) MCG/ACT inhaler Inhale 2 Puffs every 6 hours as needed for Wheezing (Inhale 2 puffs every 6 hours as needed for Wheezing.). ??? aspirin EC 81 MG enteric coated tablet Take 81 mg by mouth daily (every 24 hours). ??? beclomethasone (QVAR) 80 MCG/ACT inhaler Inhale 2 Puffs two times a day. ??? budesonide-formoterol (SYMBICORT) 160-4.5 MCG/ACT inhaler Inhale 2 Puffs two times a day. ??? calcium carbonate (AKA TUMS) 500 MG chewable tablet Take 1 tablet by mouth daily (every 24 hours). ??? cholecalciferol (AKA VITAMIN D3) 1000 UNITS capsule Take by mouth. ??? cyanocobalamin 500 MCG tablet Take 500 mcg by mouth daily (every 24 hours). 09/03/2016: Pt takesB-12 ??? fluocinonide (LIDEX) 0.05 % cream Apply topically two times a day. ??? fluticasone-salmeterol (ADVAIR HFA) 230-21 mcg/actuation inhaler Inhale 2 Puffs two times a day.Rinse mouth/gargle after use ??? montelukast (SINGULAIR) 10 MG tablet Take 1 Tab by mouth every evening. ??? Multiple Vitamins-Minerals (MULTIVITAMIN OR) Take 1 tablet by mouth daily (every 24 hours). ??? omeprazole (PRILOSEC) 20 MG capsule Take 1 Cap by mouth daily. ??? simvastatin (ZOCOR) 40 MG tablet Take 1 Tab by mouth daily at bedtime. No facility-administered medications prior to visit. OBJECTIVE : Gen.: Alert, cooperative in no acute distress. BP 124/70 Pulse 76 Ht 6' (1.829 m) Wt 192 lb (87.1 kg) SpO2 98% BMI 26.04 kg/m2 Estimated body mass index is 26.04 kg/(m^2) as calculated from the following: Height as of this encounter: 6' (1.829 m). Weight as of this encounter: 192 lb (87.1 kg). Head: Normocephalic. Eyes: PERRLA, full EOM. Throat: Moist mucous membranes without lesions, erythema, or exudate. Neck: Supple, without masses, lymphadenopathy or tenderness. Respiratory: No crackles at lung bases, no wheezing, normal chest excursions. Heart: RRR without murmur Abdomen: The abdomen was soft and nontender, normal sounds present. Extremities: No cyanosis clubbing or edema. Neurologic: Alert, oriented x3, nonfocal. PFT: FVC 100 %, FEV1 68 %, FEV1/FVC 54, NO 31 CT chest: 1. Slight increased size of left upper lobe reticular and nodular densities as well as slight increased size of few more discrete nodules. Findings favored to be postinfectious/inflammatory in etiology. Continued follow-up recommended as directed by pulmonary service. 2. Stable mild mediastinal adenopathy with increasing partially visualized upper abdominal adenopathy. CT of the abdomen and pelvis could be considered to evaluate to evaluate for extent of abdominal adenopathy. ASSESSMENT : The patient is a 72 y.o. male with moderate persistent asthma. He is overall better post symptomatically and in terms of his FEV1 and nitric oxide level. It is unfortunate that the [facility] willnot give [place] high-dose Advair but they are simply are no other inhaled steroids but will deliver such a high dose of inhaled steroid. Certainly an alternative would be to combine to inhaled steroids but the [facility] is not willing to give him to inhaled steroids. Prior to his next visit to the [facility] I will trygraft a letter with my rationale. As he does have quite a lot of Symbicort at home right now I thinkit would be reasonable to alternate high dose Advair with his Symbicort to see if he has as much benefit. In the winter months when he is typically worse he will simply use the high dose Advair. His ACT is 25 today. In terms of his CT scans he does have several nodules some are slightly larger and some of the interstitial changes at the lung bases have changed. I do think these are inflammatory changes and would recommend continued follow-up at this time. I would not recommend any biopsy. This will be scheduled in June of 2018. Finally in terms of his sinus congestion he may simply benefit from some salt water sinus rinses. I would not recommend continuing on Sudafed. PLAN : 1. Okay to alternate symbicort 2 puffs am and advair 2 puffs pm to help use up current supply of symbicort. If breathing gets worse in the winter then simply use advair. 2. Try the neilmed sinus rinse. Use distilled water. 3. Repeat CT chest in 1 year 4. Follow up in early February of 2018. 5. Continue singulair copy Dr Agnieszka Reyes [facility] documented in this encounter Plan of Treatment Scheduled Orders Name Type Priority Associated Diagnoses Order S chedule Spirometry PFT Routine Moderate persistent asthma 1 Occurrences starting without complication 017 until 07/12/2018 documented as of this encounter Visit Diagnoses Diagnosis Moderate persistent asthma without compl ication (HRC) - Primary Unspecified asthma Lung nodule Solitary pulmonary nodule documented in this encounter Care Teams Technical Planner Relationship Specialty Start Date End Date Agnieszka Reyes MD PCP - General Internal Medicine [address] [place] [address] documented as of this encounter
--- OUTSIDE RECORDS SUMMARY | 2022-10-31 16:20 | XMS_ITS | Encounter Summary ---
:1945 Author Organization [facility] Address [address] [place] [address] Care Team Providers Name Role Phone Agnieszka Reyes MD Primary Care Provider Reason for Referral Procedure/Equipment (Routine) - Incomplete Specialty Diagnoses / Procedures Referred By Contact Refer red To Contact Diagnoses Lung nodule Annamarie Hannon MD Procedures CT Chest WO IV Cont [address] [place] [address] Referral ID Status Reason Start Date Expiration Date Visits V isits Requested Authorized [id number] Incomplete 03/06/2018 06/05/2019 1 1 Reason for Visit Reason Comments Follow-up pulmonary Encounter Details Date Type Department Care Team Description 03/06/2018 Office Visit Specialty Center 3931 Annamarie Hannon C OPD, moderate (HRC) (Primary Dx); Pulmonary Medicine Seasonal allergic rhinitis due to pollen ; [address] [facility] [address] [facility] Moderate persistent asthma w ithout complication; [place], [place] [address] Lung nodule [address] [place], [place] [phone] (Wo rk) Social History Tobacco Use Types Packs/Day Years Used Date Smoking Tobacco: Former Cigarettes Quit : 04/09/2003 Smokeless Tobacco: Never Alcohol Use Standard Drinks/Week Comments Yes 0 (1 standard drink = 0.6 oz pure alcoho l) Sex Assigned at Date Recorded Not on file documented as of this encounter Last Filed Vital Signs Vital Sign Reading Time Taken Comments Blood Pressure 120/70 03/06/2018 11:02 AM CDT Pulse 70 03/06/2018 11:02 AM CDT Temperature - - Respiratory Rate - - Oxygen Saturation 98% 03/06/2018 11:02 AM CDT Inhaled Oxygen Concentration - - Weight 88.5 kg (195 lb) 03/06/2018 11:02 AM CDT Height 182.9 cm (6') 03/06/2018 11:02 AM CDT Body Mass Index 26.45 03/06/2018 11:02 AM CDT documented in this encounter Patient Instructions Patient InstructionsAnnamarie Hannon MD - 03/06/2018 11:00 AM CDT 1. Symbicort 160 mcg 2 puffs 2x day 2. Flovent 220mcg 1 puff 2x day and may need to increase to 2 puffs 2x day 3. Repeat CT chest in 4 months 4. Follow up in 4 months documented in this encounter Progress Notes Annamarie Hannon MD - 03/06/2018 11:00 AM CDT Chief Complaint Patient presents with ??? Follow-up pulmonary SUBJECTIVE : The patient is a 73 y.o. male who presents today for follow up mild/moderate copd/asthma. He was last seen in June of 2017 and at that time he was improving. There had been a change in inhalers [facility] so he was now on symbicort 160 mcg 2 puffs alternating with high dose advair 2 puffs that he paid for out of pocket. From a respiratory standpoint he is doing much better overall. He is not wheezing and he is not short of breath. Unfortunately in the end of summer 2016 he started having significant swelling in his legs and was diagnosed with nephrotic syndrome with 9 g of protein in his urine. 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 He received 2 doses of Rituxan and is now asymptomatic. He has continued on both blood pressure medication and diuretic. He discontinued his Singulair as he did not find it helpful. He has a history of tobacco use and approximately 07-pyuq-yiry smoking history but quit 13 years ago. He denies any fevers chills or chest pains at this time. He also had a chest CT done following up some of his nodular infiltrates and will be needing repeat imaging in June 2018. Patient Active Problem List Diagnosis ??? COPD [...] Alert, cooperative in no acute distress. BP 120/70 (BP Location: Left Arm, BP Cuff Size: Adult Regular) Pulse 70 Ht 6' (1.829 m) Wt 195lb (88.5 kg) SpO2 98% BMI 26.45 kg/m2 Estimated body mass index is 26.45 kg/(m^2) as calculated from the following: Height as of this encounter: 6' (1.829 m). Weight as of this encounter: 195 lb (88.5 kg). Head: Normocephalic. Eyes: PERRLA, full EOM. Throat: Moist mucous membranes without lesions, erythema, or exudate. Neck: Supple, without masses, lymphadenopathy or tenderness. Respiratory: Clear to auscultation Heart: RRR without murmur Abdomen: The abdomen was soft and nontender, normal sounds present. Extremities: No cyanosis clubbing or edema. Neurologic: Alert, oriented x3, nonfocal. PFT: FVC 107 %, FEV1 63 %, FEV1/FVC 47, NO 56 ASSESSMENT : The patient is a 73 y.o. male with moderate persistent asthma/COPD who is clinically stable with this current regimen of high-dose Advair alternating with Symbicort. Because of cost issuesI have recommended he get switched to Symbicort plus Flovent in order to achieve enough inhaled steroid to complete manage his asthma. He agrees to purchasing Flovent as this is much less expensive than Advair. In regards to the nodular infiltrates he does need repeat imaging in 4 months. Overall he was encouraged to remain active. Pulmonary function tests continue to demonstrate moderate airflow obstruction and his nitric oxide test is slightly elevated today so this also will be followed over time. Of note his ACT is 25. PLAN : 1. Symbicort 160 mcg 2 puffs 2x day 2. Flovent 220mcg 1 puff 2x day and may need to increase to 2 puffs 2x day 3. Repeat CT chest in 4 months 4. Follow up in early February of 2018. copy Dr Dixon Dangelo [facility] [address] [place] [address] documented in this encounter Plan of Treatment Scheduled Orders Name Type Priority Associated Diagnoses Order S chedule Spirometry PFT Routine COPD, moderate (HRC) 1 Occur rences starting 03/06/2018 until 03/06/2019 documented as of this encounter Results CT [...] documented in this encounter Visit Diagnoses Diagnosis COPD, moderate (HRC) - Primary Chronic airway obstruction, not elsewher e classified Seasonal allergic rhinitis due to pollen Moderate persistent asthma without compl ication (HRC) Unspecified asthma Lung nodule Solitary pulmonary nodule Lung nodule Solitary pulmonary nodule documented in this encounter Care Teams Costing Manager Relationship Specialty Start Date End Date Agnieszka Reyes MD PCP - General Internal Medicine 09/[address] [place] [address] documented as of this encounter
--- OUTSIDE RECORDS SUMMARY | 2022-10-31 16:20 | XMS_ITS | Encounter Summary ---
:1945 Author Organization [facility] Address [address] [place] [address] Care Team Providers Name Role Phone Agnieszka Reyes MD Primary Care Provider Reason for Visit Reason Onset Date Comments Refill 03/20/2017 Advair Encounter Details Date Type Department Care Team Description 03/20/2017 Telephone Specialty Center [facility] Lilliana Armenta MD Refill (Advair) Pulmonary Medicine [address] [facility] [address] [place] [address] [place] [address] [phone] Social History Tobacco Use Types Packs/Day Years Used Date Smoking Tobacco: Former Cigarettes Quit : 04/09/2003 Alcohol Use Standard Drinks/Week Comments Yes 0 (1 standard drink = 0.6 oz pure alcoho l) Sex Assigned at Date Recorded Not on file documented as of this encounter Nursing Notes Annamaria Mustafa RN - 03/20/2017 8:47 AM CDT [facility]. Pt has decided that he will like to go with the high dose Advair instead and have the Rx sent to the [facility] pharmacy in his area. Advair order placed per standing protocol. documented in this encounter Plan of Treatment Not on filedocumented as of this encounter Visit Diagnoses Not on filedocumented in this encounter Care Teams Garbage Pick Up Worker Relationship Specialty Start Date End Date Agnieszka Reyes MD PCP - General Internal Medicine 09/03/[address] [place] [address] documented as of this encounter
--- OUTSIDE RECORDS SUMMARY | 2022-10-31 16:20 | XMS_ITS | Encounter Summary ---
:1945 Author Organization [facility] Address [address] [place] [address] Care Team Providers Name Role Phone Agnieszka Reyes MD Primary Care Provider Reason for Referral (Routine) - Closed Specialty Diagnoses / Procedures Referred By Contact Refer red To Contact Procedures Annamarie Hannon MD Pulmonary Function Test - [address] [place] [address] Referral ID Status Reason Start Date Expiration Date Visits Requ ested Visits Authorized [id number] Closed 07/11/2017 10/10/2018 1 1 Encounter Details Date Type Department Care Team Description 07/12/2017 Hospital Encounter [facility] 3931 Moderate persistent Pulmonary Lab asthma without [address] [place], [place] [address] Social History Tobacco Use Types Packs/Day Years [...] Calcium Carbonate (CALCIUM 0 02/27/2019 600 OR) fluticasone-salmeterol Inhale 2 Puffs two 1 Inhaler [...] as of this encounter Plan of Treatment Scheduled Orders Name Type Priority Associated Diagnoses Order S chedule Spirometry PFT Routine Moderate persistent asthma 1 Occurrences starting without complication 017 until 07/12/2017 documented as of this encounter Procedures Procedure Name Priority Date/Time Associated Diagnosis Comme nts COMPLETE PULMONARY Routine 07/12/2017 10:45 AM CDT FUNCTION TEST documented in this encounter Results Pulmonary Function Test - Complete (07/12/2017 10:45 AM CDT) Specimen (Source) Anatomical Collection Method Collection Time Re ceived Time Location / / Volume Laterality 07/12/2017 10:45 AM CDT Annamarie Hannon MD PN PFT ORDERABLES Performing Organization Address City/State/ZIP Code Phon e Number PN SILVANOEZJorge Luis documented in this encounter Visit Diagnoses Diagnosis Moderate persistent asthma without compl ication ([facility]C) Unspecified asthma documented in this encounter Care Teams Gifted Program Teacher Relationship Specialty Start Date End Date Agnieszka Reyes MD PCP - General Internal Medicine 09/03/[address] [place] [address] documented as of this encounter
--- OUTSIDE RECORDS SUMMARY | 2022-10-31 16:20 | XMS_ITS | Encounter Summary ---
:1945 Author Organization [facility] Address [address] [place] [address] Care Team Providers Name Role Phone Agnieszka Reyes MD Primary Care Provider Reason for Referral Procedure/Equipment (Routine) - Incomplete Specialty Diagnoses / Procedures Referred By Contact Refer red To Contact Diagnoses ILD (interstitial lung disease) (HRC) Annamarie Hannon MD Procedures CT Chest WO IV Cont 3931 [facility] [address] [place] [address] Referral ID Status Reason Start Date Expiration Date Visits V isits Requested Authorized [id number] Incomplete 03/11/2017 06/10/2018 1 1 Reason for Visit Reason Comments Pulmonary 6[place] Encounter Details Date Type Department Care Team Description 03/11/2017 Office Visit Specialty [facility] 3931 Annamarie Hannon C hronic obstructive pulmonary disease, unspecified COPD type (Primary Dx); Pulmonary Medicine Moderate persistent asthma without compl ication; [address] [facility] [facility] ILD (interstitial lung disea se) (HRC) [place], [place] [address] [address] [place], [place] [phone] (Wo rk) Social History Tobacco Use Types Packs/Day Years Used Date Smoking Tobacco: Former Cigarettes Quit : 04/09/2003 Alcohol Use Standard Drinks/Week Comments Yes 0 (1 standard drink = 0.6 oz pure alcoho l) Sex Assigned at Date Recorded Not on file documented as of this encounter Last Filed Vital Signs Vital Sign Reading Time Taken Comments Blood Pressure 122/76 03/11/2017 2:03 PM CDT Pulse 80 03/11/2017 2:03 PM CDT Temperature - - Respiratory Rate - - Oxygen Saturation 99% 03/11/2017 2:03 PM CDT Inhaled Oxygen Concentration - - Weight 86.2 kg (190 lb) 03/11/2017 2:03 PM CDT Height 182.9 cm (6') 03/11/2017 2:03 PM CDT Body Mass Index 25.77 03/11/2017 2:03 PM CDT documented in this encounter Progress Notes Annamarie Hannon MD - 03/11/2017 2:07 PM CDT Chief Complaint Patient presents with ??? Pulmonary 6m [place] SUBJECTIVE : The patient is a 72 y.o. male who presents today for follow up mild copd/asthma. He was last seen [facility]2016 and at that time he was stable. He has continued on symbicort 160mcg bid and singulair.There were some concerns that the burning of wood on wood stove may have worsened his asthma symptoms so he was asked to avoid this if possible. He did this as best he could this winter. He does continue to feel some chest congestion and coughs daily some yellow thick phlegm. He often wheezes at night. He has a history of tobacco use and approximately [id number] smoking history but quit 12 years ago. He denies any fevers chills or chest pains at this time. [facility]. Patient Active Problem List Diagnosis ??? COPD (chronic obstructive pulmonary disease) (HRC) ??? Allergic rhinitis ??? Tubular adenoma of colon ??? Hyperlipidemia (HRC) ??? Albrecht's neuroma of left foot ??? H/O umbilical hernia repair ??? H/O inguinal hernia repair ??? Seasonal allergies ??? GERD (gastroesophageal reflux disease) ??? Asthma (HRC) Outpatient Prescriptions Prior to Visit Medication Sig Note ??? ALBUterol sulfate HFA 108 (90 BASE) MCG/ACT inhaler Inhale 2 puffs every 6 hours as needed for Wheezing. ??? aspirin EC 81 MG enteric coated tablet Take 81 mg by mouth daily (every 24 hours). ??? budesonide-formoterol (AKA SYMBICORT) 160-4.5 MCG/ACT inhaler Inhale 2 puffs 2 times daily. ??? calcium carbonate (AKA TUMS) 500 MG chewable tablet Take 1 tablet by mouth daily (every 24 hours). ??? cholecalciferol (AKA VITAMIN D3) 1000 UNITS capsule Take by mouth. ??? cyanocobalamin 500 MCG tablet Take 500 mcg by mouth daily (every 24 hours). 09/03/2016: Pt takesB-12 ??? fluocinonide (AKA LIDEX) 0.05 % cream Apply topically 2 times daily. ??? montelukast (AKA SINGULAIR) 10 MG tablet Take 1 tablet by mouth every evening. ??? Multiple Vitamins-Minerals (MULTIVITAMIN OR) Take 1 tablet by mouth daily (every 24 hours). ??? omeprazole (PRILOSEC) 20 MG capsule Take 1 capsule by mouth daily (every 24 hours). ??? simvastatin (AKA ZOCOR) 40 MG tablet Take 1 tablet by mouth nightly. No facility-administered medications prior to visit. OBJECTIVE : Gen.: Alert, cooperative in no acute distress. BP 122/76 mmHg Pulse 80 Ht 6' (1.829 m) Wt 190 lb (86.183 kg) BMI 25.76 kg/m2 SpO2 99% Estimated body mass index is 25.76 kg/(m^2) as calculated from the following: Height as of this encounter: 6' (1.829 m). Weight as of this encounter: 190 lb (86.183 kg). Head: Normocephalic. Eyes: PERRLA, full EOM. Throat: Moist mucous membranes without lesions, erythema, or exudate. Neck: Supple, without masses, lymphadenopathy or tenderness. Respiratory: No crackles at lung bases, wheezes noted mostly on right side, normal chest excursions. Heart: RRR without murmur Abdomen: The abdomen was soft and nontender, normal sounds present. Extremities: No cyanosis clubbing or edema. Neurologic: Alert, oriented x3, nonfocal. PFT: FVC 99 %, FEV1 61 %, FEV1/FVC 49, NO 67 CT chest: Tiny nodular infiltrate left upper lobe mild emphysema changes left side, subtle interstitial changes versus atelectasis at lung bases bilaterally ASSESSMENT : The patient is a 72 y.o. male with moderate persistent asthma. He is overall stable buthe feels congested and his FEV1 demonstrates moderate airflow obstruction. His nitric oxide level iselevated and he is wheezing on exam. I would like to step up his inhaled steroid dosing. [facility] He can either add an additional inhaled steroid or step up to high doseadvair and stop the symbicort. His CT scan was reviewed and he does have some subtle interstitial changes at the lung bases some being somewhat nodular and I would recommend a follow-up imaging in a year. This will be scheduled in June of 2017. PLAN : 1. continue with current symbicort 160mcg and add additional inhaled corticosteroid such as qvar 80 mcg 2 puffs 2x day or start high dose advair 230/21 2 puffs 2x day 2. follow up in 4 months with repeat spirometry and NO 3. Repeat chest CT in 4 months to follow-up subtle interstitial changes 4. Continue singulair copy Dr [facility] documented in this encounter Plan of Treatment Scheduled Orders Name Type Priority Associated Diagnoses Order S chedule Spirometry PFT Routine Moderate persistent asthma 1 Occurrences starting without complication 017 until 03/11/2018 documented as of this encounter Results CT [...] aggressive or destructive bony lesions. Procedure Note Raúl Mccloud, DO - 07/12/2017For matting of this note [...] u nspecified COPD type (HRC) - Primary Moderate persistent asthma without compl ication (HRC) Unspecified asthma ILD (interstitial lung disease) (HRC) Postinflammatory pulmonary fibrosis ILD (interstitial lung disease) (HRC) Postinflammatory pulmonary fibrosis documented in this encounter Care Teams Data Quality Consultant Relationship Specialty Start Date End Date Agnieszka Reyes MD PCP - General Internal Medicine 09/03/[address] [place] [address] documented as of this encounter
--- OUTSIDE RECORDS SUMMARY | 2022-10-31 16:21 | XMS_ITS | Encounter Summary ---
:1945 Author Organization [facility] Address [address] [place] [address] Care Team Providers Name Role Phone Abdelrahman Pruitt Primary Care Provider Unavailable Encounter Details Date Type Department Care Team Description 07/23/2014 Hospital Encounter [facility] 3931 Allergic rhinitis, cause unspecified (Primary Dx); Pulmonary Lab COPD (chronic obstructive pu lmonary disease) 3931 [place], [place] [id number] Social History Tobacco Use Types Packs/Day Years Used Date Smoking Tobacco: Never Assessed Sex Assigned at Date Recorded Not on file documented as of this encounter Medications at Time of Discharge Medication Sig Dispensed Refills Start Date End Date cholecalciferol (AKA Take by mouth. 0 10/30/2013 VITAMIN D3) 1000 UNITS capsule cyanocobalamin 500 MCG Take 1,000 mcg by 0 2012 tablet mouth Daily. Multiple Take 1 tablet by 0 10/30/2013 Vitamins-Minerals mouth daily (every (MULTIVITAMIN OR) 24 hours). budesonide-formoterol Inhale 2 puffs 2 1 Inhaler 11 04/09/20 14 02/15/2015 (AKA SYMBICORT) 160-4.5 times daily. MCG/ACT inhaler ipratropium-albuterol Inhale 2 puffs 4 0 04/09/20 14 02/15/2015 (AKA RESPIMAT) 20-100 times daily. mcg/actuation inhaler montelukast (AKA Take 1 tablet by 30 tablet 11 07/23/2014 SINGULAIR) 10 MG tablet mouth every evening. ALBUterol sulfate HFA Inhale 2 puffs every 0 07/2803/11/2017 108 (90 BASE) MCG/ACT 6 hours as needed inhaler for Wheezing. aspirin EC 81 MG enteric Take 81 mg by mouth 0 08/03/2022 coated tablet daily (every 24 hours). calcium carbonate (AKA Take 1 tablet by 0 013 02/27/2019 TUMS) 500 MG chewable mouth daily (every tablet 24 hours). fluocinonide (AKA LIDEX) Apply topically 2 0 04/0 06/201302/15/2015 0.05 % cream times daily. ipratropium-ALBUterol Take 3 mLs by 0 12/11/2013 02/15/2015 (AKA DUONEB) 0.5-2.5 (3) nebulization 4 times MG/3ML nebulizer daily. (3ml is 1 solution ampule) omeprazole (PRILOSEC) 20 Take 1 capsule by 30 capsule 11 03/2502/15/2015 MG capsule mouth daily (every 24 hours). simvastatin (AKA ZOCOR) Take 40 mg by mouth 0 02/15/2015 40 MG tablet nightly. documented as of this encounter Plan of Treatment Not on filedocumented as of this encounter Procedures Procedure Name Priority Date/Time Associated Diagnosis Comme nts COMPLETE PULMONARY Routine 07/23/2014 11:14 AM CDT FUNCTION TEST documented in this encounter Results Pulmonary Function Test - Complete (07/23/2014 11:14 AM CDT) Specimen (Source) Anatomical Collection Method Collection Time Re ceived Time Location / / Volume Laterality 07/23/2014 11:14 AM CDT Annamarie Hannon MD PN PFT ORDERABLES Performing Organization Address City/State/ZIP Code Phon e Number PN SOLA documented in this encounter Visit Diagnoses Diagnosis Allergic rhinitis, cause unspecified - P rimary COPD (chronic obstructive pulmonary dise ase) (HRC) Chronic airway obstruction, not elsewher e classified documented in this encounter Care Teams Board Mixer Tender Relationship Specialty Start Date End Date Abdelrahman Pruitt PCP - General 02/27/11 09/02/16 documented as of this encounter
--- OUTSIDE RECORDS SUMMARY | 2022-10-31 16:21 | XMS_ITS | Encounter Summary ---
:1945 Author Organization [facility] Address [address], [place] [address] Care Team Providers Name Role Phone Abdelrahman Pruitt Primary Care Provider Unavailable Encounter Details Date Type Department Care Team Description 04/09/2014 Imaging [facility] 3931 Unspec ified asthma(493.90) Radiology X-ray 3931 [place] [address] Social History Tobacco Use Types Packs/Day Years Used Date Smoking Tobacco: Never Assessed Sex Assigned at Date Recorded Not on file documented as of this encounter Plan of Treatment Not on filedocumented as of this encounter Procedures Procedure Name Priority Date/Time Associated Diagnosis Comme nts XR CHEST 2 VIEWS Routine 04/09/2014 1:03 PM Unspecified Resul ts for this CDT asthma(493.90) ([facility]) procedu re are in the results section. documented in this encounter Results XR Chest 2 Views (04/09/2014 1:03 PM CDT) Anatomical Region Laterality Modality Chest, Lung Other Specimen (Source) Anatomical Location Collection Method / Collectio n Time Received Time / Laterality Volume Narrative 04/09/2014 1:30 PM CDT COMPARISON: ??None. FINDINGS: Two views were obtained. ??The lungs and costophrenic angles are clear. ??Heart size and pulmonary vascularity are within normal limits. ??There is no evidence of pneumothorax or pleural effusion. CONCLUSION: ??No evidence for acute dise ase. ?? Procedure Note Renny Ramos MD - 05/13/2016Form atting of this note might be different from the original. COMPARISON: None. FINDINGS: Two views were obtained. The l ungs and costophrenic angles are clear. Heart size and pulmonary vascularity are within normal limits. There is no evidence of pneumothorax or pleural effusion. CONCLUSION: No evidence for acute diseas e. Annamarie Hannon MD RAD GD documented in this encounter Visit Diagnoses Diagnosis Unspecified asthma(493.90) ([facility]) Unspecified asthma documented in this encounter Care Teams Electronic Field Service Engineer Relationship Specialty Start Date End Date Abdelrahman Pruitt PCP - General 02/27/11 09/02/16 documented as of this encounter
--- OUTSIDE RECORDS SUMMARY | 2022-10-31 16:21 | XMS_ITS | Encounter Summary ---
:1945 Author Organization [facility] Address [address] [place] [address] Care Team Providers Name Role Phone Abdelrahman Pruitt Primary Care Provider Unavailable Reason for Visit Procedure/Equipment (Routine) - Incomplete Specialty Diagnoses / Procedures Referred By Contact Refer red To Contact Procedures Provider, Foreign Images Foreign Image(S) XR Chest [address] [place] [id number] Referral ID Status Reason Start Date Expiration Date Visits V isits Requested Authorized [id number] Incomplete 09/04/2016 12/04/2017 1 1 Encounter Details Date Type Department Care Team Description 04/26/2016 Imaging [id number] RADIOLOGY CENTRAL FILM Pro vider, Foreign Images LIBRARY [address] [place] [address] [place] [address] Social History Tobacco Use Types Packs/Day Years Used Date Smoking Tobacco: Never Assessed Sex Assigned at Date Recorded Not on file documented as of this encounter Plan of Treatment Not on filedocumented as of this encounter Procedures Procedure Name Priority Date/Time Associated Diagnosis Comme nts FOREIGN IMAGE(S) XR Routine 04/26/2016 8:50 PM Re sults for this CHEST CDT procedure are i n the results section. documented in this encounter Results Foreign Image(S) XR Chest (04/26/2016 8:50 PM CDT) Specimen (Source) Anatomical Location Collection Method / Collectio n Time Received Time / Laterality Volume Narrative PN POCT - 09/04/2016 8:47 PM CDT These outside images have been uploaded into PACS. If the results were provided, they will be located on the Me dwain tab in the patient's chart. Foreign Images Provider RAD NON-REPORTABLES Performing Organization Address City/State/ZIP Code Phon e Number POCT PN POCT documented in this encounter Visit Diagnoses Not on filedocumented in this encounter Care Teams Enterprise Security Architect Relationship Specialty Start Date End Date Abdelrahman Pruitt PCP - General 02/27/11 09/02/16 documented as of this encounter
--- OUTSIDE RECORDS SUMMARY | 2022-10-31 16:21 | XMS_ITS | Encounter Summary ---
:1945 Author Organization [facility] Address [address] [place] [address] Care Team Providers Name Role Phone Abdelrahman Pruitt Primary Care Provider Unavailable Reason for Visit Reason Comments Pulmonary Encounter Details Date Type Department Care Team Description 08/31/2015 Office Visit Specialty Center Annamarie Hannon Chroni c obstructive pulmonary disease, unspecified COPD type (Primary Dx); 3931 Pulmonary MD Other seasonal allergic rhinitis; Medicine [address] [facility] Mild intermittent asthma wit hout complication; [facility] [address] Need [place] [phone] (Wo rk) Social History Tobacco Use Types Packs/Day Years Used Date Smoking Tobacco: Never Assessed Sex Assigned at Date Recorded Not on file documented as of this encounter Last Filed Vital Signs Vital Sign Reading Time Taken Comments Blood Pressure 122/86 08/31/2015 11:31 AM CDT Pulse 67 08/31/2015 11:31 AM CDT Temperature - - Respiratory Rate - - Oxygen Saturation 97% 08/31/2015 11:31 AM CDT Inhaled Oxygen Concentration - - Weight 87.1 kg (192 lb) 08/31/2015 11:31 AM CDT Height 182.9 cm (6') 08/31/2015 11:31 AM CDT Body Mass Index 26.04 08/31/2015 11:31 AM CDT documented in this encounter Progress Notes Annamarie Hannon MD - 08/31/2015 5:35 PM CDT Chief Complaint Patient presents with ??? Pulmonary [place] SUBJECTIVE : The patient is a 70 y.o. male who presents today for follow up copd with severe airflow obstruction.He was last seen in January 2015 and at that [facility] and was actually using low dose symbicort and not high dose. He then got the high dose symbicort and has been using this 2 puffs bid. He made a remarkable improvement on Symbicort. He was then started on Singulairfor his allergy symptoms and this was also quite helpful so the plan was to use this in the Spring and Fall but he noticed when he stopped it in the summer he had more congestion so he restarted it andhas remained on this. He did have a URI last appointment and was given a burst of steroids also. He has not had any further intercurrent respiratory illnesses. He rarely ever uses his rescue inhaler. He denies any fevers, chills or chest pains. He otherwise has no other complaints today. He did get his pneumococcal vaccine already. Patient Active Problem List Diagnosis ??? COPD (chronic obstructive pulmonary disease) ([facility]) ??? Allergic rhinitis, cause unspecified ??? Tubular adenoma of colon ??? Hyperlipidemia ??? Albrecht's neuroma of left foot ??? H/O umbilical hernia repair ??? H/O inguinal hernia repair ??? Seasonal allergies ??? GERD (gastroesophageal reflux disease) ??? Unspecified asthma(493.90) ([facility]) Outpatient Prescriptions Prior to Visit Medication Sig ??? albuterol HFA 90 mcg/actuation inhaler Inhale 2 puffs every 6 hours as needed for Wheezing. ??? aspirin EC 81 mg EC tablet Take 81 mg by mouth daily (every 24 hours). ??? budesonide-formoterol (SYMBICORT) 160-4.5 mcg/actuation inhaler Inhale 2 puffs 2 times daily. ??? CALCIUM CARBONATE/VITAMIN D3 (CALCIUM-CHOLECALCIFEROL, D3,) 500-100 mg-unit chewable tablet Take1 tablet by mouth daily (every 24 hours). ??? Cholecalciferol, Vitamin D3, 1,000 unit Cap Take by mouth. ??? cyanocobalamin (VITAMIN B-12) 500 mcg tablet Take 500 mcg by mouth daily (every 24 hours). ??? fluocinonide (LIDEX) 0.05 % cream Apply topically 2 times daily. ??? montelukast (SINGULAIR) 10 mg tablet Take 1 tablet by mouth every evening. ??? multivitamin (MULTIPLE VITAMINS DAILY) tablet Take 1 tablet by mouth daily (every 24 hours). ??? omeprazole (PRILOSEC) 20 mg capsule Take 1 capsule by mouth daily (every 24 hours). ??? simvastatin (ZOCOR) 40 mg tablet Take 1 tablet by mouth nightly. No facility-administered medications prior to visit. OBJECTIVE : Gen.: Alert, cooperative in no acute distress. BP 122/86 mmHg Pulse 67 Ht 6' (1.829 m) Wt 192 lb (87.091 kg) BMI 26.03 kg/m2 SpO2 97% Body mass index is 26.03 kg/(m^2). Head: Normocephalic. Eyes: PERRLA, full EOM. Throat: Moist mucous membranes without lesions, erythema, or exudate. Neck: Supple, without masses, lymphadenopathy or tenderness. Respiratory: Clear to auscultation no wheeze with forced expiration Heart: RRR without murmur Abdomen: The abdomen was soft and nontender, normal sounds present. Extremities: No cyanosis clubbing or edema. Neurologic: Alert, oriented x3, nonfocal. PFT: FVC 113%, FEV1 73%, FEV1/FVC 51,uncDCLO, NO 59 ASSESSMENT : The patient is a 70 y.o. male with mild asthma/copd clinically doing well on both symbicort and singulair. His nitric oxide level continues to decrease nicely. He is symptom free at this time. He will continue with this regimen indefinitely. He will get his flu vaccine today. He will contact my office next year to get refills mailed to his home [facility] that [facility] PLAN : 1. Patient will continue with current symbicort inhaler and singulair. 2. follow up in 12 months with repeat spirometry and NO 3. use singulair in Spring and Fall 4. flu vaccine today copy Dr Sukhi Wheeler [facility] [phone] Catina Yates RN - 08/31/2015 12:29 PM CDT Administered high dose influenza vacccine IM to left, upper deltoid. Pt tolerated injection well. Immunization questionnaire and information sheet given to pt prior to injection. documented in this encounter Plan of Treatment Not on filedocumented as of this encounter Visit Diagnoses Diagnosis Chronic obstructive pulmonary disease, u nspecified COPD type (HRC) - Primary Other seasonal allergic rhinitis Mild intermittent asthma without complic ation (HRC) Unspecified asthma Need for influenza vaccination Need for prophylactic vaccination and in oculation against influenza documented in this encounter Care Teams Astrophysics Teacher Relationship Specialty Start Date End Date Abdelrahman Pruitt PCP - General 02/27/11 09/02/16 documented as of this encounter
--- OUTSIDE RECORDS SUMMARY | 2022-10-31 16:21 | XMS_ITS | Encounter Summary ---
:1945 Author Organization [facility] Address [address] [place] [address] Care Team Providers Name Role Phone Abdelrahman Pruitt Primary Care Provider Unavailable Encounter Details Date Type Department Care Team Description 08/31/2015 Hospital Encounter [facility] 3931 Mild intermittent Pulmonary Lab asthma without [address] complication (Primary [place], [place] Dx) [id number] Social History Tobacco Use Types Packs/Day Years [...] Inhale 2 puffs 2 1 Inhaler 11 02/16/20 15 01/30/2016 (AKA SYMBICORT) 160-4.5 times daily. MCG/ACT inhaler ALBUterol sulfate HFA 108 Inhale 2 puffs 0 201203/11/2017 (90 BASE) MCG/ACT inhaler every 6 hours as needed for Wheezing. aspirin EC 81 MG enteric Take 81 mg by mouth 0 08/03/2022 coated tablet daily (every 24 hours). calcium carbonate (AKA Take 1 tablet by 0 013 02/27/2019 TUMS) 500 MG chewable mouth daily (every tablet 24 hours). fluocinonide (AKA LIDEX) Apply topically 2 30 g 3 01/2403/11/2017 0.05 % cream times daily. montelukast (AKA Take 1 tablet by 30 tablet 11 02/15/2015 SINGULAIR) 10 MG tablet mouth every evening. omeprazole (PRILOSEC) 20 Take 1 capsule by 30 capsule 11 01/2403/11/2017 MG capsule mouth daily (every 24 hours). simvastatin (AKA ZOCOR) Take 1 tablet by 30 tablet 11 201403/11/2017 40 MG tablet mouth nightly. documented as of this encounter Plan of Treatment Not on filedocumented as of this encounter Procedures Procedure Name Priority Date/Time Associated Diagnosis Comme nts COMPLETE PULMONARY Routine 08/31/2015 11:02 AM CDT FUNCTION TEST documented in this encounter Results Pulmonary Function Test - Complete (08/31/2015 11:02 AM CDT) Specimen (Source) Anatomical Collection Method Collection Time Re ceived Time Location / / Volume Laterality 08/31/2015 11:02 AM CDT Annamarie Hannon MD PN PFT ORDERABLES Performing Organization Address City/State/ZIP Code Phon e Number PN BREEZE documented in this encounter Visit Diagnoses Diagnosis Mild intermittent asthma without complic ation (HRC) - Primary Unspecified asthma documented in this encounter Care Teams Licensing Manager Relationship Specialty Start Date End Date Abdelrahman Pruitt PCP - General 02/27/11 09/02/16 documented as of this encounter
--- OUTSIDE RECORDS SUMMARY | 2022-10-31 16:21 | XMS_ITS | Encounter Summary ---
:1945 Author [facility] Address [address] [address] Care Team Providers Name Role Phone Abdelrahman Pruitt Primary Care Provider Unavailable Encounter Details Date Type Department Care Team Description 04/06/2013 Imaging P3930 RADIOLOGY [facility] No diagnosis [address] [place] [address] Social History Tobacco Use Types Packs/Day Years Used Date Smoking Tobacco: Never Assessed Sex Assigned at Date Recorded Not on file documented as of this encounter Plan of Treatment Not on filedocumented as of this encounter Procedures Procedure Name Priority Date/Time Associated Diagnosis Comme nts FOREIGN IMAGE(S) XR Routine 04/06/2013 11:00 AM No diagnosis R esults for this CHEST CDT procedure are i n the results section. documented in this encounter Results Foreign Image(S) XR Chest (04/06/2013 11:00 AM CDT) Anatomical Region Laterality Modality Chest Other Specimen (Source) Anatomical Location Collection Method / Collectio n Time Received Time / Laterality Volume Narrative 04/13/2014 10:58 AM CDT These outside images have been uploaded into PACS. If the results were provided, they will be located on the Media tab in the patient's chart. Procedure Note Conversion, Imr - 10/11/2016Formatting o f this note might be different from the original. These outside images have been uploaded into PACS. If the results were provided, they will be located on the Media tab in the patient's chart. Foreign Images Provider RAD NON-REPORTABLES documented in this encounter Visit Diagnoses Diagnosis No diagnosis Other unknown and unspecified cause of m orbidity or mortality documented in this encounter Care Teams Recreation Counselor Relationship Specialty Start Date End Date Abdelrahman Pruitt PCP - General 02/27/11 09/02/16 documented as of this encounter
--- OUTSIDE RECORDS SUMMARY | 2022-10-31 16:21 | XMS_ITS | Encounter Summary ---
:1945 Author [facility] Address [address] [place] [address] Care Team Providers Name Role Phone Agnieszka Reyes MD Primary Care Provider Reason for Referral (Routine) - Closed Specialty Diagnoses / Procedures Referred By Contact Refer red To Contact Procedures Annamarie Hannon MD Pulmonary Function Test - [address] [place] [address] [id number] [place] [address] Referral ID Status Reason Start Date Expiration Date Visits Requ ested Visits Authorized [id number] Closed 03/08/2017 06/07/2018 1 1 Encounter Details Date Type Department Care Team Description 03/11/2017 Hospital Encounter [facility]ty [facility] 3931 Chronic obstructive Pulmonary Lab pulmonary disease, [address] unspecified COPD type [place], [place] (Primar y Dx) [phone] Social History Tobacco Use Types Packs/Day Years [...] chewable mouth daily (every tablet 24 hours). montelukast (SINGULAIR) 10 Take 1 Tab by [...] Associated Diagnosis Comme nts COMPLETE PULMONARY Routine 03/11/2017 1:43 PM CDT FUNCTION TEST documented in this encounter Results Pulmonary Function Test - Complete (03/11/2017 1:43 PM CDT) Specimen (Source) Anatomical Collection Method Collection Time Re ceived Time Location / / Volume Laterality 03/11/2017 1:43 PM CDT Annamarie Hannon MD PN PFT ORDERABLES Performing Organization Address City/State/ZIP Code Phon e Number CÉSAR SELBY documented in this encounter Visit Diagnoses Diagnosis Chronic obstructive pulmonary disease, u nspecified COPD type (HRC) - Primary documented in this encounter Care Teams Dam Tender Relationship Specialty Start Date End Date Agnieszka Reyes MD PCP - General Internal Medicine 09/03/[address] [place] [address] documented as of this encounter
--- OUTSIDE RECORDS SUMMARY | 2022-10-31 16:21 | XMS_ITS | Encounter Summary ---
:1945 Author Organization [facility] Address [address] [place] [address] Care Team Providers Name Role Phone Abdelrahman Pruitt Primary Care Provider Unavailable Reason for Visit Reason Comments Pulmonary Encounter Details Date Type Department Care Team Description 02/15/2015 Office Visit Specialty Center 3931 Annamarie Hannon I ntrinsic asthma with exacerbation, moderate persistent (Primary Dx); Pulmonary Medicine COPD (chronic obstructive pulmonary dise ase); [id number] [facility] Allergic rhinitis, cause uns pecified [place], [place] [address] [address] [place], [place] [phone] (Wo rk) Social History Tobacco Use Types Packs/Day Years Used Date Smoking Tobacco: Never Assessed Sex Assigned at Date Recorded Not on file documented as of this encounter Last Filed Vital Signs Vital Sign Reading Time Taken Comments Blood Pressure 120/86 02/15/2015 1:30 PM CDT Pulse 69 02/15/2015 1:30 PM CDT Temperature - - Respiratory Rate - - Oxygen Saturation 95% 02/15/2015 1:30 PM CDT Inhaled Oxygen Concentration - - Weight 88.9 kg (196 lb) 02/15/2015 1:30 PM CDT Height 182.9 cm (6') 02/15/2015 1:30 PM CDT Body Mass Index 26.58 02/15/2015 1:30 PM CDT documented in this encounter Patient Instructions Patient InstructionsAnnamarie Hannon MD - 02/15/2015 2:11 PM CDT 1. continue symbicort 2. singulair start in Spring or in June if nose runs a lot or you lose sense of smell. Use for at least 6-8 weeks before stopping. 3. use rescue inhaler as needed 4. prednisone 40mg daily for 5 days documented in this encounter Progress Notes Annamarie Hannon MD - 02/15/2015 4:32 PM CDT Chief Complaint Patient presents with ??? Pulmonary 6m [place] SUBJECTIVE : The patient is a 70 y.o. male who presents today for follow up copd with severe airflow obstruction.He was seen in June of 2014 in followup after starting an inhaled steroid. He made a remarkable improvement on Symbicort. He was then started on Singulair because he had a significant allergy component to his respiratory complaints and was felt that this may be additive to his symptom control. He was also unable to smell and the thought was his allergies were contributing to his lack of smell. He took the singulair for 1-2 months and his sense of smell returned. He is here today for followup. He does not hear himself wheeze. He has had a URI for the past week with a cough component but he is not sob. He rarely ever uses his rescue inhaler. He stopped the PPI and then restarted it shortly after stopping. He denies any fevers, chills or chest pains. He has no shortness of breath he does have thispersistent cough from his recent illness. [facility] and asks whether I will write his prescriptions for him so he can [facility]. He otherwise has no other complaints today. Patient Active Problem List Diagnosis ??? COPD (chronic obstructive pulmonary disease) (HCC) ??? Allergic rhinitis, cause unspecified ??? Tubular adenoma of colon ??? Hyperlipidemia ??? Albrecht's neuroma of left foot ??? H/O umbilical hernia repair ??? H/O inguinal hernia repair ??? Seasonal allergies ??? GERD (gastroesophageal reflux disease) ??? Unspecified asthma(493.90) Outpatient Prescriptions Prior to Visit Medication Sig ??? albuterol HFA 90 mcg/actuation inhaler Inhale 2 puffs every 6 hours as needed for Wheezing. ??? [DISCONTINUED] albuterol-ipratropium (COMBIVENT RESPIMAT) 20-100 mcg/actuation inhaler Inhale 2 puffs 4 times daily. ??? [DISCONTINUED] albuterol-ipratropium (DUONEB) 3 mg(2.5 mg base)-0.5mg/3 mL nebulizer solution Take 3 mLs by nebulization 4 times daily. (3ml is 1 ampule) ??? aspirin EC 81 mg EC tablet [...] cream Apply topically 2 times daily. ??? [DISCONTINUED] montelukast (SINGULAIR) 10 mg tablet Take 1 tablet by mouth every evening. ??? multivitamin (MULTIPLE VITAMINS DAILY) tablet Take 1 tablet by mouth daily (every 24 hours). ??? omeprazole (PRILOSEC) 20 mg capsule Take 1 capsule by mouth daily (every 24 hours). ??? simvastatin (ZOCOR) 40 mg tablet Take 40 mg by mouth nightly. No facility-administered medications prior to visit. OBJECTIVE : Gen.: Alert, cooperative in no acute distress. BP 120/86 Pulse 69 Ht 6' (1.829 m) Wt 196 lb (88.905 kg) BMI 26.58 kg/m2 SpO2 95% Body mass index is 26.58 kg/(m^2). Head: Normocephalic. Eyes: PERRLA, full EOM. Throat: Moist mucous membranes without lesions, erythema, or exudate. Neck: Supple, without masses, lymphadenopathy or tenderness. Respiratory: Clear to auscultation no wheeze with forced expiration Heart: RRR without murmur Abdomen: The abdomen was soft and nontender, normal sounds present. Extremities: No cyanosis clubbing or edema. Neurologic: Alert, oriented x3, nonfocal. PFT: FVC 107%, FEV1 72%, FEV1/FVC 53,uncDCLO, NO 100 ASSESSMENT : The patient is a 70 y.o. male with moderate asthma/copd. he has continued to do well onhis inhaled steroid. It is unclear to me whether he should go back on Singulair but the fact that this improved his symptoms during the fall allergies suggests he should use it seasonally. His FEV1 hasdecreased and his nitric oxide test is quite elevated suggesting that his asthma is flaring slightlyand likely in association with this recent intercurrent upper respiratory tract infection. As a result of this I recommended a burst of prednisone. He will be getting his medications from the [place] so everything all his medications and printed them off for him including his non-pulmonary medications. If at followup his nitric oxide test remains elevated again I would recommend additional inhaled steroid. PLAN : 1. Patient will continue with current symbicort inhalers. 2. Patient will follow up in 8 months with repeat spirometry 3. use singulair in Spring and Fall 4. burst of prednisone 40mg day for [address] Gonzalez [phone] documented in this encounter Plan of Treatment Not on filedocumented as of this encounter Visit Diagnoses Diagnosis Intrinsic asthma with exacerbation, mode rate persistent (HRC) - Primary COPD (chronic obstructive pulmonary dise ase) (HRC) Chronic airway obstruction, not elsewher e classified Allergic rhinitis, cause unspecified documented in this encounter Care Teams Trouble Locator Test Desk Relationship Specialty Start Date End Date Abdelrahman Pruitt PCP - General 02/27/11 09/02/16 documented as of this encounter
--- OUTSIDE RECORDS SUMMARY | 2022-10-31 16:21 | XMS_ITS | Encounter Summary ---
:1945 [facility] Address [address] [address] Care Team Providers Name Role Phone Abdelrahman Pruitt Primary Care Provider Unavailable Reason for Visit Reason Comments Refill Encounter Details Date Type Department Care Team Description 01/30/2016 Refill Specialty Center 3931 Antolin Hannon MD Refill Pulmonary Medicine [address] [facility] [address] [place] [phone] (Wo rk) Social History Tobacco Use Types Packs/Day Years Used Date Smoking Tobacco: Never Assessed Sex Assigned at Date Recorded Not on file documented as of this encounter Nursing Notes Rafia Tong RN - 01/30/2016 10:59 AM CST Patient requesting refill of Symbicort to be mailed to home address. [facility] RMATION RESOURCES DIRECTOR documented in this encounter Plan of Treatment Not on filedocumented as of this encounter Visit Diagnoses Not on filedocumented in this encounter Care Teams Farmer Cash Grain Relationship Specialty Start Date End Date Abdelrahman Pruitt PCP - General 02/27/11 09/02/16 documented as of this encounter
--- OUTSIDE RECORDS SUMMARY | 2022-10-31 16:21 | XMS_ITS | Encounter Summary ---
:1945 Author Organization [facility] Address [address] [place] [address] Care Team Providers Name Role Phone Agnieszka Reyes MD Primary Care Provider Reason for Referral (Routine) - Closed Specialty Diagnoses / Procedures Referred By Contact Refer red To Contact Procedures Annamarie Hannon MD Pulmonary Function Test - [address] [facility] [id number] [place] [address] Referral ID Status Reason Start Date Expiration Date Visits Requ ested Visits Authorized [id number] Closed 08/31/2016 11/30/2017 1 1 Encounter Details Date Type Department Care Team Description 09/03/2016 Hospital Encounter [facility]ty Center 3931 Uncomplicated asthma, Pulmonary Lab unspecified asthma 39[address] [facility]. severity (HRC) (Primary S. Dx) [place] [address] Social History Tobacco Use Types [...] mouth daily (every (MULTIVITAMIN OR) 24 hours). ALBUterol sulfate HFA 108 Inhale 2 puffs 0 201203/11/2017 (90 BASE) MCG/ACT inhaler every 6 hours as needed for Wheezing. aspirin EC 81 MG enteric Take 81 mg by mouth 0 08/03/2022 coated tablet daily (every 24 hours). budesonide-formoterol Inhale 2 puffs 2 3 Inhaler 2 01/30/20 16 03/11/2017 (AKA SYMBICORT) 160-4.5 times daily. MCG/ACT inhaler calcium carbonate (AKA Take 1 [...] Associated Diagnosis Comme nts COMPLETE PULMONARY Routine 09/03/2016 1:33 PM CDT FUNCTION TEST documented in this encounter Results Pulmonary Function Test - Complete (09/03/2016 1:33 PM CDT) Specimen (Source) Anatomical Collection Method Collection Time Re ceived Time Location / / Volume Laterality 09/03/2016 1:33 PM CDT Annamarie Hannon MD PN PFT ORDERABLES Performing Organization Address City/State/ZIP Code Phon e Number PN BREEZE documented in this encounter Visit Diagnoses Diagnosis Uncomplicated asthma, unspecified asthma severity (HRC) - Primary documented in this encounter Care Teams Residential Manager Relationship Specialty Start Date End Date Agnieszka Reyes MD PCP - General Internal Medicine 09/03/[address] [place] [address] documented as of this encounter
--- OUTSIDE RECORDS SUMMARY | 2022-10-31 16:21 | XMS_ITS | Encounter Summary ---
:1945 Author Organization [facility] Address [address] [facility] [place] [address] Care Team Providers Name Role Phone Agnieszka Reyes MD Primary Care Provider Reason for Visit Reason Comments Pulmonary 1y [place] Encounter Details Date Type Department Care Team Description 09/03/2016 Office Visit Specialty Center Annamarie Hannon Modera te persistent asthma without complication (Primary Dx); 3931 Pulmonary MD Need for influenza vaccination Medicine 3931 [facility] [address] [facility] [address] [place] [phone] (Wo rk) Social History Tobacco Use Types Packs/Day Years Used Date Smoking Tobacco: Former Cigarettes Quit : 04/09/2003 Alcohol Use Standard Drinks/Week Comments Yes 0 (1 standard drink = 0.6 oz pure alcoho l) Sex Assigned at Date Recorded Not on file documented as of this encounter Last Filed Vital Signs Vital Sign Reading Time Taken Comments Blood Pressure 134/82 09/03/2016 1:57 PM CDT Pulse 69 09/03/2016 1:57 PM CDT Temperature - - Respiratory Rate - - Oxygen Saturation 98% 09/03/2016 1:57 PM CDT Inhaled Oxygen Concentration - - Weight 86.2 kg (190 lb) 09/03/2016 1:57 PM CDT Height 182.9 cm (6') 09/03/2016 1:57 PM CDT Body Mass Index 25.77 09/03/2016 1:57 PM CDT documented in this encounter Progress Notes Annamarie Hannon MD - 09/03/2016 2:02 PM CDT Chief Complaint Patient presents with ??? Pulmonary 1y [place] SUBJECTIVE : The patient is a 71 y.o. male who presents today for follow up mild copd/asthma. He had a good year and he has noticed that in the winter months he is differently more congested. He wonders whether thewood burning stove is affecting his asthma. He did have a good summer from a breathing standpoint. He has been worked up for chronic leukemia and for now he will simply follow-up in a year with oncology. He had a cxr done that demonstrated a tortuous aorta and he is very worried about this. He then had a chest CT and would like to review these results with me. He stopped the symbicort as he thought the elevated WBC was from symbicort. He felt bad the entire time he was off the symbicort for a month.He restarted his Symbicort and his breathing has improved. He has continued on daily Singulair. He has a history of tobacco use an approximately [id number] smoking history but quit 11 years ago. He denies any fevers chills [...] Alert, cooperative in no acute distress. BP 134/82 mmHg Pulse 69 Ht 6' (1.829 m) Wt 190 lb (86.183 kg) BMI 25.76 kg/m2 SpO2 98% Estimated body mass index is 25.76 kg/(m^2) [...] Neurologic: Alert, oriented x3, nonfocal. PFT: FVC 93 %, FEV1 63 %, FEV1/FVC 55, NO 54 CT chest: Tiny nodular infiltrate left upper lobe mild emphysema changes left side, subtle interstitial changes versus atelectasis at lung bases bilaterally ASSESSMENT : The patient is a 71 y.o. male with mild asthma/copd clinically doing well on both symbicort and singulair. His nitric oxide level is upper limits of normal but lower than it has been. He is symptom free at this time. He will continue with this regimen of Symbicort and Singulair. He will get his flu vaccine today. He will contact my office next year to get refills mailed to his home [facility] In terms of the season changes affecting his breathing burning wood in his home may be causing his asthma to flare up in the winter months so he is going to try decrease the amount of wood burning. His CT scan was reviewed and he does have some subtle interstitial changes at the lung bases some being somewhat nodular and I would recommend a follow-up imaging in a year. PLAN : 1. Patient will continue with current symbicort inhaler and singulair. 2. follow up in 6 months with repeat spirometry and NO 3. flu vaccine today 4. Repeat chest CT in 1 year to follow-up subtle interstitial changes copy Dr Agnieszka Reyes [facility] documented in this encounter Plan of Treatment Not on filedocumented as of this encounter Visit Diagnoses Diagnosis Moderate persistent asthma without compl ication (HRC) - Primary Unspecified asthma Need for influenza vaccination Need for prophylactic vaccination and in oculation against influenza documented in this encounter Care Teams Qa Tech Relationship Specialty Start Date End Date Agnieszka Reyes MD PCP - General Internal Medicine 09/03/[address] [place] [address] documented as of this encounter
--- OUTSIDE RECORDS SUMMARY | 2022-10-31 16:21 | XMS_ITS | Encounter Summary ---
:1945 Author Organization [facility] Address [address], [place] [address] Care Team Providers Name Role Phone Abdelrahman Pruitt Primary Care Provider Unavailable Encounter Details Date Type Department Care Team Description 04/09/2014 Hospital Encounter Specialty Center 3931 COPD (chronic Pulmonary Lab obstructive pulmonary 3931 [facility] disease) (Primary Dx) [place], [place] [address] Social History Tobacco Use Types Packs/Day Years [...] (AKA RESPIMAT) 20-100 times daily. mcg/actuation inhaler predniSONE (AKA 4 pills X 5 days, 3 40 tablet 0 04/09/2014 07/23/2014 DELTASONE) 10 MG tablet pills X 3 days; 2 pills X 3 days; 1 pill X 3 days, 1/2 pill X 3 days off ALBUterol sulfate HFA Inhale 2 puffs every [...] Associated Diagnosis Comme nts COMPLETE PULMONARY Routine 04/09/2014 1:06 PM CDT FUNCTION TEST documented in this encounter Results Pulmonary Function Test - Complete (04/09/2014 1:06 PM CDT) Specimen (Source) Anatomical Collection Method Collection Time Re ceived Time Location / / Volume Laterality 04/09/2014 1:06 PM CDT Annamarie Hannon MD PN PFT ORDERABLES Performing Organization Address City/State/ZIP Code Phon e Number PN BREEZE documented in this encounter Visit Diagnoses Diagnosis COPD (chronic obstructive pulmonary dise ase) (HRC) - Primary Chronic airway obstruction, not elsewher e classified documented in this encounter Care Teams Medical Educator Relationship Specialty Start Date End Date Abdelrahman Pruitt PCP - General 02/27/11 09/02/16 documented as of this encounter
--- OUTSIDE RECORDS SUMMARY | 2022-10-31 16:21 | XMS_ITS | Encounter Summary ---
:1945 Author [facility] Address [address] [place] [address] Care Team Providers Name Role Phone Abdelrahman Pruitt Primary Care Provider Unavailable Reason for Visit Procedure/Equipment (Routine) - Incomplete Specialty Diagnoses / Procedures Referred By Contact Refer red To Contact Procedures Provider, Foreign Images Foreign Image(S) CT Chest [address] [place] [id number] Referral ID Status Reason Start Date Expiration Date Visits V isits Requested Authorized [id number] Incomplete 09/04/2016 12/04/2017 1 1 Encounter Details Date Type Department Care Team Description 06/11/2016 Imaging [id number] RADIOLOGY CENTRAL FILM Pro vider, Foreign Images LIBRARY [address] [place] [address] [place] [address] Social History Tobacco Use Types Packs/Day Years Used Date Smoking Tobacco: Never Assessed Sex Assigned at Date Recorded Not on file documented as of this encounter Plan of Treatment Not on filedocumented as of this encounter Procedures Procedure Name Priority Date/Time Associated Diagnosis Comme nts FOREIGN IMAGE(S) CT Routine 06/11/2016 8:50 PM Re sults for this CHEST CDT procedure are i n the results section. documented in this encounter Results Foreign Image(S) CT Chest (06/11/2016 8:50 PM CDT) Specimen (Source) Anatomical Location [...] on filedocumented in this encounter Care Teams Finance Business Partner Relationship Specialty Start Date End Date Abdelrahman Pruitt PCP - General 02/27/11 09/02/16 documented as of this encounter
--- OUTSIDE RECORDS SUMMARY | 2022-10-31 16:21 | XMS_ITS | Encounter Summary ---
:1945 Author Organization [facility] Address [address] [place] [address] Care Team Providers Name Role Phone Abdelrahman Pruitt Primary Care Provider Unavailable Reason for Visit Reason Comments Pulmonary Encounter Details Date Type Department Care Team Description 07/23/2014 Office Visit Specialty Center Annamarie Hannon, COPD ( chronic obstructive pulmonary disease) (Primary Dx); 3931 Pulmonary MD Allergic rhinitis, cause unspecified; Medicine [facility] Unspecified asthma(493.90); [facility] [address] Need for prophylactic vaccination [place] [phone] (Wo rk) Social History Tobacco Use Types Packs/Day Years Used Date Smoking Tobacco: Never Assessed Sex Assigned at Date Recorded Not on file documented as of this encounter Last Filed Vital Signs Vital Sign Reading Time Taken Comments Blood Pressure 128/82 07/23/2014 11:34 AM CDT Pulse 85 07/23/2014 11:34 AM CDT Temperature - - Respiratory Rate - - Oxygen Saturation 99% 07/23/2014 11:34 AM CDT Inhaled Oxygen Concentration - - Weight 87.5 kg (193 lb) 07/23/2014 11:34 AM CDT Height 185.4 cm (6' 1) 07/23/2014 11:34 AM CDT Body Mass Index 25.46 07/23/2014 11:34 AM CDT documented in this encounter Patient Instructions Patient InstructionsAnnamarie Hannon MD - 07/23/2014 12:07 PM CDT 1. Patient will continue with current inhalers. 2. Patient will follow up in 6 months with repeat spirometry 3. The patient will get the flu vaccine 4. trial of singulair take at night 5. okay to use sudafed documented in this encounter Progress Notes Annamarie Hannon MD - 07/23/2014 2:38 PM CDT Chief Complaint Patient presents with ??? Pulmonary 3m f/u cant smell much anything anomore SUBJECTIVE : The patient is a 69 y.o. male who presents today for follow up copd with severe airflow obstruction.He was seen about 2 months ago and given a course of steroids and started on ICS as well. He startedup the symbicort which he feels is a miracle medication. He used the respimat but was able to stop it also. He did not need the sudafed either. He is more congested right now and is worried about his allergies. He is able to split wood now for an hour as opposed to 30 minutes. His main complaint is that he cannot smell. He states he has been doing well since he was seen in clinic. He has not had an exacerbation of his asthma/copd. At his initial consult with his primary MD his FEV1 was 89% but when he was seen 2 months ago it was 35%. He states he feels so much better now. He is doing well on lowerdose PPI. He stopped the mucinex as well. He denies any fevers, chills or chest pains. Patient Active Problem List Diagnosis ??? COPD (chronic obstructive pulmonary disease) (HCC) ??? Allergic rhinitis, cause unspecified ??? Tubular adenoma of colon ??? Hyperlipidemia ??? Albrecht's neuroma of left foot ??? H/O umbilical hernia repair ??? H/O inguinal hernia repair ??? Seasonal allergies ??? GERD (gastroesophageal reflux disease) Outpatient Prescriptions Prior to Visit Medication Sig ??? albuterol HFA 90 mcg/actuation inhaler Inhale 2 puffs every 6 hours as needed for Wheezing. ??? albuterol-ipratropium (COMBIVENT RESPIMAT) 20-100 mcg/actuation inhaler Inhale 2 puffs 4 times daily. ??? albuterol-ipratropium (DUONEB) 3 mg(2.5 mg base)-0.5mg/3 mL [...] cream Apply topically 2 times daily. ??? multivitamin (MULTIPLE VITAMINS DAILY) tablet Take 1 tablet by mouth daily (every 24 hours). ??? omeprazole (PRILOSEC) 20 mg capsule Take 1 capsule by mouth daily (every 24 hours). ??? [DISCONTINUED] predniSONE (DELTASONE) 10 mg tablet 4 pills X 5 days, 3 pills X 3 days; 2 pills X3 days; 1 pill X 3 days, 1/2 pill X 3 days off ??? simvastatin (ZOCOR) 40 mg tablet Take 40 mg by mouth nightly. No facility-administered medications prior to visit. OBJECTIVE : Gen.: Alert, cooperative in no acute distress. BP 128/82 Pulse 85 Ht 6' 1 (1.854 m) Wt 193 lb (87.544 kg) BMI 25.47 kg/m2 SpO2 99% Body mass index is 25.47 kg/(m^2). Head: Normocephalic. Eyes: PERRLA, full EOM. Throat: Moist mucous membranes without lesions, erythema, or exudate. Neck: Supple, without masses, lymphadenopathy or tenderness. Respiratory: Clear to auscultation no wheeze with forced expiration Heart: RRR without murmur Abdomen: The abdomen was soft and nontender, normal sounds present. Extremities: No cyanosis clubbing or edema. Neurologic: Alert, oriented x3, nonfocal. PFT: FVC 113%, FEV1 86%, FEV1/FVC 60,uncDCLO, NO 88 ASSESSMENT : The patient is a 69 y.o. male with moderate asthma copd. He has made a remarkable response to inhaled steroids. He still has an elevated nitric oxide level so I would recommend increasing further his asthma treatment. Since he has nasal allergies I would recommend starting singulair. He will also try some sudafed. If his anosmia persists he will be sent to ENT. PLAN : 1. Patient will continue with current symbicort inhalers. 2. Patient will follow up in 6 months with repeat spirometry 3. The patient will get the flu vaccine 4. trial of singulair take at night 5. okay to use sudafed Rachelle Hewitt RN - 07/23/2014 2:38 PM CDT Influenza vaccine administered without difficulty. documented in this encounter Plan of Treatment Not on filedocumented as of this encounter Visit Diagnoses Diagnosis COPD (chronic obstructive pulmonary dise ase) ([facility]) - Primary Chronic airway obstruction, not elsewher e classified Allergic rhinitis, cause unspecified Unspecified asthma(493.90) ([facility]) Unspecified asthma Need for prophylactic vaccination and in oculation against influenza documented in this encounter Care Teams Change Management Coordinator Relationship Specialty Start Date End Date Abdelrahman Pruitt PCP - General 02/27/11 09/02/16 documented as of this encounter
--- OUTSIDE RECORDS SUMMARY | 2022-10-31 16:21 | XMS_ITS | Encounter Summary ---
:1945 Author Organization [facility] Address [address], [place] [address] Care Team Providers Name Role Phone Abdelrahman Pruitt Primary Care Provider Unavailable Encounter Details Date Type Department Care Team Description 02/15/2015 Hospital Encounter Specialty Center 3931 Unspecified asthma, Pulmonary Lab with exacerbation 3931 [place], [place] [address] Social History Tobacco Use Types Packs/Day Years [...] (AKA SYMBICORT) 160-4.5 times daily. MCG/ACT inhaler predniSONE (AKA Take 2 tablets by 10 tablet 0 02/15/2015 DELTASONE) 20 MG tablet mouth daily (every 24 hours) for 5 days. Take with food. ALBUterol sulfate HFA 108 Inhale 2 puffs [...] Associated Diagnosis Comme nts COMPLETE PULMONARY Routine 02/15/2015 1:07 PM CDT FUNCTION TEST documented in this encounter Results Pulmonary Function Test - Complete (02/15/2015 1:07 PM CDT) Specimen (Source) Anatomical Collection Method Collection Time Re ceived Time Location / / Volume Laterality 02/15/2015 1:07 PM CDT Annamarie Hannon MD PN PFT ORDERABLES Performing Organization Address City/State/ZIP Code Phon e Number PN BREEZE documented in this encounter Visit Diagnoses Diagnosis Unspecified asthma, with exacerbation ([facility]) Unspecified asthma, with exacerbation documented in this encounter Care Teams Plastering Supervisor Relationship Specialty Start Date End Date Abdelrahman Pruitt PCP - General 02/27/11 09/02/16 documented as of this encounter
--- OUTSIDE RECORDS SUMMARY | 2022-10-31 16:21 | XMS_ITS | Encounter Summary ---
:1945 Author Organization [facility] Address [address], [place] [address] Care Team Providers Name Role Phone Abdelrahman Pruitt Primary Care Provider Unavailable Reason for Visit Reason Comments Medication Questions Encounter Details Date Type Department Care Team Description 03/10/2015 Telephone Specialty Center 3931 Antolin Hannon MD Medication Questions Pulmonary Medicine [address] [facility] [address] [facility] [address] [place] [phone] (Wo rk) Social History Tobacco Use Types Packs/Day Years Used Date Smoking Tobacco: Never Assessed Sex Assigned at Date Recorded Not on file documented as of this encounter Nursing Notes Rachelle Hewitt RN - 03/11/2015 1:27 PM CDT I spoke with patient about this. He understands and will do this. Annamarie Hannon MD - 03/10/2015 5:21 PM CDT If he has always been on the lower dose symbicort and doing well then he can use the 160/4.5 2 puffsonly daily. If symptoms are not as well controlled then he can go to 2puffs bid Rachelle Hewitt RN - 03/10/2015 3:36 PM CDT Patient called: [facility] 80/4.5 instead of 160/4.5 for the past year. He did not catch this until he was recently issued a renewed rx which shows 160/4.5. He asks Dr. Hannon what he should do once he does receive the 160/4.5, as he is ordered 2p BID. He has taken 80/4.5 as 2p BID. Please advise, Thank you. documented in this encounter Plan of Treatment Not on filedocumented as of this encounter Visit Diagnoses Not on filedocumented in this encounter Care Teams Welder Helper Relationship Specialty Start Date End Date Abdelrahman Pruitt PCP - General 02/27/11 09/02/16 documented as of this encounter
--- OUTSIDE RECORDS SUMMARY | 2022-10-31 16:21 | XMS_ITS | Encounter Summary ---
:1945 [facility] Address [address] [place] [address] Care Team Providers Name Role Phone Abdelrahman Pruitt Primary Care Provider Unavailable Encounter Details Date Type Department Care Team Description 11/25/1989 PN Conversion Only SINGLE STROKE PREFORMER [address] Abdelrahman Pruitt [address] [place] [address] Social History Tobacco Use Types Packs/Day Years Used Date Smoking Tobacco: Never Assessed Sex Assigned at Date Recorded Not on file documented as of this encounter Plan of Treatment Not on filedocumented as of this encounter Visit Diagnoses Not on filedocumented in this encounter Care Teams Salvage Determiner Relationship Specialty Start Date End Date Abdelrahman Pruitt PCP - General 02/27/11 09/02/16 documented as of this encounter
--- OUTSIDE RECORDS SUMMARY | 2022-10-31 16:21 | XMS_ITS | Encounter Summary ---
:1945 Author Organization [facility] Address [address] [address] Care Team Providers Name Role Phone Abdelrahman Pruitt Primary Care Provider Unavailable Encounter Details Date Type Department Care Team Description 03/31/2014 Notes/Orders Specialty Center 3931 Annamarie Mittal U nspecified Pulmonary Medicine asthma(493.90) 3931 [place] [address] [facility] (Primary Dx) [place], [place] [address] [address] [place], [place] [phone] (Wo rk) Social History Tobacco Use Types Packs/Day Years Used Date Smoking Tobacco: Never Assessed Sex Assigned at Date Recorded Not on file documented as of this encounter Progress Notes Zack Carrasco - 05/03/2014 1:33 AM CDT pt needs cxr order for asthma for consult with dr mittal on 04/09/14 documented in this encounter Plan of Treatment Not on filedocumented as of this encounter Visit Diagnoses Diagnosis Unspecified asthma(493.90) ([facility]) - Prima ry Unspecified asthma documented in this encounter Care Teams Plater Apprentice Relationship Specialty Start Date End Date Abdelrahman Pruitt PCP - General 02/27/11 09/02/16 documented as of this encounter
--- OUTSIDE RECORDS SUMMARY | 2022-10-31 16:21 | XMS_ITS | Encounter Summary ---
:1945 Author Organization [facility] Address [address] [place] [address] Care Team Providers Name Role Phone Abdelrahman Pruitt Primary Care Provider Unavailable Reason for Visit Reason Comments Referral Encounter Details Date Type Department Care Team Description 04/09/2014 Initial Consult Specialty Center Annamarie Hannon Uns pecified asthma, with exacerbation (Primary Dx); 3931 Pulmonary MD COPD (chronic obstructive pulmonary dise ase); Medicine [address] [facility] Hypoxia; 39[address] [facility] [address] GERD (gastroesophageal reflux disease) [facility], [id number] [place] [id number] Social History Tobacco Use Types Packs/Day Years Used Date Smoking Tobacco: Never Assessed Sex Assigned at Date Recorded Not on file documented as of this encounter Last Filed Vital Signs Vital Sign Reading Time Taken Comments Blood Pressure 128/80 04/09/2014 2:00 PM CDT Pulse 80 04/09/2014 2:00 PM CDT Temperature - - Respiratory Rate - - Oxygen Saturation 90% 04/09/2014 2:00 PM CDT Inhaled Oxygen Concentration - - Weight 83.9 kg (185 lb) 04/09/2014 2:00 PM CDT Height 182.9 cm (6') 04/09/2014 2:00 PM CDT Body Mass Index 25.09 04/09/2014 2:00 PM CDT documented in this encounter Patient Instructions Patient InstructionsAnnamarie Hannon MD - 04/09/2014 5:31 PM CDT 1. Prednisone 10mg tablets : 4 pills X 5 days, 3 pills X 3 days; 2 pills X 3 days; 1 pill X 3 days, 1/2 pill X 3 days off 2. steroid inhaler: symbicort 2 puffs 2x day, rinse mouth after using. [facility] too [facility] 3. okay to use combivent as needed. 4. follow up in 6-8 weeks with breathing test 5. okay to use mucinex but consider stopping when breathing better 6. decrease prilosec (omeprazole) to 20mg day documented in this encounter Progress Notes Annamarie Hannon MD - 04/09/2014 5:32 PM CDT Chief Complaint Patient presents with ??? Referral SUBJECTIVE : The patient is a 69 y.o. male who presents today for consultation asthma and COPD. 1.5 years ago he started have respiratory issues so he took his wifes inhaler and this helped. He used it 1-4 days perweek. He was worried about reflux so he had an EGD that was normal. His symptoms flare at night. He took PPI as well as he has had significant reflux symptoms and these are now well managed with high dose Prilosec. Prior to that he was taking Pepcid and his symptoms are not well controlled. He was given presciption for combivent but it was too expensive. In he had a URI so he filled combivent using 2 puffs 4x day. End of he had another flare and the combivent was very helpful. TheSpring season seems to make it worse. Cold weather is not a problem. He is using mucinex nightly andthis is helpful. He uses the combivent sparingly now as he is about to run out of it and is awaitinga shipment from [facility]. He wonders if anything else would be better for his breathing. Some of the time he can be very sob. On good days he can chop wood and walk 1/2 mile. On a bad day he can barely walk across the room. He does complain of cough which is quite productive. He denies any hemoptysis. The patient denies of exposure to any asbestos, fumes, paints, hot tub, birds. The patient admits to smoking cigarettes. He smoked 45packs per day. He quit 10 years ago. He has not had any skin or joint problems. He was in the in the [employer] for 4 years. 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 In 2006 he did have pneumonia. Currently he is feeling short of breath in his hearing himself wheeze. He denies any fevers chills or night sweats. His weight has been stable. He did have an alpha 1 antitrypsin level done that was normal. He did have pulmonary function tests performed in his doctor's office a year ago and at that time his FVC was 110% of predicted with an FEV1 of 89% of predicted. Pertinent items are noted in HPI. Patient Active Problem List Diagnosis Date Noted ??? GERD (gastroesophageal reflux disease) 04/09/2014 ??? COPD (chronic obstructive pulmonary disease) ([facility]) 04/07/2014 ??? Allergic rhinitis, cause unspecified 04/07/2014 ??? Tubular adenoma of colon 04/07/2014 ??? Hyperlipidemia 04/07/2014 ??? Albrecht's neuroma of left foot 04/07/2014 ??? H/O umbilical hernia repair 04/07/2014 ??? H/O inguinal hernia repair 04/07/2014 ??? Seasonal allergies 04/07/2014 Past Medical History Diagnosis Date ??? Tubular adenoma of colon 04/07/2014 ??? Seasonal allergies 04/07/2014 ??? Albrecht's neuroma of left foot 04/07/2014 ??? Hyperlipidemia 04/07/2014 ??? COPD (chronic obstructive pulmonary disease) ([facility]) 04/07/2014 ??? Allergic rhinitis, cause unspecified 04/07/2014 ??? GERD (gastroesophageal reflux disease) 04/09/2014 Past Surgical History Procedure Laterality Date ??? Umbilical hernia repair ??? Inguinal hernia repair ??? Hx appendectomy ruptured Social History , 1 child, 2 dogs, 2 cats Family History Problem Relation Age of Onset ??? Emphysema Mother ??? Heart Failure Mother ??? Cancer Father colon MEDICATIONS Outpatient Encounter Prescriptions as of 04/09/2014 Medication Sig Dispense Refill ??? albuterol HFA 90 mcg/actuation inhaler Inhale [...] by mouth daily (every 24 hours). ??? CALCIUM CARBONATE/VITAMIN D3 (CALCIUM-CHOLECALCIFEROL, D3,) 500-100 [...] daily (every 24 hours). ??? omeprazole (PRILOSEC) 40 mg capsule Take 40 mg by mouth daily (every 24 hours). ??? simvastatin (ZOCOR) 40 mg tablet Take 40 mg by mouth nightly. No facility-administered encounter medications on file as of 04/09/2014. Allergies Allergen Reactions ??? Desflurane mild, thrashing after coming out of it OBJECTIVE : Gen.: Alert, cooperative in no acute distress. BP 128/80 Pulse 80 Ht 6' (1.829 m) Wt 185 lb (83.915 kg) BMI 25.08 kg/m2 SpO2 90%, Body mass index is 25.08 kg/(m^2). and the 3 sets 87% room air, sats 2 L with activity 91% Head: Normocephalic. Eyes: PERRLA, full EOM. Nose: Patent, without deformity. Throat: Moist mucous membranes without lesions, erythema, or exudate. Neck: Supple, without masses, lymphadenopathy or tenderness. Respiratory: Lungs wheezing bilaterally normal chest excursions Heart: RRR without murmurs, rubs, or gallops. Abdomen: The abdomen was soft and nontender, bowel sounds present. without obvious masses or organomegaly. Extremities: no clubbing, no edema. Neurologic: Alert, oriented x3 , nonfocal. Labs: Alpha-1 antitrypsin level 182 RADIOLOGY: Clear no acute infiltrates PFT: FVC 73%, FEV1 35%, FEV1/FVC 39,uncDCLO 80%, NO 188 ASSESSMENT : The patient is a 69 y.o. male with a previous history of tobacco use who was well until about 4-5 months ago when he developed some type of intercurrent respiratory illness that is treated at tremendous amount of reversible airflow obstruction. He is certainly acting like a severe asthmatic and responds well to bronchodilator therapy and this has been consistent however he has not been treated with any anti-inflammatory therapy. He has marked reversibility with bronchodilator therapy. 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 His baseline FEV1 from march of 2013 was in the normal range. He does have a significant tobacco use history and I do think he has underlying COPD as well but the degree of airway inflammation at this time is disproportionate to simply COPD exacerbation. Cost does seem to be an issue for the patient and therefore I've encouraged him to see if he can get his inhaled steroid through the [place] [facility] system if it turns out to be too expensive. Finally the patient does have hypoxia with activity but I do think that this will improve once his airway inflammation has been treated. It would be very unusual for the patient to have underlying allergic bronchopulmonary aspergillosis but again given the severity of his eosinophilic response and airway inflammation this is a possibility. PLAN : 1. Prednisone 10mg tablets : 4 pills X 5 days, 3 pills X 3 days; 2 pills X 3 days; 1 pill X 3 days, 1/2 pill X 3 days off 2. steroid inhaler: symbicort 2 puffs 2x day, rinse mouth after using. If too expensive ask [place] for something equivalent 3. okay to use combivent as needed. 4. follow up in 6-8 weeks with breathing test 5. okay to use mucinex but consider stopping when breathing better 6. decrease prilosec (omeprazole) to 20mg day Please note that the above medical documentation was created using voice recognition software and may contain typographical errors documented in this encounter Plan of Treatment Not on filedocumented as of this encounter Visit Diagnoses Diagnosis Unspecified asthma, with exacerbation ([facility]) - Primary Unspecified asthma, with exacerbation COPD (chronic obstructive pulmonary dise ase) ([facility]) Chronic airway obstruction, not elsewher e classified Hypoxia Hypoxemia GERD (gastroesophageal reflux disease) Esophageal reflux documented in this encounter Care Teams Aircraft Accessories Mechanic Relationship Specialty Start Date End Date Abdelrahman Pruitt PCP - General 02/27/11 09/02/16 documented as of this encounter
== END 2022-10-29 11:00 | disposition home or self-care (01) ==
LOC: LKVREF 10-31 16:16
PROVIDERS: PCP Family Medicine; Visit Provider Family Medicine
DX: N39.0 Urinary tract infection, site not specified (principal)
CPT/HCPCS: 87086; 87186

== ENCOUNTER 2023-05-16 09:52 | Outpatient (CLI) | payer MEDICARE, BC, SELFPAY | END 2023-05-16 09:53 | disposition home or self-care (01) | LOC: NFLDREF 19:46 | PROVIDERS: PCP Family Medicine; Referring Provider Family Medicine; Visit Provider Family Medicine | DX: Z00.00 Encounter for general adult medical examination without abnormal findings (principal); N40.0 Benign prostatic hyperplasia without lower urinary tract symptoms; R97.20 Elevated prostate specific antigen [PSA]; E03.9 Hypothyroidism, unspecified; N03.2 Chronic nephritic syndrome with diffuse membranous glomerulonephritis; N39.0 Urinary tract infection, site not specified | CPT/HCPCS: 84153; 87086; 87186 ==

== ENCOUNTER 2023-07-11 14:43 | Outpatient (CLI) | payer MEDICARE, BC, SELFPAY | END 2023-07-11 14:44 | disposition home or self-care (01) | LOC: NFLDREF 07-12 05:56 | PROVIDERS: PCP Family Medicine; Referring Provider Family Medicine; Visit Provider Family Medicine | DX: R31.9 Hematuria, unspecified (principal); N40.0 Benign prostatic hyperplasia without lower urinary tract symptoms; J32.9 Chronic sinusitis, unspecified; N39.0 Urinary tract infection, site not specified | CPT/HCPCS: 84153; 87086 ==

== ENCOUNTER 2023-07-26 07:56 | Outpatient (CLI) | payer MEDICARE, BC, SELFPAY | END 2023-07-26 07:57 | disposition home or self-care (01) | LOC: NFLDREF 07-28 03:37 | PROVIDERS: PCP Family Medicine; Referring Provider Family Medicine; Visit Provider Family Medicine | DX: N39.0 Urinary tract infection, site not specified (principal); R31.9 Hematuria, unspecified | CPT/HCPCS: 87086; 87186 ==

== ENCOUNTER 2023-08-21 12:52 | Outpatient (CLI) | payer MEDICARE, BC, SELFPAY | END 2023-08-21 12:53 | disposition home or self-care (01) | LOC: NFLDREF 08-24 14:24 | PROVIDERS: PCP Family Medicine; Referring Provider Family Medicine; Visit Provider Family Medicine | DX: N39.0 Urinary tract infection, site not specified (principal) | CPT/HCPCS: 87086 ==

== ENCOUNTER 2023-10-04 08:10 | Outpatient (CLI) | payer MEDICARE, BC, SELFPAY | END 2023-10-04 08:11 | disposition home or self-care (01) | LOC: NFLDREF 10-11 11:55 | PROVIDERS: PCP Family Medicine; Referring Provider Family Medicine; Visit Provider Family Medicine | DX: R97.20 Elevated prostate specific antigen [PSA] (principal); Z12.5 Encounter for screening for malignant neoplasm of prostate | CPT/HCPCS: 84153; 84154 ==

== ENCOUNTER 2024-05-14 13:55 | Outpatient (CLI) | payer MEDICARE, BC, SELFPAY ==
--- OUTSIDE RECORDS SUMMARY | 2024-05-19 16:17 | XMS_ITS | Referral Summary ---
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 For routine questions regarding patient records, call [phone] during business hours, M-F 8:00 AM - 5:00 PM Central Time. Record requests for emergency care only can be directed to [phone] at any time.[facility] Encounters Date Type Department Care Team Description 05/07/2024 Refill Division of Nephrology and Hypertension in [place], [place] [address] [place] [address] Iesha Salcedo M.D. Med Refill 04/27/2024 Refill Division of Nephrology and Hypertension in [place], [place] [address] [place] [address] Iesha Salcedo M.D. Med Refill 03/12/2024 10:00 AM CDT Telemedicine Division of Nephrology and Hypertension in [place], [place] [address] [place] [address] Iesha Salcedo M.D. Glomerulonephritis Membranous 03/03/2024 10:13 AM CDT - 03/03/2024 11:59 PM CDT Hospital Encounter Department of Radiology in [place], [place] [address] [place] [address] Simin Centeno M.D., Ph.D. 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 02/24/2024 8:49 AM CDT - 02/24/2024 11:59 PM CDT Hospital Encounter Department of Laboratory Medicine in [place] [address] [place] [phone] Malinda Benavidez M.B.B.S. Glomerulonephritis Membranous Discharge Disposition: Home or Self Care 02/24/2024 8:49 AM CDT - 02/24/2024 11:59 PM CDT Hospital Encounter Department of Laboratory Medicine in [address] [phone] Nan Romeo P.A.-C., M.S. 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 Shortness of breath 09/26/2017 Active cholecalciferol (VITAMIN D3) 1,000 Unit tablet Take 1 tablet by mouth daily. 09/26/2017 Active cyanocobalamin (VITAMIN B12) 1,000 mcg tablet Take 1 tablet by mouth daily. 09/26/2017 Active multivitamin tablet Take 1 tablet by mouth daily. 09/26/2017 Active simvastatin (ZOCOR) 80 mg tablet Take 0.5 tablets by mouth at bedtime. 10/02/2017 Active fluticasone propionate (FLONASE) 50 mcg/actuation nasal spray 2 sprays. 03/06/2018 Active fluocinonide (LIDEX) 0.05 % cream daily. Cream 03/02/2013 Active fluticasone propion-salmeteroL 500-50 mcg/dose diskus inhaler INHALE 1 PUFF TWICE A DAY *RINSE MOUTH AFTER EACH USE* 08/03/2022 Active tamsulosin (FLOMAX) 0.4 mg 24 hr capsule Take 0.4 mg by mouth at bedtime. Active acalabrutinib maleate (Calquence, acalabrutinib mal,) 100 mg tabletIndications:L eukemia Lymphocytic Chronic Not Having Achieved Remission (HCC) Take 1 tablet (100 mg total) by mouth 2 (two) times a day. 60 tablet 11 09/25/2023 Active levothyroxine (SYNTHROID, LEVOTHROID) 50 mcg tablet Take 1 tablet (50 mcg total) by mouth every morning before breakfast. 90 tablet 3 04/28/2024 Active lisinopriL (PRINIVIL,ZESTRIL) 10 mg tablet Take 1 tablet (10 mg total) by mouth daily. 90 tablet 3 05/08/2024 Active levothyroxine (SYNTHROID, LEVOTHROID) 50 mcg tablet Take 1 tablet (50 mcg total) by mouth every morning before breakfast. 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 Anemia Of Chronic Renal Disease 12/31/2018 Glomerulonephritis Membranous 04/15/2018 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 10/01/2017 Cancer Staging:Clinical: Unsigned Hyperlipidemia 09/26/2017 Hypertension And Chronic Kidney Disease Stage 4 09/26/2017 Chronic Kidney Disease Stage 4 Glomerular Filtration Rate 15-29 09/25/2017 Hypertension NOS 11/25/2016 Resolved Problems Problem Noted Date Diagnosed Date Resolved Date Rash Multiple Site 08/03/2020 Thyroiditis 08/02/2020 04/25/2021 Immunizations Name Administration Dates Next Due HZV (ZOSTAVAX) 10/09/2011,11/25/2010 Influenza high dose QV(65 ye ars or older) (PF) 08/09/2023,09/04/2022,09/11/2021 Influenza, Unspecified 09/07/2020 PCV13 05/03/2015 PPSV23 05/15/2011,11/25/2010,09/20/2010 RSV: respiratory syncytial v irus (ABRYSVO) bivalent vaccine 08/26/2023 RZV (SHINGRIX) 01/04/2022,08/08/2021 Td (Adult), adsorbed 02/17/2004 Tdap 05/03/2015,06/25/2014 influenza high dose (65 year s or older) (PF) 09/11/2021,09/03/2019,08/28/2018,2017,08/09/2017,07/26/2017,09/03/2016,1 ,07/23/2014 influenza vaccine quad (FLUZONE/FLUARIX) (6 months and older)(PF) 09/07/2020,09/03/2019,08/28/2018,2016,09/03/2016,08/31/2015,07/23/2014,0 08/24/2013,08/16/2012,08/17/2011, 010,08/10/2009,10/11/2008,10/12/2006, Social History Tobacco Use Types Packs/Day Years Used Date Smoking Tobacco: Former Cigarettes 1 44 0 01/24/1960 - 01/24/2004 Smokeless Tobacco: Never Alcohol Use Standard Drinks/Week Comments Not Currently 0 (1 standard drink = 0.6 oz pur e alcohol) [facility] Utilities Answer Date Recorded In the past 12 months has e electric, gas, oil, or water company threatened to shut off services in your home? No 02/25/2024 Humiliation, Afraid, Rape, and Kick questionnair e Answer Date Recorded Within the last year, have y ou been afraid of your partner or ex-partner? No 02/08/2023 Within the last year, have y ou been humiliated or emotionally abused in other ways by your partner or ex-partner? No Within the last year, have y ou been kicked, hit, slapped, or otherwise physically hurt by your partner or ex-partner? No 02/08/2023 Within the last year, have y ou been raped or forced to have any kind of sexual activity by your partner or ex-partner? No 02/08/2023 Social Connection and Isolat ion Panel [NHANES] Answer Date Recorded In a typical week, how many times do you talk on the phone with family, friends, or neighbors? Twice a week 02/08/2023 How often do you get togethe r with friends or relatives? More than three times a week 02/08/2023 How often do you attend chur ch or buddhist services? Never 02/08/2023 Do you belong to any clubs o r organizations such as protestant groups, unions, fraternal or athletic groups, or school groups? No 02/08/2023 How often do you attend meet ings of the clubs or organizations you belong to? Never 02/08/2023 Are you , , di vorced, , never , or living with a partner? 02/08/2023 AUDIT-C Answer Date Recorded Q1: How often do you have a drink containing alc ohol? Never 02/08/2023 Average Number of Drinks Not on file 023 Frequency of Binge Drinking Not on file 01/23 Overall Financial Resource Strain (CARDIA) Answe r Date Recorded How hard is it for you to pa y for the very basics like food, housing, medical care, and heating? Not very hard 02/08/2023 [facility] - Occupational Stress Questionnaire Answer Date Recorded Do you feel stress - tense, restless, nervous, or anxious, or unable to sleep at night because your mind is troubled all the time - these days? Not at all 02/08/2023 Exercise Vital Sign Answer Date Recorde d On average, how many days pe r week do you engage in moderate to strenuous exercise (like a brisk walk)? 0 days 02/25/2024 On average, how many minutes do you engage in exercise at this level? 0 min 02/25/2024 Hunger Vital Sign Answer Date Recorded Within the past 12 months, y ou worried that your food would run out before you got the money to buy more. Never true 02/25/20 24 Within the past 12 months, t he food you bought just didn't last and you didn't have money to get more. Never true 02/25/2024 PRAPARE - Transportation Answer Date Re corded In the past 12 months, has l ack of transportation kept you from medical appointments or from getting medications? No 12/2023 In the past 12 months, has l ack of transportation kept you from meetings, work, or from getting things needed for daily living? No 02/25/2024 Housing Stability Vital Sign Answer Vikram e Recorded In the last 12 months, was t here a time when you were not able to pay the mortgage or rent on time? No 02/08/2023 In the last 12 months, how many places have you lived? 1 02/08/2023 In the last 12 months, was t here a time when you did not have a steady place to sleep or slept in a alf (including now)? No 02/08/2023 Nutrition Answer Date Recorded Nutrition: EVOO Fat Source Yes 02/24 On average, how many serving s of fruits and vegetables do you eat per day (serving size is equal to 1 cup or approximately the size of a tennis ball)? 0-2 02/25/2024 Dental Answer Date Recorded Dental: Regular Dentist No 01/13/20 21 Employment Answer Date Recorded Employment status Retired 02/25/2024 Education Answer Date Recorded What is the highest level of school you have completed or the highest degree you have received? Some college, no degree 02/08/2023 Sex and Gender Information Value Date Recorded Sex Assigned at Male 06/17/2018 12:39 PM CDT Gender Identity Male 06/17/2018 12:39 PM CDT Sexual Orientation Straight 06/17/2018 12 :39 PM CDT Last Filed Vital Signs Vital Sign Reading Time Taken Comments Blood Pressure 136/77 03/02/2024 12:45 PM CDT Pulse 70 03/02/2024 12:45 PM CDT Temperature 35.7 ??C (96.3 ??F) 03/02/2024 12:45 PM C DT Respiratory Rate 16 08/09/2022 11:45 AM CDT Oxygen Saturation 96% 03/29/2021 2:40 PM CDT Inhaled Oxygen Concentration - - Weight 81 kg (178 lb 9.2 oz) 03/02/2024 12:45 PM CDT Height 178.6 cm (5' 10.32) 03/02/2024 12:45 PM CDT Body Mass Index 25.39 03/02/2024 12:45 PM CDT Plan of Treatment Not on file Medical Devices Implanted Type Area Data Warehouse Consultant Device Identifier Shelf Expiration Date Model / Serial / Lot Hardware E.G. Pins/Screws/Ro ds Hardware e.g. 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) URINALYSIS WITH MICROSCOPIC Routine 02/24/2024 9:01 AM CDT Glomerulonephriti s Membranous PROTEIN/CREATININE RATIO, RANDOM, URINE Routine 02/24/2024 9:01 AM CDT Glomerulonephriti s Membranous IMMUNOGLOBULIN G (IGG), S Routine 02/24/2024 8:59 AM CDT 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) RETICULOCYTES, B Routine 02/24/2024 8:59 AM CDT 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) LACTATE DEHYDROGENASE (LD), S Routine 02/24/2024 8:59 AM CDT 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) PARATHYROID HORMONE (PTH), S Routine 02/24/2024 8:59 AM CDT Glomerulonephriti s Membranous THYROID-STIMULATING HORMONE-SENSITIVE (S-TSH) Routine 02/24/2024 8:59 AM CDT Glomerulonephriti s Membranous Hypothyroidism Primary PROSTATE-SPECIFIC AG (PSA) SCRN, S Routine 02/24/2024 8:59 AM CDT Glomerulonephriti s Membranous COMPREHENSIVE METABOLIC PANEL, S/P Routine 02/24/2024 8:59 AM CDT Glomerulonephriti s Membranous CBC WITH DIFFERENTIAL, B Routine 02/24/2024 8:59 AM CDT Glomerulonephriti s Membranous PROTEIN, TOTAL, 24 HR, U Routine 02/24/2024 7:30 AM CDT Glomerulonephriti s Membranous CREATININE, U Routine 02/24/2024 7:30 AM CDT Glomerulonephriti s Membranous SODIUM, U Routine 02/24/2024 7:30 AM CDT Glomerulonephriti s Membranous from Last 3 Months Results * CT Chest without IV Contrast (03/03/2024 11:00 AM CDT) Anatomical Region Laterality Modality Chest, Thoracic RST LOS, Tho racic ARZ LOS, Thoracic FLA LOS N/A Computed Tomography Impressions 03/03/2024 5:48 PM CDT Significant resolution of adenopathy in the chest, abdomen and pelvis since 03/29/2021. No definite evidence of active disease is seen. Subtle ground glass opacity in the RIGHT pulmonary apex new since the prior study. Normal CT of the abdomen and pelvis with IV contrast. Narrative 03/03/2024 5:48 PM CDT EXAM: CT CHEST WITHOUT IV CONTRAST, CT ABDOMEN PELVIS WITHOUT IV CONTRAST COMPARISON: CT chest, abdomen and pelvis 03/29/2021 FINDINGS: Chest:: The heart is normal in size and contour. There are coronary artery calcifications evident. The tracheobronchial airway is widely patent. No mediastinal or hilar adenopathy is seen. No axillary adenopathy is seen furthermore the mediastinal and axillary adenopathy noted in 2020 has cleared completely. There are centrilobular emphysematous changes throughout both lung bowser. Subtle groundglass opacity is noted in the RIGHT pulmonary apex (SER 3/46) there is scarring in the RIGHT base. There is nodular scarring in the LEFT upper lobe (SER 3/56). This is essentially unchanged since 2020. Scarring in the LEFT base is also noted. Abdomen and pelvis: Liver: No focal lesion identified. Normal enhancement. Gallbladder and Biliary Tree: No evidence of cholelithiasis. No biliary dilatation. Spleen: No focal lesion is identified. No evidence of splenomegaly. Pancreas: Normal enhancement. No focal lesion or ductal dilatation. Adrenal glands: No focal lesion identified. Kidneys, ureters, and bladder: Normal enhancement. No evidence of hydronephrosis or hydroureter. No suspicious mass lesion. No renal or ureteral calculi. GI tract: No evidence of bowel obstruction. No evidence of mucosal lesion. Lymphatics: Some mild lymphadenopathy is seen in the epigastrium and in the mesentery and few small lymph nodes are seen along the pelvic sidewalls however there is near complete resolution of the extensive adenopathy is seen throughout the abdomen and pelvis since 03/29/2021. Procedure Note David Baca M.D. - 03/03/2024 EXAM: CT CHEST WITHOUT IV CONTRAST, CT ABDOMEN PELVIS WITHOUT IVCONTRAST COMPARISON: CT chest, abdomen and pelvis 03/29/2021 FINDINGS: Chest:: The heart is normal in size and contour. There are coronary arterycalcifications evident. The tracheobronchial airway is widely patent. Nomediastinal or hilar adenopathy is seen. No axillary adenopathy is seenfurthermore the mediastinal and axillary adenopathy noted in 2020 has cleared completely. There arecentrilobular emphysematous changes throughout both lung bowser. Subtlegroundglass opacity is noted in the RIGHT pulmonary apex (SER 3/46) thereis scarring in the RIGHT base. There is nodular scarring in the LEFT upper lobe (SER 3/56). This is essentiallyunchanged since 2020. Scarring in the LEFT base is also noted. Abdomen and pelvis: Liver: No focal lesion identified. Normal enhancement. Gallbladder and Biliary Tree: No evidence of cholelithiasis. No biliarydilatation. Spleen: No focal lesion is identified. No evidence of splenomegaly. Pancreas: Normal enhancement. No focal lesion or ductal dilatation. Adrenal glands: No focal lesion identified. Kidneys, ureters, and bladder: Normal enhancement. No evidence ofhydronephrosis or hydroureter. No suspicious mass lesion. No renal orureteral calculi. GI tract: No evidence of bowel obstruction. No evidence of mucosallesion. Lymphatics: Some mild lymphadenopathy is seen in the epigastrium and inthe mesentery and few small lymph nodes are seen along the pelvicsidewalls however there is near complete resolution of the extensiveadenopathy is seen throughout the abdomen and pelvis since 03/29/2021. IMPRESSION: Significant resolution of adenopathy in the chest, abdomen and pelvissince 03/29/2021. No definite evidence of active disease is seen. Subtle ground glass opacity in the RIGHT pulmonary apex new since theprior study. Normal CT of the abdomen and pelvis with IV contrast. Simin Centeno M.D., Ph.D. IMG CT PROCEDURES * CT Abdomen Pelvis without IV Contrast (03/03/2024 11:00 AM CDT) Anatomical Region Laterality Modality Abdomen, Pelvis, Abdominal R ST LOS, Abdominal ARZ LOS, Abdominal FLA LOS N/A Computed Tomography Impressions 03/03/2024 5:48 PM CDT Significant resolution of adenopathy in the chest, abdomen and pelvis since 03/29/2021. No definite evidence of active disease is seen. Subtle ground glass opacity in the RIGHT pulmonary apex new since the prior study. Normal CT of the abdomen and pelvis with IV contrast. Narrative 03/03/2024 5:48 PM CDT EXAM: CT CHEST WITHOUT IV CONTRAST, CT ABDOMEN PELVIS WITHOUT IV CONTRAST COMPARISON: CT chest, abdomen and pelvis 03/29/2021 FINDINGS: Chest:: The heart is normal in size and contour. There are coronary artery calcifications evident. The tracheobronchial airway is widely patent. No mediastinal or hilar adenopathy is seen. No axillary adenopathy is seen furthermore the mediastinal and axillary adenopathy noted in 2020 has cleared completely. There are centrilobular emphysematous changes throughout both lung bowser. Subtle groundglass opacity is noted in the RIGHT pulmonary apex (SER 3/46) there is scarring in the RIGHT base. There is nodular scarring in the LEFT upper lobe (SER 3/56). This is essentially unchanged since 2020. Scarring in the LEFT base is also noted. Abdomen and pelvis: Liver: No focal lesion identified. Normal enhancement. Gallbladder and Biliary Tree: No evidence of cholelithiasis. No biliary dilatation. Spleen: No focal lesion is identified. No evidence of splenomegaly. Pancreas: Normal enhancement. No focal lesion or ductal dilatation. Adrenal glands: No focal lesion identified. Kidneys, ureters, and bladder: Normal enhancement. No evidence of hydronephrosis or hydroureter. No suspicious mass lesion. No renal or ureteral calculi. GI tract: No evidence of bowel obstruction. No evidence of mucosal lesion. Lymphatics: Some mild lymphadenopathy is seen in the epigastrium and in the mesentery and few small lymph nodes are seen along the pelvic sidewalls however there is near complete resolution of the extensive adenopathy is seen throughout the abdomen and pelvis since 03/29/2021. Procedure Note David Baca M.D. - 03/03/2024 EXAM: CT CHEST WITHOUT IV CONTRAST, CT ABDOMEN PELVIS WITHOUT IVCONTRAST COMPARISON: CT chest, abdomen and pelvis 03/29/2021 FINDINGS: Chest:: The heart is normal in size and contour. There are coronary arterycalcifications evident. The tracheobronchial airway is widely patent. Nomediastinal or hilar adenopathy is seen. No axillary adenopathy is seenfurthermore the mediastinal and axillary adenopathy noted in 2020 has cleared completely. There arecentrilobular emphysematous changes throughout both lung bowser. Subtlegroundglass opacity is noted in the RIGHT pulmonary apex (SER 3/46) thereis scarring in the RIGHT base. There is nodular scarring in the LEFT upper lobe (SER 3/56). This is essentiallyunchanged since 2020. Scarring in the LEFT base is also noted. Abdomen and pelvis: Liver: No focal lesion identified. Normal enhancement. Gallbladder and Biliary Tree: No evidence of cholelithiasis. No biliarydilatation. Spleen: No focal lesion is identified. No evidence of splenomegaly. Pancreas: Normal enhancement. No focal lesion or ductal dilatation. Adrenal glands: No focal lesion identified. Kidneys, ureters, and bladder: Normal enhancement. No evidence ofhydronephrosis or hydroureter. No suspicious mass lesion. No renal orureteral calculi. GI tract: No evidence of bowel obstruction. No evidence of mucosallesion. Lymphatics: Some mild lymphadenopathy is seen in the epigastrium and inthe mesentery and few small lymph nodes are seen along the pelvicsidewalls however there is near complete resolution of the extensiveadenopathy is seen throughout the abdomen and pelvis since 03/29/2021. IMPRESSION: Significant resolution of adenopathy in the chest, abdomen and pelvissince 03/29/2021. No definite evidence of active disease is seen. Subtle ground glass opacity in the RIGHT pulmonary apex new since theprior study. Normal CT of the abdomen and pelvis with IV contrast. Simin Centeno M.D., Ph.D. IMG CT PROCEDURES * Protein/Creatinine Ratio, Random, Urine (02/24/2024 9:01 AM CDT) Protein, Total, Random, U 5 mg/dL 02/24/2024 9:31 AM CDT NPRG Creatinine, Random, U 41 16 - 326 mg/dL 02/24/2024 9:31 AM CDT NPRG Protein/Creatin ine Ratio 0.12 <0.18 mg/mg 02/24/2024 9:31 AM CDT NPRG Urine (Urine, Midstream) 02/24/2024 9:01 AM CDT 02/24/2024 9:13 AM CDT Malinda BenjaminBAmberS. LAB URINE OR DERABLES [facility] [address] [place] [address], [facility] NPRG [facility] [address] [place] [address] * Urinalysis, with Microscopic: Urine, Midstream (02/24/2024 9:01 AM CDT) Source Urine, Urine, Midstream 02/24/2024 9:13 AM CDT NPRG Clarity Clear Clear 02/24/2024 9:17 AM CDT NPRG Color Yellow 02/24/2024 9:17 AM CDT NPRG Comment: ----REFERENCE VALUE---- Colorless Yellow Nan Blood Negative Negative 02/24/2024 9:17 AM CDT NPRG Nitrite Negative Negative 02/24/2024 9:17 AM CDT NPRG Leukocyte Esterase Negative Negative 02/24/2024 9:17 AM CDT NPRG Protein Negative mg/dL 02/24/2024 9:17 AM CDT NPRG Comment: ----REFERENCE VALUE---- Negative Trace Glucose Negative Negative mg/dL 02/24/2024 9:17 AM CDT NPRG Ketones, QI(U) Negative Negative mg/dL 02/24/2024 9:17 AM CDT NPRG Bilirubin Negative Negative 02/24/2024 9:17 AM CDT NPRG pH 5.5 5.0 - 8.0 02/24/2024 9:17 AM CDT NPRG Specific [place] 1.010 1.001 - 1.035 02/24/2024 9:17 AM CDT NPRG Urobilinogen 0.2 0.2 - 1.0 mg/dL 02/24/2024 9:17 AM CDT NPRG White Blood Cells Occ-3 /hpf 02/24/2024 9:37 AM CDT NPRG Comment: ----REFERENCE VALUE---- Males: 0-3 Females: 0-10 Unknown: 0-10 Red Blood Cells None Seen 0 - 2 /hpf 9:37 AM CDT NPRG Urine (Urine, Midstream) 02/24/2024 9:01 AM CDT 02/24/2024 9:13 AM CDT Malinda Horvath LAB URINE OR DERABLES [facility] [address] [place] [address], [address] [address] * (ABNORMAL) PSA (Prostate-Specific Antigen) Screen (02/24/2024 8:59 AM CDT) Prostate-Specific Ag 11.7(H) <=6.5 ng/mL 02/24/2024 11:[address] [facility] Comment: ----ADDITIONAL INFORMATION---- The testing method is an electrochemiluminescence assay manufactured by [employer] and performed on the Modular or Cabrera system. Values obtained with different assay methods or kits may be different and cannot be used interchangeably. Test results cannot be interpreted as absolute evidence for the presence or absence of malignant disease. Blood (Blood, Venous) 02/24/2024 8:59 AM CDT 02/24/2024 9:13 AM CDT Malinda DoyleSAmber LAB BLOOD AD D-ON Performing Organization Address City/[facility]/ZIP Co de Phone Number [facility] [address] [place] [address], [address] [address] * Reticulocytes (02/24/2024 8:59 AM CDT) Reticulocytes, B 1.54 0.60 - 2.71 % 02/24/2024 3:31 PM CDT [facility] Absolute Reticulocyte 65.0 30.4 - 110.9 x10(9)/L 02/24/2024 3:31 PM CDT [facility] Blood (Blood, Venous) 02/24/2024 8:59 AM CDT 02/24/2024 3:11 PM CDT Nan Destin Agueda Phillips MAdi. LAB BLOOD ADD-ON [facility] [address] [id number], [facility] MKTO [facility] [place] [address] [place] [address] * (ABNORMAL) CBC with Differential, Blood (02/24/2024 8:59 AM CDT) Hemoglobin 13.1(L) 13.2 - 16.6 g/dL 02/24/2024 9:19 AM CDT NPRG Hematocrit 41.1 38.3 - 48.6 % 02/24/2024 9:19 AM CDT NPRG Erythrocytes 4.24(L) 4.35 - 5.65 x10(12)/L 02/24/2024 9:19 AM CDT NPRG MCV 96.9 78.2 - 97.9 fL 02/24/2024 9:19 AM CDT NPRG RBC Distrib Width 13.3 11.8 - 14.5 % 02/24/2024 9:19 AM CDT NPRG Platelet Count 269 135 - 317 x10(9)/L 02/24/2024 9:19 AM CDT NPRG Leukocytes 10.0(H) 3.4 - 9.6 x10(9)/L 02/24/2024 9:19 AM CDT NPRG Neutrophils 7.71(H) 1.56 - 6.45 x10(9)/L 02/24/2024 9:19 AM CDT NPRG Lymphocytes 1.10 0.95 - 3.07 x10(9)/L 02/24/2024 9:19 AM CDT NPRG Monocytes 0.81 0.26 - 0.81 x10(9)/L 02/24/2024 9:19 AM CDT NPRG Eosinophils 0.36 0.03 - 0.48 x10(9)/L 02/24/2024 9:19 AM CDT NPRG Basophils <0.04 0.01 - 0.08 x10(9)/L 02/24/2024 9:19 AM CDT NPRG Blood (Blood, Venous) 02/24/2024 8:59 AM CDT 02/24/2024 9:13 AM CDT Malinda Esqueda.S. LAB BLOOD AD D-ON Performing Organization Address City/[facility]/ZIP Co de Phone Number [facility] [address] [place] [address], [address] [address] [address] [place] [address] * S-TSH (Thyroid-Stimulating Hormone - Sensitive) (02/24/2024 8:59 AM CDT) TSH, Sensitive 2.0 0.3 - 4.2 mIU/L 02/24/2024 9:[address] [facility] Blood (Blood, Venous) 02/24/2024 8:59 AM CDT 02/24/2024 9:13 AM CDT Malinda BenjaminB.S. LAB BLOOD AD D-ON Performing Organization Address City/[facility]/ZIP Co de Phone Number [facility] [address] [place] [address], [address] [address] * Parathyroid Hormone (PTH) (02/24/2024 8:59 AM CDT) Parathyroid Hormone (PTH), S 35 15 - 65 pg/mL 02/24/2024 4:31 PM CDT MKTO Comment: Biotin has been identified by the patch sander as a potential interfering substance. Higher concentrations of biotin may be found in multivitamins, hair/nail supplements, and workout supplements. If the result does not match clinical observations, repeat testing after patient refrains from the use of supplements for at least 12 hours. Blood (Blood, Venous) 02/24/2024 8:59 AM CDT 02/24/2024 3:11 PM CDT Malinda Horvath LAB BLOOD AD D-ON [facility] [address] [place] [address], [facility] MKTO [facility] [place] [address] [place] [address] * LD (Lactate Dehydrogenase) (02/24/2024 8:59 AM CDT) Pathologist [facility] Lactate Dehydrogenase (LD), P 167 122 - 222 U/L 02/24/2024 9:[address] [facility] Blood (Blood, Venous) 02/24/2024 8:59 AM CDT 02/24/2024 9:13 AM CDT Nan Romeo P.A.-C., M.S. LAB BLOOD NON ADD-ON Performing Organization Address City/[facility]/ZIP Co de Phone Number [facility] [address] [place] [address], [facility] NPRG [facility] [address] [place] [address] * (ABNORMAL) Immunoglobulin G (IgG) (02/24/2024 8:59 AM CDT) [facility] Immunoglobulin G (IgG), S 689(L) 767 - 1590 mg/dL 02/25/2024 9:55 AM CDT [facility] Blood (Blood, Venous) 02/24/2024 8:59 AM CDT 02/25/2024 6:16 AM CDT Nan Romeo P.A.-C., M.S. LAB BLOOD ADD-ON [facility] [address] [place] [address] [facility] [address] [place] [address] * (ABNORMAL) Comprehensive Metabolic Panel (02/24/2024 8:59 AM CDT) Potassium, P 4.8 3.6 - 5.2 mmol/L 02/24/2024 9:35 AM CDT NPRG Sodium, P 136 135 - 145 mmol/L 02/24/2024 9:35 AM CDT NPRG Chloride, P 102 98 - 107 mmol/L 02/24/2024 9:35 AM CDT NPRG Bicarbonate, P 26 22 - 29 mmol/L 02/24/2024 9:35 AM CDT NPRG Anion Gap, P 8 7 - 15 02/24/2024 9:35 AM CDT NPRG BUN (Blood Urea Nitrogen), P 50(H) 8 - 24 mg/dL 02/24/2024 9:35 AM CDT NPRG Creatinine 2.42(H) 0.74 - 1.35 mg/dL 02/24/2024 9:35 AM CDT NPRG Estimated GFR (eGFR) 27(L) >=60 mL/min/BS A 02/24/2024 9:35 AM CDT NPRG Comment: Estimated GFR calculated using the 2020 CKD_EPI creatinine equation. Calcium, Total, P 9.5 8.8 - 10.2 mg/dL 02/24/2024 9:35 AM CDT NPRG Glucose, P 109 70 - 140 mg/dL 02/24/2024 9:35 AM CDT NPRG Protein, Total, P 6.7 6.3 - 7.9 g/dL 02/24/2024 9:35 AM CDT NPRG Albumin, P 4.3 3.5 - 5.0 g/dL 02/24/2024 9:35 AM CDT NPRG Aspartate Aminotransferase (AST), P 24 8 - 48 U/L 02/24/2024 9:35 AM CDT NPRG Alkaline Phosphatase, P 76 40 - 129 U/L 02/24/2024 9:35 AM CDT NPRG Alanine Aminotransferase (ALT), P 23 7 - 55 U/L 02/24/2024 9:35 AM CDT NPRG Bilirubin, Total, P 0.4 0.0 - 1.2 mg/dL 02/24/2024 9:35 AM CDT NPRG Blood (Blood, Venous) 02/24/2024 8:59 AM CDT 02/24/2024 9:13 AM CDT Malinda Horvath LAB BLOOD AD D-ON [facility] [address] [place] [address], [facility] NPRG [address] [address] [address] [place] [address] * Creatinine, 24 hour, Urine (02/24/2024 7:30 AM CDT) Creatinine, 24 HR, U 1062 930 - 2955 mg/24 h 02/24/2024 9:30 AM CDT NPRG Collection Duration 24 h 02/24/2024 9:00 AM CDT NPRG Urine Volume 1475 mL 02/24/2024 9:00 AM CDT NPRG Creatinine Conc 72 mg/dL 9:30 AM CDT NPRG Urine (Urine, 24 Hours) 02/24/2024 7:30 AM CDT 02/24/2024 9:00 AM CDT Iesha Salcedo M.D. LAB URINE ORDERABLES Performing Organization Address City/[facility]/ZIP Co de Phone Number [facility] [address] [place] [address], [facility] NPRG [address] [address] [address] [place] [address] * Sodium, 24 hour, Urine (02/24/2024 7:30 AM CDT) Sodium, 24 HR, U 121 22 - 328 mmol/24 h 02/24/2024 9:30 AM CDT NPRG Collection Duration 24 h 02/24/2024 9:00 AM CDT NPRG Urine Volume 1475 mL 02/24/2024 9:00 AM CDT NPRG Urine (Urine, 24 Hours) 02/24/2024 7:30 AM CDT 02/24/2024 9:00 AM CDT Iesha Salcedo M.D. LAB URINE ORDERABLES [facility] [address] [place] [address], [facility] NPRG [address] [address] [address] [place] [address] * Protein, Total, 24 hour, Urine (02/24/2024 7:30 AM CDT) Total Protein, 24 HR, U 103 <229 mg/24 h 02/24/2024 9:30 AM CDT NPRG Collection Duration 24 h 02/24/2024 9:00 AM CDT NPRG Urine Volume 1475 mL 02/24/2024 9:00 AM CDT NPRG Urine (Urine, 24 Hours) 02/24/2024 7:30 AM CDT 02/24/2024 9:00 AM CDT Iesha Salcedo M.D. 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
--- OUTSIDE RECORDS SUMMARY | 2024-05-19 16:17 | XMS_ITS | Encounter Summary ---
Author Organization [facility] Address [address] [place] [address] Care Team Providers Care Cable Installer Repairer Name Role Phone Elsewhere, Pcp Primary Care Provider Unavailabl e Reason for Visit * Reason Comments Med Refill Encounter Details Date Type Department Care Team (Late st Contact Info) Description 05/07/2024 Refill Division of Nephrology and Hypertension in [place], [place] [address] [place] [phone] Iesha Salcedo M.D. [address] [place] [phone] Med Refill Social History Tobacco Use Types Packs/Day Years Used Date Smoking Tobacco: Former Cigarettes 1 44 0 01/24/1960 - 01/24/2004 Smokeless Tobacco: Never Alcohol Use Standard Drinks/Week Comments Not Currently 0 (1 standard drink = 0.6 oz pur e alcohol) [facility] Utilities Answer Date Recorded In the [...] often do you attend chur ch or congregational services? Never 02/08/2023 Do you belong to any clubs o r organizations such as jain groups, unions, fraternal or athletic groups, or [...] care, and heating? Not very hard 02/08/2023 [facility] of Occupat ional Health - Occupational Stress [...] place to sleep or slept in a mcc (including now)? No 02/08/2023 Nutrition Answer Date [...] Orientation Straight 06/17/2018 12 :39 PM CDT documented as of this encounter Plan of Treatment Not on file documented as of this encounter Visit Diagnoses Not on filedocumented in this encounter Additional Health Concerns Infection Onset Date Last Indicated Resolved Time Protective Environment 03/01/2023 03/01/2023 documented as of this encounter Care Teams Cable Installer Repairer Relationship Specialty Start Date End Date Elsewhere, Pcp PCP - General Internal Medicine 04/17/22 documented as of this encounter
--- OUTSIDE RECORDS SUMMARY | 2024-05-19 16:17 | XMS_ITS | Clinical Summary ---
Author Organization [facility] Address [address] [place] [address] Care Team Providers Care Candy Packer Name Role Phone Elsewhere, Pcp Primary Care Provider Unavailabl e Source Comments Patient records contain information from all sites at [facility]. For routine questions regarding patient records, call [phone] during business hours, M-F 8:00 AM - 5:00 PM Central Time. Record requests for emergency care only can be directed to [phone] at any time.[facility] Allergies Active Allergy Reactions Criticality Noted Date [...] Rash Multiple Site 08/03/2020 Thyroiditis 08/02/2020 04/25/2021 Encounters Date Type Department Care Team Description 05/07/2024 Refill Division of Nephrology and Hypertension in [place], [place] [address] [place] [phone] Iesha Salcedo M.D. Med Refill 04/27/2024 Refill Division of Nephrology and Hypertension in [place], [place] [address] [place] [phone] Iesha Salcedo M.D. Med Refill 03/12/2024 10:00 AM CDT Telemedicine Division of Nephrology and Hypertension in [place], [place] [address] [place] [phone] Iesha Salcedo M.D. Glomerulonephritis Membranous 03/03/2024 10:13 AM CDT - 03/03/2024 11:59 PM CDT Hospital Encounter Department of Radiology in [address] [phone] Simin Centeno M.D., Ph.D. 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 02/24/2024 8:49 AM CDT - 02/24/2024 11:59 PM CDT Hospital Encounter Department of Laboratory Medicine in [place], [place] [address] [place] [phone] Malinda Benavidez M.B.B.S. Glomerulonephritis Membranous Discharge Disposition: Home or Self Care 02/24/2024 8:49 AM CDT - 02/24/2024 11:59 PM CDT Hospital Encounter Department of Laboratory Medicine in [address] [phone] Nan Romeo P.A.-C., M.S. 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) Discharge Disposition: Home or Self Care from Last 3 Months Immunizations Name Administration Dates Next Due HZV [...] (6 months and older)(PF) 09/07/2020,09/03/2019,08/28/2018,2016,09/03/2016,08/31/2015,07/23/2014,0 08/24/2013,08/16/2012,08/17/2011, 010,08/10/2009,10/11/2008,10/12/2006, Family History Medical History Relation Name Comments Liver disease Father gio dunlap cancer Relation Name Status Comments Father gio dunlap Social History Tobacco Use Types Packs/Day Years Used Date Smoking Tobacco: Former Cigarettes 1 44 0 01/24/1960 - 01/24/2004 Smokeless Tobacco: Never Alcohol Use Standard Drinks/Week Comments Not Currently 0 (1 standard drink = 0.6 oz pur e alcohol) [facility] Utilities Answer Date Recorded In the past 12 months has th e electric, gas, oil, or water company [...] often do you attend chur ch or evangelical services? Never 02/08/2023 Do you belong to any clubs o r organizations such as gnosticism groups, unions, fraternal or athletic groups, or [...] care, and heating? Not very hard 02/08/2023 [facility] Occupat ional Health - Occupational Stress [...] place to sleep or slept in a half-way (including now)? No 02/08/2023 Nutrition Answer Date [...] 03/02/2024 12:45 PM CDT Plan of Treatment Health Maintenance Due Date Last Done Comments COVID-19 Vaccine ( season) 2023 10/30/2022, 02/27/2022, 07/21/2021, Additional history exists Depression Screening (Annual PHQ-2) 11/25/2023 Fall Risk Screen (Annual) 11/25/2023 Creatinine Level (Kidney Function Test) 02/23/2025 02/24/2024, 08/08/2023, 02/05/2023, Additional history exists Potassium Level 02/23/2025 02/24/2024, 07/26, 08/07/2022, Additional history exists Sodium Level 02/23/2025 02/24/2024, 07/26, 08/07/2022, Additional history exists Thyroid Stimulating Hormone (TSH) test for thyroid function 02/23/2025 02/24/2024, 08/08/2023, 01/04/2023, Additional history exists Office Visit for Blood Pressure Check / Re-check 03/02/2025 03/02/2024 DTaP,Tdap,and Td Vaccines (3 - Td or Tdap) 05/03/2025 05/03/2015, 06/25/2014, 02/17/2004 Pneumococcal vaccine (65+ years) Completed 05/03/2015, 05/15/2011, 11/25/2010, Additional history exists Zoster Vaccines Completed 01/04/2022, 07/26, 10/09/2011, Additional history exists Influenza Vaccine Completed 08/09/2023, , 09/11/2021, Additional history exists RSV vaccine - (32-36 weeks) or 60+ years Completed 08/26/2023 Abdominal Aortic Aneurysm (AAA) Screen Discontinued 03/03/2024, 04/27/2021, 03/29/2021 Lung Cancer Screening Discontinued 03/03/2024 , 03/29/2021, 02/25/2019, Additional history exists HPV Vaccines Aged Out No longer eligi ble based on patient's age to complete this topic Medical Devices Implanted Type Area Gill Tender Device Identifier Shelf Expiration Date Model / [...] CDT Malinda BenjaminBAmberS. LAB URINE OR DERABLES [facility] [address] [place] [address], [facility] NPRG [facility] [address] [address] [address] [place] [address] * Urinalysis, with Microscopic: Urine, Midstream (02/24/2024 [...] 8.0 02/24/2024 9:17 AM CDT NPRG Specific [place] 1.010 1.001 - 1.035 02/24/2024 9:17 AM [...] CDT Malinda Horvath LAB URINE OR DERABLES [facility] [address] [place] [address], [address] [address] * (ABNORMAL) PSA (Prostate-Specific Antigen) Screen (02/24/2024 8:59 AM CDT) Prostate-Specific Ag 11.7(H) <=6.5 ng/mL 02/24/2024 11:03 AM CDT [facility] Comment: ----ADDITIONAL INFORMATION---- The testing method is an electrochemiluminescence assay manufactured by [employer] and performed on the Modular or Cabrera system. Values obtained with different assay methods or kits may be different and cannot be used interchangeably. Test results cannot be interpreted as absolute evidence for the presence or absence of malignant disease. Blood (Blood, Venous) 02/24/2024 8:59 AM CDT 02/24/2024 9:13 AM CDT Malinda DoyleSAmber LAB BLOOD AD D-ON Performing Organization Address City/[facility]/ZIP Co de Phone Number [facility] [address] [place] [address], [address] [address] * Reticulocytes (02/24/2024 8:59 AM CDT) Reticulocytes, B 1.54 0.60 - 2.71 % 02/24/2024 3:31 PM CDT [facility] Absolute Reticulocyte 65.0 30.4 - 110.9 x10(9)/L 02/24/2024 3:31 PM CDT [facility] Blood (Blood, Venous) 02/24/2024 8:59 AM CDT 02/24/2024 3:11 PM CDT Patsy Pascual P.A.-C.AmberS. LAB BLOOD ADD-ON [facility] [address] [place] [address], [facility] MKTO [facility] [place] [address] [place] [address] * (ABNORMAL) CBC with Differential, Blood (02/24/2024 [...] CDT Malinda DoyleSAmber LAB BLOOD AD D-ON [facility] [address] [place] [address], [address] [address] * S-TSH (Thyroid-Stimulating Hormone - Sensitive) (02/24/2024 8:59 AM CDT) TSH, Sensitive 2.0 0.3 - 4.2 mIU/L 02/24/2024 9:58 AM CDT NPR Blood (Blood, Venous) 02/24/2024 8:59 AM CDT 02/24/2024 9:13 AM CDT Malinda DoyleS. LAB BLOOD AD D-ON Performing Organization Address [facility] Co de Phone Number [facility] [address] [place] [address], [address] [address] * Parathyroid Hormone (PTH) (02/24/2024 8:59 AM CDT) Parathyroid Hormone (PTH), S 35 15 - 65 pg/mL 02/24/2024 4:31 PM CDT [facility] Comment: Biotin has been identified by the service delivery analyst as a potential interfering substance. Higher concentrations of biotin may be found in multivitamins, hair/nail supplements, and workout supplements. If the result does not match clinical observations, repeat testing after patient refrains from the use of supplements for at least 12 hours. Blood (Blood, Venous) 02/24/2024 8:59 AM CDT 02/24/2024 3:11 PM CDT Malinda DoyleS. LAB BLOOD AD D-ON [facility] [address] [place] [address], [facility] MKTO [facility] [place] [address] [place] [address] * LD (Lactate Dehydrogenase) (02/24/2024 8:59 AM CDT) Lactate Dehydrogenase (LD), P 167 122 - 222 U/L 02/24/2024 9:36 AM CDT NPRG Blood (Blood, Venous) 02/24/2024 8:59 AM CDT 02/24/2024 9:13 AM CDT Nan Romeo P.A.-C., M.S. LAB BLOOD NON ADD-ON Performing Organization Address City/[facility]/ZIP Co de Phone Number [facility] [address] [place] [address], [facility] NPRG [facility] [address] [place] [address] * (ABNORMAL) Immunoglobulin G (IgG) (02/24/2024 8:59 AM CDT) Immunoglobulin G (IgG), S 689(L) 767 - 1590 mg/dL 02/25/2024 9:55 AM CDT [facility] Blood (Blood, Venous) 02/24/2024 8:59 AM CDT 02/25/2024 6:16 AM CDT Nan Romeo P.A.-C., M.S. LAB BLOOD ADD-ON [facility] [address] [place] [address] [facility] [address] [place] [address] * (ABNORMAL) Comprehensive Metabolic Panel (02/24/2024 8:59 [...] CDT Malinda Horvath LAB BLOOD AD D-ON [facility] [address] [place] [address], [facility] NPRG [address] [address] [address] [place] [address] * Creatinine, 24 hour, Urine (02/24/2024 7:30 [...] M.D. LAB URINE ORDERABLES Performing Organization Address City/[facility]/ZIP Co de Phone Number [facility] [address] [place] [address], [facility] NPRG [address] [address] [address] [place] [address] * Sodium, 24 hour, Urine (02/24/2024 7:30 AM CDT) Sodium, 24 HR, U 121 22 - 328 mmol/24 h 02/24/2024 9:30 AM CDT NPRG Collection Duration 24 h 02/24/2024 9:00 AM CDT NPRG Urine Volume 1475 mL 02/24/2024 9:00 AM CDT NPRG Urine (Urine, 24 Hours) 02/24/2024 7:30 AM CDT 02/24/2024 9:00 AM CDT Iesha Salcedo M.D. LAB URINE ORDERABLES [facility] [address] [place] [address], [place] NPRG [address] [address] * Protein, Total, 24 hour, Urine (02/24/2024 7:30 AM CDT) Total Protein, 24 HR, U 103 <229 mg/24 h 02/24/2024 9:30 AM CDT NPRG Collection Duration 24 h 02/24/2024 9:00 AM CDT NPRG Urine Volume 1475 mL 02/24/2024 9:00 AM CDT NPRG Urine (Urine, 24 Hours) 02/24/2024 7:30 AM CDT 02/24/2024 9:00 AM CDT Iesha Salcedo M.D. 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
--- OUTSIDE RECORDS SUMMARY | 2024-05-19 16:17 | XMS_ITS ---
Author Organization [facility] Address [address] [place] [address] Care Team Providers Care Utilization Engineer Name Role Phone Unavailable Unavailable Unavailable Surgery Details Not on file Complications Check Surgery Details section. Procedure Estimated Blood Loss Check Surgery Details section. Procedure Findings Check Surgery Details section. Procedure Specimens Taken Check Surgery Details section.
--- OUTSIDE RECORDS SUMMARY | 2024-05-19 16:17 | XMS_ITS | Clinical Summary ---
Author Organization [facility] Address [place], [place] [address] Care Team Providers Care Retail Advisor Name Role Phone Dixon Dangelo MD Primary Care Provider [phone] Allergies Active Allergy Reactions Criticality Noted Date Comments Penicillins Intolerance-Can't Take 04/30/2007 c/o nausea Medications Medication Sig Dispensed Refills Start Date End Date Status GOLYTELY ORAL SOLUTION take as instructed 1 0 04/28/2007 Active ASPIRIN 81 MG CHEWABLE TAB chew 1 tablet (81 mg) by oral route once daily 0 04/30/2007 Active MULTIPLE VITAMIN TAB take 1 tablet by oral route once daily with food 0 04/30/2007 Active CALCIUM 500+D 500 MG-200 UNIT TAB 0 04/30/2007 Active VITAMIN B-12 1,000 MCG TAB 0 04/30/2007 Active NASONEX 50 MCG/ACTUATION SPRAY inhale 2 sprays in each nostril by intranasal route once daily 3 1 year 10/09/2007 Active Immunizations Name Administration Dates Next Due Influenza, IIV3 (Age >=3 years) 08/16/2012,08/14 Social History Tobacco Use Types Packs/Day Years Used Date Smoking Tobacco: Never Alcohol Use Standard Drinks/Week Comments Not Asked 0 (1 standard drink = 0.6 oz pur e alcohol) Sex and Gender Information Value Date Recorded Sex Assigned at Not on file Gender Identity Not on file Sexual Orientation Not on file Obstetrics History Plan of Treatment Health Maintenance Due Date Last Done Comments Tdap 01/24/1956 Depression screening for age 12+ 1957 BMI (ht and wt on same day) for age 18+ 1963 Hepatitis C screening for age 18-79 1963 Tetanus booster 1965 Zoster (shingles) series for age 50+ (1 of 2) 1995 Pneumococcal series for age 65+ (1 of 1 - PCV) 2010 COVID-19 vaccine series (1 - 2022-24 season) 2023 Influenza for age 65+ 07/26/2024 08/16/2012, 010 Care Teams Retail Advisor Relationship Specialty Start Date End Date Dixon Dangeol MD [address] [place] [address] PCP - General Family Practice 04/25/22
--- OUTSIDE RECORDS SUMMARY | 2024-05-19 16:17 | XMS_ITS | Data Portability ---
Author Organization [place] - [facility], [facility] Address [address] [place] [address] Assessment No assessment recorded. Plan of Treatment Reminders Order Date Submit Date Provider Last Modified By Organization Details Last Modified Time Details Appointments None recorded. Lab PSA, serum or plasma - Patient is schedule for 02/12/22 at 8:50 AM 2021 022 [facility], [address], [place], [address], 2 11:13:27 PSA, serum or plasma - Patient is schedule for 02/12/22 at 8:50 AM 2021 022 [facility], [address] [place], [address], 2 11:13:27 PSA, serum or plasma 2021 [facility] [address], [place], [address], 2 09:16:33 urinalysis , dipstick 2021 022 [facility], [address], [address], [place], [address], 2 15:43:07 Referral None recorded. Procedures biopsy, prostate, needle (PROC) 2021 Carine méndez Not available 10:03:34 Surgeries None recorded. Imaging None recorded. Medication Orders None recorded. Patient TargetsNo targets recorded. Patient InstructionsNo instructions recorded. Reason for Referral None Reported. Results Created Date Observation Date Name Description Value Unit Range Abnormal Flag LastModifiedBy Organization Detail LastModifiedTime 04/25/20 22 04/25/2022 urina lysis , dipst ick Color-Status Yellow Not Available [address], [place], [address], 04/25/2022 09:46:46 04/25/20 22 04/25/2022 urina lysis , dipst ick Clarity-Stat us Slight ly Cloudy Not Available [address], [place], [address], 04/25/2022 09:46:46 04/25/20 22 04/25/2022 urina lysis , dipst ick Blood-Status Trace Not Available [address], [place], [address], 04/25/2022 09:46:46 04/25/20 22 04/25/2022 urina lysis , dipst ick Protein-Stat us >=9.0 Not Available [address], [place], [address], 04/25/2022 09:46:46 04/25/20 22 04/25/2022 urina lysis , dipst ick Leuko-Status Modera te Not Available [address], [place], [address], 04/25/2022 09:46:46 04/25/20 22 04/25/2022 urina lysis , dipst ick pH-Status 5.0 Not Available [facility] [address], [place], [address], 04/25/2022 09:46:46 Result Notes None recorded. Problems No Known Problems Procedures Surgical History Date Name Laterality Status Provider Name and Address Organization Details Recorded Time Appendectomy completed QU[place] Simon - [facility] 01/15/2022 09:44:55 Imaging Results None recorded. Procedure Notes None recorded. Medical Equipment None Reported. Allergies No known drug allergies Medications Name Sig Start Date Stop Date Status Note LastModified by Organization Details LastModified Time nifedipine ER 30 mg tablet,exte nded release 24 hr 01/15 completed Not Available Not Available Not Available levothyroxi ne 175 mcg tablet 01/15 completed Not Available Not Available Not Available lisinopril 20 mg tablet 01/15 completed Not Available Not Available Not Available metolazone 5 mg tablet 01/15 completed Not Available Not Available Not Available prochlorper azine maleate 10 mg tablet 01/15 completed Not Available Not Available Not Available simvastatin 80 mg tablet Take by oral route. active Not Available Not Available No t Available levothyroxi ne 25 mcg tablet 01/15 completed Not Available Not Available Not Available levothyroxi ne 75 mcg tablet 04/25 completed Not Available Not Available Not Available tamsulosin 0.4 mg capsule TAKE 1 CAPSULE BY MOUTH DAILY 01/15 completed Not Available Not Available Not Available levothyroxi ne 50 mcg tablet active Not Available Not Available Not Available cephalexin 500 mg capsule TAKE 1 CAPSULE BY MOUTH EVERY 8 HOURS active Not Available Not Available No t Available levothyroxi ne 125 mcg tablet 02/12 completed Not Available Not Available Not Available lisinopril 10 mg tablet active Not Available Not Available Not Available levothyroxi ne 150 mcg tablet 01/15 completed Not Available Not Available Not Available cefuroxime axetil 500 mg tablet TAKE 1 TABLET BY MOUTH TWICE DAILY 01/15 completed Not Available Not Available Not Available fluocinonid e 0.05 % topical cream APPLY TO THE AFFECTED AREA(S) BY TOPICAL ROUTE 2 TIMES PER DAY active Not Available Not Available No t Available multivitami n active Not Available Not Available Not Available Advair HFA 230 mcg-21 mcg/actuati on aerosol inhaler INHALE TWO PUFFS BY MOUTH TWICE DAILY. RINSE MOUTH / GARGLE WTITH WATER AFTER EACH USE. 01/15 completed Not Available Not Available Not Available potassium chloride ER 20 mEq tablet,exte nded release 01/15 completed Not Available Not Available Not Available cholecalcif amador (vit D3) 1,000 unit-vitami n K2 (MK4) 100 mcg tablet Take by oral route. active Not Available Not Available No t Available Allergy Relief (fluticason e) 50 mcg/actuati on nasal spray,suspe nsion [place] 1 spray every day by intranasa l route. active Not Available Not Available No t Available cyanocobala min (vit B-12) 1,[address] by sublingua l route. active Not Available Not Available No t Available acalabrutin ib 100 mg capsule Take 1 capsule twice a day by oral route. active Not Available Not Available No t Available Wixela Inhub active Not Available Not Available Not Available albuterol sulf 90 mcg/actuati on breath activated powder inhaler,sen sor Inhale 2 puffs every 4 hours by inhalatio n route. active Not Available Not Available No t Available Vitals Date Recorded Body height Body mass index (BMI) Body weight Provider Name and Address Organization Details Last Updated DateTime 01/15/2022 182.88 cm 21 kg/m2 01859.82 g Mya Allen [facility] 01/15/2022 09:40:34 Date Recorded Body height Body mass index (BMI) Body weight Provider Name and Address Organization Details Last Updated DateTime 02/12/2022 182.88 cm 21 kg/m2 26774.82 g Bessy Qureshi [facility] 02/12/2022 09:36:42 Date Recorded Body height Body mass index (BMI) Body weight Provider Name and Address Organization Details Last Updated DateTime 04/25/2022 182.88 cm 21 kg/m2 60372.82 g Mya Allen [facility] 04/25/2022 09:12:55 Social History Question Answer Notes LastModified by Organizat ion Details LastModified Time Tobacco Smoking Status Former Smoker Mya valiente [facility] 01/15/2022 09:44:39 When Did You Quit Smoking? 16+yearssinc elastcigaret te Information not available 01/15/2022 What Was The Date Of Your Most Recent Tobacco Screening? 04/25/2022 Information not available 04/25/2022 Do You Or Have You Ever Used Any Other Forms Of Tobacco Or Nicotine? No Information not available 04/25/2022 Sex: Unknown Functional Status None recorded. Mental Status None recorded. Family History Relationship Description Onset Age of this Age Resolved Age Notes Father Malignant neoplasm o f liver Father Family history of ca ncer of colon Mother Pulmonary emphysema Medical History Condition Response Sexually Transmitted Infection N Diabetes N Other Y Bleeding Disorder N High Blood Pressure N Kidney Stones N High Cholesterol Y GERD/Acid Reflux N Heart Disease N Cancer N Depression N Lung Disease N Immunizations Vaccine Type Date Status Provider Name and Address Organization Details Recorded Time Influenza, high-dose, trivalent, PF 08/28/2018 completed Mya valiente [facility] 04/25/2022 09:13:11 Tdap 05/03/2015 completed Mya valiente [facility] 04/25/2022 09:13:11 zoster live 10/09/2011 completed Mya valiente [facility] 04/25/2022 09:13:11 Influenza, high-dose, trivalent, PF 08/31/2015 completed Mya valiente [facility] 04/25/2022 09:13:11 zoster recombinant 08/08/2021 completed Mya valiente [facility] 04/25/2022 09:13:11 Influenza, split virus, trivalent, preservative 10/12/2006 completed Mya valiente [facility] 04/25/2022 09:13:12 Influenza, high-dose, trivalent, PF 08/09/2017 completed Mya valiente [facility] 04/25/2022 09:13:12 Influenza, high-dose, trivalent, PF 09/03/2016 sharron valiente [facility] 04/25/2022 09:13:12 COVID-19, mRNA, LNP-S, PF, 30 mcg/0.3 mL dose 07/21/2021 completed Mya Allen null, [facility] 04/25/2022 09:13:12 Influenza, split virus, trivalent, preservative 09/29/2005 completed Mya Allen null, [facility] 04/25/2022 09:13:12 Influenza, split virus, trivalent, PF 08/17/2011 completed Mya Allen null, [facility] 04/25/2022 09:13:12 COVID-19, mRNA, LNP-S, PF, 30 mcg/0.3 mL dose 02/28/2021 [facility] 09:13:12 Influenza, adjuvanted, quadrivalent, PF 09/07/2020 completed Mya valiente, [facility] 04/25/2022 09:13:12 Influenza, split virus, trivalent, preservative 10/11/2008 completed Mya Allen null, [facility] 04/25/2022 09:13:12 Influenza, high-dose, trivalent, PF 09/03/2019 completed Mya Allen null, [facility] 04/25/2022 09:13:12 Influenza, split virus, trivalent, PF 08/14/2010 completed Mya Allen null, [facility] 04/25/2022 09:13:12 COVID-19, mRNA, LNP-S, PF, 30 mcg/0.3 mL dose 03/21/2021 completed Mya Allen null, [facility] 04/25/2022 09:13:12 pneumococcal polysaccharide PPV23 09/20/2010 completed Mya Allen null, [facility] 04/25/2022 09:13:12 Influenza, split virus, trivalent, preservative 08/16/2012 completed Mya Allen null, [facility] 04/25/2022 09:13:12 pneumococcal polysaccharide PPV23 05/15/2011 completed Mya valiente, [facility] 04/25/2022 09:13:12 Td (adult), 2 Lf tetanus toxoid, preservative free, adsorbed 02/17/2004 completed Mya valiente, [facility] 04/25/2022 09:13:12 Influenza, split virus, trivalent, PF 08/10/2009 completed Mya valiente, [facility] 04/25/2022 09:13:12 Influenza, split virus, trivalent, PF 08/24/2013 completed Mya valiente, [facility] 04/25/2022 09:13:12 Influenza, high-dose, trivalent, PF 07/23/2014 completed Mya valiente, [facility] 04/25/2022 09:13:12 Pneumococcal conjugate PCV 13 05/03/2015 completed Mya valiente, [facility] 04/25/2022 09:13:12 zoster recombinant 01/04/2022 completed Mya valiente, [facility] 04/25/2022 09:13:12 Influenza, high-dose, quadrivalent, PF 09/11/2021 completed Mya valiente, [facility] 04/25/2022 09:13:12 Past Encounters Encounter ID Performer Location Encounter Start Date Encounter Closed Date Diagnosis/Indication Diagnosis SNOMED-CT Code [id number] [facility] [place] [address] 01/15/2022 09:34:10 01/17/2022 10:52:47 Prostate specific antigen above reference range [id number] Lower urin lillian tract symptoms due to benign prostatic hypertrophy [id number] [facility] [address] [place] [address] 02/12/2022 09:34:23 02/14/2022 10:26:10 Prostate specific antigen above reference range [id number] [facility] [place] [address] 04/25/2022 09:03:34 04/27/2022 15:37:58 Prostate specific antigen above reference range [id number] Pyuria [id number] Health Concerns Section Related Observation LastModified by Organization Detai ls LastModified Time None Recorded Concern Status LastModified by Organization Details LastModified Time None Recorded Advance Directives Directive None Recorded Payers Encounter Date Sequence Insurance Name Policy Number Policy Ruiz Covered Member ID Ruiz Member ID Guarantor Name 01/15/2022 1 [place] [id number] Shon Dunlap [id number] Shon Dunlap 02/12/2022 1 [place] [id number] Shon Dunlap [id number] Shon Dunlap 04/25/2022 1 [place] [id number] Shon Dunlap [id number] Shon Dunlap Notes Date Note Type Note Provider Name and Address Organization Details Recorded Time 01/15/2022 text/html HPI Notes: New patient referred for elevated PSA. I previously saw him in 2013 for a PSA of 5.04 and he had a biopsy at that time which was benign. In the past couple of years, he was diagnosed with membranous nephropathy and followed with Dr. Roy in nephrology at [place]. He was eventually referred to hematology and diagnosed with CLL and is now taking Calquence, which is helping. Most recent creatinine was 3.26 on 12/14/2021. I reviewed his most recent lab reports from [facility]. PSA was 13.1 on 12/14/21, and then on recheck was 11.9 on 12/24/2021. Prior PSA was 3.1 on 03/14/2021, 5.67 in 2019 and 4.71 in 2019. He has occasional weak stream, urgency and frequency with nocturia x2-3. AUA symptom score 12, bother 3. He tried tamsulosin but developed dizziness and diarrhea and stopped this. Past history of prostate cancer in his uncle. Kennedy Almanzar MD [address], [place], [address], [facility] 01/15/2022 10:28:32 02/12/2022 text/html HPI Notes: : New patient referred for elevated PSA. I previously saw him in 2013 for a PSA of 5.04 and he had a biopsy at that time which was benign. In the past couple of years, he was diagnosed with membranous nephropathy and followed with Dr. Roy in nephrology at [place]. He was eventually referred to hematology and diagnosed with CLL and is now taking Calquence, which is helping. Most recent creatinine was 3.26 on 12/14/2021. I reviewed his most recent lab reports from [facility] and [facility]. PSA was 13.1 on 12/14/21, and then on recheck was 11.9 on 12/24/2021. Prior PSA was 3.1 on 03/14/2021, 5.67 in 2019 and 4.71 in 2018. He has occasional weak stream, urgency and frequency with nocturia x2-3. AUA symptom score 12, bother 3. He tried tamsulosin but developed dizziness and diarrhea and stopped this. Past history of prostate cancer in his uncle. 02/12/22: Follow-up PSA on 02/08/2022 was down to 9.44. No new urinary symptoms. Kennedy Almanzar MD [address] [place] [address],[address], [place], [address], [facility] 02/12/2022 10:19:10 04/25/2022 text/html HPI Notes: : New patient referred for elevated PSA. I previously saw him in 2013 for a PSA of 5.04 and he had a biopsy at that time which was benign. In the past couple of years, he was diagnosed with membranous nephropathy and followed with Dr. Roy in nephrology at [place]. He was eventually referred to hematology and diagnosed with CLL and is now taking Calquence, which is helping. Most recent creatinine was 3.26 on 12/14/2021. I reviewed his most recent lab reports from [facility] and [facility]. PSA was 13.1 on 12/14/21, and then on recheck was 11.9 on 12/24/2021. Prior PSA was 3.1 on 03/14/2021, 5.67 in 2019 and 4.71 in 2019. He has occasional weak stream, urgency and frequency with nocturia x2-3. AUA symptom score 12, bother 3. He tried tamsulosin but developed dizziness and diarrhea and stopped this. Past history of prostate cancer in his uncle. 02/12/22: Follow-up PSA on 02/08/2022 was down to 9.44. No new urinary symptoms. 04/25/22: Follow-up PSA reviewed from [facility] records from 04/17/2022 was 13.0. Creatinine 3.26. He notices some whitish discoloration and sediment in his urine. No dysuria. Urinalysis today is positive for blood and leukocytes, nitrate negative. Kennedy Almanzar MD [address], [place], [address], [facility] 04/25/2022 09:47:53
--- OUTSIDE RECORDS SUMMARY | 2024-05-19 16:17 | XMS_ITS | Encounter Summary ---
Author Organization [facility] Address [address] [place] [address] Care Team Providers Care Card Room Manager Name Role Phone Elsewhere, Pcp Primary Care Provider Unavailabl e Reason for Referral * Outpatient (Routine) - Authorized Specialty Diagnoses / Procedures Referred By Matt atkinson Referred To Contact Nephrology and Hypertension Simon Kline M.D. [address] [place] [phone] Iesha Salcedo M.D. [address] [place] [phone] Referral ID Status Reason Start Date Expiration Date V isits Requested Visits Authorized [id number] Authorized 03/12/2024 09/11/2025 1 1 Reason for Visit * Outpatient (Routine) - Closed Specialty Diagnoses / Procedures Referred By Matt atkinson Referred To Contact Nephrology and Hypertension Diagnoses Glomerulonephritis Membranous Malinda Benavidez M.B.BAmberS. [address] [place] [phone] Iesha Salcedo M.D. [address] [place] [phone] Referral ID Status Reason Start Date Expiration Date Visits Re quested Visits Authorized [id number] Closed 08/15/2023 08/14/2026 1 1 Encounter Details Date Type Department Care Team (Latest Contact Info) Description 03/12/2024 10:00 AM CDT Telemedicine Division of Nephrology and Hypertension in [place], [place] [address] [place] [phone] Iesha Salcedo M.D. [address] [place] [phone] Glomerulonephritis Membranous Social History Tobacco Use Types Packs/Day Years Used Date Smoking Tobacco: Former Cigarettes 1 44 0 01/24/1960 - 01/24/2004 Smokeless Tobacco: Never Alcohol Use Standard Drinks/Week Comments Not Currently 0 (1 standard drink = 0.6 oz pur e alcohol) [facility] Utilities Answer Date Recorded In the past 12 months has e [employer], gas, oil, or water [employer] threatened to shut off services in your [...] week 02/08/2023 How often do you attend [facility] or confucianism services? Never 02/08/2023 Do you belong to any clubs o r organizations such as jew groups, unions, fraternal or athletic groups, or [...] care, and heating? Not very hard 02/08/2023 [facility] [place] [facility] Occupat ional Health - Occupational Stress [...] place to sleep or slept in a longterm (including now)? No 02/08/2023 Nutrition Answer Date [...] PM CDT documented as of this encounter Progress Notes * Simon Kline M.D. - 03/12/2024 10:00 AM CDT REASON FOR VISIT Telemedicine visit follow-up for membranous nephropathy in the setting of CLL Consult conducted via real-time audio/video technology [facility] SUBJECTIVE HISTORY OF PRESENT ILLNESS Mr. Dunlap is a 79 y.o. male who returns for follow up. Briefly, this is a 79 y.o. 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 He received rituximab in October 2017, with two additional doses in 2017. By January 2018, proteinuria had decreased to 1000 mg. Due to concerns about rituximab's side effects, he did not receive further doses, leading to an increase in proteinuria back to 9 grams by May 2018. He was then started on tacrolimus. In January 2020, urinary protein decreased to 0.13. Around the same time, he experienced symptoms initially thought to be tacrolimus side effects but were later attributed to thyrotoxicosis. Consequently, his tacrolimus dosage was reduced, and urinary protein levels began to rise. In April 2020, urinary albumin/creatinine ratio was 420 mg/g, increasing to 9134 mg/g in May 2020, and further to 43533eq/g in July 2020, 14954 mg/g in August, and 47,000 mg/g in September. By October, it was 45,000 mg/g, with a serum albumin level of 2.1 g/dL. The patient received the first dose of obinutuzumab on November 13, 2020, followed by the second dose on November 29, 2020. He was initiated on acalabrutinib in March 2021 for CLL, resulting in remissionof the condition. The patient is here today for a follow-up. The patient denies hospitalization and infection. The patient saw Hematology a few weeks ago, who agreed that the patient has been doing well and toleratingthe medication regimen. They will continue with the current medications. He experiences lightheadedness at night, with no associated nausea, vomiting, or diarrhea. The following portions of the patient's history were reviewed and updated as appropriate: allergies, current medications, family history, medical history, social history, surgical history, and problem list. Current Outpatient Medications on File Prior to Visit Medication Sig Dispense Refill acalabrutinib maleate (Calquence, acalabrutinib mal,) 100 mg tablet Take 1 tablet (100 mg total) bymouth 2 (two) times a day. 60 tablet 11 albuterol (PROVENTIL HFA,VENTOLIN HFA) 90 mcg/actuation inhaler Inhale 2 puffs every 4 (four) hoursas needed. Shortness of breath cholecalciferol (VITAMIN D3) 1,000 Unit tablet Take 1 tablet by mouth daily. cyanocobalamin (VITAMIN B12) 1,000 mcg tablet Take 1 tablet by mouth daily. fluocinonide (LIDEX) 0.05 % cream daily. Cream fluticasone propion-salmeteroL 500-50 mcg/dose diskus inhaler INHALE 1 PUFF TWICE A DAY *RINSE MOUTH AFTER EACH USE* fluticasone propionate (FLONASE) 50 mcg/actuation nasal spray 2 sprays. levothyroxine (SYNTHROID, LEVOTHROID) 50 mcg tablet Take 1 tablet (50 mcg total) by mouth every morning before breakfast. 90 tablet 3 lisinopriL (PRINIVIL,ZESTRIL) 10 mg tablet TAKE 1 TABLET(10 MG) BY MOUTH DAILY 90 tablet 0 multivitamin tablet Take 1 tablet by mouth daily. simvastatin (ZOCOR) 80 mg tablet Take 0.5 tablets by mouth at bedtime. tamsulosin (FLOMAX) 0.4 mg 24 hr capsule Take 0.4 mg by mouth at bedtime. No current facility-administered medications on file prior to visit. OBJECTIVE Physical exam is limited due to the nature of the telemedicine visit. Patient is alert, oriented x3, pleasant, not in distress. DIAGNOSTICS No results found for this or any previous visit (from the past 72 hour(s)). 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 However, his serum creatinine hasslightly increased from 2.16 to 2.42 mg/dL. Looking at the trend, he previously had levels around 2.4 mg/dL in the past, so it appears stable. He has not been checking his blood pressure at home. HisIgG level is low, but he does not require replacement therapy yet. His PSA is stable at 11.7. Plans: We recommend checking blood pressure at home, especially when he experiences lightheadedness. We aim to keep his blood pressure neither too low nor too high, ideally lower than 130/80 mmHg. We will continue with the rest of his regimen. He can schedule an in-person follow-up with us again in 6 months. Case discussed with Dr. Denisse Kline M.D. Associated attestation - Iesha Salcedo M.D. - 03/12/2024 11:16 AM CDT I saw and evaluated the patient, participating in the montanez portions of the service virtually. I reviewed the resident/fellow???s note. I agree with the resident/fellow???s findings and plan. Patient overall is doing very well. He continues to remain in complete remission. He also underwentCT scan of chest abdomen pelvis and he is lymphadenopathy significantly improved. At this point he will continue with acalabrutinib. I will see him back in 6 months. documented in this encounter Plan of Treatment Scheduled Orders Name Type Priority Associated Diagnoses Orde r Schedule CBC with Differential, Blood Lab Routine Glomerulonephritis Membranous Expected: 09/11/2024, Expires: 06/11/2025 Renal Function Panel Lab Routine Glomerulonephritis Membranous Expected: 09/11/2024, Expires: 06/11/2025 Cystatin C with Estimated GFR Lab Routine Glomerulonephritis Membranous Expected: 09/11/2024, Expires: 06/11/2025 Albumin Lab Routine Glomerulonephritis Membranous Expected: 09/11/2024, Expires: 06/11/2025 Sedimentation Rate Lab Routine Glomerulonephritis Membranous Expected: 09/11/2024, Expires: 06/11/2025 CRP (C-Reactive Protein) Lab Routine Glomerulonephritis Membranous Expected: 09/11/2024, Expires: 06/11/2025 Complement C3 Lab Routine Glomerulonephritis Membranous Expected: 09/11/2024, Expires: 06/11/2025 Complement C4 Lab Routine Glomerulonephritis Membranous Expected: 09/11/2024, Expires: 06/11/2025 Urinalysis, with Microscopic: Urine, Midstream Lab Routine Glomerulonephritis Membranous Expected: 09/11/2024, Expires: 06/11/2025 Protein, Total, 24 hour, Urine Lab Routine Glomerulonephritis Membranous Expected: 08/28/2024, Expires: 03/12/2025 Sodium, 24 hour, Urine Lab Routine Glomerulonephritis Membranous Expected: 08/28/2024, Expires: 03/12/2025 Protein/Creatinine Ratio, Random, Urine Lab Routine Glomerulonephritis Membranous Expected: 09/11/2024, Expires: 06/11/2025 Lipid Panel Lab Routine Glomerulonephritis Membranous Expected: 09/11/2024, Expires: 06/11/2025 Immunoglobulins (IgG, IgA, and IgM) Lab Routine Glomerulonephritis Membranous Expected: 09/11/2024, Expires: 06/11/2025 Creatinine, 24 hour, Urine Lab Routine Glomerulonephritis Membranous Expected: 08/28/2024, Expires: 03/12/2025 Scheduled Referrals Name Type Priority Associated Diagnoses Order Schedule Nephrology and Hypertension office visit (clinic) Outpatient Referral Routine Expected: 09/11/2024, Expires: 06/11/2025 documented as of this encounter Visit Diagnoses Diagnosis Glomerulonephritis Membranous documented in this encounter Additional Health Concerns Infection Onset Date Last Indicated Resolved Time Protective Environment 03/01/2023 03/01/2023 documented as of this encounter Care Teams Card Room Manager Relationship Specialty Start Date End Date Elsewhere, Pcp PCP - General Internal Medicine 04/17/22 documented as of this encounter
--- OUTSIDE RECORDS SUMMARY | 2024-05-19 16:17 | XMS_ITS ---
Author Organization [facility] Address [address] [place] [id number] Care Team Providers Care Housing And Residence Life Director Name Role Phone Elsewhere, Pcp Primary Care Provider Unavailabl e Active Problems Problem Noted Date Diagnosed Date [...] Filtration Rate 15-29 09/25/2017 Hypertension NOS 11/25/2016 Current Oncology Plans No current plan information found. Past Plans Hematology / Oncology Treatment 1 Plan Name Start Date Discontinue Date Treatment Medications Discontinue Reason Plan Provider Cycles Acalabrutinib ( Lymphoma ) 04/03/20 21 08/14/2023 acalabrutinib (Calquence) Discontinuation of Plans with No Action >1 year-System Maintenance Simin Centeno M.D., Ph.D. 1 of 5 cycles completed Infusion Therapy 1 Plan Name Start Date Discontinue Date Treatment Medications Discontinue Reason Plan Provider TIXAGEVIMAB-CILGAV IMAB (EVUSHELD) - EMERGENCY USE AUTHORIZATION 06/21/2022 08/09/2022 No medications scheduled. Therapy Complete Mary Funez, CORWIN, C.N.P., M.S. RITUXIMAB (RITUXAN) LOADING DOSES AT [facility] 06/20/2018 05/27/2019 riTUXimab (Rituxan) Therapy Complete Christofer Roy Jr., D.O. Radiation Treatments * No radiation treatments are documented for this patient in [facility]. Treatments may have been administered in another system. Resolved Problems Problem Noted Date Diagnosed Date Resolved Date Rash Multiple Site 08/03/2020 1 Thyroiditis 08/02/2020 04/25/2021
--- OUTSIDE RECORDS SUMMARY | 2024-05-19 16:17 | XMS_ITS | Continuity of Care Document ---
Author Name [facility] Organization [facility] Care Team Providers Care Diet Tech Name Role Phone [facility] Unavailable Unavailable Problems Combined list of problems from [facility] facilities. It does not include entries that were removed or entered in error. Problem Status Onset Date Problem Type Date of Resolution Comments Source Polyp of colon Active 11/25/19 12 Condition Feb 21, 2015 Entered By: ALTON RAMIREZ Comment: benign polyp - advised repeat in 2016 [facility] Allergic rhinitis Active Condition [facility] Appendicitis Active Condition Feb 21, 2015 Entered By: ALTON RAMIREZ Comment: hx appy - prior ruptured appy 2009 - [facility] Benign prostatic hyperplasia Active Condition [facility] Bilateral inguinal hernia Active Condition Feb 21, 2015 Entered By: ALTON RAMIREZ Comment: repair with mesh at [facility] approx 2011? 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 Medication Details Route Status Patient Instructions Prescription Expires Prescription Number Last Dispense Date Ordering Provider Order Date Order Qty Source ACALABRUTIN IB 100MG CAP,ORAL TAKE 1 CAPSULE BY MOUTH EVERY DAY ORAL ACTIVE REDDY PAIZ Tae 2020 [facility] ACALABRUTIN IB 100MG TAB TAKE ONE TABLET BY MOUTH TWICE A DAY ORAL ACTIVE REDDY PAIZ L 2022 [facility] ALBUTEROL 90MCG/ACTUA T (CFC-F) INHL,ORAL,8 .5GM DOSE COUNTER INHALE 2 PUFFS BY INHALATI ON EVERY 6 HOURS NEEDED SHAKE WELL (FOR IMMEDIAT E RELIEF). FOR SHORTNES S OF BREATH SHAKE WELL (FOR IMMEDIAT E RELIEF). FOR SHORTNES S OF BREATH RESPIR ATORY (INHAL ATION) ACTIVE 08/09/2024 [id number] IZABEL REDDY L 2022 2 [facility] CALCIUM 500MG (CA CARBONATE-1 .25GM) TAB TAKE ONE TABLET BY MOUTH EVERY DAY ORAL ACTIVE ASHLEY,RICHARD I L 2014 [facility] CENTRUM TAB--OTC TAKE ONE TABLET BY MOUTH ORAL ACTIVE JOSE M GUADALUPE 2013 [place] [facility] CHOLECALCIF JUDI 25MCG (1,000UNIT) TAB TAKE ONE TABLET BY MOUTH DAILY ORAL ACTIVE ASHLEY,RICHARD I L 2014 [facility] CYANOCOBALA MIN 1000MCG TAB TAKE ONE TABLET BY MOUTH QDAAY ORAL ACTIVE IZABELBALJEETTHEO tSrong 2022 [facility] CYANOCOBALA MIN 100MCG TAB TAKE FIVE TABLETS BY MOUTH ORAL ACTIVE JOSE M GUADALUPE [address] [place] [facility] FLUOCINONID E 0.05% CREAM,TOP APPLY THIN LAYER TWICE A DAY AVOID FACE,COMPA IN and ARMPITS *FOR EXTERNAL USE ONLY TOPICA L ACTIVE 08/09/2024 [id number] 3 IZABEL REDDY Tae 2022 60 [facility] FLUTICASONE 500MCG/SALM ETEROL 50MCG INHL,ORAL,D ISKUS,60 INHALE 1 PUFF BY INHALATI ON TWICE A DAY FOR COPD *RINSE MOUTH AFTER EACH USE* RESPIR ATORY (INHAL ATION) SUSPEND ED 08/04/2024 [id number] 4 REDDY PAIZ 2023 3 [facility] FLUTICASONE 500MCG/SALM ETEROL 50MCG INHL,ORAL,D ISKUS,60 INHALE 1 PUFF BY INHALATI ON TWICE A DAY FOR COPD *RINSE MOUTH AFTER EACH USE* RESPIR ATORY (INHAL ATION) DISCONT INUED 07/29/2024 [id number] 4 REDDY PAIZ 2023 3 [facility] FLUTICASONE 500MCG/SALM ETEROL 50MCG INHL,ORAL,D ISKUS,60 INHALE 1 PUFF BY INHALATI ON TWICE A DAY FOR COPD *RINSE MOUTH AFTER EACH USE* RESPIR ATORY (INHAL ATION) DISCONT INUED 04/14/2024 [id number] 4 REDDY PAIZ 2023 3 [facility] FLUTICASONE 500MCG/SALM ETEROL 50MCG INHL,ORAL,D ISKUS,60 INHALE 1 PUFF BY INHALATI ON TWICE A DAY FOR COPD *RINSE MOUTH AFTER EACH USE* RESPIR ATORY (INHAL ATION) DISCONT INUED 11/07/2023 [id number] 3 REDDY PAIZ 2022 3 [facility] FLUTICASONE 500MCG/SALM ETEROL 50MCG INHL,ORAL,D ISKUS,60 INHALE 1 PUFF BY INHALATI ON TWICE A DAY FOR COPD *RINSE MOUTH AFTER EACH USE* RESPIR ATORY (INHAL ATION) DISCONT INUED 11/05/2023 [id number] KRIS SAMS 2022 3 [facility] FLUTICASONE 500MCG/SALM ETEROL 50MCG INHL,ORAL,D ISKUS,60 INHALE 1 PUFF TWICE A DAY *RINSE MOUTH AFTER EACH USE* DISCONT INUED (EDIT) 08/07/2023 [id number] 3 BALJEET PAIZCA Tae 2021 3 [facility] FLUTICASONE PROPIONATE 50MCG/SPRAY SOLN,NASAL, 16GM SPRAY 1 SPRAY IN EACH NOSTRIL EVERY DAY NEEDED FOR CONGESTI ON NASAL ACTIVE 08/09/2024 [id number] BALJEET PAIZCA Tae 2022 3 [facility] FLUTICASONE PROPIONATE 50MCG/SPRAY SOLN,NASAL, 16GM SPRAY 2 SPRAYS IN ONE NOSTRIL EVERY DAY NASAL ACTIVE REDDY PAIZ 2017 [facility] LEVOTHYROXI NE NA 50MCG TAB (SYNTHROID) TAKE ONE TABLET BY MOUTH EVERY DAY ORAL ACTIVE BALJEET PAIZCA Tae 2022 [facility] LISINOPRIL 10MG TAB TAKE ONE TABLET BY MOUTH EVERY DAY ORAL ACTIVE BALJEET PAIZCA Tae 2022 [facility] SIMVASTATIN 80MG TAB TAKE ONE-HALF TABLET BY MOUTH AT BEDTIME FOR CHOLESTE ROL ORAL ACTIVE 08/09/2024 [id number] 4 BALJEET PAIZCA Tae 2022 45 [facility] SIMVASTATIN 80MG TAB TAKE ONE-HALF TABLET BY MOUTH AT BEDTIME FOR CHOLESTE ROL ORAL DISCONT INUED 08/07/2023 [id number] 3 BALJEET PAIZCA Tae 2021 45 [facility] TAMSULOSIN HCL 0.4MG CAP TAKE 1 CAPSULE BY MOUTH ORAL ACTIVE IZABEL REDDY Tae 2022 [facility] Allergies, Adverse Reactions, Alerts Combined list of allergies from [facility] of Defense and [facility] facilities. It does not include entries that were removed or entered in error. Substance Category Reaction Severity Reaction type Status Date Reported Comments Source DESFLURANE Propensity to adverse reactions to drug (finding) Delirium MILD active 4 [facility] Immunizations Combined list of available immunizations from the Department of Defense and Veterans Affairs facilities. Immunization Series Date Given Administered By Site Reaction Lot Number CVX Code Drug Machine Printer Hose Status Comments Source INFLUENZA, HIGH-DOSE, QUADRIVALENT 2022 NORRIS KARIMI LEFT DELTO ID [id number] A 197 complet ed [facility] COVID-19 ([employer]), MRNA, LNP-S, BIVALENT, PF, 30 MCG/0.3 ML DOSE 2021 300 complet [facility] INFLUENZA, HIGH-DOSE, QUADRIVALENT 2021 197 complet ed [facility] COVID-19 ([employer]), MRNA, LNP-S, PF, 30 MCG/0.3 ML DOSE 2021 208 complet [facility] ZOSTER RECOMBINANT 2 2021 187 complet ed [facility] INFLUENZA, HIGH-DOSE, QUADRIVALENT 2020 197 complet ed [facility] INFLUENZA, UNSPECIFIED FORMULATION 2020 88 complet [facility] ZOSTER RECOMBINANT 1 2020 187 complet ed [facility] COVID-19 (PFIZER), MRNA, LNP-S, PF, 30 MCG/0.3 ML DOSE 2020 208 complet ed [facility] COVID-19 (PFIZER), MRNA, LNP-S, PF, 30 MCG/0.3 ML DOSE 2 2020 208 complet ed [facility] COVID-19 (PFIZER), MRNA, LNP-S, PF, 30 MCG/0.3 ML DOSE 1 2020 208 complet [facility] INFLUENZA VACCINE, QUADRIVALENT, ADJUVANTED 2019 205 complet ed [facility] INFLUENZA, UNSPECIFIED FORMULATION 2019 88 complet [facility] INFLUENZA, HIGH DOSE SEASONAL 2018 135 complet ed [facility] INFLUENZA, HIGH DOSE SEASONAL 2017 135 complet ed [facility] INFLUENZA, HIGH DOSE SEASONAL 2017 135 complet ed [facility] INFLUENZA, HIGH DOSE SEASONAL 2016 135 complet ed [facility] INFLUENZA, HIGH DOSE SEASONAL 2016 135 complet ed [facility] INFLUENZA, HIGH DOSE SEASONAL 2015 135 complet ed [facility] INFLUENZA, HIGH DOSE SEASONAL 2015 135 complet ed [facility] INFLUENZA, HIGH DOSE SEASONAL 2014 135 complet ed [facility] INFLUENZA, HIGH DOSE SEASONAL 2014 135 complet ed [facility] PNEUMOCOCCAL CONJUGATE PCV 13 2014 133 complet ed [facility] TDAP 2014 115 complet ed [facility] PNEUMOCOCCAL CONJUGATE PCV 13 2014 133 complet ed [facility] INFLUENZA, HIGH DOSE SEASONAL 2013 135 complet ed [facility] INFLUENZA, SEASONAL, INJECTABLE 2013 141 complet ed [facility] TDAP 2013 115 complet ed [facility] INFLUENZA, UNSPECIFIED FORMULATION 2012 88 complet ed [facility] INFLUENZA, SEASONAL, INJECTABLE, PRESERVATIVE FREE 2012 140 complet ed [facility] INFLUENZA, SEASONAL, INJECTABLE 2011 141 complet ed [facility] ZOSTER LIVE 2010 121 complet ed [facility] INFLUENZA, SEASONAL, INJECTABLE, PRESERVATIVE FREE 2010 140 complet ed [facility] PNEUMOCOCCAL POLYSACCHARID E PPV23 2010 33 complet ed [facility] PNEUMOCOCCAL POLYSACCHARID E PPV23 2010 33 complet ed [facility] PNEUMOCOCCAL, UNSPECIFIED FORMULATION 2010 109 complet ed [facility] ZOSTER LIVE 2010 121 complet ed [facility] PNEUMOCOCCAL POLYSACCHARID E PPV23 2009 33 complet ed [facility] INFLUENZA, SEASONAL, INJECTABLE, PRESERVATIVE FREE 2009 140 complet ed [facility] INFLUENZA, SEASONAL, INJECTABLE, PRESERVATIVE FREE 2008 140 complet ed [facility] INFLUENZA, SEASONAL, INJECTABLE 2007 141 complet ed [facility] INFLUENZA, SEASONAL, INJECTABLE 2005 141 complet ed [facility] INFLUENZA, SEASONAL, INJECTABLE 2004 141 complet ed [facility] TD (ADULT), 2 LF TETANUS TOXOID, PRESERVATIVE FREE, ADSORBED 2003 09 complet ed [facility] Results Combined list of recent chemistry, hematology and other laboratory results from Department of Defense and Veterans Affairs, ranging from 15 months to all on record, depending upon the facility. Order Name Results Value Reference Range Date Interpretation Specimen Comments Source CBC & DIFF LEUKOCYTES [#/VOLUME] IN BLOOD BY AUTOMATED COUNT 10.85 10*3/u L 4.0 - 11.0 08/09 Specimen Type: BLOOD Comment: Automated Differentia l Performed Ordering Provider: TISHA PAIZ Report Released Date/Time: Aug 09, 2023 09:02 AM Reporting Lab: [facility] [address] Performing Lab: [facility] [address] [facility] CBC & DIFF ERYTHROCYTE S [#/VOLUME] IN BLOOD BY AUTOMATED COUNT 3.75 10*6/u L 4.6 - 6.2 08/09 L Specimen Type: BLOOD Comment: Automated Differentia l Performed Ordering Provider: TISHA PAIZ Report Released Date/Time: Aug 09, 2023 09:02 AM Reporting Lab: [facility] [address] Performing Lab: [facility] [address] [facility] CBC & DIFF HEMOGLOBIN [MASS/VOLUM E] IN BLOOD 11.6 g/dL 13.5 - 17.9 08/09 L Specimen Type: BLOOD Comment: Automated Differentia l Performed Ordering Provider: TISHA PAIZ Report Released Date/Time: Aug 09, 2023 09:02 AM Reporting Lab: [facility] [address] Performing Lab: [facility] [address] [facility] CBC & DIFF HEMATOCRIT [VOLUME FRACTION] OF BLOOD BY AUTOMATED COUNT 36.2 41 - 54 08/09 L Specimen Type: BLOOD Comment: Automated Differentia l Performed Ordering Provider: TISHA PAIZ Report Released Date/Time: Aug 09, 2023 09:02 AM Reporting Lab: [facility] [address] Performing Lab: [facility] [address] [facility] CBC & DIFF MCV [ENTITIC VOLUME] BY AUTOMATED COUNT 96.5 fL 80 - 100 08/09 Specimen Type: BLOOD Comment: Automated Differentia l Performed Ordering Provider: TISHA PAIZ Report Released Date/Time: Aug 09, 2023 09:02 AM Reporting Lab: [facility] [address] Performing Lab: [facility] [address] [facility] CBC & DIFF MCH [ENTITIC MASS] BY AUTOMATED COUNT 30.9 pg 27 - 33 08/09 Specimen Type: BLOOD Comment: Automated Differentia l Performed Ordering Provider: TISHA PAIZ Report Released Date/Time: Aug 09, 2023 09:02 AM Reporting Lab: [facility] [address] Performing Lab: [facility] [address] [facility] CBC & DIFF MCHC [MASS/VOLUM E] BY AUTOMATED COUNT 32.0 g/dL 32.0 - 37.5 08/09 Specimen Type: BLOOD Comment: Automated Differentia l Performed Ordering Provider: TISHA PAIZ Report Released Date/Time: Aug 09, 2023 09:02 AM Reporting Lab: [facility] [address] Performing Lab: [facility] [address] [facility] CBC & DIFF PLATELETS [#/VOLUME] IN BLOOD BY AUTOMATED COUNT 421 10*3/u L 150 - 400 08/09 H Specimen Type: BLOOD Comment: Automated Differentia l Performed Ordering Provider: TISHA PAIZ Report Released Date/Time: Aug 09, 2023 09:02 AM Reporting Lab: [facility] [address] Performing Lab: [facility] [address] [facility] CBC & DIFF PLATELET MEAN VOLUME [ENTITIC VOLUME] IN BLOOD BY AUTOMATED COUNT 10.1 fL 7.4 - 10.4 08/09 Specimen Type: BLOOD Comment: Automated Differentia l Performed Ordering Provider: TISHA PAIZ Report Released Date/Time: Aug 09, 2023 09:02 AM Reporting Lab: [facility] [address] Performing Lab: [facility] [address] [facility] CBC & DIFF NEUTROPHILS /100 LEUKOCYTES IN BLOOD BY MANUAL COUNT 79.6 40.0 - 80.0 08/09 Specimen Type: BLOOD Comment: Automated Differentia l Performed Ordering Provider: TISHA PAIZ Report Released Date/Time: Aug 09, 2023 09:02 AM Reporting Lab: [facility] [address] Performing Lab: [facility] [address] [facility] CBC & DIFF LYMPHOCYTES /100 LEUKOCYTES IN BLOOD BY MANUAL COUNT 9.2 15.0 - 45.0 08/09 L Specimen Type: BLOOD Comment: Automated Differentia l Performed Ordering Provider: TISHA PAIZ Report Released Date/Time: Aug 09, 2023 09:02 AM Reporting Lab: [facility] [address] Performing Lab: [facility] [address] [facility] CBC & DIFF MONOCYTES/1 00 LEUKOCYTES IN BLOOD BY AUTOMATED COUNT 7.1 2.0 - 12.0 08/09 Specimen Type: BLOOD Comment: Automated Differentia l Performed Ordering Provider: TISHA PAIZ Report Released Date/Time: Aug 09, 2023 09:02 AM Reporting Lab: [facility] [address] Performing Lab: [facility] [address] [facility] CBC & DIFF EOSINOPHILS /100 LEUKOCYTES IN BLOOD BY AUTOMATED COUNT 3.2 0.0 - 6.0 08/09 Specimen Type: BLOOD Comment: Automated Differentia l Performed Ordering Provider: TISHA PAIZ Report Released Date/Time: Aug 09, 2023 09:02 AM Reporting Lab: [facility] [address] Performing Lab: [facility] [address] [facility] CBC & DIFF BASOPHILS/1 00 LEUKOCYTES IN BLOOD BY MANUAL COUNT 0.4 0.0 - 2.0 08/09 Specimen Type: BLOOD Comment: Automated Differentia l Performed Ordering Provider: TISHA PAIZ Report Released Date/Time: Aug 09, 2023 09:02 AM Reporting Lab: [facility] [address] Performing Lab: [facility] [address] [facility] CBC & DIFF ERYTHROCYTE DISTRIBUTIO N WIDTH [RATIO] BY AUTOMATED COUNT 13.3 11.5 - 14.5 08/09 Specimen Type: BLOOD Comment: Automated Differentia l Performed Ordering Provider: TISHA PAIZ Report Released Date/Time: Aug 09, 2023 09:02 AM Reporting Lab: [facility] [address] Performing Lab: [facility] [address] [facility] CBC & DIFF LYMPHOCYTES [#/VOLUME] IN BLOOD BY AUTOMATED COUNT 1.00 10*3/u L 1.0 - 4.0 08/09 Specimen Type: BLOOD Comment: Automated Differentia l Performed Ordering Provider: TISHA PAIZ Report Released Date/Time: Aug 09, 2023 09:02 AM Reporting Lab: [facility] [address] Performing Lab: [facility] [address] [facility] CBC & DIFF MONOCYTES [#/VOLUME] IN BLOOD BY AUTOMATED COUNT 0.77 10*3/u L 0.1 - 1.0 08/09 Specimen Type: BLOOD Comment: Automated Differentia l Performed Ordering Provider: TISHA PAIZ Report Released Date/Time: Aug 09, 2023 09:02 AM Reporting Lab: [facility] [address] Performing Lab: [facility] [address] [facility] CBC & DIFF NEUTROPHILS [#/VOLUME] IN BLOOD BY AUTOMATED COUNT 8.64 10*3/u L 2.0 - 7.7 08/09 H Specimen Type: BLOOD Comment: Automated Differentia l Performed Ordering Provider: TISHA PAIZ Report Released Date/Time: Aug 09, 2023 09:02 AM Reporting Lab: [facility] [address] Performing Lab: [facility] [address] [facility] CBC & DIFF EOSINOPHILS [#/VOLUME] IN BLOOD BY AUTOMATED COUNT 0.35 10*3/u L 0 - 0.5 08/09 Specimen Type: BLOOD Comment: Automated Differentia l Performed Ordering Provider: TISHA PAIZ Report Released Date/Time: Aug 09, 2023 09:02 AM Reporting Lab: [facility] [address] Performing Lab: [facility] [address] [facility] CBC & DIFF BASOPHILS [#/VOLUME] IN BLOOD BY AUTOMATED COUNT 0.04 10*3/u L 0 - 0.2 08/09 Specimen Type: BLOOD Comment: Automated Differentia l Performed Ordering Provider: TISHA PAIZ Report Released Date/Time: Aug 09, 2023 09:02 AM Reporting Lab: [facility] [address] Performing Lab: [facility] [address] [facility] CBC & DIFF IG(META,MYE LO,PRO) 0.5 08/09 Specimen Type: BLOOD Comment: Automated Differentia l Performed Ordering Provider: TISHA PAIZ Report Released Date/Time: Aug 09, 2023 09:02 AM Reporting Lab: [facility] [address] Performing Lab: [facility] [address] [facility] CBC & DIFF IMMATURE GRANULOCYTE S [PRESENCE] IN BLOOD BY AUTOMATED COUNT 0.05 10*3/u L 0 - 0.1 08/09 Specimen Type: BLOOD Comment: Automated Differentia l Performed Ordering Provider: TISHA PAIZ Report Released Date/Time: Aug 09, 2023 09:02 AM Reporting Lab: [facility] [phone] Performing Lab: [facility] [address] [facility] COMPREHEN SIVE METABOLIC PANEL+MG CREATININE [MASS/VOLUM E] IN SERUM OR PLASMA 2.0 mg/dL 0.7 - 1.2 08/09 H Specimen Type: PLASMA No comment entered. Ordering Provider: TISHA PAIZ Report Released Date/Time: Aug 09, 2023 09:02 AM Reporting Lab: [facility] [address] Performing Lab: [facility] [address] [facility] COMPREHEN SIVE METABOLIC PANEL+MG UREA NITROGEN [MASS/VOLUM E] IN SERUM OR PLASMA 36 mg/dL 8 - 26 08/09 H Specimen Type: PLASMA No comment entered. Ordering Provider: TISHA PAIZ Report Released Date/Time: Aug 09, 2023 09:02 AM Reporting Lab: [facility] [address] Performing Lab: [facility] [address] [facility] COMPREHEN SIVE METABOLIC PANEL+MG GLUCOSE [MASS/VOLUM E] IN SERUM OR PLASMA 97 mg/dL 70 - 100 08/09 Specimen Type: PLASMA No comment entered. Ordering Provider: TISHA PAIZ Report Released Date/Time: Aug 09, 2023 09:02 AM Reporting Lab: [facility] [address] Performing Lab: [facility] [address] [facility] COMPREHEN SIVE METABOLIC PANEL+MG SODIUM [MOLES/VOLU ME] IN SERUM OR PLASMA 139 mmol/L 136 - 145 08/09 Specimen Type: PLASMA No comment entered. Ordering Provider: TISHA PAIZ Report Released Date/Time: Aug 09, 2023 09:02 AM Reporting Lab: [facility] [address] Performing Lab: [facility] [address] [facility] COMPREHEN SIVE METABOLIC PANEL+MG POTASSIUM [MOLES/VOLU ME] IN SERUM OR PLASMA 4.8 mmol/L 3.5 - 5.1 08/09 Specimen Type: PLASMA No comment entered. Ordering Provider: TISHA PAIZ Report Released Date/Time: Aug 09, 2023 09:02 AM Reporting Lab: [facility] [address] Performing Lab: [facility] [address] [facility] COMPREHEN SIVE METABOLIC PANEL+MG CHLORIDE [MOLES/VOLU ME] IN SERUM OR PLASMA 106 mmol/L 98 - 107 08/09 Specimen Type: PLASMA No comment entered. Ordering Provider: TISHA PAIZ Report Released Date/Time: Aug 09, 2023 09:02 AM Reporting Lab: [facility] [address] Performing Lab: [facility] [address] [facility] COMPREHEN SIVE METABOLIC PANEL+MG CARBON DIOXIDE, TOTAL [MOLES/VOLU ME] IN SERUM OR PLASMA 23 mmol/L 22 - 29 08/09 Specimen Type: PLASMA No comment entered. Ordering Provider: TISHA PAIZ Report Released Date/Time: Aug 09, 2023 09:02 AM Reporting Lab: [facility] [address] Performing Lab: [facility] [phone] [facility] COMPREHEN SIVE METABOLIC PANEL+MG CALCIUM [MASS/VOLUM E] IN SERUM OR PLASMA 9.2 mg/dL 8.4 - 10.2 08/09 Specimen Type: PLASMA No comment entered. Ordering Provider: TISHA PAIZ Report Released Date/Time: Aug 09, 2023 09:02 AM Reporting Lab: [facility] [address] Performing Lab: [facility] [address] [facility] COMPREHEN SIVE METABOLIC PANEL+MG PROTEIN [MASS/VOLUM E] IN SERUM OR PLASMA 6.4 g/dL 6.0 - 8.3 08/09 Specimen Type: PLASMA No comment entered. Ordering Provider: TISHA PAIZ Report Released Date/Time: Aug 09, 2023 09:02 AM Reporting Lab: [facility] [address] Performing Lab: [facility] [address] [facility] COMPREHEN SIVE METABOLIC PANEL+MG ALBUMIN [MASS/VOLUM E] IN SERUM OR PLASMA 3.9 g/dL 3.5 - 5.2 08/09 Specimen Type: PLASMA No comment entered. Ordering Provider: TISHA PAIZ Report Released Date/Time: Aug 09, 2023 09:02 AM Reporting Lab: [facility] [address] Performing Lab: [facility] [address] [facility] COMPREHEN SIVE METABOLIC PANEL+MG BILIRUBIN.T OTAL [MASS/VOLUM E] IN SERUM OR PLASMA 0.4 mg/dL 0.2 - 1.2 09/15 /2023 Specimen Type: PLASMA No comment entered. Ordering Provider: TISHA PAIZ Report Released Date/Time: Aug 09, 2023 09:02 AM Reporting Lab: [facility] [address] Performing Lab: [facility] [address] [facility] COMPREHEN SIVE METABOLIC PANEL+MG MAGNESIUM [MASS/VOLUM E] IN SERUM OR PLASMA 1.8 mg/dL 1.6 - 2.6 08/09 Specimen Type: PLASMA No comment entered. Ordering Provider: TISHA PAIZ Report Released Date/Time: Aug 09, 2023 09:02 AM Reporting Lab: [facility] [address] Performing Lab: [facility] [address] [facility] COMPREHEN SIVE METABOLIC PANEL+MG ANION GAP IN SERUM OR PLASMA 10 mmol/L - 15 08/09 Specimen Type: PLASMA No comment entered. Ordering Provider: TSIHA PAIZ Report Released Date/Time: Aug 09, 2023 09:02 AM Reporting Lab: [facility] [address] Performing Lab: [facility] [address] [facility] COMPREHEN SIVE METABOLIC PANEL+MG ALKALINE PHOSPHATASE [ENZYMATIC ACTIVITY/VO LUME] IN SERUM OR PLASMA 146 U/L 40 - 150 08/09 Specimen Type: PLASMA No comment entered. Ordering Provider: TISHA PAIZ Report Released Date/Time: Aug 09, 2023 09:02 AM Reporting Lab: [facility] [address] Performing Lab: [facility] [address] [facility] COMPREHEN SIVE METABOLIC PANEL+MG ALANINE AMINOTRANSF ERASE [ENZYMATIC ACTIVITY/VO LUME] IN SERUM OR PLASMA 27 U/L <55 - 55 08/09 Specimen Type: PLASMA No comment entered. Ordering Provider: TISHA PAIZ Report Released Date/Time: Aug 09, 2023 09:02 AM Reporting Lab: [facility] [id number] Performing Lab: [facility] [address] [facility] COMPREHEN SIVE METABOLIC PANEL+MG ASPARTATE AMINOTRANSF ERASE [ENZYMATIC ACTIVITY/VO LUME] IN SERUM OR PLASMA 23 U/L <34 - 34 08/09 Specimen Type: PLASMA No comment entered. Ordering Provider: TISHA PAIZ Report Released Date/Time: Aug 09, 2023 09:02 AM Reporting Lab: [facility] [id number] Performing Lab: [facility] [address] [facility] COMPREHEN SIVE METABOLIC PANEL+MG GLOMERULAR FILTRATION RATE/1.73 SQ M.PREDICTED [VOLUME RATE/AREA] IN SERUM, PLASMA OR BLOOD BY CREATININE- BASED FORMULA (CKD-EPI 2020) 34 60 08/09 L Specimen Type: PLASMA No comment entered. Ordering Provider: TISHA PAIZ Report Released Date/Time: Aug 09, 2023 09:02 AM Reporting Lab: [facility] [phone] Performing Lab: [facility] [address] MICHEAL DE LA GARZA TSH W/REFLEX TO FREE T4 THYROTROPIN [UNITS/VOLU ME] IN SERUM OR PLASMA 0.41 u[IU]/ mL 0.35 - 4.94 08/09 Specimen Type: PLASMA No comment entered. Ordering Provider: TISHA PAIZ Report Released Date/Time: Aug 09, 2023 09:02 AM Reporting Lab: [facility] [id number] Performing Lab: [facility] [address] MICHEAL DE LA GARZA Vital Signs Combined list of inpatient and outpatient Vital Signs from Department of Defense and Veterans Affairs, ranging from 12 months to all on record, depending upon the facility. Vital Sign Value Date Comments Source Encounters Combined list of: 1) Encounters from Department of Veterans Affairs facilities going back up to thelast 18 months. 2) Encounters from the Department of Defense facilities going back up to 280 months. Location Location Details Encounter Type Encounter Number Reason For Visit Attending Provider ADM Date DC Date Status Disposition Source [place] [facility] Outpatient Encounter [id number] 08/06 [facility] [place] [facility] Outpatient Encounter [id number] 08/09 [facility] OFFICE O/P EST MOD 30-39 MIN [id number] Diagnos is: ICD-10- CM Z00.8 Encount er for other general examina tion
Tavo PAIZ EBECCA L 08/09 [facility] Social History Combined list of available smoking, tobacco, and other social history from Department of Defense and Veterans Affairs facilities. Social History Type Response Date Comment Sourc e Tobacco smoking status SDIS VA-TOBACCO QUIT 15 YRS OR MORE 08/09/2023 [facility] History of tobacco use VA-TOBACCO FORMER USER 08/09/2023 [facility] History of tobacco use VA-TOBACCO FORMER USER 08/06/2022 [facility] History of tobacco use VA-TOBACCO FORMER USER 06/14/2021 [facility] History of tobacco use [place]-TOBACCO QUIT 1 5 YRS OR MORE 04/13/2020 [facility] History of tobacco use VA-TOBACCO FORMER USER 12/19/2018 [facility] History of tobacco use FORMER TOBACCO US ER 7Y OR GREATER 01/30/2018 [facility] History of tobacco use FORMER TOBACCO US ER 7Y OR GREATER 03/18/2017 [facility] History of tobacco use FORMER TOBACCO US ER 7Y OR GREATER 03/16/2016 [facility] History of tobacco use FORMER TOBACCO US ER 7Y OR GREATER 02/21/2015 [facility] History of tobacco use FORMER TOBACCO US ER 7Y OR GREATER 04/12/2014 [facility] Advance Directives List of completed, amended, or rescinded Advance Directives on record at Department of Veterans Affairs facilities. An actual copy of the Directive is not included. Date Advance Directive Provider Source 03/27/2016 [facility]
--- OUTSIDE RECORDS SUMMARY | 2024-05-19 16:17 | XMS_ITS | Clinical Summary ---
[facility] Address [address] [place] [address] Care Team Providers Care Third Hand Name Role Phone Agnieszka Reyes MD Primary Care Provider [phone] Source Comments You are receiving this document as you are listed as the primary care provider,follow-up provider, or the patient has been referred to you for consultation.This is in compliance with the Medicare and[facility] EHR Incentive Program,which states Providers who transition their patient to another setting of careor provider of care or refers their patient to another provider of care shouldprovide summary care record for each transition of care or referral. [employer] Allergies Active Allergy Reactions Criticality Noted Date Comments Desflurane Low 03/02/2014 PN: mild, thrashing after coming out of it Rituximab Other, see comments High 06/29/2020 terrible headaches, eye socket issues, went to ER Medications Medication Sig Dispensed Refills Start Date End Date Status cholecalciferol (AKA VITAMIN D3) 1000 UNITS capsule Take by mouth. 10/30/2013 Active Multiple Vitamins-Minerals (MULTIVITAMIN OR) Take 1 tablet by mouth daily (every 24 hours). 10/30/2013 Active cyanocobalamin 500 MCG tablet Take 1,000 mcg by mouth Daily. 10/30/2013 Active fluocinonide (LIDEX) 0.05 % cream Apply topically two times a day. 30 g 3 03/11/2017 Active fluticasone (FLONASE) 50 MCG/ACT nasal solution Place 2 Sprays into both nostrils daily. 16 g 11 03/06/2018 Active simvastatin (ZOCOR) 80 MG tablet Take 0.5 Tablets by mouth daily at bedtime. 30 Tablet 02/27/2019 Active fluticasone-salmeter ol (ADVAIR HFA) 230-21 mcg/actuation inhaler Inhale 2 Puffs two times a day. Rinse mouth/gargle after use 12 g 11 08/03/2022 Active levothyroxine (SYNTHROID) 50 MCG tablet Take 1 Tablet (50 mcg) by mouth daily. Active lisinopril (ZESTRIL) 10 MG tablet Take 1 Tablet (10 mg) by mouth daily. Active fluticasone-salmeter ol (ADVAIR) 500-50 MCG/ACT diskus inhaler Inhale 1 Puff two times a day. Rinse mouth/gargle after use 3 Each 3 08/05/2023 Active ALBUterol sulfate HFA 108 (90 Base) MCG/ACT inhaler Inhale 2 Puffs every 6 hours as needed for Wheezing (Inhale 2 puffs every 6 hours as needed for Wheezing.). 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 H/O umbilical hernia repair 04/07/2014 H/O inguinal hernia repair 04/07/2014 Seasonal allergies 04/07/2014 Immunizations Name Administration Dates Next Due Influenza IIV3 (Trivalent) F luzone Highdose, 65+ Yrs (33592) 09/03/2016,08/31/2015,07/23/2014 Influenza IIV4 (Quadrivalent ) Fluad, 65+ Yrs 09/07/2020 Family History Medical History Relation Name Comments Cancer Father colon Emphysema Mother Heart Failure Mother Relation Name Status Comments Father Mother Social History Tobacco Use Types Packs/Day Years Used Date Smoking Tobacco: Former Cigarettes Q uit: 04/09/2003 Smokeless Tobacco: Never Tobacco Cessation:Counseling Given: Not Answered Alcohol Use Standard Drinks/Week Comments Not Currently 0 (1 standard drink = 0.6 oz pur e alcohol) Sex and Gender Information Value Date Recorded Sex Assigned at Not on file Gender Identity Not on file Sexual Orientation Not on file Last Filed Vital Signs Vital Sign Reading Time Taken Comments Blood Pressure 122/72 09/07/2020 11:24 AM CDT Pulse 80 08/05/2023 2:06 PM CDT Temperature - - Respiratory Rate - - Oxygen Saturation 97% 08/05/2023 2:06 PM CDT Inhaled Oxygen Concentration - - Weight 72.6 kg (160 lb) 08/05/2023 2:06 PM CDT Height 182.9 cm (6') 08/05/2023 2:06 PM CDT Body Mass Index 21.7 08/05/2023 2:06 PM CDT Plan of Treatment Upcoming Encounters Date Type Department Care Team (Late st Contact Info) Description 08/14/2024 2:30 PM CDT Appointment [facility] [address] [place] [address] 08/14/2024 3:00 PM CDT Office Visit [facility] [address] [place] [address] Annamarie Hannon MD [address] [facility] [id number] [place] [address] Health Maintenance Due Date Last Done Comments Hep C Screening (Preventive Services) 1945 Medicare Annual Wellness Visit 1945 COVID-19 Vaccine ( season) 2023 10/30/2022, 02/27/2022, 07/21/2021, Additional history exists Influenza (Season Ended) 2024 022, 09/11/2021, 09/11/2021, Additional history exists DTaP/Tdap/Td (3 - Tdap) 05/03/2025 05/03/20 15, 06/25/2014, 02/17/2004 Pneumococcal 65+ Yrs Completed 05/03/2015, 05/15/2011, 11/25/2010, Additional history exists Zoster/Shingles Completed 01/04/2022, 07/26, 10/09/2011, Additional history exists HepA Aged Out No longer eligi ble based on patient's age to complete this topic HepB Aged Out No longer eligi ble based on patient's age to complete this topic Hib Aged Out No longer eligi ble based on patient's age to complete this topic IPV (Polio) Aged Out No longer eligi ble based on patient's age to complete this topic MCV4 Aged Out No longer eligi ble based on patient's age to complete this topic Care Teams Third Hand Relationship Specialty Start Date End Date Agnieszka Reyes MD [address] [place] [address] PCP - General Internal Medicine 09/03/16
--- OUTSIDE RECORDS SUMMARY | 2024-05-19 16:17 | XMS_ITS | Encounter Summary ---
Author Organization [facility] Address [address] [place] [address] Care Team Providers Care Electromechanical Assembly Technician Name Role Phone Elsewhere, Pcp Primary Care Provider Unavailabl e Reason for Visit * Reason Comments Med Refill Encounter Details Date Type Department Care Team (Late st Contact Info) Description 04/27/2024 Refill Division of Nephrology and Hypertension in [place], [place] [address] [place] [phone] Iesha Salcedo M.D. [address] [place] [phone] Med Refill Social History Tobacco Use Types Packs/Day Years Used Date Smoking Tobacco: Former Cigarettes 1 44 0 01/24/1960 - 01/24/2004 Smokeless Tobacco: Never Alcohol Use Standard Drinks/Week Comments Not Currently 0 (1 standard drink = 0.6 oz pur e alcohol) [facility] Utilities Answer Date Recorded In the [...] often do you attend chur ch or islam services? Never 02/08/2023 Do you belong to any clubs o r organizations such as caodaism groups, unions, fraternal or athletic groups, or [...] care, and heating? Not very hard 02/08/2023 [facility] - Occupational Stress [...] place to sleep or slept in a fpc (including now)? No 02/08/2023 Nutrition Answer Date [...] documented as of this encounter Care Teams Electromechanical Assembly Technician Relationship Specialty Start Date End Date Elsewhere, Pcp PCP - General Internal Medicine 04/17/22 documented as of this encounter
--- OUTSIDE RECORDS SUMMARY | 2024-05-19 16:18 | XMS_ITS | Encounter Summary ---
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 [address] [place] [address] [facility] Referral ID Status Reason Start Date Expiration Date Visits Re quested Visits Authorized [id number] Closed 03/02/2024 03/02/2025 1 1 Encounter Details Date Type Department Care Team (Latest Contact Info) Description 03/03/2024 10:13 AM CDT - 03/03/2024 11:59 PM CDT Hospital Encounter Department of Radiology in [place], [place] [address] [place] [phone] Simin Centeno M.D., Ph.D. 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 Never 02/08/2023 Do you belong to any clubs o r organizations such as episcopal groups, unions, fraternal or athletic groups, or [...] care, and heating? Not very hard 02/08/2023 [facility] [place] [facility] - Occupational Stress [...] PM CDT documented as of this encounter Medications at Time of Discharge Medication Sig Dispensed Refills Start Date End Date acalabrutinib maleate (Calquence, acalabrutinib mal,) 100 mg tabletIndications:Leukem ia Lymphocytic Chronic Not Having Achieved Remission (HCC) Take 1 tablet (100 mg total) by mouth 2 (two) times a day. 60 tablet 11 09/25/2023 albuterol (PROVENTIL HFA,VENTOLIN HFA) 90 mcg/actuation inhaler Inhale 2 puffs every 4 (four) hours as needed. Shortness of breath 09/26/2017 cholecalciferol (VITAMIN D3) 1,000 Unit tablet Take 1 tablet by mouth daily. 09/26/2017 cyanocobalamin (VITAMIN B12) 1,000 mcg tablet Take 1 tablet by mouth daily. 09/26/2017 fluocinonide (LIDEX) 0.05 % cream daily. Cream 03/02/2013 fluticasone propion-salmeteroL 500-50 mcg/dose diskus inhaler INHALE 1 PUFF TWICE A DAY *RINSE MOUTH AFTER EACH USE* 08/03/2022 fluticasone propionate (FLONASE) 50 mcg/actuation nasal spray 2 sprays. 03/06/2018 multivitamin tablet Take 1 tablet by mouth daily. 09/26/2017 simvastatin (ZOCOR) 80 mg tablet Take 0.5 tablets by mouth at bedtime. 10/02/2017 tamsulosin (FLOMAX) 0.4 mg 24 hr capsule Take 0.4 mg by mouth at bedtime. levothyroxine (SYNTHROID, LEVOTHROID) 50 mcg tablet Take 1 tablet (50 mcg total) by mouth every morning before breakfast. 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 IMG CT PROCEDURES * CT Chest without IV Contrast (03/03/2024 [...] Simin Centeno M.D., Ph.D. 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) documented in this encounter Administered Medications Inactive Administered Medications - up to 3 most recent administrations Medication Order MAR Action Action Date Dose Rate Site iohexol (OMNIPAQUE) dilution solution 9 mg iodine/mL 495-9,000 mg, oral, Once in imaging, contrast, Starting on 03/03/24 at 1059, For 1 dose, Imaging Protocol Orders, Dose per Radiant Medication Guidelines Dosing Instructions/Compounding Instructions: Adults = 9,000 mg = 30 mL of 300 mg iodine/mL in 1,000 mL water; Peds > 18 kg = 4,500 mg = 15 mL of 300 mg iodine/mL in 500 mL apple juice or water; Peds 12-18 kg = 1,980-2,880 mg = 15 mL of 300 mg iodine/mL in 500 mL apple juice or water; Peds 8-12 kg = 1,350-1,935 mg = 7.5 mL of 300 mg iodine/mL in 250 mL apple juice or water; Peds 1-8 kg = 495-720 mg = 7.5 mL of 300 mg iodine/mL in 250 mL apple juice or water. Multiply the number of mLs consumed by 9 to calculate the total mg for documentation. Given 03/03/2024 11:06 AM CDT 9,000 mg documented in this encounter Additional Health Concerns Infection Onset Date Last Indicated Resolved Time Protective Environment 03/01/2023 03/01/2023 documented as of this encounter Care Teams Die Holder Relationship Specialty Start Date End Date Elsewhere, Pcp PCP - General Internal Medicine 04/17/22 documented as of this encounter
--- OUTSIDE RECORDS SUMMARY | 2024-05-19 16:18 | XMS_ITS | Encounter Summary ---
Author Organization [facility] Address [address] [place] [id number] Care Team Providers Care Clinical Programmer Name Role Phone Elsewhere, Pcp Primary Care Provider Unavailabl e Reason for Referral * Outpatient (Routine) - Authorized Specialty Diagnoses / Procedures Referred By Matt atkinson Referred To Contact Hematology Oncology Simin Centeno M.D., Ph.D. 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 [address] [place] [phone] [facility] Referral ID Status Reason Start Date Expiration Date Visits Re quested Visits Authorized [id number] Closed 03/02/2024 03/02/2025 1 1 Reason for Visit * Outpatient (Routine) - Closed Specialty Diagnoses / Procedures Referred By Matt atkinson Referred To Contact Hematology Oncology Nan Romeo P.A.-C., M.S. [address] [place] [phone] [facility] Referral ID Status Reason Start Date Expiration Date Visits Re quested Visits Authorized [id number] Closed 08/15/2023 08/14/2026 1 1 Encounter Details Date Type Department Care Team (Late st Contact Info) Description 03/02/2024 1:00 PM CDT Office Visit Division of Hematology in [place], [place] [address] [place] [phone] Simin Centeno M.D., Ph.D. 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 Utilities Answer Date Recorded In the [...] week 02/08/2023 How often do you attend [facility] or [facility] services? Never 02/08/2023 Do you belong to any clubs o r organizations such as zoroastrian groups, unions, fraternal or athletic groups, or [...] care, and heating? Not very hard 02/08/2023 [facility] [place] [facility] Occupat ional Health - Occupational Stress [...] No 02/25/2024 Housing Stability Vital Sign Answer Vkiram e Recorded In the last 12 months, [...] place to sleep or slept in a [place] [facility] [place] facility (including now)? No 02/08/2023 Nutrition Answer Date [...] PM CDT documented as of this encounter Last Filed Vital Signs Vital Sign Reading Time Taken Comments Blood Pressure 136/77 03/02/2024 12:45 PM CDT Pulse 70 03/02/2024 12:45 PM CDT Temperature 35.7 ??C (96.3 ??F) 03/02/2024 12:45 PM C DT Respiratory Rate - - Oxygen Saturation - - Inhaled Oxygen Concentration - - Weight 81 kg (178 lb 9.2 oz) 03/02/2024 12:45 PM CDT Height 178.6 cm (5' 10.32) 03/02/2024 12:45 PM CDT Body Mass Index 25.39 03/02/2024 12:45 PM CDT documented in this encounter Progress Notes * Simin Centeno M.D., Ph.D. - 03/02/2024 1:00 PM CDT SUBJECTIVE CHIEF COMPLAINT/REASON FOR VISIT CLL with renal involvement, on acalabrutinib HISTORY OF PRESENT ILLNESS Mr. Dunlap is a 79 y.o. male with a past medical history of CLL who presents for follow-up. Oncology History Overview Note Mr. Dunlap was told that his WBC was high (19) around 2014- at the [facility], but he was not given a diagnosis of CLL. 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 Of note his kidney biopsy alsoshowed infiltration by CLL/SLL cells, less than 1%. The membranous nephropathy was therefore thought to be secondary to the malignancy. He was treated with rituximab on November 07 2017, and 2016, and his urine protein was reportedly down to 1 g in January 2018. He received another 2 doses of rituximab on June 20, 2018, and June 27, 2018. He did not continue rituximab, reportedly due to side effects concerns, and as a result his urine protein increased again. He started tacrolimus on October 19, 2018 and was doing well on it with decreased urine protein. In spring 2019 he became unwell and tacrolimus was tapered down due to concerns of toxicity. It turned out to be that he had hypothyroidism for which he was started on levothyroxine. While off tacrolimus, his urine protein inc reased progressively, and he was then treated with obinutuzumab, on November 152019 and November 29, 2020. There seemed to be some response based on the urine albumin/creatinine ratio. However, subsequently he has been having progressive proteinuria. He saw Dr. Salcedo in Ne[place]rology in [place] on[place] 2020. The 24 hour urine protein with close to 21 g. He underwent kidney biopsy on March 22, 2021. Based on the preliminary read, there was 20% CLL/SLL involvement. The final pathology report is pending. Therefore, he is referred to Hematology for evaluation of his CLL/SLL and for consideration of starting treatment. 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 The membranous nephropathy was therefore felt to be related to the CLL/SLL. 10/2017 - Chemotherapy Rituximab in October 2017; reported improvement of proteinuria to 1g on recheck in January 2018. 06/20/2018 - 06/27/2018 Chemotherapy Additional 2 doses of rituximab 10/19/2018 - 2019 Chemotherapy Tacrolimus started for increased proteinuria. Tapered down in spring 2019 due to concerns of toxicity, although ultimately he was diagnosed with hypothyroidism and started on levothyroxine. 11/15/2020 - 11/29/2020 Chemotherapy Progressive proteinuria treated with obinutuzumab x 3 doses 03/09/2021 Biopsy/Pathology First evaluated by Dr. Salcedo in Nephrology. 24 hour urine protein ~21g. Kidney biopsy demonstrated 20% CLL/SLL involvement 03/29/2021 Restage Referred to [facility] for consideration of therapy Bone marrow biopsy: Involved by chronic lymphocytic leukemia/small lymphocytic lymphoma, 5-10% of the bone marrow cellularity. IGHV: unmated CLL FISH: Normal TP53: Normal CT scans showed extensive lymphadenopathy. 04/03/2021 - Chemotherapy Acalabrutinib ( Lymphoma ) Start Date: 04/03/2021 Interval History: Mr. Dunlap returns for follow-up. He has been taking acalabrutinib for almost 3 years for his CLL with renal involvement. His proteinuria resolved with the CLL treatment. He is currently tolerating the medication very well without any side effects to report. He denies B symptoms. No bleeding. No short of breath or chest pain. No GI symptoms. ECOG PS 0. The following portions of the patient's history were reviewed and updated as appropriate: allergies, current medications, family history, medical history, social history, surgical history, and problem list. REVIEW OF SYSTEMS Pertinent items are noted in History of Present Illness; all other review of systems was negative. OBJECTIVE Vitals: 03/02/24 1245 BP: 136/77 Patient Position: Sitting Pulse: 70 Temp: (!) 35.7 ??C Height: 178.6 cm Weight: 81 kg Body mass index is 25.39 kg/m??. Body surface area is 2 meters squared. PHYSICAL EXAMINATION General: In no apparent distress. Alert and oriented x3. Skin: Grossly warm, dry, and intact. HEENT: Normocephalic, atraumatic. Extraocular movements intact. Moist mucosa. Lymph: No cervical, supraclavicular, infraclavicular, axillary, or inguinal lymphadenopathy palpated. Cardiovascular: Regular rhythm, normal rate. No murmurs, rubs, or gallops. Respiratory: Lungs clear to auscultation bilaterally. No wheezing, rhonchi, or rales. Abdomen: Soft, non-tender, non-distended. No hepatosplenomegaly. Neurologic: No focal deficit. DIAGNOSTICS Reviewed in Epic. 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 Dunlap is doing very well on acalabrutinib. His previous proteinuria has resolved, likely indicating the CLL in the kidneys has responded well. Physical examination is unremarkable. We will obtain CT of the chest/abdomen/pelvis without IV contrast to assess the lymph node response. His blood counts are stable. Hemoglobin 13.1, improved from prior, platelet count 269, normal, and WBC 10 with 7.7 ANC and 1.1 ALC. Chemistry panel unremarkable except for the known CKD with elevated creatinine. Overall I think he is benefitting from acalabrutinib and tolerating well. We will continue therapy. We discussed health maintenance issues in patients with CLL. - We recommend annual flu vaccinations, completing Prevnar and Pneumovax vaccinations, Shingrix vaccinations (two doses, at least two months apart) and COVID-19 vaccinations (including booster shot per CDC guidelines). He is up-to-date. - We recommend routine use of sunscreen and sun protection, as well as annual dermatology visits for comprehensive skin examinations, given the increased risk of skin cancers in patients with CLL. Hejust saw Dermatology recently. - We also recommend age-appropriate cancer screening including colonoscopy. He follows with his primary care physician and does Cologuard. We will see him in 6 months for follow-up. PATIENT EDUCATION Ready to learn, no apparent learning barriers were identified; learning preferences include listening. Explained diagnosis and treatment plan; patient expressed understanding of the content. Total time spent was 35 minutes with more than 50% of time spent in counseling, coordination of care, explanation of plan of care, chart review, [id number] interview. 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) Expected: 09/01/2024, Expires: 03/02/2025 CBC with Differential, Blood Lab Routine 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) Expected: 09/01/2024, Expires: 06/01/2025 LD (Lactate Dehydrogenase) Lab Routine 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) Expected: 09/01/2024, Expires: 03/02/2025 Scheduled Referrals Name Type Priority Associated Diagnoses Order Schedule Hematology office visit (clinic) [facility]; CLL; General Outpatient Referral Routine Expected: 09/01/2024, Expires: 03/02/2025 documented as of this encounter Results * CT Abdomen Pelvis [...] 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
--- OUTSIDE RECORDS SUMMARY | 2024-05-19 16:18 | XMS_ITS | Encounter Summary ---
Author Organization [facility] Address [address] [place] [address] Care Team Providers Care Director Imaging Name Role Phone Elsewhere, Pcp Primary Care Provider Unavailabl e Encounter Details Date Type Department Care Team (Latest Contact Info) Description 02/24/2024 8:49 AM CDT - 02/24/2024 11:59 PM CDT Hospital Encounter Department of Laboratory Medicine in [place], [place] [address] [place] [phone] Malinda Benavidez M.B.B.S. [address] [place] [phone] Glomerulonephritis Membranous Discharge Disposition: Home or Self Care Social History Tobacco Use Types Packs/Day Years Used Date Smoking Tobacco: Former Cigarettes 1 44 0 01/24/1960 - 01/24/2004 Smokeless Tobacco: Never Alcohol Use Standard Drinks/Week Comments Not Currently 0 (1 standard drink = 0.6 oz pur e alcohol) [facility] Utilities Answer Date Recorded In the past 12 months has e [employer], gas, oil, or water company threatened to [...] 02/08/2023 How often do you attend chur or nondenominational services? Never 02/08/2023 Do you belong to any clubs o r organizations such as taoist groups, unions, fraternal or athletic groups, or [...] care, and heating? Not very hard 02/08/2023 [facility]at ional Health - Occupational [...] place to sleep or slept in a usp (including now)? No 02/08/2023 Nutrition Answer Date [...] Procedure Name Priority Date/Time Associated Diagnosis Comments PROTEIN/CREATININE RATIO, RANDOM, URINE Routine 02/24/2024 9:01 AM CDT Glomerulonephritis Membranous URINALYSIS WITH MICROSCOPIC Routine 02/24/2024 9:01 AM CDT Glomerulonephritis Membranous documented in this encounter Results * Urinalysis, with Microscopic: Urine, Midstream (02/24/2024 [...] 8.0 02/24/2024 9:17 AM CDT NPRG Specific [place] 1.010 1.001 - 1.035 02/24/2024 9:17 AM [...] CDT Malinda Horvath LAB URINE OR DERABLES [facility] [address] [place] [address], [facility] NPRG [facility] [address] [place] [address] * Protein/Creatinine Ratio, Random, Urine (02/24/2024 9:01 AM CDT) Protein, Total, Random, U 5 mg/dL 02/24/2024 9:31 AM CDT NPRG Creatinine, Random, U 41 16 - 326 mg/dL 02/24/2024 9:31 AM CDT NPRG Protein/Creatin ine Ratio 0.12 <0.18 mg/mg 02/24/2024 9:31 AM CDT NPRG Urine (Urine, Midstream) 02/24/2024 9:01 AM CDT 02/24/2024 9:13 AM CDT Malinda DoyleSAmber LAB URINE OR DERABLES [facility] [address] [place] [address], [facility] NPRG [facility] [address] [place] [address] documented in this encounter Visit Diagnoses Diagnosis Glomerulonephritis Membranous documented in this encounter Additional Health Concerns Infection Onset Date Last Indicated Resolved Time Protective Environment 03/01/2023 03/01/2023 documented as of this encounter Care Teams Director Imaging Relationship Specialty Start Date End Date Elsewhere, Pcp PCP - General Internal Medicine 04/17/22 documented as of this encounter
--- OUTSIDE RECORDS SUMMARY | 2024-05-19 16:18 | XMS_ITS | Encounter Summary ---
Author Organization [facility] Address [address] [place] [address] Care Team Providers Care Fisher Diving Name Role Phone Elsewhere, Pcp Primary Care Provider Unavailabl e Encounter Details Date Type Department Care Team (Late st Contact Info) Description 02/29/2024 Orders Only Division of Hematology in [place], [place] [address] [place] [phone] Simin Centeno M.D., Ph.D. [address] [place] [phone] Social History Tobacco Use Types Packs/Day Years Used Date Smoking Tobacco: Former Cigarettes 1 44 0 01/24/1960 - 01/24/2004 Smokeless Tobacco: Never Alcohol Use Standard Drinks/Week Comments Not Currently 0 (1 standard drink = 0.6 oz pur e alcohol) [facility] Utilities Answer Date Recorded In the past 12 months has [facility] [employer], gas, oil, or water [employer] threatened to shut off services in your [...] often do you attend chur ch or scientologist services? Never 02/08/2023 Do you belong to any clubs o r organizations such as jainism groups, unions, fraternal or athletic groups, or [...] care, and heating? Not very hard 02/08/2023 [facility] Occupat ional Health - Occupational [...] place to sleep or slept in a residential (including now)? No 02/08/2023 Nutrition Answer Date Recorded Nutrition: EVOO Fat Source Yes 02/24 On average, how many serving s of fruits and vegetables do you eat per day (serving size is equal to 1 cup or approximately the size of a tennis ball)? 0-2 02/25/2024 Dental Answer Date Recorded Dental: Regular Dentist No 01/13/20 Employment Answer Date Recorded Employment status Retired [...] documented as of this encounter Care Teams Fisher Diving Relationship Specialty Start Date End Date Elsewhere, Pcp PCP - General Internal Medicine 04/17/22 documented as of this encounter
--- OUTSIDE RECORDS SUMMARY | 2024-05-19 16:18 | XMS_ITS | Encounter Summary ---
Author Organization [facility] Address [address] [place] [address] Care Team Providers Care Sanitation Supervisor Name Role Phone Elsewhere, Pcp Primary Care Provider Unavailabl e Reason for Visit * Reason Comments Med Refill Encounter Details Date Type Department Care Team (Late st Contact Info) Description 02/07/2024 Refill Division of Nephrology and Hypertension in [place], [place] [address] [place] [phone] Iesha Salcedo M.D. [address] [place] [phone] Med Refill Social History Tobacco Use Types Packs/Day Years Used Date Smoking Tobacco: Former Cigarettes 1 44 0 01/24/1960 - 01/24/2004 Smokeless Tobacco: Never Alcohol Use Standard Drinks/Week Comments Not Currently 0 (1 standard drink = 0.6 oz pur e alcohol) Humiliation, Afraid, Rape, and Kick questionnair e [...] any clubs o r organizations such as christianity groups, unions, fraternal or athletic groups, or [...] care, and heating? Not very hard 02/08/2023 [facility] Occupat ional Health - Occupational [...] to strenuous exercise (like a brisk walk)? 1 day 02/08/2023 On average, how many minutes do you engage in exercise at this level? 10 min 02/08/2023 Hunger Vital Sign Answer Date Recorded Within the past 12 months, y ou worried that your food would run out before you got the money to buy more. Never true 02/09/20 23 Within the past 12 months, t he food you bought just didn't last and you didn't have money to get more. Never true 02/08/2023 PRAPARE - Transportation Answer Date Re corded In the past 12 months, has l ack of transportation kept you from medical appointments or from getting medications? No 01/23 In the past 12 months, has l ack of transportation kept you from meetings, work, or from getting things needed for daily living? No 02/08/2023 Housing Stability Vital Sign Answer Vikram e [...] Date Recorded Nutrition: EVOO Fat Source Yes 02/08 On average, how many serving s of fruits and vegetables do you eat per day (serving size is equal to 1 cup or approximately the size of a tennis ball)? 2-3 02/08/2023 Dental Answer Date Recorded Dental: Regular Dentist No 01/13/20 21 Employment Answer Date Recorded Employment status Retired 02/08/2023 Education Answer Date Recorded What is the [...] documented as of this encounter Care Teams Sanitation Supervisor Relationship Specialty Start Date End Date Elsewhere, Pcp PCP - General Internal Medicine 04/17/22 documented as of this encounter
--- OUTSIDE RECORDS SUMMARY | 2024-05-19 16:18 | XMS_ITS | Encounter Summary ---
Author Organization [facility] Address [address] [place] [address] Care Team Providers Care Bogger Operator Name Role Phone Elsewhere, Pcp Primary Care Provider Unavailabl e Encounter Details Date Type Department Care Team (Latest Contact Info) Description 02/24/2024 8:49 AM CDT - 02/24/2024 11:59 PM CDT Hospital Encounter Department of Laboratory Medicine in [address] [phone] Nan Romeo P.A.-C., M.S. 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 Never 02/08/2023 Do you belong to any clubs o r organizations such as mormonism groups, unions, fraternal or athletic groups, or [...] care, and heating? Not very hard 02/08/2023 [facility] [place] [facility] Occup[facility] ional [facility] - Occupational Stress [...] place to sleep or slept in a prison (including now)? 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) CBC WITH DIFFERENTIAL, B Routine 02/24/2024 8:59 AM CDT Glomerulonephritis Membranous THYROID-STIMULATING HORMONE-SENSITIVE (S-TSH) Routine 02/24/2024 8:59 AM CDT Glomerulonephritis Membranous Hypothyroidism Primary PARATHYROID HORMONE (PTH), S Routine 02/24/2024 8:59 AM CDT Glomerulonephritis Membranous LACTATE DEHYDROGENASE (LD), S Routine 02/24/2024 8:59 AM CDT 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 M.S. LAB BLOOD ADD-ON [facility] [address] [place] [address] [facility] [address] [place] [address] * Reticulocytes (02/24/2024 8:59 AM CDT) Reticulocytes, B 1.54 0.60 - 2.71 % 02/24/2024 3:31 PM CDT [facility] Absolute Reticulocyte 65.0 30.4 - 110.9 x10(9)/L 02/24/2024 3:31 PM CDT [facility] Blood (Blood, Venous) 02/24/2024 8:59 AM CDT 02/24/2024 3:11 PM CDT Nan Romeo P.A.-C. M.S. LAB BLOOD ADD-ON Performing Organization Address City/[facility]/ZIP Co de Phone Number [facility] [address] [place] [address], [facility] [address] [place] [address] * LD (Lactate Dehydrogenase) (02/24/2024 8:59 AM CDT) Lactate Dehydrogenase (LD), P 167 122 - 222 U/L 02/24/2024 9:36 AM CDT [facility] Blood (Blood, Venous) 02/24/2024 8:59 AM CDT 02/24/2024 9:13 AM CDT Nan Romeo P.A.-C. M.S. LAB BLOOD NON ADD-ON Performing Organization Address [facility] [place]/[facility] Co de Phone Number [facility] [address] [place] [address], [facility] NPRG [facility] [address] [place] [address] * Parathyroid Hormone (PTH) (02/24/2024 8:59 AM CDT) Parathyroid Hormone (PTH), S 35 15 - 65 pg/mL 02/24/2024 4:31 PM CDT [facility] Comment: Biotin has been identified by the policy manager as a potential interfering substance. Higher concentrations of biotin may be found in multivitamins, hair/nail supplements, and workout supplements. If the result does not match clinical observations, repeat testing after patient refrains from the use of supplements for at least 12 hours. Blood (Blood, Venous) 02/24/2024 8:59 AM CDT 02/24/2024 3:11 PM CDT Malinda Horvath LAB BLOOD AD D-ON Performing Organization Address City/[facility]/ZIP Co de Phone Number [facility] [address] [place] [address], [facility] MKTO [facility] [place] [address] [place] [address] * S-TSH (Thyroid-Stimulating Hormone - Sensitive) (02/24/2024 8:59 AM CDT) TSH, Sensitive 2.0 0.3 - 4.2 mIU/L 02/24/2024 9:58 AM CDT [facility] Blood (Blood, Venous) 02/24/2024 8:59 AM CDT 02/24/2024 9:13 AM CDT Malinda BenjaminB.S. LAB BLOOD AD D-ON Performing Organization Address [facility] Co de Phone Number [facility] [address] [place] [id number], [facility] [address] [address] * (ABNORMAL) PSA (Prostate-Specific Antigen) Screen (02/24/2024 8:59 AM CDT) Prostate-Specific Ag 11.7(H) <=6.5 ng/mL 02/24/2024 11:03 AM CDT [facility] Comment: ----ADDITIONAL INFORMATION---- The testing method is an electrochemiluminescence assay manufactured by [employer] and performed on the Modular or Cabrera system. Values obtained with different assay methods or kits may be different and cannot be used interchangeably. Test results cannot be interpreted as absolute evidence for the presence or absence of malignant disease. Blood (Blood, Venous) 02/24/2024 8:59 AM CDT 02/24/2024 9:13 AM CDT Malinda BenjaminB.S. LAB BLOOD AD D-ON Performing Organization Address [facility]/ZIP Co de Phone Number [facility] [address] [place] [address], [facility] NPRG [facility] [place] [address] [place] [address] * (ABNORMAL) Comprehensive Metabolic Panel (02/24/2024 8:59 [...] CDT Malinda Horvath LAB BLOOD AD D-ON [facility] [address] [place] [address], [facility] NPRG [facility] [address] [place] [address] * (ABNORMAL) CBC with Differential, Blood (02/24/2024 [...] CDT Malinda Horvath LAB BLOOD AD D-ON [facility] [address] [place] [address], [facility] NPRG [facility] [address] [place] [address] documented in this encounter Visit Diagnoses Diagnosis Glomerulonephritis Membranous Hypothyroidism Primary 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
== END 2024-05-14 13:56 | disposition home or self-care (01) ==
LOC: NFLDREF 05-19 16:14
PROVIDERS: PCP Family Medicine; Referring Provider Family Medicine; Visit Provider Family Medicine
DX: Z00.00 Encounter for general adult medical examination without abnormal findings (principal); E78.5 Hyperlipidemia, unspecified; E03.9 Hypothyroidism, unspecified; R97.20 Elevated prostate specific antigen [PSA]; R79.89 Other specified abnormal findings of blood chemistry
CPT/HCPCS: 80053; 80061; 84443; G0103

== ENCOUNTER 2024-05-25 15:02 | Outpatient (CLI) | payer OTHER, MEDICARE, BC, SELFPAY ==
--- OUTSIDE RECORDS SUMMARY | 2024-05-29 09:08 | XMS_ITS | Clinical Summary ---
Author Organization [facility] Address [place], [place] [address] Care Team Providers Care Handstitching Machine Armhole Feller Name Role Phone Dixon Dangelo MD Primary Care Provider [phone] Allergies Active Allergy Reactions Criticality Noted Date [...] age 65+ 07/26/2024 08/16/2012, 010 Care Teams Handstitching Machine Armhole Feller Relationship Specialty Start Date End Date Dixon Dangelo MD [address] [place] [address] PCP - General Family Practice 04/25/22
--- OUTSIDE RECORDS SUMMARY | 2024-05-29 09:08 | XMS_ITS ---
Author Organization [facility] Address [address] [place] [address] Care Team Providers Care Air Cargo Specialist Name Role Phone Elsewhere, Pcp Primary [...] treatments are documented for this patient in [facility]. Treatments may have been administered in another system. Resolved Problems Problem Noted Date Diagnosed Date Resolved Date Rash Multiple Site 08/03/2020 1 Thyroiditis 08/02/2020 04/25/2021
--- OUTSIDE RECORDS SUMMARY | 2024-05-29 09:08 | XMS_ITS | Data Portability ---
Author Organization [place] [facility] Address [address] [place] [address] Assessment No assessment recorded. Plan of Treatment Reminders Order Date Submit Date Provider Last Modified By Organization Details Last Modified Time Details Appointments None recorded. Lab PSA, serum or plasma - Patient is schedule for 02/12/22 at 8:50 AM 2021 022 [facility], [address], [place], [address], 2 11:13:27 PSA, serum or plasma - Patient is schedule for 02/12/22 at 8:50 AM 2021 022 [facility], [address] [place], [address], 2 11:13:27 PSA, serum or plasma 2021 [facility] [address], [place], [address], 2 09:16:33 urinalysis , dipstick [address] [facility], [address], [address], [place], [address], 2 15:43:07 Referral None recorded. Procedures biopsy, [...] , dipst ick Color-Status Yellow Not Available [address], [place], [address], 04/25/2022 09:46:46 04/25/20 22 04/25/2022 urina lysis , dipst ick Clarity-Stat us Slight ly Cloudy Not Available [address], [place], [address], 04/25/2022 09:46:46 04/25/20 22 04/25/2022 urina lysis , dipst ick Blood-Status Trace Not Available [address], [place], [address], 04/25/2022 09:46:46 04/25/20 22 04/25/2022 urina lysis , dipst ick Protein-Stat us >=9.0 Not Available [address], [place], [address], 04/25/2022 09:46:46 04/25/20 22 04/25/2022 urina lysis , dipst ick Leuko-Status Modera te Not Available [address], [place], [address], 04/25/2022 09:46:46 04/25/20 22 04/25/2022 urina lysis , dipst ick pH-Status 5.0 Not Available _[facility] [address], [place], [address], 04/25/2022 09:46:46 Result Notes None recorded. Problems No Known Problems Procedures Surgical History Date Name Laterality Status Provider Name and Address Organization Details Recorded Time Appendectomy completed [place] [facility] - [facility] 01/15/2022 09:44:55 Imaging Results None recorded. [...] e) 50 mcg/actuati on nasal spray,suspe nsion [place] 1 spray every day by intranasa l [...] Updated DateTime 01/15/2022 182.88 cm 21 kg/m2 20373.82 g yMa Allen [facility] 01/15/2022 09:40:34 Date Recorded Body height Body mass index (BMI) Body weight Provider Name and Address Organization Details Last Updated DateTime 02/12/2022 182.88 cm 21 kg/m2 84016.82 g Bessy Qureshi [facility] 02/12/2022 09:36:42 Date Recorded Body height Body mass index (BMI) Body weight Provider Name and Address Organization Details Last Updated DateTime 04/25/2022 182.88 cm 21 kg/m2 44416.82 g Mya Allen [facility] 04/25/2022 09:12:55 Social History Question Answer Notes LastModified by Organizat ion Details LastModified Time Tobacco Smoking Status Former Smoker Mya valiente [facility] 01/15/2022 09:44:39 When Did You Quit [...] Mother Pulmonary emphysema Medical History Condition Response Other Y High Blood Pressure N Kidney Stones N Depression N Lung Disease N GERD/Acid Reflux N Sexually Transmitted Infection N Cancer N High Cholesterol Y Diabetes N Bleeding Disorder N Heart Disease N Immunizations Vaccine Type Date Status Provider Name and Address Organization Details Recorded Time Influenza, high-dose, trivalent, PF 08/28/2018 completed Mya valiente [facility] 04/25/2022 09:13:11 Tdap 05/03/2015 completed Mya valiente [facility] 04/25/2022 09:13:11 zoster live 10/09/2011 completed Mya valiente [facility] 04/25/2022 09:13:11 Influenza, high-dose, trivalent, PF 08/31/2015 completed Mya valiente [facility] 04/25/2022 09:13:11 zoster recombinant 08/08/2021 completed Mya valiente [facility] 04/25/2022 09:13:11 Influenza, split virus, trivalent, preservative 10/12/2006 completed Mya valiente [facility] 04/25/2022 09:13:12 Influenza, high-dose, trivalent, PF 08/09/2017 completed Mya valiente [facility] 04/25/2022 09:13:12 Influenza, high-dose, trivalent, PF 09/03/2016 sharron valiente [facility] 04/25/2022 09:13:12 COVID-19, mRNA, LNP-S, PF, 30 mcg/0.3 mL dose 07/21/2021 completed Mya Allen null, [facility] 04/25/2022 09:13:12 Influenza, split virus, trivalent, preservative 09/29/2005 completed Mya Allen null, [facility] 04/25/2022 09:13:12 Influenza, split virus, trivalent, PF 08/17/2011 completed Mya Allen null, [facility] 04/25/2022 09:13:12 COVID-19, mRNA, LNP-S, PF, 30 mcg/0.3 mL dose 02/28/2021 [facility] 09:13:12 Influenza, adjuvanted, quadrivalent, PF 09/07/2020 completed Mya valiente, [facility] 04/25/2022 09:13:12 Influenza, split virus, trivalent, preservative 10/11/2008 completed Mya Allen null, [facility] 04/25/2022 09:13:12 Influenza, high-dose, trivalent, PF 09/03/2019 completed Mya Allen null, [facility] 04/25/2022 09:13:12 Influenza, split virus, trivalent, PF 08/14/2010 completed Mya Allen null, [facility] 04/25/2022 09:13:12 COVID-19, mRNA, LNP-S, PF, 30 mcg/0.3 mL dose 03/21/2021 completed Mya Allen null, [facility] 04/25/2022 09:13:12 pneumococcal polysaccharide PPV23 09/20/2010 completed Mya Allen null, [facility] 04/25/2022 09:13:12 Influenza, split virus, trivalent, preservative 08/16/2012 completed Mya Allen null, [facility] 04/25/2022 09:13:12 pneumococcal polysaccharide PPV23 05/15/2011 completed Mya valiente, [facility] 04/25/2022 09:13:12 Td (adult), 2 Lf tetanus toxoid, preservative free, adsorbed 02/17/2004 completed Mya valiente, [facility] 04/25/2022 09:13:12 Influenza, split virus, trivalent, PF 08/10/2009 completed Mya valiente, [facility] 04/25/2022 09:13:12 Influenza, split virus, trivalent, PF 08/24/2013 completed Mya valiente, [facility] 04/25/2022 09:13:12 Influenza, high-dose, trivalent, PF 07/23/2014 completed Mya valiente, [facility] 04/25/2022 09:13:12 Pneumococcal conjugate PCV 13 05/03/2015 completed Mya valiente, [facility] 04/25/2022 09:13:12 zoster recombinant 01/04/2022 completed Mya valiente, [facility] 04/25/2022 09:13:12 Influenza, high-dose, quadrivalent, PF 09/11/2021 completed Mya valiente, [facility] 04/25/2022 09:13:12 Past Encounters Encounter ID Performer Location Encounter Start Date Encounter Closed Date Diagnosis/Indication Diagnosis SNOMED-CT Code [id number] [facility] [place] [address] 01/15/2022 09:34:10 01/17/2022 10:52:47 Prostate specific antigen above reference range [id number] Lower urin lillian tract symptoms due to benign prostatic hypertrophy [id number] MD [facility] [address] [place] [address] 02/12/2022 09:34:23 02/14/2022 10:26:10 Prostate specific antigen above reference range [id number] [facility] [place] [address] 04/25/2022 09:03:34 04/27/2022 15:37:58 Prostate specific antigen above reference range 677257372 Pyuria 1429625 Health Concerns Section Related Observation LastModified by Organization Detai ls LastModified Time None Recorded Concern Status LastModified by Organization Details LastModified Time None Recorded Advance Directives Directive None Recorded Payers Encounter Date Sequence Insurance Name Policy Number Policy Ruiz Covered Member ID Ruiz Member ID Guarantor Name 01/15/2022 1 [place] [id number] Shon Dunlap [id number] Shon Dunlap 02/12/2022 1 [place] [id number] Shon Dunlap [id number] Shon Dunlap 04/25/2022 1 [place] [id number] Shon Dunlap [id number] Shon Dunlap Notes Date Note Type Note [...] followed with Dr. Roy in nephrology at [facility]. He was eventually referred to hematology and diagnosed with CLL and is now taking Calquence, which is helping. Most recent creatinine was 3.26 on 12/14/2021. I reviewed his most recent lab reports from [facility]. PSA was 13.1 on 12/14/21, and [...] in his uncle. Kennedy Almanzar MD [address], [place], [address], [facility] 01/15/2022 10:28:32 02/12/2022 text/html HPI Notes: : New patient referred for elevated PSA. I previously saw him in 2013 for a PSA of 5.04 and he had a biopsy at that time which was benign. In the past couple of years, he was diagnosed with membranous nephropathy and followed with Dr. Roy in nephrology at [facility]. He was eventually referred to hematology and diagnosed with CLL and is now taking Calquence, which is helping. Most recent creatinine was 3.26 on 12/14/2021. I reviewed his most recent lab reports from [facility] and [facility]. PSA was 13.1 on 12/14/21, and [...] No new urinary symptoms. Kennedy Almanzar MD [address] [place] [address],[address], [place], [address], [facility] 02/12/2022 10:19:10 04/25/2022 text/html HPI Notes: : New patient referred for elevated PSA. I previously saw him in 2013 for a PSA of 5.04 and he had a biopsy at that time which was benign. In the past couple of years, he was diagnosed with membranous nephropathy and followed with Dr. Roy in nephrology at [facility]. He was eventually referred to hematology and diagnosed with CLL and is now taking Calquence, which is helping. Most recent creatinine was 3.26 on 12/14/2021. I reviewed his most recent lab reports from [facility] and [facility]. PSA was 13.1 on 12/14/21, and [...] 04/25/22: Follow-up PSA reviewed from [facility] records from 04/17/2022 was 13.0. Creatinine 3.26. He notices some whitish discoloration and sediment in his urine. No dysuria. Urinalysis today is positive for blood and leukocytes, nitrate negative. Kennedy Almanzar MD [address] [facility] [address], [place], [address], [facility] 04/25/2022 09:47:53
--- OUTSIDE RECORDS SUMMARY | 2024-05-29 09:08 | XMS_ITS | Clinical Summary ---
Author Organization [facility] Address [address] [place] [address] Care Team Providers Care Gyro Compass Tester Name Role Phone Agnieszka Reyes MD Primary Care Provider [phone] Source Comments You are receiving this document as you are listed as the primary care provider,follow-up provider, or the patient has been referred to you for consultation.This is in compliance with the Medicare andDet[facility] Hospitalcaid EHR Incentive Program,which states Providers who transition their patient to another setting of careor provider of care or refers their patient to another provider of care shouldprovide summary care record for each transition of care or referral. [employer] Allergies Active Allergy Reactions Criticality Noted Date [...] Diagnosed Date Asthma 07/23/2014 Overview: Unspecified asthma(493.90) ([facility]) GERD (gastroesophageal reflux disease) 4 COPD (chronic obstructive pulmonary disease) Allergic rhinitis 04/07/2014 Overview: Allergic rhinitis, cause unspecified Tubular adenoma of colon 04/07/2014 Hyperlipidemia 04/07/2014 Albrecht's neuroma of left foot 04/07/2014 H/O umbilical hernia repair 04/07/2014 H/O inguinal hernia repair 04/07/2014 Seasonal allergies 04/07/2014 Immunizations Name Administration Dates Next Due Influenza IIV3 (Trivalent) F luzone Highdose, 65+ Yrs (76784) 09/03/2016,08/31/2015,07/23/2014 Influenza IIV4 (Quadrivalent ) Fluad, 65+ [...] CDT Appointment [facility] [address] [place] [address] 08/14/2024 3:00 PM CDT Office Visit [facility] [address] [place] [address] Annamarie Hannon MD [address] [facility] [address] [place] [address] Health Maintenance Due Date Last Done Comments [...] age to complete this topic Care Teams Gyro Compass Tester Relationship Specialty Start Date End Date Agnieszka Reyes MD [address] [place] [address] PCP - General Internal Medicine 09/03/16
--- OUTSIDE RECORDS SUMMARY | 2024-05-29 09:08 | XMS_ITS | Clinical Summary ---
Author Organization [facility] Address [address] [place] [address] Care Team Providers Care Box Inspector Name Role Phone Elsewhere, Pcp Primary Care Provider Unavailabl e Source Comments Patient records contain information from all sites at [facility]. For routine questions regarding patient records, call [phone] during business hours, M-F 8:00 AM - 5:00 PM Central Time. Record requests for emergency care only can be directed to [phone] at any time.[facility] Allergies Active Allergy [...] mouth daily. 90 tablet 3 05/08/2024 Active lisinopriL (PRINIVIL,ZESTRIL) 10 mg tablet TAKE 1 [...] Refill Division of Nephrology and Hypertension in [place], [place] [address] [place] [address] Iesha Salcedo M.D. Med Refill 04/27/2024 Refill Division of Nephrology and Hypertension in [place], [place] [address] [place] [phone] Iesha Salcedo M.D. Med Refill 03/12/2024 10:00 AM CDT Telemedicine Division of Nephrology and Hypertension in [place], [place] [address] [place] [address] Iesha Salcedo M.D. Glomerulonephritis Membranous 03/03/2024 10:13 AM CDT - 03/03/2024 11:59 PM CDT Hospital Encounter Department of Radiology in [place], [place] [address] [place] [address] Simin Centeno M.D., Ph.D. 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 from Last 3 Months Immunizations Name Administration [...] e alcohol) [facility] [employer] Answer Date Recorded In the past 12 months has e [employer], gas, oil, or water [employer] threatened to shut off services in your [...] care, and heating? Not very hard 02/08/2023 [facility] - Occupational Stress [...] PHQ-2) 11/25/2023 Fall Risk Screen (Annual) 11/25/2023 Influenza Vaccine (#1) 2024 , 09/04/2022, 09/11/2021, Additional history exists Creatinine Level (Kidney Function Test) 02/23/2025 02/24/2024, [...] Completed 01/04/2022, 07/26, 10/09/2011, Additional history exists RSV vaccine - (32-36 weeks) or 60+ years Completed 08/26/2023 Abdominal Aortic Aneurysm (AAA) Screen Discontinued 03/03/2024, 04/27/2021, 03/29/2021 Lung Cancer Screening Discontinued 03/03/2024 , 03/29/2021, 02/25/2019, Additional history exists HPV Vaccines Aged Out No longer eligi ble based on patient's age to complete this topic Medical Devices Implanted Type Area Film Laboratory Technician Device Identifier Shelf Expiration Date Model / [...] Lymphocytic Chronic 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 This is essentially unchanged since 202. Scarring in the LEFT base is also [...] lobe (SER 3/56). This is essentiallyunchanged since 202. Scarring in the LEFT base is also [...] Centeno M.D., Ph.D. IMG CT PROCEDURES * S-TSH (Thyroid-Stimulating Hormone - Sensitive) (02/24/2024 8:59 AM CDT) [facility] TSH, Sensitive 2.0 0.3 - 4.2 mIU/L 02/24/2024 9:58 AM CDT NPRG Blood (Blood, Venous) 02/24/2024 8:59 AM CDT 02/24/2024 9:13 AM CDT Malinda Horvath LAB BLOOD AD D-ON [facility] [address] [place] [address], [facility] NPRG [facility] [address] [place] [address] * (ABNORMAL) Comprehensive Metabolic Panel (02/24/2024 8:59 AM CDT) Pathologist [facility] Potassium, P 4.8 3.6 - 5.2 mmol/L [...] CDT Malinda Horvath LAB BLOOD AD D-ON [facility] [address] [place] [address], [facility] NPRG [facility] [address] [place] [address] from Last 3 Months or Most Recently Relevant to Health Maintenance Additional Health Concerns Infection Onset Date Last Indicated Protective Environment 03/01/2023 3 Advance Directives For more information, please contact: [phone] Documents on File Type Date Recorded Patient Director Of Construction Expl anation Advance Directives 02/13/2023 5:03 PM Swati Dunlap HCPOA/ADVOCATE/AGENT/R EPRESENTATIVE/SURROGAT E Healthcare Agents on File Name Relationship Healthcare Agent Relationship Communication Swati Dunlap Spouse Health Care Agent Tio Dunlap Son First Alternate Health Care Agent Care Teams Box Inspector Relationship Specialty Start Date End Date Elsewhere, Pcp PCP - General Internal Medicine 04/17/22
--- OUTSIDE RECORDS SUMMARY | 2024-05-29 09:08 | XMS_ITS | Referral Summary ---
Author Organization [facility] Address [address] [place] [address] Care Team Providers Care Front Line Supervisor Name Role Phone Elsewhere, Pcp Primary Care Provider Unavailabl e Source Comments Patient records contain information from all sites at [facility]. For routine questions regarding patient records, call [phone] during business hours, M-F 8:00 AM - 5:00 PM Central Time. Record requests for emergency care only can be directed to [phone] at any time[address] Encounters Date Type Department Care Team Description 05/07/2024 Refill Division of Nephrology and Hypertension in [place], [place] [address] [place] [address] Iesha Salcedo M.D. Med Refill 04/27/2024 Refill Division of Nephrology and Hypertension in [place], [place] [address] [place] [address] Iesha Salcedo M.D. Med Refill 03/12/2024 10:00 AM CDT Telemedicine Division of Nephrology and Hypertension in [place], [place] [address] [place] [address] Iesha Salcedo M.D. Glomerulonephritis Membranous 03/03/2024 10:13 AM CDT - 03/03/2024 11:59 PM CDT Hospital Encounter Department of Radiology in [place], [place] [address] [place] [address] Simin Centeno M.D., Ph.D. 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 from Last 3 Months Allergies Active Allergy [...] MG) BY MOUTH DAILY 90 tablet 02/10/2024 Discontinue d(Reorder) Active Problems Problem Noted Date [...] Multiple Site 08/03/2020 1 Thyroiditis 08/02/2020 04/25/2021 Immunizations Name Administration Dates [...] drink = 0.6 oz pur e alcohol) [facility] [employer] Answer Date Recorded In the past 12 months has e [employer], gas, oil, or water [employer] threatened to shut off services in your [...] often do you attend chur ch or zoroastrianism services? Never 02/08/2023 Do you belong to any clubs o r organizations such as mandaen groups, unions, fraternal or athletic groups, or [...] care, and heating? Not very hard 02/08/2023 [facility] - [...] place to sleep or slept in a skilled nursing (including now)? No 02/08/2023 Nutrition Answer Date [...] on file Medical Devices Implanted Type Area Linoleum Tile Layer Device Identifier Shelf Expiration Date Model / [...] CDT Malinda DoyleSAmber LAB BLOOD AD D-ON [facility] [address] [place] [address], [facility] NPRG [facility] [address] [place] [address] * (ABNORMAL) Comprehensive Metabolic Panel (02/24/2024 8:59 [...] CDT Malinda Horvath LAB BLOOD AD D-ON [facility] [address] [place] [address], [facility] NPRG [facility] [address] [place] [address] from Last 3 Months or Most Recently Relevant to Health Maintenance Additional Health Concerns Infection Onset Date Last Indicated Protective Environment 03/01/2023 3 Advance Directives For more information, please contact: [phone] Documents on File Type Date Recorded Patient Biology Specialist Expl anation Advance Directives 02/13/2023 5:03 PM Swati Dunlap HCPOA/ADVOCATE/AGENT/R EPRESENTATIVE/SURROGAT E Healthcare Agents on File Name Relationship Healthcare Agent Relationship Communication Swati Dunlap Spouse Health Care Agent Tio Dunlap Son First Alternate Health Care Agent Care Teams Front Line Supervisor Relationship Specialty Start Date End Date Elsewhere, Pcp PCP - General Internal Medicine 04/17/22
--- OUTSIDE RECORDS SUMMARY | 2024-05-29 09:08 | XMS_ITS ---
Author Organization [facility] Address [address] [place] [address] Care Team Providers Care Tank Truck Engine Mechanic Name Role Phone Unavailable Unavailable Unavailable Surgery Details Not on file Complications Check Surgery Details section. Procedure Estimated Blood Loss Check Surgery Details section. Procedure Findings Check Surgery Details section. Procedure Specimens Taken Check Surgery Details section.
--- OUTSIDE RECORDS SUMMARY | 2024-05-29 09:08 | XMS_ITS | Continuity of Care Document ---
Author Name [facility] Organization [facility] Care Team Providers Care Sponge Clipper Name Role Phone [facility] Unavailable Unavailable Problems Combined list of problems from Department of [facility] and [facility] facilities. It does not include entries that were removed or entered in error. Problem Status Onset Date Problem Type Date of Resolution Comments Source Polyp of colon Active 11/25/19 12 Condition Feb 21, 2015 Entered By: ALTON RAMIREZ Comment: benign polyp - advised repeat in 2016 [facility] Allergic rhinitis Active Condition [facility] Appendicitis Active Condition Feb 21, 2015 Entered By: ALTON RAMIREZ Comment: hx appy - prior ruptured appy 2009 - [facility] Benign prostatic hyperplasia Active Condition [facility] Bilateral inguinal hernia Active Condition Feb 21, 2015 Entered By: ALTON RAMIREZ Comment: repair with mesh at [facility] approx 2011? 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 [facility] Skin lesion Active Condition [facility] Diagnosis: ICD-10-CM Z00.8 Encounter for other general examination Active Diagnosis [facility] Medications Combined list of outpatient medications from Department of [facility] and [facility] facilities.Medications provided include 1) outpatient medications [...] Aug 09, 2023 2 Aug 09, 2024 [id number] A Aug 12, 2023 [facility] RESPIR ATORY (INHAL ATION) ACTIVE 08/09/2024 [id number] [facility] 2022 2 [facility] CALCIUM 500MG (CA CARBONATE-1 .25GM) TAB CALCIUM 500MG (CA CARBONAT E-1.25GM ) TAB Non-VA TAKE ONE TABLET BY MOUTH EVERY DAY Mar 02, 2015 [facility] Document ed by: ARIES RAMIREZ Document ed at: [facility] ORAL ACTIVE RICHARD RAMIREZ 2014 [facility] CENTRUM TAB--OTC CENTRUM TAB--OTC Non-VA TAKE ONE TABLET BY MOUTH April 12, 2014 Non-VA Document ed by: Patsy GUADALUPE Document ed at: [facility] ORAL ACTIVE JOSE M GUADALUPE 2013 [facility] CHOLECALCIF JUDI 25MCG (1,000UNIT) TAB CHOLECAL [...] ed by: Patsy GUADALUPE Document ed at: [facility] ORAL ACTIVE JOSE M GUADALUPE 2013 [facility] FLUOCINONID E 0.05% CREAM,TOP FLUOCINO NIDE 0.05% CREAM,TO P Active APPLY THIN LAYER TWICE A DAY AVOID FACE,COMPA IN and ARMPITS *FOR EXTERNAL USE ONLY Aug 09, 2023 60 Aug 09, 2024 [id number] Aug 12, 2023 [facility] TOPICA L ACTIVE 08/09/2024 [id number] [facility] 2022 60 [facility] FLUTICASONE 500MCG/SALM ETEROL 50MCG INHL,ORAL,D ISKUS,60 FLUTICAS ONE 500MCG/S ALMETERO L 50MCG INHL,ORA L,DISKUS ,60 Active: Susp INHALE 1 PUFF BY INHALATI ON TWICE A DAY FOR COPD *RINSE MOUTH AFTER EACH USE* FOR COPD May 06, 2024 3 Aug 04, 2024 [id number] Jul 19, 2024 [facility] RESPIR ATORY (INHAL ATION) SUSPEND ED 08/04/2024 [id number] [facility] 2023 3 [facility] FLUTICASONE 500MCG/SALM ETEROL 50MCG INHL,ORAL,D ISKUS,60 FLUTICAS ONE 500MCG/S ALMETERO L 50MCG INHL,ORA L,DISKUS ,60 Disconti nued INHALE 1 PUFF BY INHALATI ON TWICE A DAY FOR COPD *RINSE MOUTH AFTER EACH USE* FOR COPD Apr 30, 2024 3 Jul 29, 2024 [id number] Apr 30, 2024 [facility] RESPIR ATORY (INHAL ATION) DISCONT INUED 07/29/2024 [id number] 4 [facility] 2023 3 [facility] FLUTICASONE 500MCG/SALM ETEROL 50MCG INHL,ORAL,D ISKUS,60 FLUTICAS ONE 500MCG/S ALMETERO L 50MCG INHL,ORA L,DISKUS ,60 Disconti nued INHALE 1 PUFF BY INHALATI ON TWICE A DAY FOR COPD *RINSE MOUTH AFTER EACH USE* FOR COPD Jan 15, 2024 3 April 14, 2024 [id number] Jan 15, 2024 [facility] RESPIR ATORY (INHAL ATION) DISCONT INUED 04/14/2024 [id number] [facility] 2023 3 [facility] FLUTICASONE 500MCG/SALM ETEROL 50MCG INHL,ORAL,D ISKUS,60 FLUTICAS ONE 500MCG/S ALMETERO L 50MCG INHL,ORA L,DISKUS ,60 Disconti nued INHALE 1 PUFF BY INHALATI ON TWICE A DAY FOR COPD *RINSE MOUTH AFTER EACH USE* FOR COPD Aug 09, 2023 3 Nov 07, 2023 [id number] Oct 26, 2023 [facility] RESPIR ATORY (INHAL ATION) DISCONT INUED 11/07/2023 [id number] [facility] 2022 3 [facility] FLUTICASONE 500MCG/SALM ETEROL 50MCG INHL,ORAL,D ISKUS,60 FLUTICAS ONE 500MCG/S ALMETERO L 50MCG INHL,ORA L,DISKUS ,60 Disconti nued INHALE 1 PUFF BY INHALATI ON TWICE A DAY FOR COPD *RINSE MOUTH AFTER EACH USE* FOR COPD Aug 07, 2023 3 Nov 05, 2023 [id number] Aug 07, 2023 [facility] RESPIR ATORY (INHAL ATION) DISCONT INUED 11/05/2023 [id number] KRIS SAMS 2022 3 [facility] FLUTICASONE 500MCG/SALM ETEROL 50MCG INHL,ORAL,D ISKUS,60 FLUTICAS ONE 500MCG/S ALMETERO L 50MCG INHL,ORA L,DISKUS ,60 Disconti nued INHALE 1 PUFF TWICE A DAY *RINSE MOUTH AFTER EACH USE* Aug 06, 2022 3 Aug 07, 2023 [id number] April 23, 2023 [facility] DISCONT INUED (EDIT) 08/07/2023 [id number] 3 [facility] 2021 3 [facility] FLUTICASONE PROPIONATE 50MCG/SPRAY SOLN,NASAL, 16GM FLUTICAS ONE PROPIONA TE 50MCG/SP RAY SOLN,SARAH AL,16GM Active SPRAY 1 SPRAY IN EACH NOSTRIL EVERY DAY NEEDED FOR CONGESTI ON FOR CONGESTI ON Aug 09, 2023 3 Aug 09, 2024 [id number] Jan 15, 2024 [facility] NASAL ACTIVE 08/09/2024 [id number] [facility] 2022 3 [facility] [...] ed by: REDDY PAIZ Document ed at: [facility] ORAL ACTIVE [facility] 2022 [facility] LISINOPRIL 10MG TAB LISINOPR IL 10MG TAB Non-VA TAKE ONE TABLET BY MOUTH EVERY DAY Aug 09, 2023 Non-VA Document ed by: REDDY PAIZ Document ed at: [facility] ORAL ACTIVE [facility] 2022 [facility] SIMVASTATIN 80MG TAB SIMVASTA TIN 80MG TAB Active TAKE ONE-HALF TABLET BY MOUTH AT BEDTIME FOR CHOLESTE ROL Aug 09, 2023 45 Aug 09, 2024 [id number] May 03, 2024 [facility] ORAL ACTIVE 08/09/2024 [id number] 4 [facility] 2022 45 [facility] SIMVASTATIN 80MG TAB SIMVASTA TIN 80MG TAB Disconti nued TAKE ONE-HALF TABLET BY MOUTH AT BEDTIME FOR CHOLESTE ROL Aug 06, 2022 45 Aug 07, 2023 [id number] May 29, 2023 [facility] ORAL DISCONT INUED 08/07/2023 [id number] [facility] 2021 45 [facility] TAMSULOSIN HCL 0.4MG CAP TAMSULOS IN HCL 0.4MG CAP Non-VA TAKE 1 CAPSULE BY MOUTH Aug 09, 2023 Non-VA Document ed by: REDDY PAIZ Document ed at: [facility] ORAL ACTIVE [facility] 2022 [facility] Allergies, Adverse Reactions, Alerts Combined list of allergies from Department of Defense and Veterans Affairs facilities. It does not include entries that were removed or entered in error. Substance Category Reaction Severity Reaction type Status Date Reported Comments Source DESFLURANE Propensity to adverse reactions to drug (finding) Delirium MILD active 4 [facility] Immunizations Combined list of available immunizations from the Department of Defense and Veterans Affairs facilities. Immunization Series Date Given Administered By Site Reaction Lot Number CVX Code Drug Capacity Management Specialist Status Comments Source INFLUENZA, HIGH-DOSE, QUADRIVALENT 2022 NORRIS KARIMI LEFT DELTO ID [id number] 197 complet ed [facility] COVID-19 (Little1), MRNA, LNP-S, BIVALENT, PF, 30 MCG/0.3 ML DOSE 2021 300 complet ed [facility] INFLUENZA, HIGH-DOSE, QUADRIVALENT 2021 197 complet ed [facility] COVID-19 (PFIZER), MRNA, LNP-S, PF, 30 MCG/0.3 ML DOSE 2021 208 complet [facility] ZOSTER RECOMBINANT 2 2021 187 complet ed [facility] INFLUENZA, HIGH-DOSE, QUADRIVALENT 2020 197 complet ed [facility] INFLUENZA, UNSPECIFIED FORMULATION 2020 88 complet [facility] ZOSTER RECOMBINANT 1 2020 187 complet ed [facility] COVID-19 (PFIZER), MRNA, LNP-S, PF, 30 MCG/0.3 ML DOSE 2020 208 complet ed [facility] COVID-19 (PFIZER), MRNA, LNP-S, PF, 30 MCG/0.3 ML DOSE 2 2020 208 complet [facility] COVID-19 (PFIZER), MRNA, LNP-S, PF, 30 MCG/0.3 ML DOSE 1 2020 208 complet [facility] INFLUENZA VACCINE, QUADRIVALENT, ADJUVANTED 2019 205 complet [facility] INFLUENZA, UNSPECIFIED FORMULATION 2019 88 complet [facility] INFLUENZA, HIGH DOSE SEASONAL 2018 135 complet ed [facility] INFLUENZA, HIGH DOSE SEASONAL 2017 135 complet ed [facility] INFLUENZA, HIGH DOSE SEASONAL 2017 135 complet ed [facility] INFLUENZA, HIGH DOSE SEASONAL 2016 135 complet ed [facility] INFLUENZA, HIGH DOSE SEASONAL 2016 135 complet ed [facility] INFLUENZA, HIGH DOSE SEASONAL 2015 135 complet ed [facility] INFLUENZA, HIGH DOSE SEASONAL 2015 135 complet ed [facility] INFLUENZA, HIGH DOSE SEASONAL 2014 135 complet ed [facility] INFLUENZA, HIGH DOSE SEASONAL 2014 135 complet ed [facility] PNEUMOCOCCAL CONJUGATE PCV 13 2014 133 complet ed [facility] TDAP 2014 115 complet ed [facility] PNEUMOCOCCAL CONJUGATE PCV 13 2014 133 complet ed [facility] INFLUENZA, HIGH DOSE SEASONAL 2013 135 complet ed [facility] INFLUENZA, SEASONAL, INJECTABLE 2013 141 complet ed [facility] TDAP 2013 115 complet ed [facility] INFLUENZA, UNSPECIFIED FORMULATION 2012 88 complet ed [facility] INFLUENZA, SEASONAL, INJECTABLE, PRESERVATIVE FREE 2012 140 complet ed [facility] INFLUENZA, SEASONAL, INJECTABLE 2011 141 complet ed [facility] ZOSTER LIVE 2010 121 complet ed [facility] INFLUENZA, SEASONAL, INJECTABLE, PRESERVATIVE FREE 2010 140 complet ed [facility] PNEUMOCOCCAL POLYSACCHARID E PPV23 2010 33 complet ed [facility] PNEUMOCOCCAL POLYSACCHARID E PPV23 2010 33 complet ed [facility] PNEUMOCOCCAL, UNSPECIFIED FORMULATION 2010 109 complet ed [facility] ZOSTER LIVE 2010 121 complet ed [facility] PNEUMOCOCCAL POLYSACCHARID E PPV23 2009 33 complet ed [facility] INFLUENZA, SEASONAL, INJECTABLE, PRESERVATIVE FREE 2009 140 complet ed [facility] INFLUENZA, SEASONAL, INJECTABLE, PRESERVATIVE FREE 2008 140 complet ed [facility] INFLUENZA, SEASONAL, INJECTABLE 2007 141 complet ed [facility] INFLUENZA, SEASONAL, INJECTABLE 2005 141 complet ed [facility] INFLUENZA, SEASONAL, INJECTABLE 2004 141 complet ed [facility] TD (ADULT), 2 LF TETANUS TOXOID, PRESERVATIVE FREE, ADSORBED 2003 09 complet ed [facility] Results Combined list of recent chemistry, hematology [...] Aug 09, 2023 09:02 AM Reporting Lab: [facility] [phone] Performing Lab: [facility] [address] [facility] COMPREHEN SIVE METABOLIC PANEL+MG CREATININE [MASS/VOLUM E] IN SERUM OR PLASMA 2.0 mg/dL 0.7 - 1.2 08/09 H Specimen Type: PLASMA No comment entered. Ordering Provider: TISHA PAIZ Report Released Date/Time: Aug 09, 2023 09:02 AM Reporting Lab: [facility] [address] Performing Lab: [facility] [address] [facility] COMPREHEN SIVE METABOLIC PANEL+MG UREA NITROGEN [MASS/VOLUM E] IN SERUM OR PLASMA 36 mg/dL 8 - 26 08/09 H Specimen Type: PLASMA No comment entered. Ordering Provider: TISHA PAIZ Report Released Date/Time: Aug 09, 2023 09:02 AM Reporting Lab: [facility] [address] Performing Lab: [facility] [address] [facility] COMPREHEN SIVE METABOLIC PANEL+MG GLUCOSE [MASS/VOLUM E] IN SERUM OR PLASMA 97 mg/dL 70 - 100 08/09 Specimen Type: PLASMA No comment entered. Ordering Provider: TISHA PAIZ Report Released Date/Time: Aug 09, 2023 09:02 AM Reporting Lab: [facility] [address] Performing Lab: [facility] [address] [facility] COMPREHEN SIVE METABOLIC PANEL+MG SODIUM [MOLES/VOLU ME] IN SERUM OR PLASMA 139 mmol/L 136 - 145 08/09 Specimen Type: PLASMA No comment entered. Ordering Provider: TISHA PAIZ Report Released Date/Time: Aug 09, 2023 09:02 AM Reporting Lab: [facility] [address] Performing Lab: [facility] [address] [facility] COMPREHEN SIVE METABOLIC PANEL+MG POTASSIUM [MOLES/VOLU ME] IN SERUM OR PLASMA 4.8 mmol/L 3.5 - 5.1 08/09 Specimen Type: PLASMA No comment entered. Ordering Provider: TISHA PAIZ Report Released Date/Time: Aug 09, 2023 09:02 AM Reporting Lab: [facility] [address] Performing Lab: [facility] [address] [facility] COMPREHEN SIVE METABOLIC PANEL+MG CHLORIDE [MOLES/VOLU ME] IN SERUM OR PLASMA 106 mmol/L 98 - 107 08/09 Specimen Type: PLASMA No comment entered. Ordering Provider: TISHA PAIZ Report Released Date/Time: Aug 09, 2023 09:02 AM Reporting Lab: [facility] [address] Performing Lab: [facility] [address] [facility] COMPREHEN SIVE METABOLIC PANEL+MG CARBON DIOXIDE, TOTAL [MOLES/VOLU ME] IN SERUM OR PLASMA 23 mmol/L 22 - 29 08/09 Specimen Type: PLASMA No comment entered. Ordering Provider: TISHA PAIZ Report Released Date/Time: Aug 09, 2023 09:02 AM Reporting Lab: [facility] [phone] Performing Lab: [facility] [address] [facility] COMPREHEN SIVE METABOLIC PANEL+MG CALCIUM [MASS/VOLUM E] IN SERUM OR PLASMA 9.2 mg/dL 8.4 - 10.2 08/09 Specimen Type: PLASMA No comment entered. Ordering Provider: TISHA PAIZ Report Released Date/Time: Aug 09, 2023 09:02 AM Reporting Lab: [facility] [address] Performing Lab: [facility] [address] [facility] COMPREHEN SIVE METABOLIC PANEL+MG PROTEIN [MASS/VOLUM E] IN SERUM OR PLASMA 6.4 g/dL 6.0 - 8.3 08/09 Specimen Type: PLASMA No comment entered. Ordering Provider: TISHA PAIZ Report Released Date/Time: Aug 09, 2023 09:02 AM Reporting Lab: [facility] [address] Performing Lab: [facility] [address] [facility] COMPREHEN SIVE METABOLIC PANEL+MG ALBUMIN [MASS/VOLUM E] IN SERUM OR PLASMA 3.9 g/dL 3.5 - 5.2 08/09 Specimen Type: PLASMA No comment entered. Ordering Provider: TISHA PAIZ Report Released Date/Time: Aug 09, 2023 09:02 AM Reporting Lab: [facility] [address] Performing Lab: [facility] [address] [facility] COMPREHEN SIVE METABOLIC PANEL+MG BILIRUBIN.T OTAL [MASS/VOLUM E] IN SERUM OR PLASMA 0.4 mg/dL 0.2 - 1.2 08/09 Specimen Type: PLASMA No comment entered. Ordering Provider: TISHA PAIZ Report Released Date/Time: Aug 09, 2023 09:02 AM Reporting Lab: [facility] [address] Performing Lab: [facility] [address] [facility] COMPREHEN SIVE METABOLIC PANEL+MG MAGNESIUM [MASS/VOLUM E] IN SERUM OR PLASMA 1.8 mg/dL 1.6 - 2.6 08/09 Specimen Type: PLASMA No comment entered. Ordering Provider: TISHA PAIZ Report Released Date/Time: Aug 09, 2023 09:02 AM Reporting Lab: [facility] [address] Performing Lab: [facility] [address] [facility] COMPREHEN SIVE METABOLIC PANEL+MG ANION GAP IN SERUM OR PLASMA 10 mmol/L 5 - 15 08/09 Specimen Type: PLASMA No comment entered. Ordering Provider: TISHA PAIZ Report Released Date/Time: Aug 09, 2023 09:02 AM Reporting Lab: [facility] [address] Performing Lab: [facility] [address] [facility] COMPREHEN SIVE METABOLIC PANEL+MG ALKALINE PHOSPHATASE [ENZYMATIC ACTIVITY/VO LUME] IN SERUM OR PLASMA 146 U/L 40 - 150 08/09 Specimen Type: PLASMA No comment entered. Ordering Provider: TISHA PAIZ Report Released Date/Time: Aug 09, 2023 09:02 AM Reporting Lab: [facility] [address] Performing Lab: [facility] [address] [facility] COMPREHEN SIVE METABOLIC PANEL+MG ALANINE AMINOTRANSF ERASE [ENZYMATIC ACTIVITY/VO LUME] IN SERUM OR PLASMA 27 U/L <55 - 55 08/09 Specimen Type: PLASMA No comment entered. Ordering Provider: TISHA PAIZ Report Released Date/Time: Aug 09, 2023 09:02 AM Reporting Lab: [facility] [address] Performing Lab: [facility] [address] [facility] COMPREHEN SIVE METABOLIC PANEL+MG ASPARTATE AMINOTRANSF ERASE [ENZYMATIC ACTIVITY/VO LUME] IN SERUM OR PLASMA 23 U/L <34 - 34 08/09 Specimen Type: PLASMA No comment entered. Ordering Provider: TISHA PAIZ Report Released Date/Time: Aug 09, 2023 09:02 AM Reporting Lab: [facility] [address] Performing Lab: [facility] [address] [facility] COMPREHEN SIVE METABOLIC PANEL+MG GLOMERULAR FILTRATION RATE/1.73 SQ M.PREDICTED [VOLUME RATE/AREA] IN SERUM, PLASMA OR BLOOD BY CREATININE- BASED FORMULA (CKD-EPI 2020) 34 60 08/09 L Specimen Type: PLASMA No comment entered. Ordering Provider: TISHA PAIZ Report Released Date/Time: Aug 09, 2023 09:02 AM Reporting Lab: [facility] [address] Performing Lab: [facility] [address] [facility] CBC & DIFF LEUKOCYTES [#/VOLUME] IN BLOOD BY AUTOMATED COUNT 10.85 10*3/u L 4.0 - 11.0 08/09 Specimen Type: BLOOD Comment: Automated Differentia l Performed Ordering Provider: TISHA PAIZ Report Released Date/Time: Aug 09, 2023 09:02 AM Reporting Lab: [facility] [address] Performing Lab: [facility] [address] [facility] CBC & DIFF ERYTHROCYTE S [#/VOLUME] IN BLOOD BY AUTOMATED COUNT 3.75 10*6/u L 4.6 - 6.2 08/09 L Specimen Type: BLOOD Comment: Automated Differentia l Performed Ordering Provider: TISHA PAIZ Report Released Date/Time: Aug 09, 2023 09:02 AM Reporting Lab: [facility] [address] Performing Lab: [facility] [address] [facility] CBC & DIFF HEMOGLOBIN [MASS/VOLUM E] IN BLOOD 11.6 g/dL 13.5 - 17.9 08/09 L Specimen Type: BLOOD Comment: Automated Differentia l Performed Ordering Provider: TISHA PAIZ Report Released Date/Time: Aug 09, 2023 09:02 AM Reporting Lab: [facility] [address] Performing Lab: [facility] [address] [facility] CBC & DIFF HEMATOCRIT [VOLUME FRACTION] OF BLOOD BY AUTOMATED COUNT 36.2 41 - 54 08/09 L Specimen Type: BLOOD Comment: Automated Differentia l Performed Ordering Provider: TISHA PAIZ Report Released Date/Time: Aug 09, 2023 09:02 AM Reporting Lab: [facility] [address] Performing Lab: [facility] [address] [facility] CBC & DIFF MCV [ENTITIC VOLUME] BY AUTOMATED COUNT 96.5 fL 80 - 100 08/09 Specimen Type: BLOOD Comment: Automated Differentia l Performed Ordering Provider: TISHA PAIZ Report Released Date/Time: Aug 09, 2023 09:02 AM Reporting Lab: [facility] [address] Performing Lab: [facility] [address] [facility] CBC & DIFF MCH [ENTITIC MASS] BY AUTOMATED COUNT 30.9 pg 27 - 33 08/09 Specimen Type: BLOOD Comment: Automated Differentia l Performed Ordering Provider: TISHA PAIZ Report Released Date/Time: Aug 09, 2023 09:02 AM Reporting Lab: [facility] [address] Performing Lab: [facility] [address] [facility] CBC & DIFF MCHC [MASS/VOLUM E] BY AUTOMATED COUNT 32.0 g/dL 32.0 - 37.5 08/09 Specimen Type: BLOOD Comment: Automated Differentia l Performed Ordering Provider: TISHA PAIZ Report Released Date/Time: Aug 09, 2023 09:02 AM Reporting Lab: [facility] [address] Performing Lab: [facility] [address] [facility] CBC & DIFF PLATELETS [#/VOLUME] IN BLOOD BY AUTOMATED COUNT 421 10*3/u L 150 - 400 08/09 H Specimen Type: BLOOD Comment: Automated Differentia l Performed Ordering Provider: TISHA PAIZ Report Released Date/Time: Aug 09, 2023 09:02 AM Reporting Lab: [facility] [address] Performing Lab: [facility] [address] [facility] CBC & DIFF PLATELET MEAN VOLUME [ENTITIC VOLUME] IN BLOOD BY AUTOMATED COUNT 10.1 fL 7.4 - 10.4 08/09 Specimen Type: BLOOD Comment: Automated Differentia l Performed Ordering Provider: TISHA PAIZ Report Released Date/Time: Aug 09, 2023 09:02 AM Reporting Lab: [facility] [address] Performing Lab: [facility] [address] [facility] CBC & DIFF NEUTROPHILS /100 LEUKOCYTES IN BLOOD BY MANUAL COUNT 79.6 40.0 - 80.0 08/09 Specimen Type: BLOOD Comment: Automated Differentia l Performed Ordering Provider: TISHA PAIZ Report Released Date/Time: Aug 09, 2023 09:02 AM Reporting Lab: [facility] [address] Performing Lab: [facility] [address] [facility] CBC & DIFF LYMPHOCYTES /100 LEUKOCYTES IN BLOOD BY MANUAL COUNT 9.2 15.0 - 45.0 08/09 L Specimen Type: BLOOD Comment: Automated Differentia l Performed Ordering Provider: TISHA PAIZ Report Released Date/Time: Aug 09, 2023 09:02 AM Reporting Lab: [facility] [address] Performing Lab: [facility] [address] [facility] CBC & DIFF MONOCYTES/1 00 LEUKOCYTES IN BLOOD BY AUTOMATED COUNT 7.1 2.0 - 12.0 08/09 Specimen Type: BLOOD Comment: Automated Differentia l Performed Ordering Provider: TISHA PAIZ Report Released Date/Time: Aug 09, 2023 09:02 AM Reporting Lab: [facility] [address] Performing Lab: [facility] [address] [facility] CBC & DIFF EOSINOPHILS /100 LEUKOCYTES IN BLOOD BY AUTOMATED COUNT 3.2 0.0 - 6.0 08/09 Specimen Type: BLOOD Comment: Automated Differentia l Performed Ordering Provider: TISHA PAIZ Report Released Date/Time: Aug 09, 2023 09:02 AM Reporting Lab: [facility] [address] Performing Lab: [facility] [address] [facility] CBC & DIFF BASOPHILS/1 00 LEUKOCYTES IN BLOOD BY MANUAL COUNT 0.4 0.0 - 2.0 08/09 Specimen Type: BLOOD Comment: Automated Differentia l Performed Ordering Provider: TISHA PAIZ Report Released Date/Time: Aug 09, 2023 09:02 AM Reporting Lab: [facility] [address] Performing Lab: [facility] [address] [facility] CBC & DIFF ERYTHROCYTE DISTRIBUTIO N WIDTH [RATIO] BY AUTOMATED COUNT 13.3 11.5 - 14.5 08/09 Specimen Type: BLOOD Comment: Automated Differentia l Performed Ordering Provider: TISHA PAIZ Report Released Date/Time: Aug 09, 2023 09:02 AM Reporting Lab: [facility] [address] Performing Lab: [facility] [address] [facility] CBC & DIFF LYMPHOCYTES [#/VOLUME] IN BLOOD BY AUTOMATED COUNT 1.00 10*3/u L 1.0 - 4.0 08/09 Specimen Type: BLOOD Comment: Automated Differentia l Performed Ordering Provider: TISHA PAIZ Report Released Date/Time: Aug 09, 2023 09:02 AM Reporting Lab: [facility] [id number] Performing Lab: [facility] [address] [facility] CBC & DIFF MONOCYTES [#/VOLUME] IN BLOOD BY AUTOMATED COUNT 0.77 10*3/u L 0.1 - 1.0 08/09 Specimen Type: BLOOD Comment: Automated Differentia l Performed Ordering Provider: TISHA PAIZ Report Released Date/Time: Aug 09, 2023 09:02 AM Reporting Lab: [facility] [phone] Performing Lab: [facility] [phone] [facility] CBC & DIFF NEUTROPHILS [#/VOLUME] IN BLOOD BY AUTOMATED COUNT 8.64 10*3/u L 2.0 - 7.7 08/09 H Specimen Type: BLOOD Comment: Automated Differentia l Performed Ordering Provider: TISHA PAIZ Report Released Date/Time: Aug 09, 2023 09:02 AM Reporting Lab: [facility] [id number] Performing Lab: [facility] [address] [facility] CBC & DIFF EOSINOPHILS [#/VOLUME] IN BLOOD BY AUTOMATED COUNT 0.35 10*3/u L 0 - 0.5 08/09 Specimen Type: BLOOD Comment: Automated Differentia l Performed Ordering Provider: TISHA PAIZ Report Released Date/Time: Aug 09, 2023 09:02 AM Reporting Lab: [facility] [phone] Performing Lab: [facility] [address] [facility] CBC & DIFF BASOPHILS [#/VOLUME] IN BLOOD BY AUTOMATED COUNT 0.04 10*3/u L 0 - 0.2 08/09 Specimen Type: BLOOD Comment: Automated Differentia l Performed Ordering Provider: TISHA PAIZ Report Released Date/Time: Aug 09, 2023 09:02 AM Reporting Lab: [facility] [id number] Performing Lab: [facility] [id number] [facility] CBC & DIFF IG(META,MYE LO,PRO) 0.5 08/09 Specimen Type: BLOOD Comment: Automated Differentia l Performed Ordering Provider: TISHA PAIZ Report Released Date/Time: Aug 09, 2023 09:02 AM Reporting Lab: [facility] [id number] Performing Lab: [facility] [address] [facility] CBC & DIFF IMMATURE GRANULOCYTE S [PRESENCE] IN BLOOD BY AUTOMATED COUNT 0.05 10*3/u L 0 - 0.1 08/09 Specimen Type: BLOOD Comment: Automated Differentia l Performed Ordering Provider: TISHA PAIZ Report Released Date/Time: Aug 09, 2023 09:02 AM Reporting Lab: [facility] [id number] Performing Lab: [facility] [address] [facility] Vital Signs Combined list of inpatient and outpatient Vital Signs from Department of Defense and Veterans Affairs, ranging from 12 months to all on record, depending upon the facility. Vital Sign Value Date Comments Source Encounters Combined list of: 1) Encounters from Department of Veterans Affairs facilities going back up to thelast 18 months. 2) Encounters from the Department of [facility] facilities going back up to 280 months. Location Location Details Encounter Type Encounter Number Reason For Visit Attending Provider ADM Date DC Date Status Disposition Source [facility] Outpatient Encounter [id number] 08/06 [facility] Outpatient Encounter [id number] 08/09 [facility] OFFICE O/P EST MOD 30-39 MIN [id number] Diagnos is: ICD-10- CM Z00.8 Encount er for other general examina tion
Tavo PAIZ 08/09 [facility] Social History Combined list of available smoking, tobacco, and other social history from Department of [facility] and Veterans [facility] facilities. Social History Type Response Date Comment Sourc e Tobacco smoking status NHIS VA-TOBACCO FORMER USER 08/09/2023 [facility] History of tobacco use AZ-TOBACCO QUIT 1 5 YRS OR MORE 08/09/2023 [facility] History of tobacco use VA-TOBACCO FORMER USER 08/06/2022 [facility] History of tobacco use VA-TOBACCO FORMER USER 06/14/2021 [facility] History of tobacco use AZ-TOBACCO QUIT 1 5 YRS OR MORE 04/13/2020 [facility] History of tobacco use VA-TOBACCO FORMER USER 12/19/2018 [facility] History of tobacco use FORMER TOBACCO US ER 7Y OR GREATER 01/30/2018 [facility] History of tobacco use FORMER TOBACCO US ER 7Y OR GREATER 03/18/2017 [facility] History of tobacco use FORMER TOBACCO US ER 7Y OR GREATER 03/16/2016 [facility] History of tobacco use FORMER TOBACCO US ER 7Y OR GREATER 02/21/2015 [facility] History of tobacco use FORMER TOBACCO US ER 7Y OR GREATER 04/12/2014 [facility] Advance Directives List of completed, amended, or rescinded Advance Directives on record at Department of Veterans Affairs facilities. An actual copy of the Directive is not included. Date Advance Directive Provider Source 03/27/2016 [facility] DIRECTIVE DISCUSSION [facility]
--- OUTSIDE RECORDS SUMMARY | 2024-05-29 09:09 | XMS_ITS | Encounter Summary ---
Author Organization [facility] Address [address] [place] [address] Care Team Providers Care Replanting Machine Crewman Name Role Phone Elsewhere, Pcp Primary Care Provider Unavailabl e Reason for Visit * Reason Comments Med Refill Encounter Details Date Type Department Care Team (Late st Contact Info) Description 04/27/2024 Refill Division of Nephrology and Hypertension in [place], [place] [address] [place] [phone] Iesha Salcedo M.D. [address] [place] [phone] Med Refill Social History Tobacco Use Types Packs/Day Years Used Date Smoking Tobacco: Former Cigarettes 1 44 0 01/24/1960 - 01/24/2004 Smokeless Tobacco: Never Alcohol Use Standard Drinks/Week Comments Not Currently 0 (1 standard drink = 0.6 oz pur e alcohol) [facility] Utilities Answer Date Recorded In [...] often do you attend chur ch or shinto services? Never 02/08/2023 Do you belong to any clubs o r organizations such as baptism groups, unions, fraternal or athletic groups, or [...] care, and heating? Not very hard 02/08/2023 [facility] of Occupat ional Health - Occupational Stress [...] place to sleep or slept in a senior care (including now)? No 02/08/2023 Nutrition Answer Date [...] documented as of this encounter Care Teams Replanting Machine Crewman Relationship Specialty Start Date End Date Elsewhere, Pcp PCP - General Internal Medicine 04/17/22 documented as of this encounter
--- OUTSIDE RECORDS SUMMARY | 2024-05-29 09:09 | XMS_ITS | Encounter Summary ---
Author Organization [facility] Address [address] [place] [address] Care Team Providers Care Instrument Lens Inspector Name Role Phone Elsewhere, Pcp Primary Care Provider Unavailabl e Reason for Visit * Reason Comments Med Refill Encounter Details Date Type Department Care Team (Late st Contact Info) Description 05/07/2024 Refill Division of Nephrology and Hypertension in [place], [place] [address] [place] [phone] Iesha Salcedo M.D. [address] [place] [phone] Med Refill Social History Tobacco Use Types Packs/Day Years Used Date Smoking Tobacco: Former Cigarettes 1 44 0 01/24/1960 - 01/24/2004 Smokeless Tobacco: Never Alcohol Use Standard Drinks/Week Comments Not Currently 0 (1 standard drink = 0.6 oz pur e alcohol) [facility] Utilities Answer Date Recorded In the [...] often do you attend chur ch or baptist services? Never 02/08/2023 Do you belong to any clubs o r organizations such as uatsdin groups, unions, fraternal or athletic groups, or [...] care, and heating? Not very hard 02/08/2023 [facility] of Occupat ional Health - [...] place to sleep or slept in a penitentiary (including now)? No 02/08/2023 Nutrition Answer Date [...] documented as of this encounter Care Teams Instrument Lens Inspector Relationship Specialty Start Date End Date Elsewhere, Pcp PCP - General Internal Medicine 04/17/22 documented as of this encounter
--- OUTSIDE RECORDS SUMMARY | 2024-05-29 09:09 | XMS_ITS | Encounter Summary ---
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 [address] [place] [phone] [facility] Referral ID Status Reason Start Date Expiration Date Visits Re quested Visits Authorized [id number] Closed 03/02/2024 03/02/2025 1 1 Encounter Details Date Type Department Care Team (Latest Contact Info) Description 03/03/2024 10:13 AM CDT - 03/03/2024 11:59 PM CDT Hospital Encounter Department of Radiology in [place], [place] [address] [place] [phone] Simin Centeno M.D., Ph.D. 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 Never 02/08/2023 Do you belong to [...] place to sleep or slept in a correction (including now)? No 02/08/2023 Nutrition Answer Date [...] documented as of this encounter Care Teams Graphics Intern Relationship Specialty Start Date End Date Elsewhere, Pcp PCP - General Internal Medicine 04/17/22 documented as of this encounter
--- OUTSIDE RECORDS SUMMARY | 2024-05-29 09:09 | XMS_ITS | Encounter Summary ---
Author Organization [facility] Address [address] [place] [address] Care Team Providers Care Glass Edger Name Role Phone Elsewhere, Pcp Primary Care Provider Unavailabl e Reason for Referral * Outpatient (Routine) - Authorized Specialty Diagnoses / Procedures Referred By Matt atkinson Referred To Contact Nephrology and Hypertension Simon Kline M.D. [address] [place] [phone] Iesha Salcedo M.D. [address] [place] [phone] Referral ID Status Reason Start Date Expiration Date V isits Requested Visits Authorized [id number] Authorized 03/12/2024 09/11/2025 1 1 Reason for Visit * Outpatient (Routine) - Closed Specialty Diagnoses / Procedures Referred By Matt atkinson Referred To Contact Nephrology and Hypertension Diagnoses Glomerulonephritis Membranous Malinda Benavidez M.B.BAmberS. [address] [place] [phone] Iesha Salcedo M.D. [address] [place] [phone] Referral ID Status Reason Start Date Expiration Date Visits Re quested Visits Authorized [id number] Closed 08/15/2023 08/14/2026 1 1 Encounter Details Date Type Department Care Team (Latest Contact Info) Description 03/12/2024 10:00 AM CDT Telemedicine Division of Nephrology and Hypertension in [place], [place] [address] [place] [phone] Iesha Salcedo M.D. [address] [place] [phone] Glomerulonephritis Membranous Social History Tobacco Use Types Packs/Day Years Used Date Smoking Tobacco: Former Cigarettes 1 44 0 01/24/1960 - 01/24/2004 Smokeless Tobacco: Never Alcohol Use Standard Drinks/Week Comments Not Currently 0 (1 standard drink = 0.6 oz pur e alcohol) [facility] Utilities Answer Date Recorded In the past 12 months has e [employer], gas, oil, or water [employer] threatened to shut off services in your [...] week 02/08/2023 How often do you attend [facility] or rastafari services? Never 02/08/2023 Do you belong to any clubs o r organizations such as buddhism groups, unions, fraternal or athletic groups, or [...] care, and heating? Not very hard 02/08/2023 [facility] of Occupat ional Health - Occupational Stress [...] place to sleep or slept in a snf (including now)? No 02/08/2023 Nutrition Answer Date [...] audio/video technology by [facility] the [facility]'s Home SUBJECTIVE [...] mg/g in May 2020, and further to 34870dt/g in July 2020, 45036 mg/g in August, and 47,000 mg/g in [...] hour(s)). Recent Labs 02/24/24 0730 08/08/23 0857 [id number] 121 144 ASSESSMENT / PLAN #1 Chronic [...] documented as of this encounter Care Teams Glass Edger Relationship Specialty Start Date End Date Elsewhere, Pcp PCP - General Internal Medicine 04/17/22 documented as of this encounter
--- OUTSIDE RECORDS SUMMARY | 2024-05-29 09:09 | XMS_ITS | Encounter Summary ---
Author Organization [facility] Address [address] [place] [address] Care Team Providers Care Duck Farmer Name Role Phone Elsewhere, Pcp Primary Care Provider Unavailabl e Encounter Details Date Type Department Care Team (Late st Contact Info) Description 02/29/2024 Orders Only Division of Hematology in [place], [place] [address] [place] [phone] Simin Centeno M.D., Ph.D. [address] [place] [phone] Social History Tobacco Use Types Packs/Day Years Used Date Smoking Tobacco: Former Cigarettes 1 44 0 01/24/1960 - 01/24/2004 Smokeless Tobacco: Never Alcohol Use Standard Drinks/Week Comments Not Currently 0 (1 standard drink = 0.6 oz pur e alcohol) [facility] Utilities Answer Date Recorded In the past 12 months has [facility] [employer], gas, oil, or water [employer] threatened to shut off services in your [...] often do you attend chur ch or restoration services? Never 02/08/2023 Do you belong to any clubs o r organizations such as rastafari groups, unions, fraternal or athletic groups, or [...] care, and heating? Not very hard 02/08/2023 [facility] of Occupat ional Health - Occupational [...] documented as of this encounter Care Teams Duck Farmer Relationship Specialty Start Date End Date Elsewhere, Pcp PCP - General Internal Medicine 04/17/22 documented as of this encounter
--- OUTSIDE RECORDS SUMMARY | 2024-05-29 09:09 | XMS_ITS | Encounter Summary ---
Author Organization [facility] Address [address] [place] [address] Care Team Providers Care Dip Dyer Name Role Phone Elsewhere, Pcp Primary Care Provider Unavailabl e Encounter Details Date Type Department Care Team (Latest Contact Info) Description 02/24/2024 8:49 AM CDT - 02/24/2024 11:59 PM CDT Hospital Encounter Department of Laboratory Medicine in [place], [place] [address] [place] [phone] Malinda Benavidez M.B.B.S. [address] [place] [phone] Glomerulonephritis Membranous Discharge Disposition: Home or Self Care Social History Tobacco Use Types Packs/Day Years Used Date Smoking Tobacco: Former Cigarettes 1 44 0 01/24/1960 - 01/24/2004 Smokeless Tobacco: Never Alcohol Use Standard Drinks/Week Comments Not Currently 0 (1 standard drink = 0.6 oz pur e alcohol) [facility] Utilities Answer Date Recorded In the past 12 months has e [employer], gas, oil, or water company threatened to [...] How often do you attend chur or yazdanism services? Never 02/08/2023 Do you belong to any clubs o r organizations such as catholic groups, unions, fraternal or athletic groups, or [...] care, and heating? Not very hard 02/08/2023 [facility] of Occupat ional Health - Occupational [...] 8.0 02/24/2024 9:17 AM CDT NPR[facility] Specific [place] 1.010 1.001 - 1.035 02/24/2024 9:17 AM [...] CDT Malinda Horvath LAB URINE OR DERABLES [facility] [address] [place] [address], [facility] NPRG [facility] [address] [place] [address] * Protein/Creatinine Ratio, Random, Urine (02/24/2024 9:01 AM CDT) Protein, Total, Random, U 5 mg/dL 02/24/2024 9:31 AM CDT NPRG Creatinine, Random, U 41 16 - 326 mg/dL 02/24/2024 9:31 AM CDT NPRG Protein/Creatin ine Ratio 0.12 <0.18 mg/mg 02/24/2024 9:31 AM CDT NPRG Urine (Urine, Midstream) 02/24/2024 9:01 AM CDT 02/24/2024 9:13 AM CDT Malinda DoyleSAmber LAB URINE OR DERABLES [facility] [address] [place] [address], [facility] NPRG [facility] [address] [place] [address] documented in this encounter Visit Diagnoses Diagnosis Glomerulonephritis Membranous documented in this encounter Additional Health Concerns Infection Onset Date Last Indicated Resolved Time Protective Environment 03/01/2023 03/01/2023 documented as of this encounter Care Teams Dip Dyer Relationship Specialty Start Date End Date Elsewhere, Pcp PCP - General Internal Medicine 04/17/22 documented as of this encounter
--- OUTSIDE RECORDS SUMMARY | 2024-05-29 09:09 | XMS_ITS | Encounter Summary ---
Author Organization [facility] Address [address] [place] [address] Care Team Providers Care Ribbon Cleaner Name Role Phone Elsewhere, Pcp Primary Care Provider Unavailabl e Encounter Details Date Type Department Care Team (Latest Contact Info) Description 02/24/2024 8:49 AM CDT - 02/24/2024 11:59 PM CDT Hospital Encounter Department of Laboratory Medicine in [place], [place] [address] [place] [phone] Nan Romeo P.A.-C., M.S. 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 Never 02/08/2023 Do you belong to any clubs o r organizations such as rastafarian groups, unions, fraternal or athletic groups, or [...] care, and heating? Not very hard 02/08/2023 [facility] of Occupat ional Health - Occupational Stress [...] place to sleep or slept in a halfway (including now)? No 02/08/2023 Nutrition Answer Date [...] G (IgG) (02/24/2024 8:59 AM CDT) Pathologist [facility] Immunoglobulin G (IgG), S 689(L) 767 - 1590 mg/dL 02/25/2024 9:55 AM CDT [facility] Blood (Blood, Venous) 02/24/2024 8:59 AM CDT 02/25/2024 6:16 AM CDT Nan Romeo P.A.-C. M.S. LAB BLOOD ADD-ON [facility] [address] [place] [address] [facility] [address] [place] [address] * Reticulocytes (02/24/2024 8:59 AM CDT) Reticulocytes, B 1.54 0.60 - 2.71 % 02/24/2024 3:31 PM CDT [facility] Absolute Reticulocyte 65.0 30.4 - 110.9 x10(9)/L 02/24/2024 3:31 PM CDT [facility] Blood (Blood, Venous) 02/24/2024 8:59 AM CDT 02/24/2024 3:11 PM CDT Nan Romeo P.A.-C. M.S. LAB BLOOD ADD-ON Performing Organization Address City/[facility]/ZIP Co de Phone Number [facility] [address] [place] [address], [facility] [address] [place] [address] * LD (Lactate Dehydrogenase) (02/24/2024 8:59 AM CDT) Lactate Dehydrogenase (LD), P 167 122 - 222 U/L 02/24/2024 9:36 AM CDT [facility] Blood (Blood, Venous) 02/24/2024 8:59 AM CDT 02/24/2024 9:13 AM CDT Nan Romeo P.A.-C. M.S. LAB BLOOD NON ADD-ON Performing Organization Address [facility] Co de Phone Number [facility] [address] [place] [address], [facility] NPRG [facility] [address] [place] [address] * Parathyroid Hormone (PTH) (02/24/2024 8:59 AM CDT) Parathyroid Hormone (PTH), S 35 15 - 65 pg/mL 02/24/2024 4:31 PM CDT [facility] Comment: Biotin has been identified by the transportation maintenance operator as a potential interfering substance. Higher concentrations of biotin may be found in multivitamins, hair/nail supplements, and workout supplements. If the result does not match clinical observations, repeat testing after patient refrains from the use of supplements for at least 12 hours. Blood (Blood, Venous) 02/24/2024 8:59 AM CDT 02/24/2024 3:11 PM CDT Malinda Horvath LAB BLOOD AD D-ON Performing Organization Address City/[facility]/ZIP Co de Phone Number [facility] [address] [place] [address], [facility] [address] [place] [address] * S-TSH (Thyroid-Stimulating Hormone - Sensitive) (02/24/2024 8:59 AM CDT) TSH, Sensitive 2.0 0.3 - 4.2 mIU/L 02/24/2024 9:58 AM CDT NPR Blood (Blood, Venous) 02/24/2024 8:59 AM CDT 02/24/2024 9:13 AM CDT Malinda BenjaminB.S. LAB BLOOD AD D-ON Performing Organization Address [facility] Co de Phone Number [facility] [address] [place] [address], [facility] [address] [address] * (ABNORMAL) PSA (Prostate-Specific Antigen) Screen (02/24/2024 [...] LAB BLOOD AD D-ON Performing Organization Address [facility]/ZIP Co de Phone Number [facility] [address] [place] [address], [facility] NPRG [facility] [place] [address] [place] [address] * (ABNORMAL) Comprehensive Metabolic Panel (02/24/2024 8:59 [...] CDT Malinda Horvath LAB BLOOD AD D-ON [facility] [address] [place] [address], [facility] NPRG [facility] [address] [place] [address] * (ABNORMAL) CBC with Differential, Blood (02/24/2024 [...] CDT Malinda Horvath LAB BLOOD AD D-ON [facility] [address] [place] [address], [facility] NPRG [facility] [address] [place] [address] documented in this encounter Visit Diagnoses Diagnosis Glomerulonephritis Membranous Hypothyroidism Primary 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
--- OUTSIDE RECORDS SUMMARY | 2024-05-29 09:09 | XMS_ITS | Encounter Summary ---
Author Organization [facility] Address [address] [place] [id number] Care Team Providers Care Customer Service Officer Name Role Phone Elsewhere, Pcp Primary Care Provider Unavailabl e Reason for Referral * Outpatient (Routine) - Authorized Specialty Diagnoses / Procedures Referred By Matt atkinson Referred To Contact Hematology Oncology Simin Centeno M.D., Ph.D. 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 [address] [place] [phone] [facility] Referral ID Status Reason Start Date Expiration Date Visits Re quested Visits Authorized [id number] Closed 03/02/2024 03/02/2025 1 1 Reason for Visit * Outpatient (Routine) - Closed Specialty Diagnoses / Procedures Referred By Matt atkinson Referred To Contact Hematology Oncology Nan Romeo P.A.-C., M.S. [address] [place] [phone] [facility] Referral ID Status Reason Start Date Expiration Date Visits Re quested Visits Authorized [id number] Closed 08/15/2023 08/14/2026 1 1 Encounter Details Date Type Department Care Team (Late st Contact Info) Description 03/02/2024 1:00 PM CDT Office Visit Division of Hematology in [place], [place] [address] [place] [phone] Simin Centeno M.D., Ph.D. 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 Never 02/08/2023 Do you belong to [...] care, and heating? Not very hard 02/08/2023 [facility] - Occupational Stress [...] was high (19) around 2014- at the [place], but he was not given a diagnosis [...] He saw Dr. Salcedo in Nephrology in [place] onApril 2020. The 24 hour urine protein [...] 20% CLL/SLL involvement 03/29/2021 [place] Referred to [facility] for consideration of therapy Bone marrow [...] explanation of plan of care, chart review, [id number] interview. documented in this encounter Plan of [...] Diagnoses Order Schedule Hematology office visit (clinic) [facility]; CLL; General Outpatient Referral Routine Expected: 09/01/2024, [...] documented as of this encounter Care Teams Customer Service Officer Relationship Specialty Start Date End Date Elsewhere, Pcp PCP - General Internal Medicine 04/17/22 documented as of this encounter
== END 2024-05-25 15:03 | disposition home or self-care (01) ==
LOC: AMB 05-29 09:06
PROVIDERS: PCP Family Medicine; Visit Provider Family Medicine
DX: S09.92XA Unspecified injury of nose, initial encounter (principal); V43.52XA Car driver injured in collision with other type car in traffic accident, initial encounter; Y92.481 Parking lot as the place of occurrence of the external cause

== ENCOUNTER 2024-05-25 16:07 | Emergency (ER) | payer OTHER, MEDICARE, BC, SELFPAY ==
[2024-05-25 16:11] VITALS: BP 128/83; PULSE 89; RESP 20; TEMP 36.9; O2SAT 96; BMI 22.4
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
--- OUTSIDE RECORDS SUMMARY | 2024-05-25 17:19 | XMS_ITS | Clinical Summary ---
Author Organization [employer] [facility] [employer] Address [place], [place] [address] Care Team Providers Care Construction Person Name Role Phone Dixon Dangelo MD Primary Care Provider [phone] Allergies Active Allergy Reactions Criticality Noted Date [...] age 65+ 07/26/2024 08/16/2012, 010 Care Teams Construction Person Relationship Specialty Start Date End Date Dixon Dangelo MD [address] [place] [address] PCP - General Family Practice 04/25/22
--- OUTSIDE RECORDS SUMMARY | 2024-05-25 17:19 | XMS_ITS | Encounter Summary ---
Author Name [facility] [place] [facility] [place] [facility] [place] Address [address] [place] [id number] Care Team Providers Care Environmental Protection Inspector Name Role Phone REDDY PAIZ Primary Care Provider Unavaila ble Insurance Providers: All historical and current Section Date Range: From patient's date of to the date document was created. This section includes the names of all active insurance providers for the patient. Insurance Provider Type of Coverage Plan Name Start of Policy Coverage End of Policy Coverage Group Number Member ID Insurance Provider's Telephone Number Policy Ruiz's Name Patient's Relationship to Policy Ruiz BCBS [facility] (WNR) MEDICARE ADVANTAGE [facility] (WNR) Nov 25, 2016 [id number] [phone] DO ABDULLAHI CANO PATIENT Selected Encounter This section includes the information on record at [place] for the Encounter. Date/Time Encounter Type Encounter Description Reason Provider Source Aug 09, 2023 08:30 AM OFFICE O/P EST MOD 30-39 MIN PRIMARY CARE/MEDICINE ICD-10-CM Z00.8 Encounter for other general examination BALJEET PAIZ Encounter Template Text not used by [place] Assessments - Encounter Diagnoses This section includes the primary and secondary diagnoses documented for the Encounter. Date/Time Primary/Secondary Diagnosis Diagnosis Name Provider Source Aug 09, 2023 09:17 AM PRIMARY Encounter for other general examination JULIENNE PAIZ [facility] Aug 09, 2023 09:17 AM SECONDARY Benign prostatic hyperplasia with lower urinary tract symp JULIENNE PIAZ [facility] Aug 09, 2023 09:17 AM SECONDARY Chronic lymphocytic leukemia of B-cell type in remission JULIENNE PAIZ [facility] Aug 09, 2023 09:17 AM SECONDARY Chronic obstructive pulmonary disease, unspecified [facility] Aug 09, 2023 09:17 AM SECONDARY Encounter for immunization NORRIS KARIMI [facility] Aug 09, 2023 09:17 AM SECONDARY Hypothyroidism, unspecified JULIENNE PAIZ [facility] Aug 09, 2023 09:17 AM SECONDARY Nephrotic syndrome w diffuse membranous glomerulonephritis JULIENNE PAIZ [facility] Lab Results: +/- 30 days of the encounter This section includes the Chemistry and Hematology Lab Results on record with [place] for the patient. Radiology Reports and Pathology Reports are provided separately, in subsequent sections. Lab Results This section contains the Chemistry/Hematology Results that were resulted 30 days before or 30 daysafter the date of the Encounter. Date/Time Source Result Type Result - Unit Interpretation Reference Range Comment Aug 09, 2023 09:15 AM [facility] TSH W/REFLEX TO FREE T4 Specimen Type: PLASMA No comment entered. Ordering Provider: BALJEET PAIZ Report Released Date/Time: Aug 09, 2023 09:02 AM Reporting Lab: [facility] [id number] Performing Lab: [facility] [id number] TSH 0.41 u[IU]/mL 0.35-4.94 Aug 09, 2023 09:15 AM [facility] COMPREHENSIVE METABOLIC PANEL+MG Specimen Type: PLASMA No comment entered. Ordering Provider: BALJEET PAIZ Report Released Date/Time: Aug 09, 2023 09:02 AM Reporting Lab: [facility] [id number] Performing Lab: [facility] [id number] CREATININE 2.0 mg/dL H 0.7-1.2 UREA NITROGEN 36 mg/dL H 8-26 GLUCOSE 97 mg/dL 70-100 SODIUM 139 mmol/L 136-145 POTASSIUM 4.8 mmol/L 3.5-5.1 CHLORIDE 106 mmol/L 98-107 CO2 23 mmol/L 22-29 CALCIUM 9.2 mg/dL 8.4-10.2 PROTEIN,TOTAL 6.4 g/dL 6.0-8.3 ALBUMIN 3.9 g/dL 3.5-5.2 BILIRUBIN, TOTAL 0.4 mg/dL 0.2-1.2 MAGNESIUM 1.8 mg/dL 1.6-2.6 ANION GAP 10 mmol/L 5-15 ALKALINE PHOSPHATASE 146 U/L 40-150 ALT/SGPT 27 U/L <55 AST/SGOT 23 U/L <34 .CREAT EGFR(CKD-EPI) 34 L >60 Aug 09, 2023 09:15 AM [facility] CBC & DIFF Specimen Type: BLOOD Comment: Automated Differential Performed Ordering Provider: BALJEET PAIZ Report Released Date/Time: Aug 09, 2023 09:02 AM Reporting Lab: [facility] [id number] Performing Lab: [facility] [id number] WBC 10.85 10*3/uL 4.0-11.0 RBC 3.75 10*6/uL L 4.6-6.2 HGB 11.6 g/dL L 13.5-17.9 HCT 36.2 L 41-54 MCV 96.5 fL 80-100 MCH 30.9 pg 27-33 MCHC 32.0 g/dL 32.0-37.5 PLT 421 10*3/uL H 150-400 MPV 10.1 fL 7.4-10.4 NEUT 79.6 40.0-80.0 LYMPHS 9.2 L 15.0-45.0 MONO 7.1 2.0-12.0 EOSINO 3.2 0.0-6.0 BASO 0.4 0.0-2.0 RDW 13.3 11.5-14.5 ABS LYMPH 1.00 10*3/uL 1.0-4.0 ABS MONO 0.77 10*3/uL 0.1-1.0 ABS NEUT 8.64 10*3/uL H 2.0-7.7 ABS EOS 0.35 10*3/uL 0-0.5 ABS BASO 0.04 10*3/uL 0-0.2 IG(META,MYELO,P RO) 0.5 ABS IMMATURE GRAN 0.05 10*3/uL 0-0.1 Vital Signs: All taken on the encounter date This section contains inpatient and outpatient Vital Signs collected on the date of the Encounter. Date/Time Temperature Pulse Blood Pressure Respiratory Rate SP02 Pain Height Weight Body Mass Index Source Aug 09, 2023 08:40 AM 97.9 F 76 /min 106/68 mm[Hg] 76 /min 97 % 0 71.5 in 170.9 lb 24 [facility] Immunizations: All administered on the encounter date This section contains immunizations associated to the Encounter. Immunization Series Date Issued Reaction Comments INFLUENZA, HIGH-DOSE, QUADRIVALENT Aug 09, 2023 Social History: Smoking Status (Most current) and Tobacco Use (All prior to encounter date) This section includes the most current, and the historical, smoking and tobacco- related health factors from the [place] facility where the Encounter took place. Current Smoking Status This section includes the most current smoking, or tobacco-related health factor, from the [place] facility where the Encounter took place. Date/Time Current Smoking Status Comment Facil ity Aug 09, 2023 08:30 AM VA-TOBACCO FORMER USER [facility] Tobacco Use History This section includes a history of the smoking, or tobacco-related health factors, that were collected on or before the date of the Encounter. The data comes from the [place] facility where the Encounter took place. Date/Time Smoking Status/Tobacco Use Comment F acility Aug 09, 2023 08:30 AM VA-TOBACCO QUIT 15 YRS OR MORE [facility] Aug 06, 2022 08:00 AM VA-TOBACCO FORMER USER [facility] Aug 06, 2022 08:00 AM VA-TOBACCO QUIT 15 YRS OR MORE [facility] Jun 14, 2021 08:30 AM VA-TOBACCO FORMER USER [facility] Jun 14, 2021 08:30 AM VA-TOBACCO QUIT 15 YRS OR MORE [facility] April 13, 2020 10:29 AM VA-TOBACCO FORMER USER [facility] April 13, 2020 10:29 AM VA-TOBACCO QUIT 15 YRS OR MORE [facility] Dec 19, 2018 10:53 AM VA-TOBACCO FORMER USER [facility] Dec 19, 2018 10:53 AM VA-TOBACCO QUIT 15 YRS OR MORE [facility] Jan 30, 2018 08:52 AM FORMER TOBACCO USER 7Y OR GREATE R [facility] Mar 18, 2017 08:01 AM FORMER TOBACCO USER 7Y OR LALITO R [facility] Mar 16, 2016 04:12 AM FORMER TOBACCO USER 7Y OR PRASADE R [facility] Feb 21, 2015 01:12 PM FORMER TOBACCO USER 7Y OR PRASADE R [facility] Advance Directives: All historical and current Section Date Range: From patient's date of to the date document was created. This section includes ALL of a patient's completed or amended [place] Advance and Rescinded Directives. The entries below indicate that a directive exists for the patient, but an actual copy is not included with this document. The data comes from all [place] facilities. Date Advance Directives Provider Source March 27, 2016 ADVANCE DIRECTIVE DISCUSSION EMY TAVERAS CBTIMMY March 27, 2016 ADVANCE DIRECTIVE EZEKIEL TAVERAS [facility] Encounter Notes: All associated encounter notes This section contains the clinical notes associated to the Encounter. Date/Time Encounter Note(s) Provider Source Aug 11, 2023 01:07 PM LETTERS: LOCAL TITLE: FOLLOW UP RESULTS LETTER STANDARD TITLE: LETTERS DATE OF NOTE: AUG 11, 2023@13:07 ENTRY DATE: AUG 11, 2023@13:07:54 AUTHOR: REDDY PAIZ COSIGNER: URGENCY: STATUS: COMPLETED [facility] [address] [place] [address] Jul LUKE JAN CANO [address] [facility] [id number] Dear : I am writing to inform you of the results of testing that you had done recently at the [facility]. - Complete Blood Count (red/white blood cell counts and platelets) White count: WBC 10.85 (08/09/23) (normal is 4.0-11.0) Hemoglobin: HGB 11.6 L (08/09/23) (normal Male is 13.5-17.9; Female is 11.5-16) Hematocrit: HCT 36.2 L (08/09/23) (normal Male is 41-54; Female is 34.5-48) Platelets: PLT 421 H (08/09/23) (normal is 150-400) - Electrolytes including sodium and potassium SODIUM 139 (08/09/23) (normal is 136-145) POTASSIUM 4.8 (08/09/23) (normal is 3.5-5.1) - Calcium CALCIUM 9.2 (08/09/23) (normal is 8.5-10.1) - Kidney function CREATININE 2.0 H (08/09/23)(normal Male = less than 1.2; normal Female = less than 1.0)) UREA NITROGEN 36 H (08/09/23) (normal Male is 8-26; normal Female is 10-20) - Blood Sugar GLUCOSE 97 (08/09/23) (normal is 70 - 100 if fasting) - Liver function Tests AST/SGOT 23 (08/09/23) (normal 15-37) ALT/SGPT 27 (08/09/23) (normal 13-61) ALK PHOSPHATASE 146 (08/09/23) (normal 45-117) BILIRUBIN, TOTAL 0.4 (08/09/23) (normal 0.2-1.0) - Thyroid Function: TSH 0.41 (08/09/23) (normal 0.3-5.0) Additional Comments: Your hgb is down a little and your creatinine is up a little. This could be due to your chemo so please share these results with your outside providers. If you drink more more fluids this may bring your creatinine down If you have any further questions or problems, please contact our nursing staff or provider at the following number: [phone]. Sincerely, REDDY PAIZ PHYSICIAN REDDY PAIZ [facility] Aug 09, 2023 09:17 AM MEDICATION MGT NOT E: LOCAL TITLE: MEDICATION RECONCILIATION NOTE STANDARD TITLE: MEDICATION MGT NOTE DATE OF NOTE: AUG 09, 2023@09:17 ENTRY DATE: AUG 09, 2023@09:17:34 AUTHOR: REDDY PAIZ EXP COSIGNER: URGENCY: STATUS: COMPLETED MEDICATION RECONCILIATION Active Outpatient Medications (excluding Supplies): Outpatient Medications Status 1) ALBUTEROL 90MCG (CFC-F) 200D ORAL INHL INHALE 2 PUFFS PENDING BY INHALATION EVERY 6 HOURS NEEDED SHAKE WELL (FOR IMMEDIATE RELIEF). FOR SHORTNESS OF BREATH 2) FLUOCINONIDE 0.05% CREAM APPLY THIN LAYER TOPICALLY PENDING TWICE A DAY AVOID FACE,GROIN & ARMPITS *FOR EXTERNAL USE ONLY 3) FLUTICAS 500/SALMETEROL 50 INHL DISK 60 INHALE 1 PUFF ACTIVE BY INHALATION TWICE A DAY FOR COPD *RINSE MOUTH AFTER EACH USE* 4) FLUTICAS 500/SALMETEROL 50 INHL DISK 60 INHALE 1 PUFF PENDING BY INHALATION TWICE A DAY *RINSE MOUTH AFTER EACH USE* 5) FLUTICASONE PROP 50MCG 120D NASAL INHL SPRAY 1 SPRAY PENDING IN EACH NOSTRIL EVERY DAY NEEDED 6) SIMVASTATIN 80MG TAB TAKE ONE-HALF TABLET BY MOUTH AT PENDING BEDTIME FOR CHOLESTEROL Non-VA Medications Status 1) Non-VA ACALABRUTINIB 100MG CAP 100MG MOUTH EVERY DAY ACTIVE 2) Non-VA ACALABRUTINIB 100MG TAB 100MG MOUTH TWICE A ACTIVE DAY 3) Non-VA CALCIUM CARBONATE 500MG TAB 500MG MOUTH EVERY ACTIVE DAY 4) Non-VA CENTRUM TAB--OTC 1 TABLET MOUTH ACTIVE 5) Non-VA CHOLECALCIF 25MCG (D3-1,000UNIT) TAB 1000UNIT ACTIVE MOUTH DAILY 6) Non-VA CYANOCOBALAMIN 1000MCG TAB 1000MCG MOUTH QDAAY ACTIVE 7) Non-VA CYANOCOBALAMIN 100MCG TAB 500MCG MOUTH ACTIVE 8) Non-VA FLUTICASONE PROP 50MCG 120D NASAL INHL 2 ACTIVE SPRAYS ONE NOSTRIL EVERY DAY 9) Non-VA LEVOTHYROXINE NA (SYNTHROID) 50MCG TAB 50MCG ACTIVE MOUTH EVERY DAY 10) Non-VA LISINOPRIL 10MG TAB 10MG MOUTH EVERY DAY ACTIVE 11) Non-VA TAMSULOSIN HCL 0.4MG CAP 0.4MG MOUTH ACTIVE 17 Total Medications Medications listed above are accurate and should continue as ordered. /edith/ REDDY PAIZ PHYSICIAN Signed: 08/09/2023 09:17 [facility] PAIZ [facility] Aug 09, 2023 08:58 AM H & P NOTE: LOCAL TITLE: [facility] ANNUAL VISIT STANDARD TITLE: H & P NOTE DATE OF NOTE: AUG 09, 2023@08:58 ENTRY DATE: AUG 09, 2023@08:58:37 AUTHOR: REDDY PAIZ EXP COSIGNER: URGENCY: STATUS: COMPLETED Annual visit Non [facility] Providers: [facility], isabella parisi,[facility], Sam[facility] Chief complaint: Patient is here for a routine annual visit. HPI: Patibrian is doing well on current chemo for CLL so there have been no recent changes. Feels good. Assessment/Plan: 1.Routine labs today 2. ophtho sees regularly 3. dentist due 4. Audio bilat aides 2 years old 5. Medicatison reviewed, updated, renewed 6. Did recent FIT test which was negative through PCP he will discuss with them if he needs to continue Labs and medications reviewed with patient. Discussed plan of care, patient verbalized understanding and agrees with plan. FU in 1 year for annual exam, sooner with any concerns. Clinical Reminders: Follow Up Colonoscopy: Colonoscopy is due based on information available to this reminder. Patient declined screening/surveillance. Comment: did FIT test recently which was negative through his provider at [place] Past Medical History: Computerized Problem List is the source for the followin. Chronic obstructive lung disease ACTIVE 2. Hyperlipidemia ACTIVE meds since 2011? 3. Gastroesophageal reflux disease ACTIVE 4. Bilateral inguinal hernia ACTIVE repair with mesh at [facility] approx 2011? 5. Appendicitis ACTIVE hx appy - prior ruptured appy 2009 - [facility] 6. Polyp of colon ACTIVE benign polyp - advised repeat in 2016 7. Elevated PSA ACTIVE biopsies June 2014 - benign 8. Allergic rhinitis ACTIVE 9. Skin lesion ACTIVE 10. Hearing loss ACTIVE 11. Leukocytosis ACTIVE lab verified 03/18/2017 [facility] 12. Nephrotic syndrome with membranous glomerulonephri ACTIVE 13. Chronic lymphoid leukemia, disease (SNOMED CT 9281 ACTIVE 14. Hypothyroidism ACTIVE 15. 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 NEURO: neg for new motor or sensory complains SKIN: neg for new rash, lesion Physical Exam: Vitals: Blood Pressure: 106/68 (08/09/2023 08:40) Pulse: 76 (08/09/2023 08:40) Pulse Oximetry: 97% (08/09/2023 08:40) Resp: 76 (08/09/2023 08:40) Temp: 97.9 F [36.6 C] (08/09/2023 08:40) Height: 71.5 in [181.6 cm] (08/09/2023 08:40) Weight: 170.9 lb [77.52 kg] (08/09/2023 08:40) BMI:23.6 GENERAL:well developed, well nourished pt in nad. EYES:PERRLA,EOMI, conjuntiva clear, no discharge. EARS:canals clear, TMs intactbilat aides NOSE:Nostrils patent, no discharge, THROAT:No enlarged tonsils, no inflammation, no exudate or ulcers. NECK: supple, no obvious thyromegaly HEART:Regular rate and rhythm , no obvious murmurs/rubs RESPIRATORY: Lungs clear to auscultation b/l, no rales or wheezes. ABDOMEN:soft, nontender, nondistended, no organomegaly, normal bs. MSK:normal gait, moves all extremities, no joints swelling, rom normal. NEURO:alert and oriented, cranial nerves II-XII intact, speech clear, strength equal b/l, normal gait and movement, PSYCH: normal affect, well groomed SKIN:warm adn dry, normal color, no rash or suspicious lesions EXT: no cyanosis, no edema lower ext b/l Allergies: DESFLURANE (April 12, 2014) SLT - Lab Tests Selected No data available for: REGIONAL ALLERGY PROFILE Vaccinations: IM - Immunizations Immunization Series Date Facility Reaction Info COVID-19 ([facility]), MRNA, LNP-S, B* 10/30/2022 [facility] COVID-19 (PFIZER), MRNA, LNP-S, P* 02/27/2022 [facility] 07/21/2021 [facility] 2 03/21/2021 [place]* 1 02/28/2021 [place]* INFLUENZA VACCINE, QUADRIVALENT,* 09/07/2020 [facility] INFLUENZA, HIGH DOSE SEASONAL 09/03/2019 [facility]* 08/28/2018 [facility] 07/26/2018 [place] 08/09/2017 [facility] 07/26/2017 [facility] 09/03/2016 [facility] No Site 08/31/2015 [facility] [place]* 07/23/2014 [facility] INFLUENZA, HIGH-DOSE, QUADRIVALEN* 08/09/2023 [facility]* 09/04/2022 [facility] 09/11/2021 [facility] INFLUENZA, SEASONAL, INJECTABLE [place]* 08/16/2012 [facility] 10/11/2008 [facility] 10/12/2006 [facility] 09/29/2005 [facility] INFLUENZA, SEASONAL, INJECTABLE,* 08/24/2013 [facility] 08/17/2011 [facility] 08/14/2010 [facility] 08/10/2009 [facility] INFLUENZA, UNSPECIFIED FORMULATIO* 09/11/2021 [place]* 09/07/2020 [facility]* PNEUMOCOCCAL CONJUGATE PCV 13 05/03/2015 [facility] [place]* PNEUMOCOCCAL POLYSACCHARIDE PPV23 05/15/2011 [facility]* 09/20/2010 [facility] PNEUMOCOCCAL, UNSPECIFIED FORMULA* [facility]* TD (ADULT), 2 LF TETANUS TOXOID,* 02/17/2004 [facility] TDAP 05/03/2015 [facility] [place]* ZOSTER LIVE 10/09/2011 [facility]* ZOSTER RECOMBINANT 2 01/04/2022 [employer]* <C> 1 08/08/2021 [place]* <C> <C> See the Detailed Immunizations Health Summary Component[DIM] for Comments Labs: pending /es/ REDDY PAIZ PHYSICIAN Signed: 08/09/2023 09:17 REDDY PAIZ [facility] Aug 09, 2023 08:41 AM PRIMARY CARE NURSI NG NOTE: LOCAL TITLE: [facility] NURSING PROGRESS NOTE STANDARD TITLE: PRIMARY CARE NURSING NOTE DATE OF NOTE: AUG 09, 2023@08:41 ENTRY DATE: AUG 09, 2023@08:41:40 AUTHOR: NORRIS KARIMI EXP COSIGNER: URGENCY: STATUS: COMPLETED TYPE OF VISIT: Appointment Check In Type of appointment: In-person appointment REASON FOR VISIT: Annual ALLERGIES: DESFLURANE (April 12, 2014) VITAL SIGNS: Blood Pressure: 106/68 (08/09/2023 08:40) Pulse: 76 (08/09/2023 08:40) Respiration: 76 (08/09/2023 08:40) Temperature: 97.9 F [36.6 C] (08/09/2023 08:40) Weight: 170.9 lb [77.52 kg] (08/09/2023 08:40) Height: 71.5 in [181.6 cm] (08/09/2023 08:40) BMI: 23.6 O2 Sat: 97% (08/09/2023 08:40) Pain: 0 (08/09/2023 08:40) PAIN SCREEN: Patient is not having significant pain that they wish to discuss with their provider today. MEDICATION Active Outpatient Medications (including Supplies): FLUTICAS 500/SALMETEROL 50 INHL DISK 60 INHALE 1 PUFF BY ACTIVE INHALATION TWICE A DAY FOR COPD *RINSE MOUTH AFTER EACH USE* Non-VA ACALABRUTINIB 100MG CAP 100MG MOUTH EVERY DAY ACTIVE Non-VA ASPIRIN 81MG EC TAB 81MG MOUTH DAILY ACTIVE Non-VA CALCIUM CARBONATE 500MG TAB 500MG MOUTH EVERY DAY ACTIVE Non-VA CENTRUM TAB--OTC 1 TABLET MOUTH ACTIVE Non-VA CHOLECALCIF 25MCG (D3-1,000UNIT) TAB 1000UNIT MOUTH ACTIVE DAILY Non-VA CYANOCOBALAMIN 100MCG TAB 500MCG MOUTH ACTIVE Non-VA FLUTICASONE PROP 50MCG 120D NASAL INHL 2 SPRAYS ONE ACTIVE NOSTRIL EVERY DAY Non-VA LEVOTHYROXINE NA (SYNTHROID) 175MCG TAB 175MCG ACTIVE MOUTH EVERY DAY Non-VA LISINOPRIL TAB 50MCG MOUTH EVERY DAY ACTIVE Over the Counter/Herbal Medications: The patient states that they take some outside medications and/or herbals. ADV DIR Notification and Screening: ADVANCE DIRECTIVE NOTIFICATION: Patient was given written notification of the following rights: 1. Accept or refuse any medical treatment. 2. Complete a durable power of ip attorney for health care. 3. Complete a living will. ADVANCE DIRECTIVE SCREENING: Does patient have an Advance Directive? The patient has an Advance Directive. Does the patient wish to make any changes or revoke their current Advance Directive? No changes requested at this time. Toxic Exposure Screening: The /caregiver was asked if they believe the experienced any toxic exposure(s), such as Airborne Hazards and Open Burn Pit, [place] War related exposures, [place], Radiation, contaminated water at [place] or other such exposures, while serving in the Armed [employer]. [place] has no concerns about toxic exposure(s) while serving in the Armed Forces. The [place]/caregiver was informed that we will continue to ask this screening question every 5 years. They can contact their provider/healthcare team if they have concerns about exposures and would like to be screened sooner. Printed information was offered and provided if desired. Influenza Immunization: The patient was given the influenza VIS which lists the benefits and side effects of the vaccine and which reviews the risks of not receiving the flu vaccine. The VIS was reviewed with the patient and they were given an opportunity to ask questions. The patient was provided education on how to decrease the risk of influenza infection including social distancing and use of good hand hygiene. The patient denied any prior severe reaction to the flu vaccine or its components. The patient gave verbal consent to receive the vaccine. Influenza, High Dose, Quadrivalent (Fluzone - syringe) Administered: INFLUENZA, HIGH-DOSE, QUADRIVALENT Date Administered: Aug 09, 2023 08:30 Industrial Health Engineer: SANDaleeli PASTEUR Lot: [id number] Exp Date: May 24, 2024 [facility]: [phone] Admin Route/Site: INTRAMUSCULAR/LEFT DELTOID Dosage: 0.7mL Vaccine Information Statement(s): INFLUENZA(FLU) VACC(INACTIVATED OR RECOMBINANT)VIS Jun 30, 2021 (BULGARIAN) Order By: Policy Administered By: Norris Karimi Suicide Screen: C-SSRS Screening [place] Suicide Severity Rating Scale (C-SSRS) screener 1. Over the past month, have you wished you were or wished you could go to sleep and not wake up? No 2. Over the past month, have you had any actual thoughts of killing yourself? No 3. Over the past month, have you been thinking about how you might do this? Response not required due to responses to other questions. 4. Over the past month, have you had these thoughts and had some intention of acting on them? Response not required due to responses to other questions. 5. Over the past month, have you started to work out or worked out the details of how to kill yourself? Response not required due to responses to other questions. 6. If yes, at any time in the past month did you intend to carry out this plan? Response not required due to responses to other questions. 7. In your lifetime, have you ever done anything, started to do anything, or prepared to do anything to end your life (for example, collected pills, obtained a gun, gave away valuables, went to the roof but didn't jump)? No 8. If YES, was this within the past 3 months? Response not required due to responses to other questions. Depression Screening: Perform PHQ-2 A PHQ-2 screen was performed. The score was 0 which is a negative screen for depression. Over the past two weeks, how often have you been bothered by the following problems? 1. Little interest or pleasure in doing things Not at all 2. Feeling down, depressed, or hopeless Not at all Alcohol Use Screen (AUDIT-C): Alcohol Screen: SCREEN FOR ALCOHOL (AUDIT-C) An alcohol screening test (AUDIT-C) was negative (score=0). 1. How often did you have a drink containing alcohol in the past year? Never 2. How many drinks containing alcohol did you have on a typical day when you were [...] patient quit fifteen or more years ago. 20yrs Nursing Annual Screening: Fall History Screen During the past 12 months, have you had any falls? Patient does not report any falls in the past 12 months. MEDICATIONS: Patient is on one of the following medication classes: Antihypertensives, Antidepressants, Antipsychotics, Diuretics, or Controlled substance medication used for pain. FALL RISK ADVICE: Fall Risk Advice provided. Handout entitled Fall Prevention At Home reviewed and given to patient and/or significant other. Script Talk Screen Are you able to read your prescription bottles with your glasses, magnifiers or other aids? Yes or patient not taking any prescriptions. Skin Screen Patient reports any current pressure ulcers, a history of pressure ulcers, or a wound from a medical concierge or Patient is bed-confined or a wheelchair-user or Patient requires assistance to transfer/change position No, Skin Screen is Negative Home Abuse/Violence Screen Is your home free of abuse and violence? Yes MOVE! Program Screen Body Mass Index (BMI)= 23.6 [place]: Collection DT Specimen Test Name Result Units Ref Range 03/18/2017 08:44 BLOOD !! HEMOGLOBIN A1C 5.1 % 4.0 - 6.0 !! Indicates COMMENTS AVAILABLE...Refer to Interim Lab Report. [place] Hgb A1C: No data available [place] Hgb A1C: No data available Point of Care Hgb A1C: POC HGB A1C____ Outpatient Nutrition Screen Body Mass Index (BMI)= 23.6 [place]: Collection DT Specimen Test Name Result Units Ref Range 03/18/2017 08:44 BLOOD !! HEMOGLOBIN A1C 5.1 % 4.0 - 6.0 !! Indicates COMMENTS AVAILABLE...Refer to Interim Lab Report. [place] Hgb A1C: No data available [place] Hgb A1C: No data available Point of Care Hgb A1C: POC HGB A1C____ Is patient's BMI less than 18.5? No Does patient have swallowing, coughing, or chewing problems affecting oral intake? No Has patient experienced unplanned weight loss or gain greater than 10 pounds over the last 2 months? No Is patient's Hgb A1C (Glycosylated Hemoglobin) greater than 9.5? Information not available Is patient receiving Total Parenteral Nutrition (TPN) or Tube Feedings? No Patient Health Education Screen BARRIERS/SPECIAL NEEDS: Hearing limitations Visual limitations PREFERRED STYLE OF LEARNING: Watching something Other: hands on Client Assistive Service (GIANFRANCO) Screen Does the patient require assistance with outpatient visit? No /edith/ VICKI SMITH LPN [facility] Signed: 08/09/2023 09:00 NORRIS KARIMI [facility]
--- OUTSIDE RECORDS SUMMARY | 2024-05-25 17:19 | XMS_ITS | Continuity of Care Document ---
Author Name [facility] Organization 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 Unavailable Unavailable Problems Combined list of problems from Department of [facility] and [facility] facilities. It does not include entries that were removed or entered in error. Problem Status Onset Date Problem Type Date of Resolution Comments Source Polyp of colon Active 11/25/19 12 Condition Feb 21, 2015 Entered By: ALTON RAMIREZ Comment: benign polyp - advised repeat in 2016 [facility] Allergic rhinitis Active Condition [facility] Appendicitis Active Condition Feb 21, 2015 Entered By: ALTON RAMIREZ Comment: hx appy - prior ruptured appy 2009 - [facility] Benign prostatic hyperplasia Active Condition [facility] Bilateral inguinal hernia Active Condition Feb 21, 2015 Entered By: ALTON RAMIREZ Comment: repair with mesh at [facility] approx 2011? 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 Hearing loss Active Condition [facility] Hyperlipidemia Active Condition Jan 252014 Entered By: ALTON RAMIREZ Comment: meds since 2011? 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 Diagnosis: ICD-10-CM Z00.8 Encounter for other general examination Active Diagnosis [facility] Medications Combined list of outpatient medications from Department of [facility] and [facility] facilities.Medications provided include 1) outpatient medications from the last 15 months, and 2) patient-reported medications. Medication Details Route Status Patient Instructions Prescription Expires Prescription Number Last Dispense Date Ordering Provider Order Date Order Qty Source ACALABRUTIN IB 100MG CAP,ORAL ACALABRU TINIB 100MG CAP,ORAL Non-VA TAKE 1 CAPSULE BY MOUTH EVERY DAY Jun 14, 2021 Non-VA Document ed by: REDDY PAIZ Document ed at: [facility] ORAL ACTIVE REDDY PAIZ 2020 [facility] ACALABRUTIN IB 100MG TAB ACALABRU TINIB 100MG TAB Non-VA TAKE ONE TABLET BY MOUTH TWICE A DAY Aug 09, 2023 Non-VA Document ed by: REDDY PAIZ Document ed at: [facility] ORAL ACTIVE REDDY PAIZ 2022 [facility] ALBUTEROL 90MCG/ACTUA T (CFC-F) INHL,ORAL,8 .5GM DOSE COUNTER ALBUTERO L 90MCG/AC TUAT (CFC-F) INHL,ORA L,8.5GM DOSE COUNTER Active INHALE 2 PUFFS BY INHALATI ON EVERY 6 HOURS NEEDED SHAKE WELL (FOR IMMEDIAT E RELIEF). FOR SHORTNES S OF BREATH SHAKE WELL (FOR IMMEDIAT E RELIEF). FOR SHORTNES S OF BREATH Aug 09, 2023 2 Aug 09, 2024 [id number] Aug 12, 2023 REDDY PAIZ RESPIR ATORY (INHAL ATION) ACTIVE 08/09/2024 [id number] REDDY PAIZ 2022 2 [facility] CALCIUM 500MG (CA CARBONATE-1 .25GM) TAB CALCIUM 500MG (CA CARBONAT E-1.25GM ) TAB Non-VA TAKE ONE TABLET BY MOUTH EVERY DAY Mar 02, 2015 Non-VA Document ed by: ARIES RAMIREZ Document ed at: [facility] CBTIMMY ORAL ACTIVE RICHARD RAMIREZ 2014 [facility] CENTRUM TAB--OTC CENTRUM TAB--OTC Non-VA TAKE ONE TABLET BY MOUTH April 12, 2014 Non-VA Document ed by: Patsy GUADALUPE Document ed at: [facility] ORAL ACTIVE JOSE M GUADALUPE 2013 [facility] CHOLECALCIF JUDI 25MCG (1,000UNIT) TAB CHOLECAL CIFEROL 25MCG (1,000UN IT) TAB Non-VA TAKE ONE TABLET BY MOUTH DAILY Mar 02, 2015 Non-VA Document ed by: ARIES RAMIREZ Document ed at: [facility] ORAL ACTIVE RICHARD RAMIREZ 2014 [facility] CYANOCOBALA MIN 1000MCG TAB CYANOCOB ALAMIN 1000MCG TAB Non-VA TAKE ONE TABLET BY MOUTH QDAAY FOR B12 SUPPLEME NT Aug 09, 2023 Non-VA Document ed by: REDDY PAIZ Document ed at: [facility] ORAL ACTIVE REDDY PAIZ 2022 [facility] CYANOCOBALA MIN 100MCG TAB CYANOCOB ALAMIN 100MCG TAB Non-VA TAKE FIVE TABLETS BY MOUTH April 12, 2014 Non-VA Document ed by: Patsy GUADALUPE Document ed at: [facility] ORAL ACTIVE JOSE M GUADALUPE 2013 [facility] FLUOCINONID E 0.05% CREAM,TOP FLUOCINO NIDE 0.05% CREAM,TO P Active APPLY THIN LAYER TWICE A DAY AVOID FACE,COMPA IN and ARMPITS *FOR EXTERNAL USE ONLY Aug 09, 2023 60 Aug 09, 2024 [id number] Aug 12, 2023 REDDY PAIZ TOPICA L ACTIVE 08/09/2024 [id number] REDDY PAIZ 2022 60 [facility] FLUTICASONE 500MCG/SALM ETEROL 50MCG INHL,ORAL,D ISKUS,60 FLUTICAS ONE 500MCG/S ALMETERO L 50MCG INHL,ORA L,DISKUS ,60 Active: Susp INHALE 1 PUFF BY INHALATI ON TWICE A DAY FOR COPD *RINSE MOUTH AFTER EACH USE* FOR COPD May 06, 2024 3 Aug 04, 2024 [id number] Jul 19, 2024 [facility] RESPIR ATORY (INHAL ATION) SUSPEND ED 08/04/2024 [id number] REDDY PAIZ 2023 3 [facility] FLUTICASONE 500MCG/SALM ETEROL 50MCG INHL,ORAL,D ISKUS,60 FLUTICAS ONE 500MCG/S ALMETERO L 50MCG INHL,ORA L,DISKUS ,60 Disconti nued INHALE 1 PUFF BY INHALATI ON TWICE A DAY FOR COPD *RINSE MOUTH AFTER EACH USE* FOR COPD Apr 30, 2024 3 Jul 29, 2024 [id number] Apr 30, 2024 [facility] PAIZ [facility] RESPIR ATORY (INHAL ATION) DISCONT INUED 07/29/2024 [id number] REDDY PAIZ 2023 3 [facility] FLUTICASONE 500MCG/SALM ETEROL 50MCG INHL,ORAL,D ISKUS,60 FLUTICAS ONE 500MCG/S ALMETERO L 50MCG INHL,ORA L,DISKUS ,60 Disconti nued INHALE 1 PUFF BY INHALATI ON TWICE A DAY FOR COPD *RINSE MOUTH AFTER EACH USE* FOR COPD Jan 15, 2024 3 April 14, 2024 [id number] Jan 15, 2024 [facility] PA[facility] RESPIR ATORY (INHAL ATION) DISCONT INUED 04/14/2024 [id number] REDDY PAIZ 2023 3 [facility] FLUTICASONE 500MCG/SALM ETEROL 50MCG INHL,ORAL,D ISKUS,60 FLUTICAS ONE 500MCG/S ALMETERO L 50MCG INHL,ORA L,DISKUS ,60 Disconti nued INHALE 1 PUFF BY INHALATI ON TWICE A DAY FOR COPD *RINSE MOUTH AFTER EACH USE* FOR COPD Aug 09, 2023 3 Nov 07, 2023 [id number] Oct 26, 2023 [facility] PA[facility] RESPIR ATORY (INHAL ATION) DISCONT INUED 11/07/2023 [id number] REDDY PAIZ 2022 3 [facility] FLUTICASONE 500MCG/SALM ETEROL 50MCG INHL,ORAL,D ISKUS,60 FLUTICAS ONE 500MCG/S ALMETERO L 50MCG INHL,ORA L,DISKUS ,60 Disconti nued INHALE 1 PUFF BY INHALATI ON TWICE A DAY FOR COPD *RINSE MOUTH AFTER EACH USE* FOR COPD Aug 07, 2023 3 Nov 05, 2023 [id number] Aug 07, 2023 [facility] RESPIR ATORY (INHAL ATION) DISCONT INUED 11/05/2023 [id number] KRIS SAMS 2022 3 [facility] FLUTICASONE 500MCG/SALM ETEROL 50MCG INHL,ORAL,D ISKUS,60 FLUTICAS ONE 500MCG/S ALMETERO L 50MCG INHL,ORA L,DISKUS ,60 Disconti nued INHALE 1 PUFF TWICE A DAY *RINSE MOUTH AFTER EACH USE* Aug 06, 2022 3 Aug 07, 2023 [id number] April 23, 2023 [facility] PA[facility] DISCONT INUED (EDIT) 08/07/2023 [id number] REDDY PAIZ 2021 3 [facility] FLUTICASONE PROPIONATE 50MCG/SPRAY SOLN,NASAL, 16GM FLUTICAS ONE PROPIONA TE 50MCG/SP RAY SOLN,SARAH AL,16GM Active SPRAY 1 SPRAY IN EACH NOSTRIL EVERY DAY NEEDED FOR CONGESTI ON FOR CONGESTI ON Aug 09, 2023 3 Aug 09, 2024 [id number] Jan 15, 2024 [facility] NASAL ACTIVE 08/09/2024 [id number] REDDY PAIZ 2022 3 [facility] FLUTICASONE PROPIONATE 50MCG/SPRAY SOLN,NASAL, 16GM FLUTICAS ONE PROPIONA TE 50MCG/SP RAY SOLN,SARAH AL,16GM Non-VA SPRAY 2 SPRAYS IN ONE NOSTRIL EVERY DAY Mar 18, 2018 Non-VA Document ed by: REDDY PAIZ Document ed at: [facility] NASAL ACTIVE REDDY PAIZ 2017 [facility] LEVOTHYROXI NE NA 50MCG TAB (SYNTHROID) LEVOTHYR OXINE NA 50MCG TAB (SYNTHRO ID) Non-VA TAKE ONE TABLET BY MOUTH EVERY DAY Aug 09, 2023 Non-VA Document ed by: REDDY PAIZ Document ed at: [facility] ORAL ACTIVE REDDY PAIZ 2022 [facility] LISINOPRIL 10MG TAB LISINOPR IL 10MG TAB Non-VA TAKE ONE TABLET BY MOUTH EVERY DAY Aug 09, 2023 Non-VA Document ed by: REDDY PAIZ Document ed at: [facility] ORAL ACTIVE REDDY APIZ 2022 [facility] SIMVASTATIN 80MG TAB SIMVASTA TIN 80MG TAB Active TAKE ONE-HALF TABLET BY MOUTH AT BEDTIME FOR CHOLESTE ROL Aug 09, 2023 45 Aug 09, 2024 [id number] May 03, 2024 [facility] ORAL ACTIVE 08/09/2024 [id number] REDDY PAIZ 2022 45 [facility] SIMVASTATIN 80MG TAB SIMVASTA TIN 80MG TAB Disconti nued TAKE ONE-HALF TABLET BY MOUTH AT BEDTIME FOR CHOLESTE ROL Aug 06, 2022 45 Aug 07, 2023 [id number] H May 29, 2023 [facility] ORAL DISCONT INUED 08/07/2023 [id number] REDDY PAIZ 2021 45 [facility] TAMSULOSIN HCL 0.4MG CAP TAMSULOS IN HCL 0.4MG CAP Non-VA TAKE 1 CAPSULE BY MOUTH Aug 09, 2023 Non-VA Document ed by: REDDY PAIZ Document ed at: [facility] ORAL ACTIVE REDDY PAIZ 2022 [facility] Allergies, Adverse Reactions, Alerts Combined list of allergies from Department of Defense and Veterans Affairs facilities. It does not include entries that were removed or entered in error. Substance Category Reaction Severity Reaction type Status Date Reported Comments Source DESFLURANE Propensity to adverse reactions to drug (finding) Delirium MILD active 4 [facility] Immunizations Combined list of available immunizations from the Department of Defense and Veterans Affairs facilities. Immunization Series Date Given Administered By Site Reaction Lot Number CVX Code Drug Production Expert Status Comments Source INFLUENZA, HIGH-DOSE, QUADRIVALENT 2022 NORRIS KARIMI LEFT DELTO ID [id number] A 197 complet ed [facility] COVID-19 ([place]), MRNA, LNP-S, BIVALENT, PF, 30 MCG/0.3 ML DOSE 2021 300 complet ed [facility] INFLUENZA, HIGH-DOSE, QUADRIVALENT 2021 197 complet ed [facility] COVID-19 (PFIZER), MRNA, LNP-S, PF, 30 MCG/0.3 ML DOSE 2021 208 complet [facility] ZOSTER RECOMBINANT 2 2021 187 complet ed [facility] INFLUENZA, HIGH-DOSE, QUADRIVALENT 2020 197 complet ed [facility] INFLUENZA, UNSPECIFIED FORMULATION 2020 88 complet [facility] ZOSTER RECOMBINANT 1 2020 187 complet ed [facility] COVID-19 (PFIZER), MRNA, LNP-S, PF, 30 MCG/0.3 ML DOSE 2020 208 complet ed [facility] COVID-19 (PFIZER), MRNA, LNP-S, PF, 30 MCG/0.3 ML DOSE 2 2020 208 complet [facility] COVID-19 (PFIZER), MRNA, LNP-S, PF, 30 MCG/0.3 ML DOSE 1 2020 208 complet [facility] INFLUENZA VACCINE, QUADRIVALENT, ADJUVANTED 2019 205 complet [facility] INFLUENZA, UNSPECIFIED FORMULATION 2019 88 complet [facility] INFLUENZA, HIGH DOSE SEASONAL 2018 135 complet ed [facility] INFLUENZA, HIGH DOSE SEASONAL 2017 135 complet ed [facility] INFLUENZA, HIGH DOSE SEASONAL 2017 135 complet ed [facility] INFLUENZA, HIGH DOSE SEASONAL 2016 135 complet ed [facility] INFLUENZA, HIGH DOSE SEASONAL 2016 135 complet ed [facility] INFLUENZA, HIGH DOSE SEASONAL 2015 135 complet ed [facility] INFLUENZA, HIGH DOSE SEASONAL 2015 135 complet ed [facility] INFLUENZA, HIGH DOSE SEASONAL 2014 135 complet ed [facility] INFLUENZA, HIGH DOSE SEASONAL 2014 135 complet ed [facility] PNEUMOCOCCAL CONJUGATE PCV 13 2014 133 complet ed [facility] TDAP 2014 115 complet ed [facility] PNEUMOCOCCAL CONJUGATE PCV 13 2014 133 complet ed [facility] INFLUENZA, HIGH DOSE SEASONAL 2013 135 complet ed [facility] INFLUENZA, SEASONAL, INJECTABLE 2013 141 complet ed [facility] TDAP 2013 115 complet ed [facility] INFLUENZA, UNSPECIFIED FORMULATION 2012 88 complet ed [facility] INFLUENZA, SEASONAL, INJECTABLE, PRESERVATIVE FREE 2012 140 complet ed [facility] INFLUENZA, SEASONAL, INJECTABLE 2011 141 complet ed [facility] ZOSTER LIVE 2010 121 complet ed [facility] INFLUENZA, SEASONAL, INJECTABLE, PRESERVATIVE FREE 2010 140 complet ed [facility] PNEUMOCOCCAL POLYSACCHARID E PPV23 2010 33 complet ed [facility] PNEUMOCOCCAL POLYSACCHARID E PPV23 2010 33 complet ed [facility] PNEUMOCOCCAL, UNSPECIFIED FORMULATION 2010 109 complet ed [facility] ZOSTER LIVE 2010 121 complet ed [facility] PNEUMOCOCCAL POLYSACCHARID E PPV23 2009 33 complet ed [facility] INFLUENZA, SEASONAL, INJECTABLE, PRESERVATIVE FREE 2009 140 complet ed [facility] INFLUENZA, SEASONAL, INJECTABLE, PRESERVATIVE FREE 2008 140 complet ed [facility] INFLUENZA, SEASONAL, INJECTABLE 2007 141 complet ed [facility] INFLUENZA, SEASONAL, INJECTABLE 2005 141 complet ed [facility] INFLUENZA, SEASONAL, INJECTABLE 2004 141 complet ed [facility] TD (ADULT), 2 LF TETANUS TOXOID, PRESERVATIVE FREE, ADSORBED 2003 09 complet ed [facility] Results Combined list of recent chemistry, hematology and other laboratory results from Department of Defense and Veterans Affairs, ranging from 15 months to all on record, depending upon the facility. Order Name Results Value Reference Range Date Interpretation Specimen Comments Source TSH W/REFLEX TO FREE T4 THYROTROPIN [UNITS/VOLU ME] IN SERUM OR PLASMA 0.41 u[IU]/ mL 0.35 - 4.94 08/09 Specimen Type: PLASMA No comment entered. Ordering Provider: TISHA PAIZ Report Released Date/Time: Aug 09, 2023 09:02 AM Reporting Lab: [facility] [address] Performing Lab: [facility] [address] [facility] COMPREHEN SIVE METABOLIC PANEL+MG CREATININE [MASS/VOLUM E] IN SERUM OR PLASMA 2.0 mg/dL 0.7 - 1.2 08/09 H Specimen Type: PLASMA No comment entered. Ordering Provider: TISHA PAIZ Report Released Date/Time: Aug 09, 2023 09:02 AM Reporting Lab: [facility] [address] Performing Lab: [facility] [address] [facility] COMPREHEN SIVE METABOLIC PANEL+MG UREA NITROGEN [MASS/VOLUM E] IN SERUM OR PLASMA 36 mg/dL 8 - 26 08/09 H Specimen Type: PLASMA No comment entered. Ordering Provider: TISHA PAIZ Report Released Date/Time: Aug 09, 2023 09:02 AM Reporting Lab: [facility] [address] Performing Lab: [facility] [address] [facility] COMPREHEN SIVE METABOLIC PANEL+MG GLUCOSE [MASS/VOLUM E] IN SERUM OR PLASMA 97 mg/dL 70 - 100 08/09 Specimen Type: PLASMA No comment entered. Ordering Provider: TISHA PAIZ Report Released Date/Time: Aug 09, 2023 09:02 AM Reporting Lab: [facility] [address] Performing Lab: [facility] [address] [facility] COMPREHEN SIVE METABOLIC PANEL+MG SODIUM [MOLES/VOLU ME] IN SERUM OR PLASMA 139 mmol/L 136 - 145 08/09 Specimen Type: PLASMA No comment entered. Ordering Provider: TISHA PAIZ Report Released Date/Time: Aug 09, 2023 09:02 AM Reporting Lab: [facility] [address] Performing Lab: [facility] [address] [facility] COMPREHEN SIVE METABOLIC PANEL+MG POTASSIUM [MOLES/VOLU ME] IN SERUM OR PLASMA 4.8 mmol/L 3.5 - 5.1 08/09 Specimen Type: PLASMA No comment entered. Ordering Provider: TISHA PAIZ Report Released Date/Time: Aug 09, 2023 09:02 AM Reporting Lab: [facility] [address] Performing Lab: [facility] [address] [facility] COMPREHEN SIVE METABOLIC PANEL+MG CHLORIDE [MOLES/VOLU ME] IN SERUM OR PLASMA 106 mmol/L 98 - 107 08/09 Specimen Type: PLASMA No comment entered. Ordering Provider: TISHA PAIZ Report Released Date/Time: Aug 09, 2023 09:02 AM Reporting Lab: [facility] [address] Performing Lab: [facility] [address] [facility] COMPREHEN SIVE METABOLIC PANEL+MG CARBON DIOXIDE, TOTAL [MOLES/VOLU ME] IN SERUM OR PLASMA 23 mmol/L 22 - 29 08/09 Specimen Type: PLASMA No comment entered. Ordering Provider: TISHA PAIZ Report Released Date/Time: Aug 09, 2023 09:02 AM Reporting Lab: [facility] [address] Performing Lab: [facility] [address] [facility] COMPREHEN SIVE METABOLIC PANEL+MG CALCIUM [MASS/VOLUM E] IN SERUM OR PLASMA 9.2 mg/dL 8.4 - 10.2 08/09 Specimen Type: PLASMA No comment entered. Ordering Provider: TISHA PAIZ Report Released Date/Time: Aug 09, 2023 09:02 AM Reporting Lab: [facility] [address] Performing Lab: [facility] [address] [facility] COMPREHEN SIVE METABOLIC PANEL+MG PROTEIN [MASS/VOLUM E] IN SERUM OR PLASMA 6.4 g/dL 6.0 - 8.3 08/09 Specimen Type: PLASMA No comment entered. Ordering Provider: TISHA PAIZ Report Released Date/Time: Aug 09, 2023 09:02 AM Reporting Lab: [facility] [address] Performing Lab: [facility] [address] [facility] COMPREHEN SIVE METABOLIC PANEL+MG ALBUMIN [MASS/VOLUM E] IN SERUM OR PLASMA 3.9 g/dL 3.5 - 5.2 08/09 Specimen Type: PLASMA No comment entered. Ordering Provider: TISHA PAIZ Report Released Date/Time: Aug 09, 2023 09:02 AM Reporting Lab: [facility] [address] Performing Lab: [facility] [address] [facility] COMPREHEN SIVE METABOLIC PANEL+MG BILIRUBIN.T OTAL [MASS/VOLUM E] IN SERUM OR PLASMA 0.4 mg/dL 0.2 - 1.2 08/09 Specimen Type: PLASMA No comment entered. Ordering Provider: TISHA PAIZ Report Released Date/Time: Aug 09, 2023 09:02 AM Reporting Lab: [facility] [address] Performing Lab: [facility] [address] [facility] COMPREHEN SIVE METABOLIC PANEL+MG MAGNESIUM [MASS/VOLUM E] IN SERUM OR PLASMA 1.8 mg/dL 1.6 - 2.6 08/09 Specimen Type: PLASMA No comment entered. Ordering Provider: TISHA PAIZ Report Released Date/Time: Aug 09, 2023 09:02 AM Reporting Lab: [facility] [address] Performing Lab: [facility] [address] [facility] COMPREHEN SIVE METABOLIC PANEL+MG ANION GAP IN SERUM OR PLASMA 10 mmol/L 5 - 15 08/09 Specimen Type: PLASMA No comment entered. Ordering Provider: TISHA PAIZ Report Released Date/Time: Aug 09, 2023 09:02 AM Reporting Lab: [facility] [address] Performing Lab: [facility] [address] [facility] COMPREHEN SIVE METABOLIC PANEL+MG ALKALINE PHOSPHATASE [ENZYMATIC ACTIVITY/VO LUME] IN SERUM OR PLASMA 146 U/L 40 - 150 08/09 Specimen Type: PLASMA No comment entered. Ordering Provider: TISHA PAIZ Report Released Date/Time: Aug 09, 2023 09:02 AM Reporting Lab: [facility] [address] Performing Lab: [facility] [address] [facility] COMPREHEN SIVE METABOLIC PANEL+MG ALANINE AMINOTRANSF ERASE [ENZYMATIC ACTIVITY/VO LUME] IN SERUM OR PLASMA 27 U/L <55 - 55 08/09 Specimen Type: PLASMA No comment entered. Ordering Provider: TISHA PAIZ Report Released Date/Time: Aug 09, 2023 09:02 AM Reporting Lab: [facility] [address] Performing Lab: [facility] [address] [facility] COMPREHEN SIVE METABOLIC PANEL+MG ASPARTATE AMINOTRANSF ERASE [ENZYMATIC ACTIVITY/VO LUME] IN SERUM OR PLASMA 23 U/L <34 - 34 08/09 Specimen Type: PLASMA No comment entered. Ordering Provider: TISHA PAIZ Report Released Date/Time: Aug 09, 2023 09:02 AM Reporting Lab: [facility] [address] Performing Lab: [facility] [address] [facility] COMPREHEN SIVE METABOLIC PANEL+MG GLOMERULAR FILTRATION RATE/1.73 SQ M.PREDICTED [VOLUME RATE/AREA] IN SERUM, PLASMA OR BLOOD BY CREATININE- BASED FORMULA (CKD-EPI 2020) 34 60 08/09 L Specimen Type: PLASMA No comment entered. Ordering Provider: TISHA PAIZ Report Released Date/Time: Aug 09, 2023 09:02 AM Reporting Lab: [facility] [address] Performing Lab: [facility] [address] [facility] CBC & DIFF LEUKOCYTES [#/VOLUME] IN BLOOD BY AUTOMATED COUNT 10.85 10*3/u L 4.0 - 11.0 08/09 Specimen Type: BLOOD Comment: Automated Differentia l Performed Ordering Provider: TISHA PAIZ Report Released Date/Time: Aug 09, 2023 09:02 AM Reporting Lab: [facility] [address] Performing Lab: [facility] [address] [facility] CBC & DIFF ERYTHROCYTE S [#/VOLUME] IN BLOOD BY AUTOMATED COUNT 3.75 10*6/u L 4.6 - 6.2 08/09 L Specimen Type: BLOOD Comment: Automated Differentia l Performed Ordering Provider: TISHA PAIZ Report Released Date/Time: Aug 09, 2023 09:02 AM Reporting Lab: [facility] [address] Performing Lab: [facility] [address] [facility] CBC & DIFF HEMOGLOBIN [MASS/VOLUM E] IN BLOOD 11.6 g/dL 13.5 - 17.9 08/09 L Specimen Type: BLOOD Comment: Automated Differentia l Performed Ordering Provider: TISHA PAIZ Report Released Date/Time: Aug 09, 2023 09:02 AM Reporting Lab: [facility] [address] Performing Lab: [facility] [address] [facility] CBC & DIFF HEMATOCRIT [VOLUME FRACTION] OF BLOOD BY AUTOMATED COUNT 36.2 41 - 54 08/09 L Specimen Type: BLOOD Comment: Automated Differentia l Performed Ordering Provider: TISHA PAIZ Report Released Date/Time: Aug 09, 2023 09:02 AM Reporting Lab: [facility] [address] Performing Lab: [facility] [address] [facility] CBC & DIFF MCV [ENTITIC VOLUME] BY AUTOMATED COUNT 96.5 fL 80 - 100 08/09 Specimen Type: BLOOD Comment: Automated Differentia l Performed Ordering Provider: TISHA PAIZ Report Released Date/Time: Aug 09, 2023 09:02 AM Reporting Lab: [facility] [address] Performing Lab: [facility] [address] [facility] CBC & DIFF MCH [ENTITIC MASS] BY AUTOMATED COUNT 30.9 pg 27 - 33 08/09 Specimen Type: BLOOD Comment: Automated Differentia l Performed Ordering Provider: TISHA PAIZ Report Released Date/Time: Aug 09, 2023 09:02 AM Reporting Lab: [facility] [address] Performing Lab: [facility] [address] [facility] CBC & DIFF MCHC [MASS/VOLUM E] BY AUTOMATED COUNT 32.0 g/dL 32.0 - 37.5 08/09 Specimen Type: BLOOD Comment: Automated Differentia l Performed Ordering Provider: TISHA PAIZ Report Released Date/Time: Aug 09, 2023 09:02 AM Reporting Lab: [facility] [address] Performing Lab: [facility] [address] [facility] [place] [facility] [place] [facility] CBC & DIFF PLATELETS [#/VOLUME] IN BLOOD BY AUTOMATED COUNT 421 10*3/u L 150 - 400 08/09 H Specimen Type: BLOOD Comment: Automated Differentia l Performed Ordering Provider: TISHA PIAZ Report Released Date/Time: Aug 09, 2023 09:02 AM Reporting Lab: [facility] [id number] Performing Lab: [facility] [id number] [facility] [place] [facility] [place] [facility] CBC & DIFF PLATELET MEAN VOLUME [ENTITIC VOLUME] IN BLOOD BY AUTOMATED COUNT 10.1 fL 7.4 - 10.4 08/09 Specimen Type: BLOOD Comment: Automated Differentia l Performed Ordering Provider: TISHA PAIZ Report Released Date/Time: Aug 09, 2023 09:02 AM Reporting Lab: [facility] [id number] Performing Lab: [facility] [phone] [facility] [place] [facility] CBC & DIFF NEUTROPHILS /100 LEUKOCYTES IN BLOOD BY MANUAL COUNT 79.6 40.0 - 80.0 08/09 Specimen Type: BLOOD Comment: Automated Differentia l Performed Ordering Provider: TISHA PAIZ Report Released Date/Time: Aug 09, 2023 09:02 AM Reporting Lab: [facility] [address] Performing Lab: [facility] [address] [facility] [place] CBC & DIFF LYMPHOCYTES /100 LEUKOCYTES IN BLOOD BY MANUAL COUNT 9.2 15.0 - 45.0 08/09 L Specimen Type: BLOOD Comment: Automated Differentia l Performed Ordering Provider: TISHA PAIZ Report Released Date/Time: Aug 09, 2023 09:02 AM Reporting Lab: [facility] [address] Performing Lab: [facility] [address] [facility] CBC & DIFF MONOCYTES/1 00 LEUKOCYTES IN BLOOD BY AUTOMATED COUNT 7.1 2.0 - 12.0 08/09 Specimen Type: BLOOD Comment: Automated Differentia l Performed Ordering Provider: TISHA PAIZ Report Released Date/Time: Aug 09, 2023 09:02 AM Reporting Lab: [facility] [address] Performing Lab: [facility] [address] [facility] CBC & DIFF EOSINOPHILS /100 LEUKOCYTES IN BLOOD BY AUTOMATED COUNT 3.2 0.0 - 6.0 08/09 Specimen Type: BLOOD Comment: Automated Differentia l Performed Ordering Provider: TISHA PAIZ Report Released Date/Time: Aug 09, 2023 09:02 AM Reporting Lab: [facility] [address] Performing Lab: [facility] [address] [facility] CBC & DIFF BASOPHILS/1 00 LEUKOCYTES IN BLOOD BY MANUAL COUNT 0.4 0.0 - 2.0 08/09 Specimen Type: BLOOD Comment: Automated Differentia l Performed Ordering Provider: TISHA PAIZ Report Released Date/Time: Aug 09, 2023 09:02 AM Reporting Lab: [facility] [address] Performing Lab: [facility] [address] [facility] CBC & DIFF ERYTHROCYTE DISTRIBUTIO N WIDTH [RATIO] BY AUTOMATED COUNT 13.3 11.5 - 14.5 08/09 Specimen Type: BLOOD Comment: Automated Differentia l Performed Ordering Provider: TISHA PAIZ Report Released Date/Time: Aug 09, 2023 09:02 AM Reporting Lab: [facility] [address] Performing Lab: [facility] [address] [facility] CBC & DIFF LYMPHOCYTES [#/VOLUME] IN BLOOD BY AUTOMATED COUNT 1.00 10*3/u L 1.0 - 4.0 08/09 Specimen Type: BLOOD Comment: Automated Differentia l Performed Ordering Provider: TISHA PAIZ Report Released Date/Time: Aug 09, 2023 09:02 AM Reporting Lab: [facility] [address] Performing Lab: [facility] [address] [facility] CBC & DIFF MONOCYTES [#/VOLUME] IN BLOOD BY AUTOMATED COUNT 0.77 10*3/u L 0.1 - 1.0 08/09 Specimen Type: BLOOD Comment: Automated Differentia l Performed Ordering Provider: TISHA PAIZ Report Released Date/Time: Aug 09, 2023 09:02 AM Reporting Lab: [facility] [address] Performing Lab: [facility] [address] [facility] CBC & DIFF NEUTROPHILS [#/VOLUME] IN BLOOD BY AUTOMATED COUNT 8.64 10*3/u L 2.0 - 7.7 08/09 H Specimen Type: BLOOD Comment: Automated Differentia l Performed Ordering Provider: TISHA PAIZ Report Released Date/Time: Aug 09, 2023 09:02 AM Reporting Lab: [facility] [address] Performing Lab: [facility] [address] [facility] CBC & DIFF EOSINOPHILS [#/VOLUME] IN BLOOD BY AUTOMATED COUNT 0.35 10*3/u L 0 - 0.5 08/09 Specimen Type: BLOOD Comment: Automated Differentia l Performed Ordering Provider: TISHA PAIZ Report Released Date/Time: Aug 09, 2023 09:02 AM Reporting Lab: [facility] [address] Performing Lab: [facility] [address] [facility] CBC & DIFF BASOPHILS [#/VOLUME] IN BLOOD BY AUTOMATED COUNT 0.04 10*3/u L 0 - 0.2 08/09 Specimen Type: BLOOD Comment: Automated Differentia l Performed Ordering Provider: TISHA PAIZ Report Released Date/Time: Aug 09, 2023 09:02 AM Reporting Lab: [facility] [address] Performing Lab: [facility] [address] [facility] CBC & DIFF IG(META,MYE LO,PRO) 0.5 08/09 Specimen Type: BLOOD Comment: Automated Differentia l Performed Ordering Provider: TISHA PAIZ Report Released Date/Time: Aug 09, 2023 09:02 AM Reporting Lab: [facility] [address] Performing Lab: [facility] [address] [facility] CBC & DIFF IMMATURE GRANULOCYTE S [PRESENCE] IN BLOOD BY AUTOMATED COUNT 0.05 10*3/u L 0 - 0.1 08/09 Specimen Type: BLOOD Comment: Automated Differentia l Performed Ordering Provider: TISHA PAIZ Report Released Date/Time: Aug 09, 2023 09:02 AM Reporting Lab: [facility] [address] Performing Lab: [facility] [address] [facility] Vital Signs Combined list of inpatient and outpatient Vital Signs from Department of Defense and Veterans Affairs, ranging from 12 months to all on record, depending upon the facility. Vital Sign Value Date Comments Source Encounters Combined list of: 1) Encounters from Department of Veterans Affairs facilities going back up to thelast 18 months. 2) Encounters from the Department of [facility] facilities going back up to 280 months. Location Location Details Encounter Type Encounter Number Reason For Visit Attending Provider ADM Date DC Date Status Disposition Source [facility] Outpatient Encounter [id number] 08/06 [facility] Outpatient Encounter [id number] 08/09 [facility] OFFICE O/P EST MOD 30-39 MIN [id number] Diagnos is: ICD-10- CM Z00.8 Encount er for other general examina tion
Tavo PAIZ 08/09 [facility] Social History Combined list of available smoking, tobacco, and other social history from Department of [facility] and Veterans [facility] facilities. Social History Type Response Date Comment Sourc e Tobacco smoking status NHIS VA-TOBACCO FORMER USER 08/09/2023 [facility] History of tobacco use [place] QU[place] 1 5 YRS OR MORE 08/09/2023 [facility] History of tobacco use VA-TOBACCO FORMER USER 08/06/2022 [facility] History of tobacco use VA-TOBACCO FORMER USER 06/14/2021 [facility] History of tobacco use [place]-TO[place]ACCO QUIT 1 5 YRS OR MORE 04/13/2020 [facility] History of tobacco use VA-TOBACCO FORMER USER 12/19/2018 [facility] History of tobacco use FORMER TOBACCO US ER 7Y OR GREATER 01/30/2018 [facility] History of tobacco use FORMER TOBACCO US ER 7Y OR GREATER 03/18/2017 [facility] History of tobacco use FORMER TOBACCO US ER 7Y OR GREATER 03/16/2016 [facility] History of tobacco use FORMER TOBACCO US ER 7Y OR GREATER 02/21/2015 [facility] History of tobacco use FORMER TOBACCO US ER 7Y OR GREATER 04/12/2014 [facility] Advance Directives List of completed, amended, or rescinded Advance Directives on record at Department of Veterans Affairs facilities. An actual copy of the Directive is not included. Date Advance Directive Provider Source 03/27/2016 [facility] DIRECTIVE DIS[facility]
--- OUTSIDE RECORDS SUMMARY | 2024-05-25 17:19 | XMS_ITS | Encounter Summary ---
Author Name [facility] [facility] [place] [facility] Address [address] [place] [address] Care Team Providers Care Physician Internist Name Role Phone REDDY PAIZ Primary Care Provider [facility] Insurance Providers: All historical and current Section [...] Name Patient's Relationship to Policy Ruiz BCBS [facility] (WNR) MEDICARE ADVANTAGE [facility] (WNR) Nov 25, 2016 [id number] [phone] DO ABDULLAHI CANO PATIENT Selected Encounter This section includes the information on record at [place] for the Encounter. Date/Time Encounter Type Encounter Description Reason Pro vider Source Aug 06, 2023 02:54 PM Outpatient Encounter COMMUNITY CARE CONSULT IHE Encounter Template Text not used by [facility] Plan of Treatment: Future Appointments (+ 6 months) and Future Tests (+/- 45 days) The Plan of Treatment section includes future care activities for the patient from all [place] treatmentfacilities. This section includes future appointments and future orders which are active, pending or scheduled. Future Appointments This section includes appointments that were scheduled to occur 6 months from the date of the Encounter, up to a maximum of 20 appointments. The data comes from all [place] treatment facilities. Appointment Date/Time Appointment Type Appointme nt Facility Name Aug 09, 2023 08:30 AM [facility] - [facility] Lab Results: +/- 30 days of the encounter This section includes the Chemistry and Hematology Lab Results on record with [place] for the patient. Radiology Reports and Pathology Reports are provided separately, in subsequent sections. Lab Results This section contains the Chemistry/Hematology Results that were resulted 30 days before or 30 daysafter the date of the Encounter. Date/Time Source Result Type Result - Unit Interpretation Reference Range Comment Aug 09, 2023 09:15 AM [facility] TSH W/REFLEX TO FREE T4 Specimen Type: PLASMA No comment entered. Ordering Provider: BALJEET PAIZ Report Released Date/Time: Aug 09, 2023 09:02 AM Reporting Lab: [facility] [address] Performing Lab: [facility] [address] TSH 0.41 u[IU]/mL 0.35-4.94 Aug 09, 2023 09:15 AM [facility] CBC & DIFF Specimen Type: BLOOD Comment: Automated Differential Performed Ordering Provider: BALJEET PAIZ Report Released Date/Time: Aug 09, 2023 09:02 AM Reporting Lab: [facility] [address] Performing Lab: [facility] [address] WBC 10.85 10*3/uL 4.0-11.0 RBC 3.75 10*6/uL [...] 0.5 ABS IMMATURE GRAN 0.05 10*3/uL 0-0.1 Aug 09, 2023 09:15 AM [facility] COMPREHENSIVE METABOLIC PANEL+MG Specimen Type: PLASMA No comment entered. Ordering Provider: BALJEET PAIZ Report Released Date/Time: Aug 09, 2023 09:02 AM Reporting Lab: [facility] [address] Performing Lab: [facility] [address] CREATININE 2.0 mg/dL H 0.7-1.2 UREA NITROGEN [...] U/L <34 .CREAT EGFR(CKD-EPI) 34 L >60 Social History: Smoking Status (Most current) and Tobacco Use (All prior to encounter date) This section includes the most current, and the historical, smoking and tobacco- related health factors from the [place] facility where the Encounter took place. Current Smoking Status This section includes the most current smoking, or tobacco-related health factor, from the [place] facility where the Encounter took place. Date/Time Current Smoking Status Comment Facil ity April 12, 2014 12:27 PM FORMER TOBACCO USER 7Y OR GREATE R [facility] Advance Directives: All historical and current Section Date Range: From patient's date of to the date document was created. This section includes ALL of a patient's completed or amended [place] Advance and Rescinded Directives. The entries below indicate that a directive exists for the patient, but an actual copy is not included with this document. The data comes from all [place] facilities. Date Advance Directives Provider Source March 27, 2016 [facility] DIRECTIVE DIS[facility] March 27, 2016 ADVANCE DIRECTIVE DARCYEZEKIEL Garner [facility] Encounter Notes: All associated encounter notes This section contains the clinical notes associated to the Encounter. Date/Time Encounter Note(s) Provider Source Aug 06, 2023 02:54 PM PHARMACY NOTE: LOCAL TITLE: PHARMACY NON [place] CARE MEDICATIONS STANDARD TITLE: PHARMACY NOTE DATE OF NOTE: AUG 06, 2023@14:54 ENTRY DATE: AUG 06, 2023@14:54:33 AUTHOR: BARTOLO BAE COSIGNER: URGENCY: STATUS: COMPLETED [facility] RECEIVED electronic prescription(s) (eRX(s)) from NON[place] Provider: MD Roro Guidollet [facility] provider Date eRX received: Jul Outside (non-VA) provider not authorized to write for prescription(s) through the [facility] pharmacy for this patient. Prescription request REDIRECTED via FAX to one of the following for review: [X] CoManaged (Dual) Care eRx Prescription Information ( X 2 eRX ) Reference #: [id number] Drug: Fluticasone-Salmeterol 500-50 MCG/ACT Inhalation Aerosol Powder Breath Activated (ADVAIR) Sig: Inhale 1 Puff two times a day. Rinse mouth/gargle after use Qty: 3 Refills: 3 Reference #: [id number] Drug: Albuterol Sulfate HFA 108 (90 Base) MCG/ACT Inhalation Aerosol Solution Sig: Inhale 2 Puffs every 6 hours as needed for Wheezing Qty: 1 Refills: 11 eRx Notes: Pharmacist to dispense only the amount written. Pharmacy may substitute albuterol HFA products based on insurance. /edith/ BARTOLO BAE [facility] OUTPATIENT PHARMACIST Signed: 08/06/2023 15:00 BARTOLO BAE [facility]
--- OUTSIDE RECORDS SUMMARY | 2024-05-25 17:20 | XMS_ITS | Referral Summary ---
Author Organization [facility] Address [address] [place] [address] Care Team Providers Care Floor Care Specialist Name Role Phone Elsewhere, Pcp Primary Care Provider Unavailabl e Source Comments Patient records contain information from all sites at [facility]. For routine questions regarding patient records, call [phone] during business hours, M-F 8:00 AM - 5:00 PM Central Time. Record requests for emergency care only can be directed to [phone] at any time.[facility] Encounters Date Type Department Care Team Description 05/07/2024 Refill Division of Nephrology and Hypertension in [place], [place] [address] [place] [address] Iesha Salcedo M.D. Med Refill 04/27/2024 Refill Division of Nephrology and Hypertension in [place], [place] [address] [place] [address] Iesha Salcedo M.D. Med Refill 03/12/2024 10:00 AM CDT Telemedicine Division of Nephrology and Hypertension in [place], [place] [address] [place] [address] Iesha Salcedo M.D. Glomerulonephritis Membranous 03/03/2024 10:13 AM CDT - 03/03/2024 11:59 PM CDT Hospital Encounter Department of Radiology in [place], [place] [address] [place] [address] Simin Centeno M.D., Ph.D. 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 02/24/2024 8:49 AM CDT - 02/24/2024 11:59 PM CDT Hospital Encounter Department of Laboratory Medicine in [place] [address] [place] [phone] Malinda Benavidez M.B.B.S. Glomerulonephritis Membranous Discharge Disposition: Home or Self Care 02/24/2024 8:49 AM CDT - 02/24/2024 11:59 PM CDT Hospital Encounter Department of Laboratory Medicine in [address] [phone] Nan Romeo P.A.-C., M.S. Glomerulonephritis Membranous; Hypothyroidism [...] drink = 0.6 oz pur e alcohol) [facility] Utilities Answer Date Recorded In the [...] any clubs o r organizations such as amish groups, unions, fraternal or athletic groups, or [...] place to sleep or slept in a mcfp (including now)? No 02/08/2023 Nutrition Answer Date [...] on file Medical Devices Implanted Type Area Water Resource Engineering Specialist Device Identifier Shelf Expiration Date Model / [...] CDT Malinda BenjaminBAmberS. LAB URINE OR DERABLES [facility] [address] [place] [address], [facility] NPRG [facility] [address] [place] [address] * Urinalysis, with Microscopic: Urine, Midstream (02/24/2024 [...] 8.0 02/24/2024 9:17 AM CDT NPR[facility] Specific [place] 1.010 1.001 - 1.035 02/24/2024 9:17 AM [...] CDT Malinda Horvath LAB URINE OR DERABLES [facility] [address] [place] [address], [address] [address] * (ABNORMAL) PSA (Prostate-Specific Antigen) Screen (02/24/2024 8:59 AM CDT) Prostate-Specific Ag 11.7(H) <=6.5 ng/mL 02/24/2024 11:03 AM CDT [facility] Comment: ----ADDITIONAL INFORMATION---- The testing method is an electrochemiluminescence assay manufactured by [employer] and performed on the Modular or Cabrera system. Values obtained with different assay methods or kits may be different and cannot be used interchangeably. Test results cannot be interpreted as absolute evidence for the presence or absence of malignant disease. Blood (Blood, Venous) 02/24/2024 8:59 AM CDT 02/24/2024 9:13 AM CDT Malinda DoyleSAmber LAB BLOOD AD D-ON Performing Organization Address City/[facility]/ZIP Co de Phone Number [facility] [address] [place] [address], [address] [address] * Reticulocytes (02/24/2024 8:59 AM CDT) Reticulocytes, B 1.54 0.60 - 2.71 % 02/24/2024 3:31 PM CDT [facility] Absolute Reticulocyte 65.0 30.4 - 110.9 x10(9)/L 02/24/2024 3:31 PM CDT [facility] Blood (Blood, Venous) 02/24/2024 8:59 AM CDT 02/24/2024 3:11 PM CDT Nan Destin Agueda Phillips MAdi. LAB BLOOD ADD-ON [facility] [address] [place] [id number], [facility] [place] [address] [place] [address] * (ABNORMAL) CBC with Differential, Blood (02/24/2024 [...] LAB BLOOD AD D-ON Performing Organization Address City/[facility]/ZIP Co de Phone Number [facility] [address] [place] [address], [place] [address] [address] [place] [address] * S-TSH (Thyroid-Stimulating Hormone - Sensitive) (02/24/2024 8:59 AM CDT) TSH, Sensitive 2.0 0.3 - 4.2 mIU/L 02/24/2024 9:58 AM CDT [facility] Blood (Blood, Venous) 02/24/2024 8:59 AM CDT 02/24/2024 9:13 AM CDT Malinda BenjaminB.S. LAB BLOOD AD D-ON Performing Organization Address City/[facility]/ZIP Co de Phone Number [facility] [address] [place] [address], [address] [address] * Parathyroid Hormone (PTH) (02/24/2024 8:59 AM CDT) Parathyroid Hormone (PTH), S 35 15 - 65 pg/mL 02/24/2024 4:31 PM CDT [facility] Comment: Biotin has been identified by the physical therapist assistant as a potential interfering substance. Higher concentrations of biotin may be found in multivitamins, hair/nail supplements, and workout supplements. If the result does not match clinical observations, repeat testing after patient refrains from the use of supplements for at least 12 hours. Blood (Blood, Venous) 02/24/2024 8:59 AM CDT 02/24/2024 3:11 PM CDT Malinda Horvath LAB BLOOD AD D-ON [facility] [address] [place] [address], [facility] MK[facility] [place] [address] [place] [address] * LD (Lactate Dehydrogenase) (02/24/2024 8:59 AM CDT) Pathologist [facility] Lactate Dehydrogenase (LD), P 167 122 - 222 U/L 02/24/2024 9:36 AM CDT [facility] Blood (Blood, Venous) 02/24/2024 8:59 AM CDT 02/24/2024 9:13 AM CDT Nan Romeo P.A.-C., M.S. LAB BLOOD NON ADD-ON Performing Organization Address City/[facility]/ZIP Co de Phone Number [facility] [address] [place] [address], [facility] NPRG [facility] [address] [place] [address] * (ABNORMAL) Immunoglobulin G (IgG) (02/24/2024 8:59 AM CDT) [facility] Immunoglobulin G (IgG), S 689(L) 767 - 1590 mg/dL 02/25/2024 9:55 AM CDT [facility] Blood (Blood, Venous) 02/24/2024 8:59 AM CDT 02/25/2024 6:16 AM CDT Nan Romeo P.A.-C., M.S. LAB BLOOD ADD-ON [facility] [address] [place] [address] [facility] [address] [place] [address] * (ABNORMAL) Comprehensive Metabolic Panel (02/24/2024 8:59 [...] CDT Malinda Horvath LAB BLOOD AD D-ON [facility] [address] [place] [address], [facility] NPRG [place] [address] [address] [place] [address] * Creatinine, 24 hour, Urine (02/24/2024 7:30 [...] M.D. LAB URINE ORDERABLES Performing Organization Address City/[facility]/ZIP Co de Phone Number [facility] [address] [place] [address], [facility] NPRG [place] [address] [address] [place] [address] * Sodium, 24 hour, Urine (02/24/2024 7:30 AM CDT) Sodium, 24 HR, U 121 22 - 328 mmol/24 h 02/24/2024 9:30 AM CDT [facility] Collection Duration 24 h 02/24/2024 9:00 AM CDT [facility] Urine Volume 1475 mL 02/24/2024 9:00 AM CDT [facility] Urine (Urine, 24 Hours) 02/24/2024 7:30 AM CDT 02/24/2024 9:00 AM CDT Iesha Salcedo M.D. LAB URINE ORDERABLES [facility] [address] [place] [address], [facility] NPRG [place] [address] [address] [place] [address] * Protein, Total, 24 hour, Urine (02/24/2024 7:30 AM CDT) Total Protein, 24 HR, U 103 <229 mg/24 h 02/24/2024 9:30 AM CDT [facility] Collection Duration 24 h 02/24/2024 9:00 AM CDT [facility] Urine Volume 1475 mL 02/24/2024 9:00 AM CDT [facility] Urine (Urine, 24 Hours) 02/24/2024 7:30 AM CDT 02/24/2024 9:00 AM CDT Iesha Salcedo M.D. LAB URINE ORDERABLES Performing Organization Address [facility] Co de Phone Number [facility] [address] [place] [address], [facility] NPRG [place] [address] [address] [place] [address] from Last 3 Months Additional Health Concerns Infection Onset Date Last Indicated Protective Environment 03/01/2023 3 Advance Directives For more information, please contact: [phone] Documents on File Type Date Recorded Patient Superintendent General Expl anation Advance Directives 02/13/2023 5:03 PM Swati Dunlap HCPOA/ADVOCATE/AGENT/R EPRESENTATIVE/SURROGAT E Healthcare Agents on File Name Relationship Healthcare Agent Relationship Communication Swati Dunlap Spouse Health Care Agent Tio Dunlap Son First Alternate Health Care Agent Care Teams Floor Care Specialist Relationship Specialty Start Date End Date Elsewhere, Pcp PCP - General Internal Medicine 04/17/22
--- OUTSIDE RECORDS SUMMARY | 2024-05-25 17:20 | XMS_ITS | Encounter Summary ---
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 [address] [place] [address] [facility] Referral ID Status Reason Start Date Expiration Date Visits Re quested Visits Authorized [id number] Closed 03/02/2024 03/02/2025 1 1 Encounter Details Date Type Department Care Team (Latest Contact Info) Description 03/03/2024 10:13 AM CDT - 03/03/2024 11:59 PM CDT Hospital Encounter Department of Radiology in [place], [place] [address] [place] [phone] Simin Centeno M.D., Ph.D. 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 Never 02/08/2023 Do you belong to [...] care, and heating? Not very hard 02/08/2023 [facility] - Occupational Stress [...] place to sleep or slept in a group home (including now)? No 02/08/2023 Nutrition Answer Date [...] documented as of this encounter Care Teams Research Development Director Relationship Specialty Start Date End Date Elsewhere, Pcp PCP - General Internal Medicine 04/17/22 documented as of this encounter
--- OUTSIDE RECORDS SUMMARY | 2024-05-25 17:20 | XMS_ITS | Data Portability ---
Author Organization [place] [facility], [facility] Address [address] [place] [address] Assessment No assessment recorded. Plan of Treatment Reminders Order Date Submit Date Provider Last Modified By Organization Details Last Modified Time Details Appointments None recorded. Lab PSA, serum or plasma - Patient is schedule for 02/12/22 at 8:50 AM 2021 022 [facility], [address], [place], [address], 2 11:13:27 PSA, serum or plasma - Patient is schedule for 02/12/22 at 8:50 AM 2021 022 [facility], [address] [place], [address], 2 11:13:27 PSA, serum or plasma 2021 0[facility], [address], [place], [address], 2 09:16:33 urinalysis , dipstick 2021 022 [facility], [address], [address], [place], [address], 2 15:43:07 Referral None recorded. Procedures biopsy, [...] , dipst ick Color-Status Yellow Not Available [address], [place], [address], 04/25/2022 09:46:46 04/25/20 22 04/25/2022 urina lysis , dipst ick Clarity-Stat us Slight ly Cloudy Not Available [address], [place], [address], 04/25/2022 09:46:46 04/25/20 22 04/25/2022 urina lysis , dipst ick Blood-Status Trace Not Available [address], [place], [address], 04/25/2022 09:46:46 04/25/20 22 04/25/2022 urina lysis , dipst ick Protein-Stat us >=9.0 Not Available [address], [place], [address], 04/25/2022 09:46:46 04/25/20 22 04/25/2022 urina lysis , dipst ick Leuko-Status Modera te Not Available [address], [place], [address], 04/25/2022 09:46:46 04/25/20 22 04/25/2022 urina lysis , dipst ick pH-Status 5.0 Not Available _[facility] [address], [place], [address], 04/25/2022 09:46:46 Result Notes None recorded. Problems No Known Problems Procedures Surgical History Date Name Laterality Status Provider Name and Address Organization Details Recorded Time Appendectomy completed [place] [facility] - [facility] 01/15/2022 09:44:55 Imaging Results None recorded. [...] e) 50 mcg/actuati on nasal spray,suspe nsion [place] 1 spray every day by intranasa l [...] Updated DateTime 01/15/2022 182.88 cm 21 kg/m2 84601.82 g Mya Allen [facility] 01/15/2022 09:40:34 Date Recorded Body height Body mass index (BMI) Body weight Provider Name and Address Organization Details Last Updated DateTime 02/12/2022 182.88 cm 21 kg/m2 81570.82 g Bessy Qureshi [facility] 02/12/2022 09:36:42 Date Recorded Body height Body mass index (BMI) Body weight Provider Name and Address Organization Details Last Updated DateTime 04/25/2022 182.88 cm 21 kg/m2 96827.82 g Mya Allen [facility] 04/25/2022 09:12:55 Social History Question Answer Notes LastModified by Organizat ion Details LastModified Time Tobacco Smoking Status Former Smoker Mya valiente [facility] 01/15/2022 09:44:39 When Did You Quit Smoking? [...] Mother Pulmonary emphysema Medical History Condition Response Diabetes N Sexually Transmitted Infection N Other Y Bleeding Disorder N High Blood Pressure N Kidney Stones N Cancer N Lung Disease N Depression N High Cholesterol Y GERD/Acid Reflux N Heart Disease N Immunizations Vaccine Type Date Status Provider Name and Address Organization Details Recorded Time Influenza, high-dose, trivalent, PF 08/28/2018 completed Mya valiente [facility] 04/25/2022 09:13:11 Tdap 05/03/2015 completed Mya valiente [facility] 04/25/2022 09:13:11 zoster live 10/09/2011 completed Mya valiente [facility] 04/25/2022 09:13:11 Influenza, high-dose, trivalent, PF 08/31/2015 completed Mya valiente [facility] 04/25/2022 09:13:11 zoster recombinant 08/08/2021 completed Mya valiente [facility] 04/25/2022 09:13:11 Influenza, split virus, trivalent, preservative 10/12/2006 completed Mya valiente [facility] 04/25/2022 09:13:12 Influenza, high-dose, trivalent, PF 08/09/2017 completed Mya valiente [facility] 04/25/2022 09:13:12 Influenza, high-dose, trivalent, PF 09/03/2016 sharron valiente [facility] 04/25/2022 09:13:12 COVID-19, mRNA, LNP-S, PF, 30 mcg/0.3 mL dose 07/21/2021 completed Mya Allen null, [facility] 04/25/2022 09:13:12 Influenza, split virus, trivalent, preservative 09/29/2005 completed Mya Allen null, [facility] 04/25/2022 09:13:12 Influenza, split virus, trivalent, PF 08/17/2011 completed Mya Allen null, [facility] 04/25/2022 09:13:12 COVID-19, mRNA, LNP-S, PF, 30 mcg/0.3 mL dose 02/28/2021 [facility] 09:13:12 Influenza, adjuvanted, quadrivalent, PF 09/07/2020 completed Mya valiente, [facility] 04/25/2022 09:13:12 Influenza, split virus, trivalent, preservative 10/11/2008 completed Mya Allen null, [facility] 04/25/2022 09:13:12 Influenza, high-dose, trivalent, PF 09/03/2019 completed Mya Allen null, [facility] 04/25/2022 09:13:12 Influenza, split virus, trivalent, PF 08/14/2010 completed Mya Allen null, [facility] 04/25/2022 09:13:12 COVID-19, mRNA, LNP-S, PF, 30 mcg/0.3 mL dose 03/21/2021 completed Mya Allen null, [facility] 04/25/2022 09:13:12 pneumococcal polysaccharide PPV23 09/20/2010 completed Mya Allen null, [facility] 04/25/2022 09:13:12 Influenza, split virus, trivalent, preservative 08/16/2012 completed Mya Allen null, [facility] 04/25/2022 09:13:12 pneumococcal polysaccharide PPV23 05/15/2011 completed Mya valiente, [facility] 04/25/2022 09:13:12 Td (adult), 2 Lf tetanus toxoid, preservative free, adsorbed 02/17/2004 completed Mya valiente, [facility] 04/25/2022 09:13:12 Influenza, split virus, trivalent, PF 08/10/2009 completed Mya valiente, [facility] 04/25/2022 09:13:12 Influenza, split virus, trivalent, PF 08/24/2013 completed Mya valiente, [facility] 04/25/2022 09:13:12 Influenza, high-dose, trivalent, PF 07/23/2014 completed Mya valiente, [facility] 04/25/2022 09:13:12 Pneumococcal conjugate PCV 13 05/03/2015 completed Mya valiente, [facility] 04/25/2022 09:13:12 zoster recombinant 01/04/2022 completed Mya valiente, [facility] 04/25/2022 09:13:12 Influenza, high-dose, quadrivalent, PF 09/11/2021 completed Mya valiente, [facility] 04/25/2022 09:13:12 Past Encounters Encounter ID Performer Location Encounter Start Date Encounter Closed Date Diagnosis/Indication Diagnosis SNOMED-CT Code [id number] [facility] [place] [address] 01/15/2022 09:34:10 01/17/2022 10:52:47 Prostate specific antigen above reference range [id number] Lower urin lillian tract symptoms due to benign prostatic hypertrophy [id number] [facility] [address] [place] [address] 02/12/2022 09:34:23 02/14/2022 10:26:10 Prostate specific antigen above reference range [id number] Kennedy [facility] [place] [address] 04/25/2022 09:03:34 04/27/2022 15:37:58 Prostate specific antigen above reference range [id number] Pyuria 7570248 Health Concerns Section Related Observation LastModified by Organization Detai ls LastModified Time None Recorded Concern Status LastModified by Organization Details LastModified Time None Recorded Advance Directives Directive None Recorded Payers Encounter Date Sequence Insurance Name Policy Number Policy Ruiz Covered Member ID Ruiz Member ID Guarantor Name 01/15/2022 1 [place] [id number] Shon Dunlap [id number] Shon Dunlap 02/12/2022 1 [place] [id number] Shon Dunlap [id number] Shon Dunlap 04/25/2022 1 [place] [id number] Shon Dunlap [id number] Shon Dunlap Notes Date Note Type Note [...] followed with Dr. Roy in nephrology at [facility]. He was eventually referred to hematology and diagnosed with CLL and is now taking Calquence, which is helping. Most recent creatinine was 3.26 on 12/14/2021. I reviewed his most recent lab reports from [facility]. PSA was 13.1 on 12/14/21, and then [...] in his uncle. Kennedy Almanzar MD [address] [facility],[address], [place], [address], [facility] 01/15/2022 10:28:32 02/12/2022 text/html HPI Notes: : New patient referred for elevated PSA. I previously saw him in 2013 for a PSA of 5.04 and he had a biopsy at that time which was benign. In the past couple of years, he was diagnosed with membranous nephropathy and followed with Dr. Roy in nephrology at [facility]. He was eventually referred to hematology and diagnosed with CLL and is now taking Calquence, which is helping. Most recent creatinine was 3.26 on 12/14/2021. I reviewed his most recent lab reports from [facility] and [facility]. PSA was 13.1 on 12/14/21, and then [...] No new urinary symptoms. Kennedy Almanzar MD [address] [place] [address],[address], [place], [address], [facility] 02/12/2022 10:19:10 04/25/2022 text/html HPI Notes: : New patient referred for elevated PSA. I previously saw him in 2013 for a PSA of 5.04 and he had a biopsy at that time which was benign. In the past couple of years, he was diagnosed with membranous nephropathy and followed with Dr. Roy in nephrology at [facility]. He was eventually referred to hematology and diagnosed with CLL and is now taking Calquence, which is helping. Most recent creatinine was 3.26 on 12/14/2021. I reviewed his most recent lab reports from [facility] and [facility]. PSA was 13.1 on 12/14/21, and then [...] urinary symptoms. 04/25/22: Follow-up PSA reviewed from [facility] records from 04/17/2022 was 13.0. Creatinine 3.26. He notices some whitish discoloration and sediment in his urine. No dysuria. Urinalysis today is positive for blood and leukocytes, nitrate negative. Kennedy Almanzar MD [address] [facility],[address], [place], [address], [facility] 04/25/2022 09:47:53
--- OUTSIDE RECORDS SUMMARY | 2024-05-25 17:20 | XMS_ITS | Clinical Summary ---
Author Organization [facility] Address [address] [place] [address] Care Team Providers Care Audio Visual Director Name Role Phone Agnieszka Reyes MD Primary Care Provider [phone] Source Comments You are receiving this document as you are listed as the primary care provider,follow-up provider, or the patient has been referred to you for consultation.This is in compliance with the Medicare and[facility] Cent[facility] EHR Incentive Program,which states Providers who transition their patient to another setting of careor provider of care or refers their patient to another provider of care shouldprovide summary care record for each transition of care or referral. 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 H/O umbilical hernia repair 04/07/2014 H/O inguinal hernia repair 04/07/2014 Seasonal allergies 04/07/2014 Immunizations Name Administration Dates Next Due Influenza IIV3 (Trivalent) F luzone Highdose, 65+ Yrs (88607) 09/03/2016,08/31/2015,07/23/2014 Influenza IIV4 (Quadrivalent ) Fluad, 65+ [...] CDT Appointment [facility] [address] [place] [address] 08/14/2024 3:00 PM CDT Office Visit [facility] [address] [place] [address] Annamarie Hannon MD [address] [facility] [address] [place] [address] Health Maintenance Due Date Last Done Comments [...] age to complete this topic Care Teams Audio Visual Director Relationship Specialty Start Date End Date Agnieszka Reyes MD [address] [place] [address] PCP - General Internal Medicine 09/03/16
--- OUTSIDE RECORDS SUMMARY | 2024-05-25 17:20 | XMS_ITS ---
Author Organization [facility] Address [address] [place] [address] Care Team Providers Care Cloth Sponger Name Role Phone Elsewhere, Pcp Primary Care [...] treatments are documented for this patient in [facility]. Treatments may have been administered in another system. Resolved Problems Problem Noted Date Diagnosed Date Resolved Date Rash Multiple Site 08/03/2020 1 Thyroiditis 08/02/2020 04/25/2021
--- OUTSIDE RECORDS SUMMARY | 2024-05-25 17:20 | XMS_ITS | Clinical Summary ---
Author Organization [facility] Address [address] [place] [address] Care Team Providers Care Director Non Profit Name Role Phone Elsewhere, Pcp Primary Care Provider Unavailabl e Source Comments Patient records contain information from all sites at [facility]. For routine questions regarding patient records, call [phone] during business hours, M-F 8:00 AM - 5:00 PM Central Time. Record requests for emergency care only can be directed to [phone] at any time.[facility] Allergies Active Allergy Reactions Criticality Noted Date [...] Refill Division of Nephrology and Hypertension in [place], [place] [address] [place] [address] Iesha Salcedo M.D. Med Refill 04/27/2024 Refill Division of Nephrology and Hypertension in [place], [place] [address] [place] [phone] Iesha Salcedo M.D. Med Refill 03/12/2024 10:00 AM CDT Telemedicine Division of Nephrology and Hypertension in [place], [place] [address] [place] [phone] Iesha Salcedo M.D. Glomerulonephritis Membranous 03/03/2024 10:13 AM CDT - 03/03/2024 11:59 PM CDT Hospital Encounter Department of Radiology in [address] [phone] Simin Centeno M.D., Ph.D. 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 02/24/2024 8:49 AM CDT - 02/24/2024 11:59 PM CDT Hospital Encounter Department of Laboratory Medicine in [place], [place] [address] [place] [phone] Malinda Benavidez M.B.B.S. Glomerulonephritis Membranous Discharge Disposition: Home or Self Care 02/24/2024 8:49 AM CDT - 02/24/2024 11:59 PM CDT Hospital Encounter Department of Laboratory Medicine in [address] [phone] Nan Romeo P.A.-C., M.S. Glomerulonephritis [...] = 0.6 oz pur e alcohol) [facility] Utilities Answer Date Recorded In the [...] often do you attend chur ch or denominational services? Never 02/08/2023 Do you belong to any clubs o r organizations such as jewish groups, unions, fraternal or athletic groups, or [...] care, and heating? Not very hard 02/08/2023 [place] of Occupat ional Health - Occupational Stress [...] this topic Medical Devices Implanted Type Area Contact Center Consultant Device Identifier Shelf Expiration Date Model [...] the abdomen and pelvis with IV contrast. Siimn Centeno M.D., Ph.D. IMG CT PROCEDURES * [...] CDT Malinda BenjaminBAmberS. LAB URINE OR DERABLES [facility] [address] [place] [address], [facility] NPRG [facility] [place] [address] [address] [place] [address] * Urinalysis, with Microscopic: Urine, Midstream (02/24/2024 [...] 8.0 02/24/2024 9:17 AM CDT NPRG Specific [place] 1.010 1.001 - 1.035 02/24/2024 9:17 AM [...] CDT Malinda Horvath LAB URINE OR DERABLES [facility] [address] [place] [address], [address] [address] * (ABNORMAL) PSA (Prostate-Specific Antigen) Screen (02/24/2024 8:59 AM CDT) Prostate-Specific Ag 11.7(H) <=6.5 ng/mL 02/24/2024 11:03 AM CDT [facility] Comment: ----ADDITIONAL INFORMATION---- The testing method is an electrochemiluminescence assay manufactured by [employer] and performed on the Modular or Cabrera system. Values obtained with different assay methods or kits may be different and cannot be used interchangeably. Test results cannot be interpreted as absolute evidence for the presence or absence of malignant disease. Blood (Blood, Venous) 02/24/2024 8:59 AM CDT 02/24/2024 9:13 AM CDT Malinda DoyleSAmber LAB BLOOD AD D-ON Performing Organization Address City/[facility]/ZIP Co de Phone Number [facility] [address] [place] [address], [address] [address] * Reticulocytes (02/24/2024 8:59 AM CDT) Reticulocytes, B 1.54 0.60 - 2.71 % 02/24/2024 3:31 PM CDT [facility] Absolute Reticulocyte 65.0 30.4 - 110.9 x10(9)/L 02/24/2024 3:31 PM CDT [facility] Blood (Blood, Venous) 02/24/2024 8:59 AM CDT 02/24/2024 3:11 PM CDT Patsy Pascual P.A.-C.AmberS. LAB BLOOD ADD-ON [facility] [address] [place] [address], [facility] MKTO [facility] in [place] [address] [place] [address] * (ABNORMAL) CBC with Differential, Blood (02/24/2024 [...] CDT Malinda DoyleSAmber LAB BLOOD AD D-ON [facility] [address] [place] [address], [address] [address] * S-TSH (Thyroid-Stimulating Hormone - Sensitive) (02/24/2024 8:59 AM CDT) TSH, Sensitive 2.0 0.3 - 4.2 mIU/L 02/24/2024 9:58 AM CDT NPR Blood (Blood, Venous) 02/24/2024 8:59 AM CDT 02/24/2024 9:13 AM CDT Malinda DolyeS. LAB BLOOD AD D-ON Performing Organization Address [facility] Co de Phone Number [facility] [address] [place] [address], [address] [address] * Parathyroid Hormone (PTH) (02/24/2024 8:59 AM CDT) Parathyroid Hormone (PTH), S 35 15 - 65 pg/mL 02/24/2024 4:31 PM CDT [facility] Comment: Biotin has been identified by the resistor coater as a potential interfering substance. Higher concentrations of biotin may be found in multivitamins, hair/nail supplements, and workout supplements. If the result does not match clinical observations, repeat testing after patient refrains from the use of supplements for at least 12 hours. Blood (Blood, Venous) 02/24/2024 8:59 AM CDT 02/24/2024 3:11 PM CDT Malinda DoyleS. LAB BLOOD AD D-ON [facility] [address] [place] [address], [facility] MKTO [facility] [place] [address] [place] [address] * LD (Lactate Dehydrogenase) (02/24/2024 8:59 AM CDT) Lactate Dehydrogenase (LD), P 167 122 - 222 U/L 02/24/2024 9:36 AM CDT NPRG Blood (Blood, Venous) 02/24/2024 8:59 AM CDT 02/24/2024 9:13 AM CDT Nan Romeo P.A.-C., M.S. LAB BLOOD NON ADD-ON Performing Organization Address City/[facility]/ZIP Co de Phone Number [facility] [address] [place] [address], [facility] NPRG [facility] [address] [place] [address] * (ABNORMAL) Immunoglobulin G (IgG) (02/24/2024 8:59 AM CDT) Immunoglobulin G (IgG), S 689(L) 767 - 1590 mg/dL 02/25/2024 9:55 AM CDT [facility] Blood (Blood, Venous) 02/24/2024 8:59 AM CDT 02/25/2024 6:16 AM CDT Nan Romeo P.A.-C., M.S. LAB BLOOD ADD-ON [facility] [address] [place] [address] [facility] [address] [place] [address] * (ABNORMAL) Comprehensive Metabolic Panel (02/24/2024 8:59 [...] CDT Malinda Horvath LAB BLOOD AD D-ON [facility] [address] [place] [address], [facility] NPRG [place] [address] [address] [place] [address] * Creatinine, 24 hour, Urine (02/24/2024 7:30 [...] M.D. LAB URINE ORDERABLES Performing Organization Address City/[facility]/ZIP Co de Phone Number [facility] [address] [place] [address], [facility] NPRG [place] [address] [address] [place] [address] * Sodium, 24 hour, Urine (02/24/2024 7:30 AM CDT) Sodium, 24 HR, U 121 22 - 328 mmol/24 h 02/24/2024 9:30 AM CDT NPRG Collection Duration 24 h 02/24/2024 9:00 AM CDT NPRG Urine Volume 1475 mL 02/24/2024 9:00 AM CDT NPRG Urine (Urine, 24 Hours) 02/24/2024 7:30 AM CDT 02/24/2024 9:00 AM CDT Iesha Salcedo M.D. LAB URINE ORDERABLES [facility] [address] [place] [address], [place] NPRG [address] [address] * Protein, Total, 24 hour, Urine (02/24/2024 7:30 AM CDT) Total Protein, 24 HR, U 103 <229 mg/24 h 02/24/2024 9:30 AM CDT NPRG Collection Duration 24 h 02/24/2024 9:00 AM CDT NPRG Urine Volume 1475 mL 02/24/2024 9:00 AM CDT NPRG Urine (Urine, 24 Hours) 02/24/2024 7:30 AM CDT 02/24/2024 9:00 AM CDT Iesha Salcedo M.D. 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
--- OUTSIDE RECORDS SUMMARY | 2024-05-25 17:20 | XMS_ITS ---
Author Organization [facility] Address [address] [place] [address] Care Team Providers Care Visual Presentation Manager Name Role Phone Unavailable Unavailable Unavailable Surgery Details Not on file Complications Check Surgery Details section. Procedure Estimated Blood Loss Check Surgery Details section. Procedure Findings Check Surgery Details section. Procedure Specimens Taken Check Surgery Details section.
--- OUTSIDE RECORDS SUMMARY | 2024-05-25 17:20 | XMS_ITS | Encounter Summary ---
Author Organization [facility] Address [address] [place] [address] Care Team Providers Care Legal Administrative Assistant Name Role Phone Elsewhere, Pcp Primary Care Provider Unavailabl e Reason for Visit * Reason Comments Med Refill Encounter Details Date Type Department Care Team (Late st Contact Info) Description 04/27/2024 Refill Division of Nephrology and Hypertension in [place], [place] [address] [place] [phone] Iesha Salcedo M.D. [address] [place] [phone] Med Refill Social History Tobacco Use Types Packs/Day Years Used Date Smoking Tobacco: Former Cigarettes 1 44 0 01/24/1960 - 01/24/2004 Smokeless Tobacco: Never Alcohol Use Standard Drinks/Week Comments Not Currently 0 (1 standard drink = 0.6 oz pur e alcohol) [facility] Utilities Answer Date Recorded In the past [...] often do you attend chur ch or sabianism services? Never 02/08/2023 Do you belong to [...] care, and heating? Not very hard 02/08/2023 [facility] of Occupat ional Health - Occupational [...] place to sleep or slept in a fci (including now)? No 02/08/2023 Nutrition Answer Date [...] documented as of this encounter Care Teams Legal Administrative Assistant Relationship Specialty Start Date End Date Elsewhere, Pcp PCP - General Internal Medicine 04/17/22 documented as of this encounter
--- OUTSIDE RECORDS SUMMARY | 2024-05-25 17:20 | XMS_ITS | Encounter Summary ---
Author Organization [facility] Address [address] [place] [address] Care Team Providers Care Internal Audit Manager Name Role Phone Elsewhere, Pcp Primary Care Provider Unavailabl e Reason for Referral * Outpatient (Routine) - Authorized Specialty Diagnoses / Procedures Referred By Matt atkinson Referred To Contact Nephrology and Hypertension Simon Kline M.D. [address] [place] [phone] Iesha Salcedo M.D. [address] [place] [phone] Referral ID Status Reason Start Date Expiration Date V isits Requested Visits Authorized [id number] Authorized 03/12/2024 09/11/2025 1 1 Reason for Visit * Outpatient (Routine) - Closed Specialty Diagnoses / Procedures Referred By Matt atkinson Referred To Contact Nephrology and Hypertension Diagnoses Glomerulonephritis Membranous Malinda Benavidez M.B.BAmberS. [address] [place] [phone] Iesha Salcedo M.D. [address] [place] [phone] Referral ID Status Reason Start Date Expiration Date Visits Re quested Visits Authorized [id number] Closed 08/15/2023 08/14/2026 1 1 Encounter Details Date Type Department Care Team (Latest Contact Info) Description 03/12/2024 10:00 AM CDT Telemedicine Division of Nephrology and Hypertension in [place], [place] [address] [place] [phone] Iesha Salcedo M.D. [address] [place] [phone] Glomerulonephritis Membranous Social History Tobacco Use Types Packs/Day Years Used Date Smoking Tobacco: Former Cigarettes 1 44 0 01/24/1960 - 01/24/2004 Smokeless Tobacco: Never Alcohol Use Standard Drinks/Week Comments Not Currently 0 (1 standard drink = 0.6 oz pur e alcohol) [facility] Utilities Answer Date Recorded In the past 12 months has e [employer], gas, oil, or water [employer] threatened to shut off services in your [...] week 02/08/2023 How often do you attend [facility] or jainism services? Never 02/08/2023 Do you belong to [...] care, and heating? Not very hard 02/08/2023 [facility] [place] of Occupat ional Health - Occupational Stress [...] place to sleep or slept in a care home (including now)? No 02/08/2023 Nutrition Answer [...] audio/video technology by Simon Kline M.D. [facility] the [facility] in Patient's Home SUBJECTIVE [...] mg/g in May 2020, and further to 04531zp/g in July 2020, 36278 mg/g in August, and 47,000 mg/g in [...] hour(s)). Recent Labs 02/24/24 0730 08/08/23 0857 [id number] 121 144 ASSESSMENT / PLAN #1 Chronic [...] documented as of this encounter Care Teams Internal Audit Manager Relationship Specialty Start Date End Date Elsewhere, Pcp PCP - General Internal Medicine 04/17/22 documented as of this encounter
--- OUTSIDE RECORDS SUMMARY | 2024-05-25 17:20 | XMS_ITS | Encounter Summary ---
Author Organization [facility] Address [address] [place] [address] Care Team Providers Care Landscape Drafter Name Role Phone Elsewhere, Pcp Primary Care Provider Unavailabl e Reason for Visit * Reason Comments Med Refill Encounter Details Date Type Department Care Team (Late st Contact Info) Description 05/07/2024 Refill Division of Nephrology and Hypertension in [place], [place] [address] [place] [phone] Iesha Salcedo M.D. [address] [place] [phone] Med Refill Social History Tobacco Use Types Packs/Day Years Used Date Smoking Tobacco: Former Cigarettes 1 44 0 01/24/1960 - 01/24/2004 Smokeless Tobacco: Never Alcohol Use Standard Drinks/Week Comments Not Currently 0 (1 standard drink = 0.6 oz pur e alcohol) [facility] Utilities Answer Date Recorded In the [...] often do you attend chur ch or mu-ism services? Never 02/08/2023 Do you belong to any clubs o r organizations such as anabaptism groups, unions, fraternal or athletic groups, or [...] place to sleep or slept in a intermediate (including now)? No 02/08/2023 Nutrition Answer Date [...] documented as of this encounter Care Teams Landscape Drafter Relationship Specialty Start Date End Date Elsewhere, Pcp PCP - General Internal Medicine 04/17/22 documented as of this encounter
--- OUTSIDE RECORDS SUMMARY | 2024-05-25 17:21 | XMS_ITS | Encounter Summary ---
Author Organization [facility] Address [address] [place] [address] Care Team Providers Care Ornamental Iron Worker Apprentice Name Role Phone Elsewhere, Pcp Primary Care Provider Unavailabl e Encounter Details Date Type Department Care Team (Late st Contact Info) Description 02/29/2024 Orders Only Division of Hematology in [place], [place] [address] [place] [phone] Simin Centeno M.D., Ph.D. [address] [place] [phone] Social History Tobacco Use Types Packs/Day Years Used Date Smoking Tobacco: Former Cigarettes 1 44 0 01/24/1960 - 01/24/2004 Smokeless Tobacco: Never Alcohol Use Standard Drinks/Week Comments Not Currently 0 (1 standard drink = 0.6 oz pur e alcohol) [facility] Utilities Answer Date Recorded In the past 12 months has [facility] [place], gas, oil, or water [employer] threatened to shut off services in your [...] often do you attend chur ch or methodist services? Never 02/08/2023 Do you belong to any clubs o r organizations such as advent groups, unions, fraternal or athletic groups, or [...] care, and heating? Not very hard 02/08/2023 [facility] of Occupat ional Health - Occupational [...] place to sleep or slept in a custodial (including now)? No 02/08/2023 Nutrition Answer Date [...] documented as of this encounter Care Teams Ornamental Iron Worker Apprentice Relationship Specialty Start Date End Date Elsewhere, Pcp PCP - General Internal Medicine 04/17/22 documented as of this encounter
--- OUTSIDE RECORDS SUMMARY | 2024-05-25 17:21 | XMS_ITS | Encounter Summary ---
Author Organization [facility] Address [address] [place] [address] Care Team Providers Care Director Volunteer Services Name Role Phone Elsewhere, Pcp Primary Care Provider Unavailabl e Reason for Referral * Outpatient (Routine) - Authorized Specialty Diagnoses / Procedures Referred By Matt atkinson Referred To Contact Hematology Oncology Simin Centeno M.D., Ph.D. 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 [address] [place] [phone] [facility] Referral ID Status Reason Start Date Expiration Date Visits Re quested Visits Authorized [id number] Closed 03/02/2024 03/02/2025 1 1 Reason for Visit * Outpatient (Routine) - Closed Specialty Diagnoses / Procedures Referred By Matt atkinson Referred To Contact Hematology Oncology Nan Romeo P.A.-C., M.S. [address] [place] [phone] [facility] Referral ID Status Reason Start Date Expiration Date Visits Re quested Visits Authorized [id number] Closed 08/15/2023 08/14/2026 1 1 Encounter Details Date Type Department Care Team (Late st Contact Info) Description 03/02/2024 1:00 PM CDT Office Visit Division of Hematology in [place], [place] [address] [place] [phone] Simin Centeno M.D., Ph.D. 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 Never 02/08/2023 Do you belong to any clubs o r organizations such as spiritism groups, unions, fraternal or athletic groups, or [...] care, and heating? Not very hard 02/08/2023 [facility] [place] of Occupat ional Health - Occupational Stress [...] was high (19) around 2014- [place] the [place], but he was not given a diagnosis [...] He saw Dr. Salcedo in Nephrology in [place] onApril 2020. The 24 hour urine protein [...] 20% CLL/SLL involvement 03/29/2021 [place] Referred to [place] [facility] for consideration of therapy Bone marrow [...] explanation of plan of care, chart review, [id number] interview. documented in this encounter Plan of [...] Diagnoses Order Schedule Hematology office visit (clinic) [facility]; CLL; General Outpatient Referral Routine Expected: [...] as of this encounter Care Teams Director Volunteer Services Relationship Specialty Start Date End Date Elsewhere, Pcp PCP - General Internal Medicine 04/17/22 documented as of this encounter
--- OUTSIDE RECORDS SUMMARY | 2024-05-25 17:21 | XMS_ITS | Encounter Summary ---
Author Organization [facility] Address [address] [place] [address] Care Team Providers Care Residential Recycle Driver Name Role Phone Elsewhere, Pcp Primary Care Provider Unavailabl e Encounter Details Date Type Department Care Team (Latest Contact Info) Description 02/24/2024 8:49 AM CDT - 02/24/2024 11:59 PM CDT Hospital Encounter Department of Laboratory Medicine in [place], [place] [address] [place] [phone] Malinda Benavidez M.B.B.S. [address] [place] [phone] Glomerulonephritis Membranous Discharge Disposition: Home or Self Care Social History Tobacco Use Types Packs/Day Years Used Date Smoking Tobacco: Former Cigarettes 1 44 0 01/24/1960 - 01/24/2004 Smokeless Tobacco: Never Alcohol Use Standard Drinks/Week Comments Not Currently 0 (1 standard drink = 0.6 oz pur e alcohol) [facility] Utilities Answer Date Recorded In the past 12 months has e [employer], gas, oil, or water company threatened to [...] How often do you attend chur or protestant services? Never 02/08/2023 Do you belong to [...] care, and heating? Not very hard 02/08/2023 [facility] of Occupat ional Health - [...] place to sleep or slept in a retirement (including now)? No 02/08/2023 Nutrition Answer Date [...] 8.0 02/24/2024 9:17 AM CDT NPRG Specific [place] 1.010 1.001 - 1.035 02/24/2024 9:17 AM [...] CDT Malinda Horvath LAB URINE OR DERABLES [facility] [address] [place] [address], [facility] NPRG [facility] [address] [place] [address] * Protein/Creatinine Ratio, Random, Urine (02/24/2024 9:01 AM CDT) Protein, Total, Random, U 5 mg/dL 02/24/2024 9:31 AM CDT NPRG Creatinine, Random, U 41 16 - 326 mg/dL 02/24/2024 9:31 AM CDT NPRG Protein/Creatin ine Ratio 0.12 <0.18 mg/mg 02/24/2024 9:31 AM CDT NPRG Urine (Urine, Midstream) 02/24/2024 9:01 AM CDT 02/24/2024 9:13 AM CDT Malinda DoyleSAmber LAB URINE OR DERABLES [facility] [address] [place] [address], [facility] NPRG [facility] [address] [place] [address] documented in this encounter Visit Diagnoses Diagnosis Glomerulonephritis Membranous documented in this encounter Additional Health Concerns Infection Onset Date Last Indicated Resolved Time Protective Environment 03/01/2023 03/01/2023 documented as of this encounter Care Teams Residential Recycle Driver Relationship Specialty Start Date End Date Elsewhere, Pcp PCP - General Internal Medicine 04/17/22 documented as of this encounter
--- OUTSIDE RECORDS SUMMARY | 2024-05-25 17:21 | XMS_ITS | Encounter Summary ---
Author Organization [facility] Address [address] [place] [address] Care Team Providers Care Cutter And Edge Trimmer Name Role Phone Elsewhere, Pcp Primary Care Provider Unavailabl e Encounter Details Date Type Department Care Team (Latest Contact Info) Description 02/24/2024 8:49 AM CDT - 02/24/2024 11:59 PM CDT Hospital Encounter Department of Laboratory Medicine in [place], [place] [address] [place] [phone] Nan Romeo P.A.-C., M.S. 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 Never 02/08/2023 Do you belong to any clubs o r organizations such as latter-day groups, unions, fraternal or athletic groups, or [...] care, and heating? Not very hard 02/08/2023 [facility] [place] of Occupat ional Health - Occupational Stress [...] (IgG) (02/24/2024 8:59 AM CDT) Pathologist [facility] Immunoglobulin G (IgG), S 689(L) 767 - 1590 mg/dL 02/25/2024 9:55 AM CDT [facility] Blood (Blood, Venous) 02/24/2024 8:59 AM CDT 02/25/2024 6:16 AM CDT Nan Romeo P.A.-C. M.S. LAB BLOOD ADD-ON [facility] [address] [place] [address] [facility] [address] [place] [address] * Reticulocytes (02/24/2024 8:59 AM CDT) Reticulocytes, B 1.54 0.60 - 2.71 % 02/24/2024 3:31 PM CDT [facility] Absolute Reticulocyte 65.0 30.4 - 110.9 x10(9)/L 02/24/2024 3:31 PM CDT [facility] Blood (Blood, Venous) 02/24/2024 8:59 AM CDT 02/24/2024 3:11 PM CDT Nan Romeo P.A.-C. M.S. LAB BLOOD ADD-ON Performing Organization Address City/[facility]/ZIP Co de Phone Number [facility] [address] [place] [address], [facility] MK[facility] [address] [place] [address] * LD (Lactate Dehydrogenase) (02/24/2024 8:59 AM CDT) Lactate Dehydrogenase (LD), P 167 122 - 222 U/L 02/24/2024 9:36 AM CDT [facility] Blood (Blood, Venous) 02/24/2024 8:59 AM CDT 02/24/2024 9:13 AM CDT Nan Romeo P.A.-C. M.S. LAB BLOOD NON ADD-ON Performing Organization Address [facility] Co de Phone Number [facility] [address] [place] [address], [facility] NPRG [facility] [address] [place] [address] * Parathyroid Hormone (PTH) (02/24/2024 8:59 AM CDT) Parathyroid Hormone (PTH), S 35 15 - 65 pg/mL 02/24/2024 4:31 PM CDT [facility] Comment: Biotin has been identified by the adult remedial education instructor as a potential interfering substance. Higher concentrations of biotin may be found in multivitamins, hair/nail supplements, and workout supplements. If the result does not match clinical observations, repeat testing after patient refrains from the use of supplements for at least 12 hours. Blood (Blood, Venous) 02/24/2024 8:59 AM CDT 02/24/2024 3:11 PM CDT Malinda Horvath LAB BLOOD AD D-ON Performing Organization Address City/[facility]/ZIP Co de Phone Number [facility] [address] [place] [address], [facility] MKTO [facility] [address] [place] [address] * S-TSH (Thyroid-Stimulating Hormone - Sensitive) (02/24/2024 8:59 AM CDT) TSH, Sensitive 2.0 0.3 - 4.2 mIU/L 02/24/2024 9:58 AM CDT [facility] Blood (Blood, Venous) 02/24/2024 8:59 AM CDT 02/24/2024 9:13 AM CDT Malinda BenjaminB.S. LAB BLOOD AD D-ON Performing Organization Address [facility] Co de Phone Number [facility] [address] [place] [address], [facility] [address] [address] * (ABNORMAL) PSA (Prostate-Specific Antigen) Screen (02/24/2024 [...] LAB BLOOD AD D-ON Performing Organization Address [facility]/ZIP Co de Phone Number [facility] [address] [place] [address], [facility] NPRG [facility] [place] [address] [place] [address] * (ABNORMAL) Comprehensive Metabolic Panel (02/24/2024 8:59 [...] CDT Malinda Horvath LAB BLOOD AD D-ON [facility] [address] [place] [address], [facility] NPRG [facility] [address] [place] [address] * (ABNORMAL) CBC with Differential, Blood (02/24/2024 [...] CDT Malinda Horvath LAB BLOOD AD D-ON 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
[2024-05-25 18:25] VITALS: BP 126/73; PULSE 76; RESP 18; O2SAT 95
[2024-05-25] MEDS: ACETAMINOPHEN 500 MG TABLET 1000 MG PO (18:27)
== END 2024-05-25 18:33 | disposition home or self-care (01) ==
PROVIDERS: Emergency Provider Family Medicine; PCP Family Medicine
DX: S02.2XXA Fracture of nasal bones, initial encounter for closed fracture (principal); S02.401A Maxillary fracture, unspecified side, initial encounter for closed fracture; V49.9XXA Car occupant (driver) (passenger) injured in unspecified traffic accident, initial encounter; R04.0 Epistaxis
CPT/HCPCS: 30901; 70450; 70486; 72125; 99283; 99284; A9270

== ENCOUNTER 2024-12-08 11:15 | Outpatient (CLI) | payer MEDICARE, BC, SELFPAY ==
[2024-12-08 11:27] LABS: Hematocrit 41.7 % (37.0-53.0); Hemoglobin* 13.3 gm/dL (13.5-17.5); Mean Corpuscular HGB Conc 32 gm/dL (32-36); Mean Corpuscular Hemoglobin 31 pg (26-34); Mean Corpuscular Volume 97 fL (80-100); Platelet Count* 235 K/uL (140-440); White Blood Count* 12.02 K/uL (4.50-11.00)
[2024-12-08 11:28] LABS: Slide Review Reflex No
[2024-12-08 16:32] LABS: Chloride* 103 mmol/L (96-114); Potassium* 4.4 mmol/L (3.6-5.1); Sodium* 138 mmol/L (135-149)
[2024-12-08 16:34] LABS: Aspartate Amino Transferase* 43 U/L (12-35); Carbon Dioxide* 27 mmol/L (20-32); Estimated Glomerular Filt Rate 33 ml/min
[2024-12-08 16:35] LABS: Alanine Aminotransferase* 42 U/L (4-50); Alkaline Phosphatase* 61 U/L (40-150); Anion Gap 8 mEq/L (7-15); Blood Urea Nitrogen* 37 mg/dL (7-30); Calcium* 9.9 mg/dL (8.4-10.6); Glucose* 102 mg/dL (60-115); Total Protein* 6.1 g/dL (6.0-8.3)
[2024-12-08 16:50] LABS: Bilirubin Total* 0.6 mg/dL (0.1-1.5)
== END 2024-12-08 11:16 | disposition home or self-care (01) ==
LOC: LKVREF 11:16
PROVIDERS: PCP Family Medicine; Visit Provider Family Medicine
DX: C91.10 Chronic lymphocytic leukemia of B-cell type not having achieved remission (principal); N18.4 Chronic kidney disease, stage 4 (severe)
CPT/HCPCS: 80053; 85027

== ENCOUNTER 2025-05-20 08:50 | Outpatient (CLI) | payer MEDICARE, BC, SELFPAY | END 2025-05-20 08:51 | disposition home or self-care (01) | LOC: NFLDREF 05-24 14:49 | PROVIDERS: PCP Family Medicine; Referring Provider Family Medicine; Visit Provider Family Medicine | DX: R97.20 Elevated prostate specific antigen [PSA] (principal); E03.9 Hypothyroidism, unspecified; E78.5 Hyperlipidemia, unspecified; N18.4 Chronic kidney disease, stage 4 (severe); R53.83 Other fatigue; Z12.5 Encounter for screening for malignant neoplasm of prostate | CPT/HCPCS: 80053; 80061; 84153; 84154; 84443 ==

== ENCOUNTER 2025-09-06 15:15 | Outpatient (CLI) | payer MEDICARE, BC, SELFPAY ==
--- NOTE | 2025-09-06 15:30 | MR_ITS ---
[address] [address] Phone:?[phone] Fax:?[phone] Referring Physician Information: Chas Farnsworth M.D. [address] [facility] [address] Phone:?[phone] Fax:?[phone] Patient:Gato Dunlap D.O.B:?1945 Sex:?Male Phone:?[phone] [facility] MRN:?[id number] Exam Date:?09/06/2025 EXAM:?MR PROSTATE WITHOUT AND WITH CONTRAST CLINICAL INFORMATION: Elevated PSA. COMPARISON: None TECHNICAL INFORMATION: Examination was performed on a 1.5T magnet. High- resolution T1 axial, T2 axial, T2 FSE sagittal and T2 FSE coronal images were obtained through the prostate gland and seminal vesicles. Diffusion images were obtained in the axial plane. 20 mL of Dotarem were injected with dynamic enhanced images of the prostate gland in the axial plane. T1 fat saturation sagittal and coronal images were obtained postinjection. Images were analyzed with 3-D postprocessing online under concurrent physician supervision using a separate [employer] workstation. Amount of IV contrast discarded is 0 mL. INTERPRETATION: The prostate gland measures 5.5 x 5.2 x 6.1 cm (TV x AP x SI) for an estimated volume of 85 cc. Transitional and central zones: Glandular and stromal hyperplasia. No discrete lesion. Peripheral zones: Mild wispy T2 hypointensity in the peripheral zone without discrete lesion. Pelvis: No pete transcapsular disease. Neurovascular bundles and seminal vesicles appear intact. No pelvic lymphadenopathy or evident bone marrow disease. Trabeculated appearance of the bladder. CONCLUSION: * Prostamegaly with BPH changes. No suspicious PI-RADS 3, 4 or 5 lesion. * No pete transcapsular, gina, or skeletal disease in the pelvis. * Trabeculated appearance of the bladder. PI-RADS Assessment Categories: Score 1 = very low; clinically significant disease highly unlikely Score 2 = low; clinically significant disease is unlikely Score 3 = intermediate; clinically significant disease is equivocal Score 4 = high; clinically significant disease is likely Score 5 = very high; clinically significant disease is highly likely Electronically signed on 09/07/2025 11:49:00 AM by Jim Ramos D.O
== END 2025-09-06 15:16 | disposition home or self-care (01) ==
PROVIDERS: PCP Family Medicine; Visit Provider Urology
DX: R97.20 Elevated prostate specific antigen [PSA] (principal)
CPT/HCPCS: 72197; A9575